=== PATIENT | female | born 1935 | race Caucasian/White ===

== ENCOUNTER → 2020-08-04 12:33 | Outpatient (BNVA) | payer MEDICARE, SELFPAY | PROVIDERS: Visit Provider Physician Assistant | DX: M17.0 Bilateral primary osteoarthritis of knee (principal) | CPT/HCPCS: 20610; 99212; J1040 ==

== ENCOUNTER 2020-09-16 14:59 | Outpatient (REF) | payer MEDICARE, SELFPAY ==
[2020-09-16 15:43] LABS: MANUAL DIFF FLAG NO
[2020-09-16 15:46] LABS: Basophils Percent Auto 0.4 % (0-2); Eosinophils Percent Auto 0.3 % (0-4); Hematocrit 37.2 % (37-47); Hemoglobin 11.8 g/dl (12.0-16.0); Imm Gran Abs Auto 0.06 X10*3/uL (0.00-0.03); Imm Gran Pct Auto 0.9 % (0.0-0.4); Lymphocytes Absolute Auto 1.5 X10*3/uL (1.2-4.9); Lymphocytes Percent Auto 21.8 % (20-40); Mean Corpuscular HGB Conc 31.7 g/dl (31.0-35.0); Mean Corpuscular Hemoglobin 30.3 pg (27.0-33.0); Mean Corpuscular Volume 95.4 fL (80-98); Mean Platelet Volume 11.5 fL (9.4-12.3); Monocytes Absolute Auto 0.4 X10*3/uL (0.1-1.2); Monocytes Percent Auto 5.8 % (2-11); Neutrophils Absolute Auto 4.9 X10*3/uL (2.0-8.3); Neutrophils Percent Auto 70.8 % (45-73); Platelet Count 187 X10*3/uL (160-400); Red Cell Distribution Width 17.7 % (11.0-16.0); White Blood Count 6.9 X10*3/uL (4.8-10.8)
[2020-09-16 16:13] LABS: Alanine Aminotransferase 8 U/L (0-31); Albumin Level 4.1 g/dL (3.5-5.0); Alkaline Phosphatase 39 U/L (39-117); Anion Gap 22 (12-20); Aspartate Amino Transferase 16 U/L (5-31); Bilirubin Total 0.5 mg/dL (0.0-1.0); Blood Urea Nitrogen 66 mg/dL (9-16); C Reactive Protein 0.64 mg/dL (< or = 0.50); Calcium 10.8 mg/dL (8.4-10.2); Carbon Dioxide 24 mmol/L (22-29); Chloride 96 mmol/L (96-108); Estimated Glomerular Filt Rate 12; Glucose Random 107 mg/dL (60-115); Iron 79 mcg/dL (30-160); Lipase 19 U/L (8-78); Percent Iron Saturation 28 % (15-50); Potassium 4.9 mmol/l (3.3-5.1); Sodium 137 mmol/L (135-145); Total Iron Binding Capacity 282 mcg/dL (228-428); Total Protein 6.6 g/dL (6.5-8.0); Unsaturated Iron Binding 203 ug/dL
[2020-09-16 16:30] LABS: Free T4 (Free Thyroxine) 1.25 ng/dL (0.71-1.85); Thyroid Stimulating Hormone 1.37 uIU/mL (0.32-4.0)
== END 2020-09-16 15:00 | disposition home or self-care (01) ==
LOC: HO.LAB 14:59
PROVIDERS: PCP Internal Medicine; Visit Provider Internal Medicine
DX: I12.9 Hypertensive chronic kidney disease with stage 1 through stage 4 chronic kidney disease, or unspecified chronic kidney disease (principal); N18.9 Chronic kidney disease, unspecified; R63.4 Abnormal weight loss; M17.0 Bilateral primary osteoarthritis of knee; D50.9 Iron deficiency anemia, unspecified
CPT/HCPCS: 36415; 80053; 83540; 83690; 84439; 84443; 85025; 86140

== ENCOUNTER 2020-09-24 09:21 | Outpatient (REF) | payer MEDICARE, SELFPAY ==
--- NOTE | 2020-09-24 09:26 | CT_ITS ---
EXAMINATION: CT CHEST, ABDOMEN AND PELVIS WITHOUT CONTRAST CLINICAL INFORMATION: Weight loss. Rule out lesion. COMPARISON: Previous chest x-ray March 2019 and previous abdominal and pelvic CT June 2013 TECHNIQUE: Axial images through the chest, abdomen and pelvis without IV or oral contrast. Sagittal and coronal reconstructions on the technologist workstation were performed. Patient dose 83+2 6 4 mg/cm. FINDINGS: Chest: There is a 2 mm left lower lobe nodule axial image 399 series 9. There is minimal linear scarring or subsegmental atelectasis in the medial left lower lobe adjacent to the spine. The visualized thyroid gland is normal. There is low-attenuation in the pretracheal region. Uncertain whether this represents a cyst, loculated fluid or low-attenuation lymph node. This measures 1.8 x 2 cm axial image 19 series 7 and Hounsfield units without contrast measure 17. No other evidence of adenopathy. There is a large esophageal hernia or intrathoracic stomach. The heart does not appear enlarged. There is moderate to severe coronary artery calcification. There is aortic valve calcification. The thoracic aorta is tortuous but normal in caliber. There is no pleural effusion or pleural thickening. No chest wall mass or enlarged axillary lymph nodes are seen. Review at bone windows demonstrates degenerative changes of the spine and scoliosis and degenerative changes at the shoulder joints. Abdomen and pelvis: There are 2 small low-attenuation lesions high in the dome of the liver and right lobe of the liver adjacent to the gallbladder that are stable and probably represent cysts. Largest measures 1 cm axial image 11 series 3. There is a small calcification seen high in the dome of the liver that is new from previous exam. The liver is otherwise unremarkable. The gallbladder is unremarkable. There is no biliary duct dilatation. The pancreas is unremarkable. The spleen is unremarkable. The adrenal glands are unremarkable. There are 2 low-attenuation right renal lesion probably representing cysts. The kidneys are otherwise unremarkable. The bladder is unremarkable. The uterus appears to have been removed. No pelvic mass is seen. There is diverticulosis of the colon. Small and large bowel is otherwise unremarkable. The appendix is not identified. There is a large esophageal hernia. The stomach is otherwise unremarkable. There is severe atherosclerotic disease. No aneurysm is seen. No ascites or adenopathy is seen. There is a right inguinal hernia containing fat. There is a small umbilical hernia containing fat. There is a severe thoracolumbar scoliosis. There are degenerative changes of the spine and hip joints. No fracture or bone lesion is seen. CT/CT abdomen pelvis wo con IMPRESSION: Chest: Small left lower lobe pulmonary nodule and left lower lobe linear scarring or subsegmental atelectasis. Coronary artery and aortic valve calcification. Large esophageal hernia or intrathoracic stomach. 1.8 x 2 cm low-attenuation lesion in the mediastinum anterior to the trachea. It is uncertain whether this could represent a cyst, loculated fluid or represents cystic degeneration or necrotic mediastinal lymph node. No other adenopathy seen. Abdomen and pelvis: Stable small low-attenuation liver lesions probably representing cysts. Diverticulosis of the colon. Atherosclerotic disease.
== END 2020-09-24 09:22 | disposition home or self-care (01) ==
LOC: HO.CT 09:21
PROVIDERS: Visit Provider Internal Medicine
DX: R63.4 Abnormal weight loss (principal)
CPT/HCPCS: 71250; 74176

== ENCOUNTER 2020-10-10 11:25 | Day surgery (SDC) | payer MEDICARE, SELFPAY ==
--- NOTE | 2020-10-08 14:59 | HO.ANESPROP2 ---
Documented by User: Anahy Lang 10/08/20 15:35 HPI - Anesthesia Eval Consult details Narrative: 85yo F for Upper Endoscopy Significant increase in creat from 04/2020 to 09/2020. T/C with Dr Moran (PCP). He is aware. OK to proceed with Endoscopy. [facility] Past Medical History Medical History GERD (gastroesophageal reflux disease) HTN (hypertension) Osteoarthritis of knees, bilateral Surgical History Surgical History S/P left knee arthroscopy Social History Social History Advance Directives: Yes Advance Directives Information Provided: Yes Advance Directives on File: No Meds Allergies Allergy/AdvReac Type Severity Reaction Status Date / Time cat dander [CAT] Allergy Unknown SNEEZE, Verified 10/10/20 12:11 EYES SWELL UP Home Medications Medication Instructions Recorded Confirmed Type furosemide 20 mg tablet 20 mg PO Q OTHER DAY 07/16/20 History furosemide 40 mg tablet 40 mg PO DAILY 07/16/20 History hydralazine 25 mg tablet 25 mg PO TID 07/16/20 History hydrochlorothiazide 25 mg tablet 25 mg PO DAILY 07/16/20 History omeprazole 20 mg capsule,delayed 20 mg PO DAILY 07/16/20 History release Exam Exam Date and Time: October 08, 2020 1459 Documented by User: Yousif Marx MD 10/10/20 12:16 [facility] Past Medical History Medical History GERD (gastroesophageal reflux disease) HTN (hypertension) Osteoarthritis of knees, bilateral Surgical History Surgical History S/P left knee arthroscopy Social History Social History Advance Directives: Yes Advance Directives Information Provided: Yes Advance Directives on File: No Meds Allergies Allergy/AdvReac Type Severity Reaction Status Date / Time cat dander [CAT] Allergy Unknown SNEEZE, Verified 10/10/20 12:11 EYES SWELL UP Home Medications Medication Instructions Recorded Confirmed Type furosemide 20 mg tablet 20 mg PO Q OTHER DAY 07/16/20 History furosemide 40 mg tablet 40 mg PO DAILY 07/16/20 History hydralazine 25 mg tablet 25 mg PO TID 07/16/20 History hydrochlorothiazide 25 mg tablet 25 mg PO DAILY 07/16/20 History omeprazole 20 mg capsule,delayed 20 mg PO DAILY 07/16/20 History release Exam Airway Mallampati Class: III TM Dist: <=3cm Neck ROM: Full Denture: Upper and Lower Heart: RRR Lungs: NL Assessment and Plan Assessment Anesthesia Assessment: Anesthesia Plan Discussed and Chart Reviewed (Last lab showed K of 4.9, rhythm unremarkable. Cleared by nephrology and PCP per patient report and preop note.) Final Anesthetic Review NPO: Yes ASA Class: III Final Preanesthetic Review: No Changes in Pt Med Stat, Meds/Allgs Chart Reviewed, Consent Obtained/Reviewed and Anes Risks/Benef Reviewed Patient Risk: High Procedure Risk: Low Anesthetic Plan Anesthetic Plan: MAC: Disposition: Standard PACU
[2020-10-10 12:12] VITALS: BP 147/83; PULSE 83; RESP 18; TEMP 37.6; O2SAT 98; BMI 22.9
[2020-10-10 12:50] VITALS: BP 120/65; PULSE 74; RESP 20; TEMP 36.3; O2SAT 100
--- NOTE | 2020-10-10 12:53 | PM.OP ---
Brief Operative Note Date of Service: 10/10/20 Pre-op diagnosis: Early satiety, Abnormal CT of stomach Post-op diagnosis: other (Esophageal stricture, Hiatal hernia) Procedure: EGD with Balloon dilation of esophageal stricture Surgeon: Nixon Thorpe Anesthesia: MAC Estimated blood loss (mL): 4.0 Pathology: none sent Condition: stable Disposition: PACU
[2020-10-10 13:05] VITALS: BP 144/73; PULSE 68; RESP 18; O2SAT 95
--- NOTE | 2020-10-10 13:09 | OP_ITS ---
SURGEON: Nixon Thorpe MD INDICATIONS: Full consent has been obtained from her for this, including risks of bleeding and perforation. PREOPERATIVE DIAGNOSIS: POSTOPERATIVE DIAGNOSIS: PROCEDURE PERFORMED: Esophagogastroduodenoscopy with balloon dilation of esophageal stricture at gastroesophageal junction. ESTIMATED BLOOD LOSS: COMPLICATIONS: ANESTHESIA: Monitored anesthesia care. ASSISTANTS: SPECIMENS: PREOPERATIVE DIAGNOSES: Dysphagia and abnormal CAT scan of stomach. POSTOPERATIVE DIAGNOSES: Dysphagia and abnormal CAT scan of stomach, hiatal hernia, esophageal stricture. DESCRIPTION OF PROCEDURE: The patient was placed in the left lateral decubitus position. The Olympus video gastroscope was passed in the posterior oropharynx and upper esophagus under direct vision. The scope was passed slowly into the distal esophagus. The distal esophagus was somewhat tortuous. The gastroesophageal junction was seen at approximately 26 cm and did appear narrowed. The scope was able to enter the stomach with some gentle pressure. There did appear to be a stricture at this level. There was no mass. There was a large hiatal hernia. The diaphragmatic indentation was seen at approximately 38 cm. The hiatal hernia mucosa appeared normal. The scope was advanced to the pylorus and duodenum cannulated to the descending portion. The duodenum including the bulb appeared normal without mass or ulceration. The scope was withdrawn back in the stomach. The gastric antrum and body appeared normal with good peristalsis. The scope was retroflexed visualizing the proximal stomach carefully, which appeared normal, without any sign of mass or ulceration. The scope was straightened out and withdrawn back into the esophagus. I did use a [employer] incremental balloon to dilate the gastroesophageal junction with a 15 mm to a 16.5 mm balloon at the recommended pressure for approximately 30 seconds. Post dilation, there was heme noted and some disruption of the stricture. It was definitely easier to pass the scope past this. The scope was withdrawn through the esophagus. The esophageal mucosa had some changes of some erythema, but no erosions or ulceration. Again, the esophagus was somewhat tortuous. The scope was withdrawn from the patient. She tolerated the procedure well and was returned to recovery area in stable condition. IMPRESSION: 1. Distal esophageal stricture, status post balloon dilation. 2. Large hiatal hernia. PLAN: The patient will continue her omeprazole, but I shall give her a new prescription to use it twice a day. The main concern would be the findings on the CAT scan with the thoracic stomach and whether or not today's procedure will help her eat better. If it does not, then I think the next step could be consideration for surgical repair of the thoracic stomach. She was advised not to use any aspirin and NSAIDs long-term. This has been discussed with her son. She will be seen in followup as well. MD CARITO Uriarte/LASHANDA / [id number] MTDD
[2020-10-10 13:17] VITALS: BP 142/80; PULSE 62; RESP 18; O2SAT 97
[2020-10-10 13:32] VITALS: TEMP 37.5
== END 2020-10-10 13:55 | disposition home or self-care (01) ==
PROVIDERS: PCP Internal Medicine; Visit Provider Internal Medicine
PROC: 0DJ08ZZ Inspection of Upper Intestinal Tract, Via Natural or Artificial Opening Endoscopic (ICD-10-PCS; CPT 43235; principal; 2020-10-10 12:30)
DX: K22.2 Esophageal obstruction (principal); K44.9 Diaphragmatic hernia without obstruction or gangrene; R63.4 Abnormal weight loss; I10 Essential (primary) hypertension; Z79.899 Other long term (current) drug therapy
CPT/HCPCS: 43249; C1726

== ENCOUNTER 2020-10-24 10:30 | Outpatient (REF) | payer MEDICARE, SELFPAY ==
--- NOTE | ~2020-10-24 | FL_ITS ---
FL BARIUM SWALLOW CLINICAL INFORMATION: Dysphasia. COMPARISON: Upper GI study 03/16/2019. TECHNIQUE: Barium swallow examination is performed using fluoroscopic evaluation in addition to multiple fluoroscopic spot views. The patient is imaged both upright and prone and using both thick and thin sulfate along with effervescent granules. Fluoroscopy time: 0.4 minutes DAP: 0.556 Gycm2 Images: 15 FINDINGS: The patient could not tolerate this exam. Presbyesophagus similar to the previous examination. Nondiagnostic assessment of esophageal contour and nondiagnostic assessment for mass lesions or ulcerations. The patient was unable to tolerate barium swallows could not stand without support. FL/FL barium swallow IMPRESSION: Nondiagnostic barium swallow. The patient could not tolerate this study.
== END 2020-10-24 10:31 | disposition home or self-care (01) ==
LOC: HO.XRAY 10:30
PROVIDERS: Visit Provider Internal Medicine
DX: R13.10 Dysphagia, unspecified (principal); K21.9 Gastro-esophageal reflux disease without esophagitis; R68.81 Early satiety; K44.9 Diaphragmatic hernia without obstruction or gangrene; R93.5 Abnormal findings on diagnostic imaging of other abdominal regions, including retroperitoneum
CPT/HCPCS: 74220

== ENCOUNTER 2020-11-09 15:20 | Inpatient (IN) | payer MEDICARE, SELFPAY ==
[2020-11-09 15:25] VITALS: BP 144/92; PULSE 88; RESP 16; TEMP 36.3; O2SAT 98; BMI 22.4
--- NOTE | 2020-11-09 17:01 | ECG_ITS ---
Test Reason : ABDOMINAL PAIN Blood Pressure : / mmHG Vent. Rate : 075 BPM Atrial Rate : 075 BPM P-R Int : 138 ms QRS Dur : 090 ms QT Int : 392 ms P-R-T Axes : -01 034 140 degrees QTc Int : 437 ms Normal sinus rhythm Nonspecific ST-T changes Abnormal ECG When compared with ECG of 07-MAR-2019 15:34, Nonspecific T wave abnormality now evident in Lateral leads Referred By: Vivek Doran Electronically Signed By:Royce Gagnon
--- NOTE | 2020-11-09 17:03 | ED.GENADULT ---
HPI - General Adult General Chief complaint: General Medical Stated complaint: abdominal pain, lethargy Time Seen by Provider: 11/09/20 16:57 Source: patient Mode of arrival: ambulatory Limitations: no limitations History of Present Illness HPI narrative: Patient with history of large paraesophageal hernia unable to eat much since 04/2020 has lost about 50 lb since then whenever she eats anything she vomits sent by patient marriage and family therapist Dr. Thorpe for possible surgery patient had CT scan as outpatient which confirms the findings patient denies any abdominal pain no fever no chills no urinary symptoms no abdominal distension Related Data Home Medications Medication Instructions Recorded Confirmed hydralazine 1 tab PO TID 11/09/20 11/09/20 lisinopril 1 tab PO BID 11/09/20 11/09/20 omeprazole 1 cap PO BID 11/09/20 11/09/20 Allergies Allergy/AdvReac Type Severity Reaction Status Date / Time cat dander [CAT] Allergy Unknown SNEEZE, Verified 10/10/20 12:11 EYES SWELL UP Review of Systems Review of Systems: Constitutional : ++ Weight loss, No Fever, No Chills ENT/Mouth : No sore throat, No Rhinorrhea Eyes: No Eye Pain, No Swelling Cardiovascular : No Chest Pain, no palpitations Respiratory : No Cough, No Sputum, no shortness of breath Gastrointestinal : ++ Nausea, ++ Vomiting, No Diarrhea, No abdominal Pain, no black stools Genitourinary : No Dysuria, No Urinary Frequency Musculoskeletal : No joint pain, No Myalgias, No Joint Swelling Skin : No Skin Lesions, No rash Neuro : No Weakness, No Numbness, No Dizziness, No Headache Psych : No Anxiety/Panic, No Depression Heme/Lymph: No Bruising, No Lymphadenopathy Endocrine : No Polyuria, No Polydipsia All other systems reviewed and are negative PMF Past Medical History Medical History GERD (gastroesophageal reflux disease) HTN (hypertension) Lower extremity edema Osteoarthritis of knees, bilateral Skin lesions Surgical History History of hysterectomy History of nasal surgery S/P left knee arthroscopy Family History Family History Father Mother Social History Social History Alcohol intake: never Smoking Status: Never smoker Use of substances other than those prescribed or required for medical reasons: No Advance Directives: No Advance Directives Information Provided: No Advance Directives Date on File: 10/10/20 Physical Exam Vital Signs: Vital Signs: Last Vital Signs Temp 96.7 F L 11/09/20 21:48 Pulse 72 11/09/20 21:48 Resp 18 11/09/20 21:48 BP 177/89 H 11/09/20 21:48 Pulse Ox 98 11/09/20 21:48 Body Mass Index 22.4 Const: General: comfortable and no acute distress Nutritional Appearance: thin Orientation/consciousness: patient oriented x3 HENMT: Head: Yes normal to inspection, Yes normocephalic and Yes atraumatic Eyes: General: appearance normal, both eyes and all related structures Conjunctivae: conjunctivae normal Sclerae: sclerae normal Neck: Neck: Yes normal visual inspection Chest: Chest palpation & inspection: normal palpation of entire chest wall Resp: Effort & Inspection: normal respiratory effort Auscultation: clear to auscultation bilaterally Cardio: Jugular venous distension: no JVD Palpation: normal PMI Rate: regular rate Rhythm: regular rhythm Heart sounds: S1 normal heart sound present and S2 normal heart sound present GI: Inspection: Yes normal to inspection Palpation (GI): Soft to palpation and nontender Auscultation: normal bowel sounds : General: Yes no CVA tenderness Back/Spine/Pelvis: Back: no CVA tenderness Thoracic/Lumbar Spine: thoracic and lumbar spine normal to inspection Skin: General skin exam: no rashes or lesions noted Neuro: General: patient oriented x3, no focal motor deficits and CN's II-XI intact bilaterally Extrem: General: Yes full ROM, Yes normal gait and No pedal edema Medical Decision Making MDM Narrative Medical decision making narrative: Patient with esophageal hernia with severe nausea and vomiting unable to hold down food and with weight loss case discussed with Dr. Thorpe who is patient's marriage and family therapist advised patient to be admitted IV hydration consult Dr. Lewis surgeon for surgery for the esophageal hernia Lab Data Lab results reviewed: Yes I reviewed the patient's lab results. Result diagrams: 11/09/20 17:09 11/09/20 17:09 Labs: Lab Results 03/03/2511/09/20 11/09/20 Range/Units 17:09 17:09 17:09 WBC 5.1 (4.8-10.8) X10*3/uL RBC 3.25 L (4.20-5.50) X10*6/uL Hgb 10.8 L (12.0-16.0) g/dl Hct 32.1 L (37-47) % MCV 98.8 H (80-98) fL MCH 33.2 H (27.0-33.0) pg MCHC 33.6 (31.0-35.0) g/dl RDW 17.6 H (11.0-16.0) % Plt Count 81 L D (160-400) X10*3/uL MPV 11.8 (9.4-12.3) fL Immature Gran % (Auto) 1.4 H (0.0-0.4) % Neut % (Auto) 71.0 (45-73) % Lymph % (Auto) 24.1 (20-40) % [place] % (Auto) 3.1 (2-11) % Eos % (Auto) 0.2 (0-4) % Baso % (Auto) 0.2 (0-2) % Lymph # (Auto) 1.2 (1.2-4.9) X10*3/uL [place] # (Auto) 0.2 (0.1-1.2) X10*3/uL Eos # (Auto) 0.0 (0.0-0.4) X10*3/uL Baso # (Auto) 0.0 (0.0-0.2) X10*3/uL Abs Immat Gran (auto) 0.07 H (0.00-0.03) X10*3/uL Absolute Neuts (auto) 3.6 (2.0-8.3) X10*3/uL Absolute Nucleated RBC 0.030 H (0.0-0.012) X10*3/uL Nucleated RBC % (auto) 0.6 H (0.0-0.2) /100WBC Smear Tech's Comments VERIFIED PT 14.2 H (10.8-13.0) SEC INR 1.2 H (0.9-1.1) Sodium 136 (135-145) mmol/L Potassium 4.7 (3.3-5.1) mmol/L Chloride 98 (96-108) mmol/L Carbon Dioxide 20 L (22-29) mmol/L Anion Gap 23 H (12-20) BUN 36 H (9-16) mg/dL Creatinine 1.75 H (0.5-1.4) mg/dL Estim Creat Clear Calc 15.3 Estimated GFR 28 Random Glucose 97 (60-115) mg/dL Calcium 10.4 H (8.4-10.2) mg/dL Magnesium 1.6 (1.6-2.6) mg/dL Total Bilirubin 0.9 (0.0-1.0) mg/dL Direct Bilirubin 0.4 (0.0-0.5) mg/dL AST 13 (5-31) U/L ALT < 6 (0-31) U/L Alkaline Phosphatase 28 L (39-117) U/L Total Protein 6.6 (6.5-8.0) g/dL Albumin 4.1 (3.5-5.0) g/dL Lipase 22 (8-78) U/L COVID-19 ([facility]) (Negative) COVID-19 Clin Com 11/09/20 11/09/20 Range/Units 17:09 17:09 WBC (4.8-10.8) X10*3/uL RBC (4.20-5.50) X10*6/uL Hgb (12.0-16.0) g/dl Hct (37-47) % MCV (80-98) fL MCH (27.0-33.0) pg MCHC (31.0-35.0) g/dl RDW (11.0-16.0) % Plt Count (160-400) X10*3/uL MPV (9.4-12.3) fL Immature Gran % (Auto) (0.0-0.4) % Neut % (Auto) (45-73) % Lymph % (Auto) (20-40) % [place] % (Auto) (2-11) % Eos % (Auto) (0-4) % Baso % (Auto) (0-2) % Lymph # (Auto) (1.2-4.9) X10*3/uL [place] # (Auto) (0.1-1.2) X10*3/uL Eos # (Auto) (0.0-0.4) X10*3/uL Baso # (Auto) (0.0-0.2) X10*3/uL Abs Immat Gran (auto) (0.00-0.03) X10*3/uL Absolute Neuts (auto) (2.0-8.3) X10*3/uL Absolute Nucleated RBC (0.0-0.012) X10*3/uL Nucleated RBC % (auto) (0.0-0.2) /100WBC Smear Tech's Comments PT (10.8-13.0) SEC INR (0.9-1.1) Sodium (135-145) mmol/L Potassium (3.3-5.1) mmol/L Chloride (96-108) mmol/L Carbon Dioxide (22-29) mmol/L Anion Gap (12-20) BUN (9-16) mg/dL Creatinine (0.5-1.4) mg/dL Estim Creat Clear Calc Estimated GFR Random Glucose (60-115) mg/dL Calcium 10.6 H (8.4-10.2) mg/dL Magnesium (1.6-2.6) mg/dL Total Bilirubin (0.0-1.0) mg/dL Direct Bilirubin (0.0-0.5) mg/dL AST (5-31) U/L ALT (0-31) U/L Alkaline Phosphatase (39-117) U/L Total Protein (6.5-8.0) g/dL Albumin (3.5-5.0) g/dL Lipase (8-78) U/L COVID-19 ([facility]ACE) Negative (Negative) COVID-19 Clin Com See Note ECG Data Attestation: I personally reviewed and interpreted this ECG as follows: Interpretation: Normal sinus rhythm heart rate 75 beats per minute normal axis lower intervals nonspecific ST T wave changes impression no acute ischemia Discharge Plan Discharge Clinical Impression: Adult failure to thrive, Esophageal hernia Patient Disposition: Admitted As Inpatient Interventions: Admission Worksheet (ED) Last Done: 11/09/20 21:41 Discharge Date/Time: 11/09/20 21:41
[2020-11-09] MEDS: 0.9 % Sodium Chloride 1,000 ML 999 ML IVCONT (17:18)
[2020-11-09] MEDS: ondansetron HCL 4 MG/2 ML VIAL IVPUSH (17:19)
[2020-11-09] MEDS: Famotidine/PF 20 MG/2 ML VIAL IVPUSH (17:19)
--- NOTE | 2020-11-09 17:22 | PC.NURSE ---
pt from home, lives alone. Son brought pt in because she has been weak, vomiting and had poor PO intake. Pt states she has lost 50 LBS since April, states she has been increasingly unable to tolerate any PO intake, food or fluid. IV established, she has been medicated for nausea and vomiting.
[2020-11-09 17:24] LABS: Basophils Percent Auto 0.2 % (0-2); Eosinophils Percent Auto 0.2 % (0-4); MANUAL DIFF FLAG SCAN; Mean Platelet Volume 11.8 fL (9.4-12.3); Monocytes Absolute Auto 0.2 X10*3/uL (0.1-1.2); PLT CLUMP 1; SCAN SMEAR FLAG 1
[2020-11-09 17:25] VITALS: BP 148/87; PULSE 70; RESP 16; O2SAT 99
[2020-11-09 17:27] LABS: Hematocrit 32.1 % (37-47); Hemoglobin 10.8 g/dl (12.0-16.0); Imm Gran Abs Auto 0.07 X10*3/uL (0.00-0.03); Imm Gran Pct Auto 1.4 % (0.0-0.4); Lymphocytes Absolute Auto 1.2 X10*3/uL (1.2-4.9); Lymphocytes Percent Auto 24.1 % (20-40); Mean Corpuscular HGB Conc 33.6 g/dl (31.0-35.0); Mean Corpuscular Hemoglobin 33.2 pg (27.0-33.0); Mean Corpuscular Volume 98.8 fL (80-98); Monocytes Percent Auto 3.1 % (2-11); NRBC Pct Auto 0.6 /100WBC (0.0-0.2); Neutrophils Absolute Auto 3.6 X10*3/uL (2.0-8.3); Red Blood Count 3.25 X10*6/uL (4.20-5.50); Red Cell Distribution Width 17.6 % (11.0-16.0); White Blood Count 5.1 X10*3/uL (4.8-10.8)
[2020-11-09 17:28] LABS: Platelet Count 81 X10*3/uL (160-400)
[2020-11-09 17:35] LABS: INTERNATIONAL NORM RATIO 1.2 (0.9-1.1); Prothrombin Time 14.2 SEC (10.8-13.0)
[2020-11-09 17:41] LABS: COVID-19 Test Negative (Negative)
[2020-11-09 17:52] LABS: Calcium 10.6 mg/dL (8.4-10.2)
[2020-11-09 18:25] LABS: SLIDE REVIEW VERIFIED
--- NOTE | 2020-11-09 18:44 | PC.NURSE ---
This RN calling the lab due to ordered bloodwork from 1700. Per lab, results in 10-15 minutes.
[2020-11-09 19:07] VITALS: BP 145/81; PULSE 65; RESP 20; O2SAT 98
[2020-11-09 19:14] LABS: Alanine Aminotransferase < 6 U/L (0-31); Albumin Level 4.1 g/dL (3.5-5.0); Alkaline Phosphatase 28 U/L (39-117); Anion Gap 23 (12-20); Aspartate Amino Transferase 13 U/L (5-31); Bilirubin Direct 0.4 mg/dL (0.0-0.5); Bilirubin Total 0.9 mg/dL (0.0-1.0); Blood Urea Nitrogen 36 mg/dL (9-16); Calcium 10.4 mg/dL (8.4-10.2); Carbon Dioxide 20 mmol/L (22-29); Chloride 98 mmol/L (96-108); Creatinine Clr Calc Pharmacy 15.3; Estimated Glomerular Filt Rate 28; Glucose Random 97 mg/dL (60-115); Lipase 22 U/L (8-78); Magnesium 1.6 mg/dL (1.6-2.6); Potassium 4.7 mmol/L (3.3-5.1); Sodium 136 mmol/L (135-145); Total Protein 6.6 g/dL (6.5-8.0)
--- NOTE | 2020-11-09 19:41 | PC.NURSE ---
This RN updating ruchi Cordoba on pt condition and plan of care. Per pt, okay to update son.
[2020-11-09 20:54] VITALS: BP 153/78; PULSE 64; RESP 15; TEMP 36.4; O2SAT 98
--- NOTE | 2020-11-09 21:18 | P.HPHOSP_ITS ---
History of Present Illness Date of Service: 11/09/20 Chief Complaint: Nausea/poor oral intake 85-year-old female with a past medical history of hypertension, GERD, osteoarthritis, MGUS presented to the hospital with a chief complaint of Will oral intake. Most of the history obtained from the patient, patient is on the not-healthcare proxy, ER physician, records. Reportedly patient has been having decreased oral intake since April of 2020. Patient lives alone and fairly independent of her activities. Patient denied any chest pain palpitations lightheadedness dizziness. Patient is on mentions that because of her decreased oral intake she has lost 50 lb of weight. Patient had an EGD as outpatient with Dr. matos with 2 week ago. Reportedly outpatient imaging showed large paraesophageal hernia; Dr. Matos asked her to come to the hospital for evaluation by General surgery for possible surgery. Denies any fever chills cough. Review of all other systems is negative except mentioned above ER course: Per ER physician patient noted to be dehydrated. Given gentle fluids. Admitted to the hospital impression of failure to thrive. [facility] Medical History GERD (gastroesophageal reflux disease) HTN (hypertension) Lower extremity edema Osteoarthritis of knees, bilateral Skin lesions Family History Father Mother Surgical History History of hysterectomy History of nasal surgery S/P left knee arthroscopy Social History Household Members: None Housing: House Do you presently have visiting nurse or other home services: No Alcohol intake: never Smoking Status: Never smoker Use of substances other than those prescribed or required for medical reasons: No Currently Displaying Signs/Symptoms of Drug Intoxication Withdrawal: No Any prior treatment program specific to substance use: No Have you been hit, kicked, punched, or otherwise hurt by someone within the past year? If so, by whom?: No Do you feel safe in your current relationship?: No Current Relationship Is there a partner from a previous relationship who is making you feel unsafe now?: No Are you made to feel afraid or neglected: No Advance Directives: No Advance Directives Information Provided: No Advance Directives Date on File: 10/10/20 Do you have thoughts of harming others: None Do you have a plan to hurt others: No Plan Recently lost weight without trying: Yes Meds Allergies Allergy/AdvReac Type Severity Reaction Status Date / Time cat dander [CAT] Allergy Unknown SNEEZE, Verified 10/10/20 12:11 EYES SWELL UP Active Medications: Current Medications Generic Name Dose Route Start Last Admin Trade Name Freq PRN Reason Stop Dose Admin Hydralazine HCl 50 mg 11/10/20 09:00 Hydralazine Hcl 50 Mg Tablet PO TID [facility] Protocol Dextrose/Sodium Chloride 1,000 mls @ 100 mls/hr 11/09/20 21:15 D51/2ns IVCONT .Q10H [facility] Lisinopril 20 mg 11/10/20 09:00 Lisinopril 20 Mg Tablet PO BID [facility] Protocol Ondansetron HCl 4 mg 11/09/20 21:09 Ondansetron Hcl 4 Mg/2 Ml Vial IVPUSH Q8H PRN Nausea and Vomiting Pantoprazole Sodium 40 mg 11/10/20 06:30 Pantoprazole Sodium 40 Mg/10 Ml Vial IVPUSH BID@0630,1630 [facility] Sodium Chloride 3 ml 11/10/20 00:00 0.9 % Sodium Chloride Flush 3 Ml Syringe IVFLUSH QSHIFT [facility] Home Medications Medication Instructions Recorded Confirmed Last Taken Type hydralazine 1 tab PO TID 11/09/20 11/09/20 Unknown History lisinopril 1 tab PO BID 11/09/20 11/09/20 Unknown History omeprazole 1 cap PO BID 11/09/20 11/09/20 Unknown History Physical Exam Vital Signs and Narrative: Vital Signs: Last Vital Signs Temp 97.5 F 11/09/20 20:54 Pulse 64 11/09/20 20:54 Resp 15 11/09/20 20:54 BP 153/78 H 11/09/20 20:54 Pulse Ox 98 11/09/20 20:54 Body Mass Index 22.4 Gen: Appears be in no acute distress HEENT: NCAT, Moist mucosa. Pulmonary: Vesicular breath sounds, fair air entry CVS: Normal S1-S2 Abdomen: BS+, Soft, Nontender Extremities: Warm well perfused Neuro: Alert and awake. Results Labs CBC and Chem 7: 11/09/20 17:09 11/09/20 17:09 Labs: Laboratory Results - last 24 hr 11/09/20 11/09/20 11/09/20 17:09 17:09 17:09 MCV 98.8 H MCH 33.2 H MCHC 33.6 RDW 17.6 H Plt Count 81 L D MPV 11.8 Immature Gran % (Auto) 1.4 H Neut % (Auto) 71.0 Lymph % (Auto) 24.1 [place] % (Auto) 3.1 Eos % (Auto) 0.2 Baso % (Auto) 0.2 Lymph # (Auto) 1.2 [place] # (Auto) 0.2 Eos # (Auto) 0.0 Baso # (Auto) 0.0 Abs Immat Gran (auto) 0.07 H Absolute Neuts (auto) 3.6 Absolute Nucleated RBC 0.030 H Nucleated RBC % (auto) 0.6 H Smear Tech's Comments VERIFIED PT 14.2 H INR 1.2 H Anion Gap 23 H Estim Creat Clear Calc 15.3 Estimated GFR 28 Random Glucose 97 Calcium 10.4 H Magnesium 1.6 Total Bilirubin 0.9 Direct Bilirubin 0.4 AST 13 ALT < 6 Alkaline Phosphatase 28 L Total Protein 6.6 Albumin 4.1 Lipase 22 COVID-19 (JACE) COVID-[employer] 11/09/20 11/09/20 17:09 17:09 MCV MCH MCHC RDW Plt Count MPV Immature Gran % (Auto) Neut % (Auto) Lymph % (Auto) [place] % (Auto) Eos % (Auto) Baso % (Auto) Lymph # (Auto) [place] # (Auto) Eos # (Auto) Baso # (Auto) Abs Immat Gran (auto) Absolute Neuts (auto) Absolute Nucleated RBC Nucleated RBC % (auto) Smear Tech's Comments PT INR Anion Gap Estim Creat Clear Calc Estimated GFR Random Glucose Calcium 10.6 H Magnesium Total Bilirubin Direct Bilirubin AST ALT Alkaline Phosphatase Total Protein Albumin Lipase COVID-19 ([facility]ACE) Negative COVID-[facility] Com See Note Assessment and Plan (1) Esophageal hernia: Status: Acute 85-year-old female with a past medical history of hypertension, osteoarthritis, GERD, MGUS presented to the hospital with a chief complaint of nausea/poor oral intake. Admitted for failure to thrive. Failure to thrive: In the setting of esophageal hernia; IV fluids. Supportive care. PT/OT in eventually. Protein calorie malnutrition: Reportedly patient was 50 lb. Weight. Per family patient reluctant to drink ensures. Will consult Nutrition. IV fluids for now. May need parenteral nutrition eventually. Paraesophageal hernia: NPO for now. IV ppi. Gastroenterology consult- recommended, general surgery consult for Dr. Lewis for possible considerations for surgery. Hypertension: Continue home medications. DVT prophylaxis: Subcu heparin Code status: Full code. Discussed with the patient's healthcare proxy-muna wilks's son Burton.
--- NOTE | 2020-11-09 21:30 | PC.NURSE ---
Report given to MS RN. Plan to hang IVF, rad technologist preparing for transport to floor.
[2020-11-09] MEDS: Dextrose 5 % and 0.45 % NaCl 1,000 ML 100 ML IVCONT (21:35)
[2020-11-09 21:48] VITALS: BP 177/89; PULSE 72; RESP 18; TEMP 35.9; O2SAT 98
[2020-11-09] MEDS: hydrALAZINE HCl 10 MG TABLET PO (22:41)
[2020-11-09 23:03] VITALS: BP 160/88; PULSE 73; RESP 16; TEMP 36.4; O2SAT 98
[2020-11-10] VITALS (8 sets, daily range): BP systolic 116–151; BP diastolic 73–87; PULSE 64–72; RESP 15–20; TEMP 36–36.6; O2SAT 94–99; BMI 22.4
[2020-11-10 00:04] LABS: Glucose Urine UA NEG (NEG); Leukocyte Esterase Urine 2+ (NEG); Nitrite Urine NEG (NEG); PH 5.5 (5.0-8.0); Specific Gravity - Urine 1.025 (1.005-1.025); UACC Culture Trigger YES; Urine Blood TRACE (NEG); Urine Ketones 15 MG/DL (NEG); Urine Protein NEG (NEG-TRACE)
[2020-11-10 00:05] LABS: Appearance Urine CLEAR; Color Urine YELLOW
[2020-11-10 00:29] LABS: Bacteria Urine 3+ /LPF; Squamous Epithelial Cell Urine TRACE /LPF; WBC Urine 30-49 /HPF (0-4)
[2020-11-10 06:07] LABS: MANUAL DIFF FLAG NO
[2020-11-10] MEDS: Pantoprazole Sodium 40 MG/10 ML VIAL IVPUSH (06:15)
[2020-11-10 06:43] LABS: Eosinophils Absolute Auto 0.1 X10*3/uL (0.0-0.4); Eosinophils Percent Auto 2.5 % (0-4); Hematocrit 24.8 % (37-47); Hemoglobin 8.3 g/dl (12.0-16.0); Imm Gran Abs Auto 0.02 X10*3/uL (0.00-0.03); Imm Gran Pct Auto 0.7 % (0.0-0.4); Lymphocytes Percent Auto 34.7 % (20-40); Mean Corpuscular HGB Conc 33.5 g/dl (31.0-35.0); Mean Corpuscular Hemoglobin 33.1 pg (27.0-33.0); Mean Corpuscular Volume 98.8 fL (80-98); Mean Platelet Volume 11.4 fL (9.4-12.3); Monocytes Absolute Auto 0.1 X10*3/uL (0.1-1.2); Monocytes Percent Auto 4.7 % (2-11); NRBC Pct Auto 0.7 /100WBC (0.0-0.2); Neutrophils Absolute Auto 1.6 X10*3/uL (2.0-8.3); Neutrophils Percent Auto 57.4 % (45-73); Red Blood Count 2.51 X10*6/uL (4.20-5.50); Red Cell Distribution Width 17.3 % (11.0-16.0); White Blood Count 2.8 X10*3/uL (4.8-10.8)
[2020-11-10 06:51] LABS: Blood Urea Nitrogen 31 mg/dL (9-16); Calcium 8.8 mg/dL (8.4-10.2); Estimated Glomerular Filt Rate 36; Glucose Random 110 mg/dL (60-115); Magnesium 1.5 mg/dL (1.6-2.6)
[2020-11-10 07:06] LABS: Anion Gap 12 (12-20); Carbon Dioxide 23 mmol/L (22-29); Chloride 104 mmol/L (96-108); Potassium 4.1 mmol/L (3.3-5.1); Sodium 135 mmol/L (135-145)
[2020-11-10 07:09] LABS: Platelet Count 48 X10*3/uL (160-400)
[2020-11-10 07:18] LABS: Folate 1.6 ng/mL (> or = 4.0); Vitamin B12 < 146 pg/mL (200-900)
[2020-11-10] MEDS: Dextrose 5 % and 0.45 % NaCl 1,000 ML 100 ML IVCONT (07:39)
[2020-11-10] MEDS: Cyanocobalamin (Vitamin B-12) 1,000 MCG/ML VIAL 1000 MCG IM (08:58)
[2020-11-10] MEDS: ondansetron HCL 4 MG/2 ML VIAL IVPUSH (09:22)
--- NOTE | 2020-11-10 09:51 | MHC.CM.PN ---
PATIENT LIVES ALONE. SHE HAS A ROLLATOR IN THE HOME. NO [facility] OR [facility] SHE WOULD LIKE TO RETURN HOME AT DISCHARGE. FAMILY LIVES NEARBY AND IS ACTIVE IN PATIENT'S LIFE. SHE DOES HAVE A HCP THAT NAMES HER OLDEST SON, SONIA, PRIMARY AGENT. COPY REQUESTED. IMM 11/10 IN CHART
--- NOTE | 2020-11-10 10:12 | P.CDIC_ITS ---
CDI Concurrent Query Service Date: 11/10/20 Documentation Clarification: Please clarify if you are treating a proba ble/suspected/likely or confirmed: Protein calorie malnutrition, mild, moderate or severe Please specify if known Provider Response: Mild Protein-Calorie Malnutrition PLEASE DO NOT DELETE/MODIFY EXISTING CONTENT Additional information is needed in order to code to the highest accuracy and appropriate Severity of Illness (SOI). Please clarify the information noted below in your progress notes and discharge summary. Risk Factors/Clinical Indicators/Treatments Assessment: protein calorie malnutrition, decreased oral intake, lost 50lbs weight, ftt in setting of esophageal hernia. bmi 22.4 CDS: Shellie Adan CCS, CDIS Contact Number: [phone] Please Review the information above and exercise your independent professional judgment in responding to the query. If you concur, pleas document in the PROGRESS NOTES and DISCHARGE SUMMARY. If you do not agree with the query, please document in the query above. THIS QUERY IS PART OF THE PERMANENT MEDICAL RECORD
--- NOTE | 2020-11-10 10:36 | PC.NURSE ---
Patient unable to swallow morning meds. Crushed pills and placed in applesauce. Patient still unable to swallow medications and began dry heaving. Dr. Mistry made aware. No new orders at this time. Patient has no further complaints at this time.
--- NOTE | 2020-11-10 12:17 | P.CDIC_ITS ---
CDI Concurrent Query Service Date: 11/10/20 Documentation Clarification: Please clarify if you are treating a proba ble/suspected/likely or confirmed: Labs: Hypomagnesemia Please specify if known Provider Response: Other Other Diagnosis: HypoMg PLEASE DO NOT DELETE/MODIFY EXISTING CONTENT Additional information is needed in order to code to the highest accuracy and appropriate Severity of Illness (SOI). Please clarify the information noted below in your progress notes and discharge summary. Risk Factors/Clinical Indicators/Treatments LABS: magnesium 1.5 L magnesium oxyide po 400mg decreased oral intake, ftt, loss of weight CDS: Shellie Adan CCS, CDIS Contact Number: [phone] Please Review the information above and exercise your independent professional judgment in responding to the query. If you concur, pleas document in the PROGRESS NOTES and DISCHARGE SUMMARY. If you do not agree with the query, please document in the query above. THIS QUERY IS PART OF THE PERMANENT MEDICAL RECORD
--- NOTE | 2020-11-10 12:45 | P.PNIM_ITS ---
Subjective Subjective Date of Service: 11/10/20 Physical Exam Vital Signs: Vital Signs: Last Vital Signs Temp 97.3 F 11/10/20 11:08 Pulse 68 11/10/20 11:08 Resp 15 11/10/20 11:08 BP 128/73 11/10/20 11:08 Pulse Ox 98 11/10/20 11:08 Body Mass Index 22.4 Objective Data Current Medications Generic Name Dose Route Start Last Admin Trade Name Freq PRN Reason Stop Dose Admin Cyanocobalamin 500 mcg 11/10/20 09:00 11/10/20 09:30 Cyanocobalamin (Vitamin B-12) 500 Mcg Tablet PO Not Given DAILY [facility] Folic Acid 1 mg 11/10/20 09:00 11/10/20 09:30 Folic Acid 1 Mg Tablet PO Not Given DAILY [facility] Hydralazine HCl 50 mg 11/10/20 09:00 11/10/20 09:31 Hydralazine Hcl 50 Mg Tablet PO Not Given TID [facility] Protocol Dextrose/Sodium Chloride 1,000 mls @ 60 mls/hr 11/09/20 21:15 11/10/20 07:39 D51/2ns IVCONT 100 mls/hr .[id number] [facility] Administration Lisinopril 20 mg 11/10/20 09:00 11/10/20 09:31 Lisinopril 20 Mg Tablet PO Not Given BID [facility] Protocol Magnesium Oxide 400 mg 11/10/20 09:00 11/10/20 09:31 Magnesium Oxide 400 Mg Tablet PO Not Given DAILY [facility] Ondansetron HCl 4 mg 11/09/20 21:09 11/10/20 09:22 Ondansetron Hcl 4 Mg/2 Ml Vial IVPUSH 4 mg Q8H PRN Administration Nausea and Vomiting Pantoprazole Sodium 40 mg 11/10/20 06:30 11/10/20 06:15 Pantoprazole Sodium 40 Mg/10 Ml Vial IVPUSH 40 mg BID@0630,1630 [facility] Administration Sodium Chloride 3 ml 11/10/20 00:00 11/10/20 07:58 0.9 % Sodium Chloride Flush 3 Ml Syringe IVFLUSH Not Given QSHIFT [facility] Labs CBC & Chem 7: 11/10/20 05:49 11/10/20 05:49 Assessment and Plan (1) Esophageal hernia: Status: Acute Assessment and Plan: 85-year-old female with a past medical history of hypertension, osteoarthritis, GERD, MGUS presented to the hospital with a chief complaint of nausea/poor oral intake. Admitted for failure to thrive. Failure to thrive In the setting of esophageal hernia Gentle IV fluids. Supportive care. PT/OT in eventually. Paraesophageal hernia IV ppi Gastroenterology consult- general surgery consult for Dr. Lewis for possible considerations for surgery Hypertension Continue home medications. Mild protein calorie malnutrition Secondary to decreased oral intake Involved kinesiologist Add Ensure Hypomagnesemia Mg of 1.5 Replacement given Acute on chronic anemia Hemoglobin dropped to 8.3 from 10.8 Negative occult blood Seems delusional Continue to monitor Thrombocytopenia Platelets dropped to 48 which seems to be related to IV fluids No bleeding To monitor DVT prophylaxis: Subcu heparin the patient's healthcare proxy-patient's son Burton.
--- NOTE | 2020-11-10 12:51 | MHC.CM.PN ---
PATIENT WITH KIDNEY INJURY. AWAITING G.I. INTERVENTION. POSSIBLE HERNIA
--- NOTE | 2020-11-10 15:26 | MHC.CLN ---
PT IS MALNOURISHED WITH MODERATELY DEPLETED SUBCUTANOUS FAT AND MUSCLE MASS AND 37% SIG WT LOSS X 6 MONTHS RECOMMEND TO LIBERALIZE DIET TO OFFER VARIETY AND INCREASE PO WILL ADD ENSURE CLEAR; PT DISLIKES ENSURE ENLIVE MONITOR PO INTAKE CLOSELY
--- NOTE | 2020-11-10 16:06 | PM.EVENT ---
Event Note Date of Service: 11/10/20 Event Note: GI Consult-Full note dictated Imp: 85 yo female with a symptomatic thoracic stomach with associated significant early satiety, weight loss, and anorexia. Her workup has included a CT scan and upper endoscopy. She was unable to complete an UGI series. She was brought to the hospital yesterday by her family due to progressive weakness and continued UGI symptoms. She denies any abdominal pain, chest pain, vomiting, nor diarrhea. Rec: Supportive care. Surgical evaluation while an inpatient to determine whether she is a candidate for repair of the thoracic stomach/hiatal hernia. She has stated that she wants to eat and feel better, and is agreeable to surgery if it is feasible. This has been discussed at length with the patient and her 2 sons. Thanks.
[2020-11-10] MEDS: Dextrose 5 % and 0.45 % NaCl 1,000 ML 60 ML IVCONT (18:26)
[2020-11-11] VITALS (8 sets, daily range): BP systolic 127–157; BP diastolic 73–88; PULSE 65–75; RESP 15–18; TEMP 36.3–36.9; O2SAT 94–99
[2020-11-11] MEDS: Pantoprazole Sodium 40 MG/10 ML VIAL IVPUSH (05:51)
[2020-11-11 06:45] LABS: Anion Gap 11 (12-20); Blood Urea Nitrogen 22 mg/dL (9-16); Calcium 8.5 mg/dL (8.4-10.2); Carbon Dioxide 20 mmol/L (22-29); Chloride 105 mmol/L (96-108); Creatinine Clr Calc Pharmacy 22.2; Estimated Glomerular Filt Rate 42; Glucose Random 109 mg/dL (60-115); Potassium 3.9 mmol/L (3.3-5.1); Sodium 132 mmol/L (135-145)
[2020-11-11 07:05] LABS: Hematocrit 25.5 % (37-47); Hemoglobin 8.5 g/dl (12.0-16.0); Mean Corpuscular HGB Conc 33.3 g/dl (31.0-35.0); Mean Corpuscular Hemoglobin 34.1 pg (27.0-33.0); Mean Corpuscular Volume 102.4 fL (80-98); Mean Platelet Volume 11.7 fL (9.4-12.3); Platelet Count 55 X10*3/uL (160-400); Red Blood Count 2.49 X10*6/uL (4.20-5.50); Red Cell Distribution Width 17.4 % (11.0-16.0); White Blood Count 2.5 X10*3/uL (4.8-10.8)
--- NOTE | 2020-11-11 09:44 | CONS_ITS ---
DATE OF SERVICE: 11/10/2020 REASON FOR CONSULTATION: Anorexia, early satiety, and large hiatal hernia with component of thoracic stomach. HISTORY OF PRESENT ILLNESS: The patient is an 85-year-old female well known to me from recent evaluations as an outpatient. In late September, she was evaluated for ongoing issues with early satiety, anorexia, and significant weight loss. She had a previous CAT scan that described a thoracic stomach. Subsequent to that, she underwent an upper endoscopy in early October with the finding of a mild distal esophageal stricture which was dilated with a large balloon, although the stricture itself was not causing any significant obstruction based on the endoscopy. She had a torturous esophagus and a large hiatal hernia. There was no evidence of any sign of ulcer disease nor neoplasm. She has been on omeprazole. Since the endoscopy 1 month ago, she has had ongoing issues with the early satiety, some nausea, regurgitation, and continued weight loss. Overall, she has lost about 50 pounds since the onset of this issue last year. Further workup was attempted with a barium swallow and upper GI series, but she could not tolerate that and therefore the procedure was not completed. Due to continued symptoms of the early satiety, poor oral intake, weight loss coupled with progressive weakness and fatigue, she was brought to the ER yesterday by her family and admitted. Today, she denies any abdominal pain. No chest pain. She has had some nausea, but no vomiting. She denies any diarrhea. There has been no evidence of any GI bleeding. MEDICATIONS: At home included hydralazine, lisinopril, and omeprazole. Her medications here include IV Pepcid, folic acid, hydralazine, lisinopril, magnesium, Zofran, IV Protonix. PAST MEDICAL HISTORY: Hypertension. Previous iron deficiency anemia in 2012, for which she underwent an upper endoscopy and colonoscopy. Colonoscopy revealed only small tubular adenomas. Upper endoscopy revealed a large hiatal hernia and minimal gastritis. She does have some renal insufficiency. Recent upper endoscopy as above with a large hiatal hernia and mild distal esophageal stricture that was dilated with a balloon. She denies history of [place], diabetes, stroke, nor lung disease. [facility] [place] followed by Dr. Mcdowell. PAST SURGICAL HISTORY: Surgeries included benign lumpectomy from the breast and complete hysterectomy. SOCIAL HISTORY: She is a and lives by herself, but has 2 sons nearby that help out a great deal. She does not smoke or use any significant amounts of alcohol. FAMILY HISTORY: Noncontributory. REVIEW OF SYSTEMS: CONSTITUTIONAL: She has been feeling weak with associated weight loss and difficulty eating. SKIN: No rash. No pruritus. CARDIAC: No chest pain. PULMONARY: No cough. No hemoptysis. GI: As above. PHYSICAL EXAMINATION: GENERAL: The patient is a pleasant, alert, elderly female, in no distress. SKIN: Warm and dry. Nonjaundiced. NECK: Supple. ABDOMEN: Soft, nondistended, nontender without mass. EXTREMITIES: Without edema. LABORATORY DATA: White blood cell count 2.8, hemoglobin 8.3, platelets 48,000. PT 14.2 with INR 1.2. Normal electrolytes. BUN 31, creatinine 1.4, magnesium 1.5. LFTs, normal. Albumin 4.1, lipase 22. Vitamin B12 low and less than 146 and low folate of 1.6. In September, she had an iron of 79, TIBC of 282, 28% iron saturation. Of note, during her workup for anemia in 2012, she did have normal duodenal biopsies without any evidence of celiac disease. CAT scan of her chest in September revealed a large esophageal hernia and component of a thoracic stomach. IMPRESSION: Given the patient's clinical history, I do feel the component of the thoracic stomach and large hiatal hernia are playing a role in her upper GI complaints of the early satiety, anorexia, nausea, and progressive weight loss. The upper endoscopy was otherwise nonrevealing. She does have her associated anemia, which appears to be multifactorial in relation to nutritional factors and a monoclonal gammopathy. At this point, I would recommend continued supportive care, repletion of her B12 and folate, and surgical evaluation in regard to the thoracic stomach and large hiatal hernia. I do feel this is symptomatic and the main issue contributing to her current problems. As such, I would recommend surgical evaluation while an inpatient and determine whether she is a candidate for any type of surgical repair. She has told me and her family that she wants to eat and feel better, and is agreeable to surgery if this is felt to be feasible. This has been discussed at length with the patient and her sons both today and on previous occasions. Thank you for this consultation. MD CARITO Uriarte/LASHANDA / [id number] MIRIAN
[2020-11-11] MEDS: ondansetron HCL 4 MG/2 ML VIAL IVPUSH ×2 (09:54→21:34)
--- NOTE | 2020-11-11 10:02 | P.PNIM_ITS ---
Subjective Subjective Date of Service: 11/11/20 Interval History: The patient was seen and evaluated this morning Laying in bed, feels comfortable Still complaining of nausea which seems to be responsive to Zofran Denies any fever, chills or shortness of breath No reported other overnight events. Systemic review: No fever, chills or weakness No chest pain, palpitation No shortness of breath or coughing No abdominal pain, reporting dry heaving and nausea No urinary symptoms No any rash or wounds Physical Exam Vital Signs: Vital Signs: Last Vital Signs Temp 98.4 F 11/11/20 08:00 Pulse 71 11/11/20 08:00 Resp 17 11/11/20 08:00 BP 145/74 H 11/11/20 08:00 Pulse Ox 98 11/11/20 08:00 Body Mass Index 22.4 Const: Other: Constitutional : Alert, oriented, not in distress Neck : Normal inspection, Supple Cardiovascular : RRR, S1 S2, no lower extremity edema Respiratory : Good bilateral air entry, no crackles, wheezes or rhonchi Gastrointestinal: soft, lax, Normal bowel sounds, Non tender Skin : Warm/Dry, No rash Neurological : Alert & oriented x3, No focal deficit Objective Data Current Medications Generic Name Dose Route Start Last Admin Trade Name Freq PRN Reason Stop Dose Admin Cyanocobalamin 500 mcg 11/10/20 09:00 11/10/20 09:30 Cyanocobalamin (Vitamin B-12) 500 Mcg Tablet PO Not Given DAILY [facility] Folic Acid 1 mg 11/10/20 09:00 11/10/20 09:30 Folic Acid 1 Mg Tablet PO Not Given DAILY [facility] Hydralazine HCl 50 mg 11/10/20 09:00 11/10/20 21:00 Hydralazine Hcl 50 Mg Tablet PO Not Given TID [facility] Protocol Lisinopril 20 mg 11/10/20 09:00 11/10/20 20:54 Lisinopril 20 Mg Tablet PO 20 mg BID STEPHON Administration Protocol Magnesium Oxide 400 mg 11/10/20 09:00 11/10/20 09:31 Magnesium Oxide 400 Mg Tablet PO Not Given DAILY [facility] Ondansetron HCl 4 mg 11/09/20 21:09 11/11/20 09:54 Ondansetron Hcl 4 Mg/2 Ml Vial IVPUSH 4 mg Q8H PRN Administration Nausea and Vomiting Pantoprazole Sodium 40 mg 11/11/20 06:30 11/11/20 05:51 Pantoprazole Sodium 40 Mg/10 Ml Vial IVPUSH 40 mg DAILY@0630 [facility] Administration Sodium Chloride 3 ml 11/10/20 00:00 11/11/20 00:09 0.9 % Sodium Chloride Flush 3 Ml Syringe IVFLUSH Not Given QSHIFT [facility] Labs CBC & Chem 7: 11/11/20 05:49 11/11/20 05:49 Microbiology Microbiology Results: Microbiology 11/10/20 00:00 Urine clean catch - Clean Catch Midstream Urine Culture - Final Assessment and Plan (1) Esophageal hernia: Status: Acute Assessment and Plan: 85-year-old female with a past medical history of hypertension, osteoarthritis, GERD, MGUS presented to the hospital with a chief complaint of nausea/poor oral intake. Admitted for failure to thrive. Preop evaluation None emergency surgery, no ACS, RCRI of 0 [id number] risk for major perioperative adverse cardiac event Can proceed to operating room with no further testing at this point Failure to thrive In the setting of esophageal hernia DC IV fluids. Supportive care. PT/OT in eventually. Paraesophageal hernia Continue IV ppi Zofran for nausea Gastroenterology input appreciated general surgery consult for Dr. 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
--- NOTE | 2020-11-11 13:33 | PM.CNGS ---
History of Present Illness Consult details Consult date: 11/11/20 Requesting physician: Nixon Thorpe Narrative: This is an 85-year-old lady who is in good health in independent in most activities of daily living who currently lives alone who reports having about a 7-8 month history of loss of appetite and difficulty eating. She reports having early satiety as well. She has lost about 50 lb since April of 2020 secondary to the symptoms. She denies any vomiting but does report having waves of nausea. She does report having some dry heaves when she does try to eat a small amount of food although it does not regurgitate. I gathered all the history from the patient in addition to her son Sidney who was on the phone during the history taking. Patient reports he only liquid that she actually likes to drink is coffee and she has no trouble tolerating coffee. She does report that she feels that food gets stuck in her chest and also her posterior oropharynx. Given the symptoms the patient underwent a endoscopy with Dr. Nixon Thorpe about 2 weeks ago and the findings were a tortuous esophagus distally, a stenosis that was balloon dilated at the GE junction, and a large paraesophageal hernia spanning at least 10 cm. Patient also had a CT scan of the chest in abdomen that showed a large paraesophageal hernia with 1/3 to half of the stomach within the chest. There was no definitive diaphragmatic defect. Patient does report having some mild shortness of breath with exertion and also reports weakness and occasional dizziness. Patient is very interested in having this hiatal hernia repaired so that she can eat food again. Patient reports really enjoying food and feels that her quality of life is very poor since she has not been able to eat in the past 7 months. She denies fever, chills, chest pain. Of note the patient was driving up until April of 2020. Review of Systems Review of Systems: Yes all other systems are reviewed and are negative Constitutional: Constitutional: Reports anorexia, Denies body ache(s), Denies chills, Denies difficulty sleeping, Denies excessive sweating, Reports fatigue, Denies fever(s), Denies headache(s), Reports lethargy, Denies night sweats, Reports poor appetite, Reports weakness and Reports weight loss Eyes: Eyes: Denies blurry vision, Denies diplopia and Denies requires corrective lenses ENT: Reports dysphagia, Reports dizziness, Denies headache(s), Denies hearing loss, Denies hoarseness and Reports other (Patient has no teeth) Cardiovascular: Cardiovascular: Denies Abdominal Distension, Denies acrocyanosis, Denies cool extremities, Denies chest pain with activity, Denies Epigastric Pain, Denies pedal edema, Denies edema, Denies leg edema and Reports dyspnea on exertion Respiratory: Respiratory: Reports dyspnea on exertion Gastrointestinal: Gastrointestinal: Denies abdominal pain, Reports belching, Denies bloating, Denies hematochezia, Denies change in bowel habits, Reports dysphagia, Denies heartburn, Denies fecal incontinence, Reports nausea and Denies vomiting Genitourinary: Genitourinary: Denies hematuria, Denies difficulty voiding, Denies urinary incontinence, Denies urinary hesitancy and Denies urinary urgency Musculoskeletal: Musculoskeletal: Reports back pain, Reports arthralgias and Denies joint swelling Integumentary/Breasts: Skin/Breast: Denies swelling, Denies breast skin changes, Denies breast pain and Denies breast mass Neurologic: Denies confusion, Reports dizziness, Denies headache(s) and Reports weakness Psychiatric: Psychiatric: Denies anxiety, Denies confusion and Denies depression Endocrine: Endocrine: Denies excessive sweating and Reports fatigue Hematologic/Lymphatic: Hematologic/Lymphatic: Denies easy bleeding and Denies easy bruising PMFSH Past Medical History Medical History (Updated 11/11/20 @ 13:43 by Sharlene Lopez MD) GERD (gastroesophageal reflux disease) HTN (hypertension) Lower extremity edema Osteoarthritis of knees, bilateral Skin lesions Family History Family History (Updated 11/11/20 @ 13:44 by Sharlene Lopez MD) Father Hemorrhagic stroke Mother Son No problems noted. Son No problems noted. Daughter No problems noted. Surgical History Surgical History (Updated 11/11/20 @ 13:43 by Sharlene Lopez MD) History of nasal surgery S/P left knee arthroscopy S/P DINORAH-O Social History Social History Household Members: None Housing: House Do you presently have visiting nurse or other home services: No Alcohol intake: never Smoking Status: Never smoker Use of substances other than those prescribed or required for medical reasons: No Currently Displaying Signs/Symptoms of Drug Intoxication Withdrawal: No Any prior treatment program specific to substance use: No Have you been hit, kicked, punched, or otherwise hurt by someone within the past year? If so, by whom?: No Do you feel safe in your current relationship?: No Current Relationship Is there a partner from a previous relationship who is making you feel unsafe now?: No Are you made to feel afraid or neglected: No Advance Directives: No Advance Directives Information Provided: No Advance Directives Date on File: 10/10/20 Do you have thoughts of harming others: None Do you have a plan to hurt others: No Plan Recently lost weight without trying: Yes service: No Current occupational status: retired Meds Allergies Allergy/AdvReac Type Severity Reaction Status Date / Time cat dander [CAT] Allergy Unknown SNEEZE, Verified 10/10/20 12:11 EYES SWELL UP Active Medications: Current Medications Generic Name Dose Route Start Last Admin Trade Name Freq PRN Reason Stop Dose Admin Cyanocobalamin 500 mcg 11/10/20 09:00 11/11/20 10:07 Cyanocobalamin (Vitamin B-12) 500 Mcg Tablet PO Not Given DAILY [facility] Folic Acid 1 mg 11/10/20 09:00 11/11/20 10:07 Folic Acid 1 Mg Tablet PO Not Given DAILY [facility] Hydralazine HCl 50 mg 11/10/20 09:00 11/11/20 10:07 Hydralazine Hcl 50 Mg Tablet PO Not Given TID [facility] Protocol Lisinopril 20 mg 11/10/20 09:00 11/11/20 10:08 Lisinopril 20 Mg Tablet PO Not Given BID [facility] Protocol Magnesium Oxide 400 mg 11/10/20 09:00 11/11/20 10:08 Magnesium Oxide 400 Mg Tablet PO Not Given DAILY [facility] Ondansetron HCl 4 mg 11/09/20 21:09 11/11/20 09:54 Ondansetron Hcl 4 Mg/2 Ml Vial IVPUSH 4 mg Q8H PRN Administration Nausea and Vomiting Pantoprazole Sodium 40 mg 11/11/20 06:30 11/11/20 05:51 Pantoprazole Sodium 40 Mg/10 Ml Vial IVPUSH 40 mg DAILY@0630 [facility] Administration Sodium Chloride 3 ml 11/10/20 00:00 11/11/20 10:06 0.9 % Sodium Chloride Flush 3 Ml Syringe IVFLUSH Not Given QSHIFT [facility] Home Medications Medication Instructions Recorded Confirmed Last Taken Type hydralazine 1 tab PO TID 11/09/20 11/09/20 Unknown History lisinopril 1 tab PO BID 11/09/20 11/09/20 Unknown History omeprazole 1 cap PO BID 11/09/20 11/09/20 Unknown History Physical Exam Vital Signs: Vital Signs: Last Vital Signs Temp 97.7 F 11/11/20 11:19 Pulse 65 11/11/20 11:19 Resp 18 11/11/20 11:19 BP 140/73 H 11/11/20 11:19 Pulse Ox 98 11/11/20 11:19 Body Mass Index 22.4 Const: General: No confusion Orientation/consciousness: No confusion HENMT: Head: Yes normocephalic and Yes atraumatic Mouth: Normal oral and palatal mucosa present Eyes: General: appearance normal, both eyes and all related structures Eyelids: Yes eyelids normal Sclerae: sclerae normal Neck: Neck: Yes full ROM and Yes no lymphadenopathy Thyroid: Thyroid normal Lymphatic: no lymphadenopathy noted Resp: Effort & Inspection: normal respiratory effort, able to speak in complete sentences, no audible wheezes, no cough, no grunting and not labored Auscultation: clear to auscultation bilaterally Cardio: Jugular venous distension: no JVD Rate: regular rate Heart sounds: S1 normal heart sound present, S2 normal heart sound present, no gallops, no murmurs and no rubs GI: Inspection: Yes normal to inspection, No Abdominal wall edema, No distended and Yes incision (Well-healed Pfannenstiel incision) Palpation (GI): Soft to palpation, nontender, no guarding, not rigid, hepatosplenomegaly present, no hernias and no masses Percussion: Yes normal to percussion Skin: Lesions: no lesions Rashes: no rashes Neuro: General: CN's II-XI intact bilaterally and No confusion Extrem: General: Yes normal to inspection, Yes full ROM and Yes no clubbing, cyanosis or edema Psych: Appearance: grossly normal Mental Status: mental status grossly normal Speech and movement: Normal speech and movement present Affect: normal affect Attitude: cooperative Thought process: Normal thought process present Thought content: Normal thought content present Insight: Good insight present (Psych) Judgement: Good judgement present (Psych) Results Labs Result diagrams: 11/11/20 05:49 11/11/20 05:49 Labs: Abnormal lab results 11/11/20 11/11/20 Range/Units 05:49 05:49 WBC 2.5 L (4.8-10.8) X10*3/uL RBC 2.49 L (4.20-5.50) X10*6/uL Hgb 8.5 L (12.0-16.0) g/dl Hct 25.5 L (37-47) % MCV 102.4 H (80-98) fL MCH 34.1 H (27.0-33.0) pg RDW 17.4 H (11.0-16.0) % Plt Count 55 L (160-400) X10*3/uL Sodium 132 L (135-145) mmol/L Carbon Dioxide 20 L (22-29) mmol/L Anion Gap 11 L (12-20) BUN 22 H (9-16) mg/dL Short CBC 11/11/20 Range/Units 05:49 WBC 2.5 L (4.8-10.8) X10*3/uL Hgb 8.5 L (12.0-16.0) g/dl Hct 25.5 L (37-47) % Plt Count 55 L (160-400) X10*3/uL BMP 11/11/20 05:49 Sodium 132 L Potassium 3.9 Chloride 105 Carbon Dioxide 20 L BUN 22 H Creatinine 1.21 Calcium 8.5 Urine 11/09/20 Range/Units 23:55 Urine Color YELLOW Urine Appearance CLEAR Urine pH 5.5 (5.0-8.0) Ur Specific [place] 1.025 (1.005-1.025) Urine Protein NEG (NEG-TRACE) MG/DL Urine Glucose (UA) NEG (NEG) MG/DL All other labs normal. Assessment and Plan (1) Adult failure to thrive: Status: Acute (2) Paraesophageal hernia: Status: Acute This is a 85-year-old lady relatively healthy for her age who has a very large paraesophageal hernia that is inhibiting her intake of food and she has had a significant weight loss who presented to the emergency department with failure to thrive. I reviewed the CT scan and endoscopy reports. I believe the patient would benefit from a laparoscopic possible open paraesophageal hernia repair with possible biologic mesh placement if needed or gastrostomy tube or tubes placement for keeping the stomach within abdomen. I have discussed risks benefits and alternatives with the patient and her son. They agree to proceed. Patient's hematocrit is 25.5 she would likely benefit from blood prior to surgery although there is no foreseeable blood loss for this planned procedure. I will keep the patient NPO after midnight and I will order coagulation studies prior to surgery. This was discussed with the hospitalist who is taking care of her as well. I spent about 90 minutes discussing the history physical examination reviewing laboratory values CT scans endoscopy reports, speaking with hospitalist and also with the field technical assistant, in addition to documenting on this patient.
[2020-11-11] MEDS: Cyanocobalamin (Vitamin B-12) 1,000 MCG/ML VIAL 1000 MCG IM (16:45)
[2020-11-11] MEDS: hydrALAZINE HCl 50 MG TABLET PO ×2 (16:46→21:48)
[2020-11-11] MEDS: 0.9 % Sodium Chloride Flush 3 ML SYRINGE IVFLUSH ×2 (16:46→23:49)
--- NOTE | 2020-11-11 22:12 | PC.NURSE ---
P-patient unable to tolerate diet,difficulty taking meds,gaging a lot I-dr. Mistry made aware,prn Zofran administered E-will monitor
[2020-11-12] VITALS (19 sets, daily range): BP systolic 115–186; BP diastolic 64–97; PULSE 67–101; RESP 16–20; TEMP 35.5–36.7; O2SAT 95–100
[2020-11-12 06:23] LABS: Hematocrit 26.7 % (37-47); Mean Corpuscular HGB Conc 33.7 g/dl (31.0-35.0); Mean Corpuscular Hemoglobin 33.3 pg (27.0-33.0); Mean Corpuscular Volume 98.9 fL (80-98); Mean Platelet Volume 11.1 fL (9.4-12.3); Red Cell Distribution Width 17.2 % (11.0-16.0)
[2020-11-12] MEDS: Pantoprazole Sodium 40 MG/10 ML VIAL IVPUSH (06:27)
[2020-11-12 06:37] LABS: Platelet Count 54 X10*3/uL (160-400); White Blood Count 2.5 X10*3/uL (4.8-10.8)
[2020-11-12 06:45] LABS: Anion Gap 12 (12-20); Blood Urea Nitrogen 19 mg/dL (9-16); Calcium 8.7 mg/dL (8.4-10.2); Carbon Dioxide 21 mmol/L (22-29); Chloride 104 mmol/L (96-108); Creatinine Clr Calc Pharmacy 22.2; Estimated Glomerular Filt Rate 42; Glucose Random 90 mg/dL (60-115); Potassium 3.8 mmol/L (3.3-5.1); Sodium 133 mmol/L (135-145)
[2020-11-12] MEDS: 0.9 % Sodium Chloride Flush 3 ML SYRINGE IVFLUSH ×2 (07:50→23:59)
--- NOTE | 2020-11-12 10:18 | HO.ANESPROP2 ---
HPI - Anesthesia Eval Consult details Narrative: 85 year old female patient here for laparoscopic repair of diaphragmatic hernia, possible biomesh, possible g-tube placement PMFSH Active Problems Active Problems: All Active Problems (Updated 11/11/20 @ 13:43 by Sharlene Lopez MD) Paraesophageal hernia (Acute) Osteoarthritis of knees, bilateral (Acute) MGUS (monoclonal gammopathy of unknown significance) (Acute) Adult failure to thrive (Acute) Esophageal hernia (Acute) Past Medical History Medical History (Updated 11/11/20 @ 13:43 by Sharlene Lopez MD) GERD (gastroesophageal reflux disease) HTN (hypertension) Lower extremity edema Osteoarthritis of knees, bilateral Skin lesions Family History Family History (Updated 11/11/20 @ 13:45 by Sharlene Lopez MD) Father Hemorrhagic stroke Mother Son No problems noted. Son No problems noted. Daughter No problems noted. Family history of problems with anesthesia: No Surgical History Surgical History (Updated 11/11/20 @ 13:43 by Sahrlene Lopez MD) History of nasal surgery S/P left knee arthroscopy S/P DINORAH-BSO History of Problems with Anesthesia: No Social History Social History Household Members: None Housing: House Do you presently have visiting nurse or other home services: No Alcohol intake: never Smoking Status: Never smoker Use of substances other than those prescribed or required for medical reasons: No Currently Displaying Signs/Symptoms of Drug Intoxication Withdrawal: No Any prior treatment program specific to substance use: No Have you been hit, kicked, punched, or otherwise hurt by someone within the past year? If so, by whom?: No Do you feel safe in your current relationship?: No Current Relationship Is there a partner from a previous relationship who is making you feel unsafe now?: No Are you made to feel afraid or neglected: No Advance Directives: No Advance Directives Information Provided: No Advance Directives Date on File: 10/10/20 Do you have thoughts of harming others: None Do you have a plan to hurt others: No Plan Recently lost weight without trying: Yes service: No Current occupational status: retired Meds Allergies Allergy/AdvReac Type Severity Reaction Status Date / Time cat dander [CAT] Allergy Unknown SNEEZE, Verified 10/10/20 12:11 EYES SWELL UP Active Medications: Current Medications Generic Name Dose Route Start Last Admin Trade Name Michaela PRN Reason Stop Dose Admin Cyanocobalamin 500 mcg 11/10/20 09:00 11/12/20 07:51 Cyanocobalamin (Vitamin B-12) 500 Mcg Tablet PO Not Given DAILY [facility] Ferrous Sulfate 324 mg 11/12/20 09:00 11/12/20 07:51 Ferrous Sulfate 324 Mg Tablet.Dr PO Not Given DAILY [facility] Folic Acid 1 mg 11/10/20 09:00 11/12/20 07:55 Folic Acid 1 Mg Tablet PO Not Given DAILY [facility] Hydralazine HCl 50 mg 11/10/20 09:00 11/12/20 07:51 Hydralazine Hcl 50 Mg Tablet PO Not Given TID [facility] Protocol Lisinopril 20 mg 11/10/20 09:00 11/12/20 07:51 Lisinopril 20 Mg Tablet PO Not Given BID [facility] Protocol Magnesium Oxide 400 mg 11/10/20 09:00 11/12/20 07:55 Magnesium Oxide 400 Mg Tablet PO Not Given DAILY [facility] Ondansetron HCl 4 mg 11/09/20 21:09 11/11/20 21:34 Ondansetron Hcl 4 Mg/2 Ml Vial IVPUSH 4 mg Q8H PRN Administration Nausea and Vomiting Pantoprazole Sodium 40 mg 11/11/20 06:30 11/12/20 06:27 Pantoprazole Sodium 40 Mg/10 Ml Vial IVPUSH 40 mg DAILY@0630 [facility] Administration Sodium Chloride 3 ml 11/10/20 00:00 11/12/20 07:50 0.9 % Sodium Chloride Flush 3 Ml Syringe IVFLUSH 3 ml QSHIFT [facility] Administration Home Medications Medication Instructions Recorded Confirmed Last Taken Type hydralazine 1 tab PO TID 11/09/20 11/09/20 Unknown History lisinopril 1 tab PO BID 11/09/20 11/09/20 Unknown History omeprazole 1 cap PO BID 11/09/20 11/09/20 Unknown History Exam Exam Date and Time: November 12, 2020 1018 Height,Weight and Vital Signs: Height 4 ft 8 in Weight 45.359 kg Last Vital Signs Temp 98.0 F 11/12/20 10:06 Pulse 71 11/12/20 10:06 Resp 16 11/12/20 10:06 BP 154/81 H 11/12/20 10:06 Pulse Ox 99 11/12/20 10:06 Pertinent Lab Results Pertinent Lab Results: Laboratory Tests 11/09/20 11/09/20 11/09/20 17:09 17:09 17:09 WBC 5.1 RBC 3.25 L Hgb 10.8 L Hct 32.1 L MCV 98.8 H MCH 33.2 H MCHC 33.6 RDW 17.6 H Plt Count 81 L D MPV 11.8 Immature Gran % (Auto) 1.4 H Neut % (Auto) 71.0 Lymph % (Auto) 24.1 [place] % (Auto) 3.1 Eos % (Auto) 0.2 Baso % (Auto) 0.2 Lymph # (Auto) 1.2 [place] # (Auto) 0.2 Eos # (Auto) 0.0 Baso # (Auto) 0.0 Abs Immat Gran (auto) 0.07 H Absolute Neuts (auto) 3.6 Absolute Nucleated RBC 0.030 H Nucleated RBC % (auto) 0.6 H Smear Tech's Comments VERIFIED PT 14.2 H INR 1.2 H Sodium 136 Potassium 4.7 Chloride 98 Carbon Dioxide 20 L Anion Gap 23 H BUN 36 H Creatinine 1.75 H Estim Creat Clear Calc 15.3 Estimated GFR 28 Random Glucose 97 Calcium 10.4 H Magnesium 1.6 Total Bilirubin 0.9 Direct Bilirubin 0.4 AST 13 ALT < 6 Alkaline Phosphatase 28 L Total Protein 6.6 Albumin 4.1 Lipase 22 Vitamin B12 Folate Urine Color Urine Appearance Urine pH Ur Specific [place] Urine Protein Urine Glucose (UA) Urine Ketones Urine Blood Urine Nitrite Ur Leukocyte Esterase Urine RBC Urine WBC Ur Squamous Epith Cells Urine Bacteria COVID-19 (JACE) COVID-19 Clin Com Blood Type Antibody Screen Crossmatch 11/09/20 11/09/20 11/09/20 17:09 17:09 17:09 WBC RBC Hgb Hct MCV MCH MCHC RDW Plt Count MPV Immature Gran % (Auto) Neut % (Auto) Lymph % (Auto) [place] % (Auto) Eos % (Auto) Baso % (Auto) Lymph # (Auto) [place] # (Auto) Eos # (Auto) Baso # (Auto) Abs Immat Gran (auto) Absolute Neuts (auto) Absolute Nucleated RBC Nucleated RBC % (auto) Smear Tech's Comments PT INR Sodium Potassium Chloride Carbon Dioxide Anion Gap BUN Creatinine Estim Creat Clear Calc Estimated GFR Random Glucose Calcium 10.6 H Magnesium Total Bilirubin Direct Bilirubin AST ALT Alkaline Phosphatase Total Protein Albumin Lipase Vitamin B12 < 146 L Folate 1.6 L Urine Color Urine Appearance Urine pH Ur Specific [place] Urine Protein Urine Glucose (UA) Urine Ketones Urine Blood Urine Nitrite Ur Leukocyte Esterase Urine RBC Urine WBC Ur Squamous Epith Cells Urine Bacteria COVID-19 (JACE) Negative COVID-19 Clin Com See Note Blood Type Antibody Screen Crossmatch 11/09/20 11/10/20 11/10/20 23:55 05:49 05:49 WBC 2.8 L RBC 2.51 L D Hgb 8.3 L D Hct 24.8 L D MCV 98.8 H MCH 33.1 H MCHC 33.5 RDW 17.3 H Plt Count 48 L D MPV 11.4 Immature Gran % (Auto) 0.7 H Neut % (Auto) 57.4 Lymph % (Auto) 34.7 [place] % (Auto) 4.7 Eos % (Auto) 2.5 Baso % (Auto) 0.0 Lymph # (Auto) 1.0 L [place] # (Auto) 0.1 Eos # (Auto) 0.1 Baso # (Auto) 0.0 Abs Immat Gran (auto) 0.02 Absolute Neuts (auto) 1.6 L Absolute Nucleated RBC 0.020 H Nucleated RBC % (auto) 0.7 H Smear Tech's Comments PT INR Sodium 135 Potassium 4.1 Chloride 104 Carbon Dioxide 23 Anion Gap 12 BUN 31 H Creatinine 1.41 H Estim Creat Clear Calc 19.0 Estimated GFR 36 Random Glucose 110 Calcium 8.8 D Magnesium 1.5 L Total Bilirubin Direct Bilirubin AST ALT Alkaline Phosphatase Total Protein Albumin Lipase Vitamin B12 Folate Urine Color YELLOW Urine Appearance CLEAR Urine pH 5.5 Ur Specific [place] 1.025 Urine Protein NEG Urine Glucose (UA) NEG Urine Ketones 15 Urine Blood TRACE Urine Nitrite NEG Ur Leukocyte Esterase 2+ H Urine RBC 1-4 Urine WBC 30-49 H Ur Squamous Epith Cells TRACE Urine Bacteria 3+ COVID-19 (JACE) COVID-19 Clin Com Blood Type Antibody Screen Crossmatch 11/11/20 11/11/20 11/11/20 05:49 05:49 14:29 WBC 2.5 L RBC 2.49 L Hgb 8.5 L Hct 25.5 L MCV 102.4 H MCH 34.1 H MCHC 33.3 RDW 17.4 H Plt Count 55 L MPV 11.7 Immature Gran % (Auto) Neut % (Auto) Lymph % (Auto) [place] % (Auto) Eos % (Auto) Baso % (Auto) Lymph # (Auto) [place] # (Auto) Eos # (Auto) Baso # (Auto) Abs Immat Gran (auto) Absolute Neuts (auto) Absolute Nucleated RBC 0.000 Nucleated RBC % (auto) 0.0 Smear Tech's Comments PT INR Sodium 132 L Potassium 3.9 Chloride 105 Carbon Dioxide 20 L Anion Gap 11 L BUN 22 H Creatinine 1.21 Estim Creat Clear Calc 22.2 Estimated GFR 42 Random Glucose 109 Calcium 8.5 Magnesium Total Bilirubin Direct Bilirubin AST ALT Alkaline Phosphatase Total Protein Albumin Lipase Vitamin B12 Folate Urine Color Urine Appearance Urine pH Ur Specific [place] Urine Protein Urine Glucose (UA) Urine Ketones Urine Blood Urine Nitrite Ur Leukocyte Esterase Urine RBC Urine WBC Ur Squamous Epith Cells Urine Bacteria COVID-19 (JACE) COVID-19 Clin Com Blood Type O Positive Antibody Screen NEGATIVE Crossmatch See Detail 11/12/20 11/12/20 05:50 05:50 WBC 2.5 L RBC 2.70 L Hgb 9.0 L Hct 26.7 L MCV 98.9 H MCH 33.3 H MCHC 33.7 RDW 17.2 H Plt Count 54 L MPV 11.1 Immature Gran % (Auto) Neut % (Auto) Lymph % (Auto) [place] % (Auto) Eos % (Auto) Baso % (Auto) Lymph # (Auto) [place] # (Auto) Eos # (Auto) Baso # (Auto) Abs Immat Gran (auto) Absolute Neuts (auto) Absolute Nucleated RBC 0.000 Nucleated RBC % (auto) 0.0 Smear Tech's Comments PT INR Sodium 133 L Potassium 3.8 Chloride 104 Carbon Dioxide 21 L Anion Gap 12 BUN 19 H Creatinine 1.21 Estim Creat Clear Calc 22.2 Estimated GFR 42 Random Glucose 90 Calcium 8.7 Magnesium Total Bilirubin Direct Bilirubin AST ALT Alkaline Phosphatase Total Protein Albumin Lipase Vitamin B12 Folate Urine Color Urine Appearance Urine pH Ur Specific [place] Urine Protein Urine Glucose (UA) Urine Ketones Urine Blood Urine Nitrite Ur Leukocyte Esterase Urine RBC Urine WBC Ur Squamous Epith Cells Urine Bacteria COVID-19 (JACE) COVID-19 Clin Com Blood Type Antibody Screen Crossmatch Narrative Narrative: Spoke with Dr Sanchez- patient stable from MGUS point. Has become more pancytopenic over last few months. Severe folate and B12 deficiency,being corrected. Low platelets discussed and possility of platelet transfusion but agreed 54 acceptable for surgery and although patient bruises easily(also thin skin), no other evidence of bleeding. H&H low and patient still slightly dehydrated. Think she will benefit from blood transfusion which should also help with bleeding. Will plan to transfuse [place]-operatively. Airway Mallampati Class: II TM Dist: >3cm Neck ROM: Full Denture: Upper and Lower Heart: RRR Lungs: CTAB Assessment and Plan Assessment Anesthesia Assessment: Anesthesia Plan Discussed and Chart Reviewed Final Anesthetic Review NPO: Yes ASA Class: III Final Preanesthetic Review: No Changes in Pt Med Stat, Meds/Allgs Chart Reviewed, Consent Obtained/Reviewed and Anes Risks/Benef Reviewed Patient Risk: Intermediate Procedure Risk: Intermediate Assessment/Block/Sedation in SS: Assess/Block/Sedation-SS Anesthetic Plan Anesthetic Plan: GA Disposition: Standard PACU
--- NOTE | 2020-11-12 11:23 | MHC.CM.PN ---
Addendum entered by Hanny Suarez RN 11/12/20 11:29: REFERAL SENT TO [facility] IN ANTICIPATION OF SERVICES NEEDED AFTER D/C. Original Note: EMR REVIEWED, WHEN CM ATTEMPTED TO MEET WITH PT SHE HAD GONE TO OR FOR HIATAL HERNIA REPAIR, NO PLAN FOR D/C TODAY. DISCHARGE PLAN HOME SELF-CARE VS HOME W/[facility], FOR TRANSPORT
[2020-11-12] MEDS: Lactated Ringers 1,000 ML 100 ML IVCONT ×2 (11:51→17:59)
--- NOTE | 2020-11-12 12:02 | P.PNIM_ITS ---
Subjective Subjective Date of Service: 11/12/20 Interval History: The patient was seen and evaluated this morning Laying in bed, feels comfortable with no reported pain or nausea Plan for surgery today Denies any fever, chills or shortness of breath No reported other overnight events. Systemic review: No fever, chills or weakness No chest pain, palpitation No shortness of breath or coughing No abdominal pain, reporting dry heaving and nausea on episodes No urinary symptoms No any rash or wounds Physical Exam Vital Signs: Vital Signs: Last Vital Signs Temp 98.0 F 11/12/20 10:06 Pulse 71 11/12/20 10:06 Resp 16 11/12/20 10:06 BP 154/81 H 11/12/20 10:06 Pulse Ox 99 11/12/20 10:06 Body Mass Index 22.4 Const: Other: Constitutional : Alert, oriented, not in distress Neck : Normal inspection, Supple Cardiovascular : RRR, S1 S2, no lower extremity edema Respiratory : Good bilateral air entry, no crackles, wheezes or rhonchi Gastrointestinal: soft, lax, Normal bowel sounds, Non tender Skin : Warm/Dry, No rash Neurological : Alert & oriented x3, No focal deficit Objective Data Current Medications Generic Name Dose Route Start Last Admin Trade Name Freq PRN Reason Stop Dose Admin Cyanocobalamin 500 mcg 11/10/20 09:00 11/12/20 07:51 Cyanocobalamin (Vitamin B-12) 500 Mcg Tablet PO Not Given DAILY [facility] Ferrous Sulfate 324 mg 11/12/20 09:00 11/12/20 07:51 Ferrous Sulfate 324 Mg Tablet. PO Not Given DAILY [facility] Folic Acid 1 mg 11/10/20 09:00 11/12/20 07:55 Folic Acid 1 Mg Tablet PO Not Given DAILY [facility] Hydralazine HCl 50 mg 11/10/20 09:00 11/12/20 07:51 Hydralazine Hcl 50 Mg Tablet PO Not Given TID [facility] Protocol Lactated Ringer's 1,000 mls @ 100 mls/hr 11/12/20 12:00 11/12/20 11:51 Lr IVCONT 100 mls/hr .Q10H [facility] Administration Lisinopril 20 mg 11/10/20 09:00 11/12/20 07:51 Lisinopril 20 Mg Tablet PO Not Given BID [facility] Protocol Magnesium Oxide 400 mg 11/10/20 09:00 11/12/20 07:55 Magnesium Oxide 400 Mg Tablet PO Not Given DAILY [facility] Ondansetron HCl 4 mg 11/09/20 21:09 11/11/20 21:34 Ondansetron Hcl 4 Mg/2 Ml Vial IVPUSH 4 mg Q8H PRN Administration Nausea and Vomiting Pantoprazole Sodium 40 mg 11/11/20 06:30 11/12/20 06:27 Pantoprazole Sodium 40 Mg/10 Ml Vial IVPUSH 40 mg DAILY@0630 [facility] Administration Sodium Chloride 3 ml 11/10/20 00:00 11/12/20 07:50 0.9 % Sodium Chloride Flush 3 Ml Syringe IVFLUSH 3 ml QSHIFT [facility] Administration Labs CBC & Chem 7: 11/12/20 05:50 11/12/20 05:50 Microbiology Microbiology Results: Microbiology 11/10/20 00:00 Urine clean catch - Clean Catch Midstream Urine Culture - Final Assessment and Plan (1) Esophageal hernia: Status: Acute Assessment and Plan: 85-year-old female with a past medical history of hypertension, osteoarthritis, GERD, MGUS presented to the hospital with a chief complaint of nausea/poor oral intake. Admitted for failure to thrive. Preop evaluation None emergency surgery, no ACS, RCRI of 0 [id number] risk for major perioperative adverse cardiac event Can proceed to operating room with no further testing at this point Failure to thrive In the setting of esophageal hernia Supportive care. Plan for surgery today PT/OT in eventually. Paraesophageal hernia Continue IV ppi Zofran for nausea Gastroenterology and surgery input appreciated plan for surgery today to correct the hernia Pancytopenia MGUS history with elevated free kappa Platelets dropped to 54, stable over the last 2 days WBCs of 2.5, stable also Could be secondary to B12 and folic acid deficiency, replacement started Hematology consult placed Hypertension Continue home medications. 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
--- NOTE | 2020-11-12 14:32 | MHC.CLN ---
F/U PT ATE 50% C/L DIET WILL RESTART ENSURE CLEAR TID TO INCREASE KCALS MONITOR PO INTAKE CLOSELY FOLLOWING
--- NOTE | 2020-11-12 14:40 | P.BOP_ITS ---
Brief Operative Note Date of Service: 11/12/20 Pre-op diagnosis: Large paraesophageal hernia with about 2/3 of the stomach within the chest, failure to thrive Post-op diagnosis: same Procedure: Laparoscopic reduction and repair of large paraesophageal hernia with resection of hernia sac. Implants: None Surgeon: Sharlene Lopez MD Anesthesia: TYLER Aviation Technician: Maru Mart Estimated blood loss (mL): 10 Pathology: other (Hernia sac) Condition: stable Disposition: PACU
--- NOTE | 2020-11-12 14:42 | W.PM.OPN ---
Operative Note Operative Note Date of Service: 11/12/20 Narrative: Patient was brought to the operating room placed on the table in supine position. General anesthesia was induced. The abdomen was prepped and draped in normal sterile fashion using ChloraPrep. Patient had artery received 2 g of IV preoperatively and normal DVT prophylaxis was instituted. A safety time-out was performed. Next a mixture of 1% lidocaine with epinephrine 0.25% Marcaine plain was used to anesthetize the planned incision site in the left upper quadrant. A 11. Scalpel used to make a 5 mm left upper quadrant subcostal surgical incision through which a Veress needle was placed intra-abdominal. Three pops were heard going to the fascia. The saline drop test was used to confirm that the Veress needle was intra-abdominal . The abdominal cavity was insufflated to 15 mm of mercury. Next the Optiview technique was used to place a 5 mm port in the patient's left upper quadrant . We then performed a capital JASPREET block on the right side of the patient's abdomen. We then placed a Belle liver tractor the subxiphoid position under direct vision and used this to hold up the left lobe of the liver to the anterior abdominal wall. We secured the liver tractor to the bed using the liver retractor ga. We then placed a 5 mm port in the patient's right upper quadrant and a 12 mm port in the epigastrium under direct vision. We then performed the same JASPREET block on the left side of the abdomen. We placed 1 additional 5 mm port in the patient's left upper quadrant just lateral to the placement of the 1st 5 mm left upper quadrant port. Next we placed the patient in reverse Trendelenburg positioning. We could visualize a very large paraesophageal hernia that was about 10 cm in length and about 5-7 cm in width with about 2/3 of the stomach residing within the chest. We took down the adhesions of the stomach to the phrenoesophageal ligament circumferentially. We completely reduced the large hernia sac and brought the esophagus into the upper abdomen. Once the hernia sac was completely dissected down the esophagus was lying without tension in the upper abdomen. We resected most of the hernia sac and passed off the field for pathology. Once the phrenoesophageal ligament was cleared circumferentially especially posteriorly we used a [place] drain around the GE junction and secured the ends to each other using a Endoknot. We used the [place] as a fulcrum to retract the GE junction in order to get the posterior and anterior hiatus closed. We closed the posterior hiatus with a total of 3 2-0 Ethibond sutures. We closed the anterior hiatus with a total of 2 2-0 Ethibond sutures. The stomach was lying in the abdomen without any tension. We then let down the Belle liver tractor removed from the abdomen. We closed the 12 mm port site with a single suture of 0 Max[place] using a laparoscopic suture passer. We removed the left upper quadrant ports under direct vision there was no bleeding noted from these port sites. We desufflated the abdomen through the last remaining port removed last ports and laparoscopic. We reapproximated all skin incisions with a 4 Monocryl subcuticular stitch. We cleaned and dried the skin incisions and applied Dermabond skin glue to all skin incisions. All counts were correct at the end the case there were no complications. The patient was awake and in stable condition prior to extubation and transfer to the recovery room.
--- NOTE | 2020-11-12 16:12 | PM.HEMONCCN ---
Subjective - Subjective Chief complaint: Weakness Patient: new to practice Consult date: 11/12/20 Primary Care Provider: Rhett Moran MD HPI - Consult Narrative Reason for consult: Pancytopenia Narrative: Teresa Staton is a 85 year old female who was admitted to [facility] on 11/09/2020 with dehydration and failure to thrive. Patient has had severely reduced oral intake since April 2020, she lost nearly 50 lb. Imaging revealed a large paraesophageal hernia. She was noted on blood work to have worsening pancytopenia. She has a history of MGUS for which she saw Dr. Mcdowell in the past. Her labs on admission revealed a hemoglobin of 10.8 gram/dL and platelets of 81 K. on 11/11/2020 her WBC was 2.5 K, hemoglobin 8.5 gram/dL and platelets of 55 K. Review of Systems - Constitutional Reports fatigue, Reports lack of energy, Reports malaise, Reports weight loss - Cardiovascular Denies chest pain - Respiratory Denies cough, Denies hemoptysis, Denies wheezing - Gastrointestinal Denies black, tarry stools, Reports constipation - Neurologic Denies confusion, Reports dizziness, Denies headache(s), Reports weakness PMFSH Medical History: Medical History (Last Reviewed 11/10/20 @ 13:28 by Jessi Tian PT) GERD (gastroesophageal reflux disease) HTN (hypertension) Lower extremity edema Osteoarthritis of knees, bilateral Skin lesions Family History: Family History (Last Updated 11/11/20 @ 13:45 by Sharlene Lopez MD) Father Hemorrhagic stroke Mother Son No problems noted. Son No problems noted. Daughter No problems noted. Surgical History: Surgical History (Last Updated 11/11/20 @ 13:43 by Sharlene Lopez MD) History of nasal surgery S/P left knee arthroscopy S/P DINORAH-BSO Social History: Social History (Last Reviewed 11/11/20 @ 13:45 by Sharlene Lopez MD) Living Situation History: Household Members: None Housing: House Do you presently have visiting nurse or other home services: No Alcohol History: Alcohol intake: never Tobacco History: Smoking Status: Never smoker Substance Use History: Use of substances other than those prescribed or required for medical reasons: No Currently Displaying Signs/Symptoms of Drug Intoxication Withdrawal: No Any prior treatment program specific to substance use: No Domestic Abuse History: Have you been hit, kicked, punched, or otherwise hurt by someone within the past year? If so, by whom?: No Do you feel safe in your current relationship?: No Current Relationship Is there a partner from a previous relationship who is making you feel unsafe now?: No Are you made to feel afraid or neglected: No Advance Directives: Are you DNR?: No Advance Directives: No Advance Directives Information Provided: No Advance Directives Date on File: 10/10/20 Homicidal Assessment: Do you have thoughts of harming others: None Do you have a plan to hurt others: No Plan Nutrition Assessment: Recently lost weight without trying: Yes How much weight loss: 34pounds or more Eating poorly because of decreased appetite: Yes Nutrition screen score: 7 Nutrition Risks: Poor intake 0-25% >4 days Patient : No : No Poor oral hygiene: No Occupation Assessmet: service: No Current occupational status: retired Smoking status: Never smoker Home Medications and Allergies Current Medications: Current Medications Generic Name Dose Route Start Last Admin Trade Name Freq PRN Reason Stop Dose Admin Acetaminophen 1,000 mg 11/12/20 14:25 Acetaminophen 1,000 Mg/100 Ml Vial IV 11/13/20 14:24 Q6H PRN Pain, Mild (Pain Scale 1-3) Cyanocobalamin 500 mcg 11/10/20 09:00 11/12/20 07:51 Cyanocobalamin (Vitamin B-12) 500 Mcg Tablet PO Not Given DAILY STEPHON Fentanyl 25 mcg 11/12/20 14:28 Fentanyl Citrate/Pf 100 Mcg/2 Ml Vial IVPUSH Q5M PRN Pain, Moderate (Pain Scale 4-6 Ferrous Sulfate 324 mg 11/12/20 09:00 11/12/20 07:51 Ferrous Sulfate 324 Mg Tablet. PO Not Given DAILY STEPHON Folic Acid 1 mg 11/10/20 09:00 11/12/20 07:55 Folic Acid 1 Mg Tablet PO Not Given DAILY STE[facility] Hydralazine HCl 50 mg 11/10/20 09:00 11/12/20 16:04 Hydralazine Hcl 50 Mg Tablet PO Not Given TID STEPH[facility] Protocol Lactated Ringer's 1,000 mls @ 100 mls/hr 11/12/20 12:00 11/12/20 11:51 Lr IVCONT 100 mls/hr .Q10H [facility] Administration Cefotetan Disodium 2 gm/ 50 mls @ 100 mls/hr 11/13/20 00:00 Sodium Chloride IV 11/13/20 00:29 POSTOP ONE Lisinopril 20 mg 11/10/20 09:00 11/12/20 07:51 Lisinopril 20 Mg Tablet PO Not Given BID [facility] Protocol Magnesium Oxide 400 mg 11/10/20 09:00 11/12/20 07:55 Magnesium Oxide 400 Mg Tablet PO Not Given DAILY [facility] Ondansetron HCl 4 mg 11/09/20 21:09 11/11/20 21:34 Ondansetron Hcl 4 Mg/2 Ml Vial IVPUSH 4 mg Q8H PRN Administration Nausea and Vomiting Ondansetron HCl 4 mg 11/12/20 14:28 Ondansetron Hcl 4 Mg/2 Ml Vial IVPUSH ONCE PRN Nausea and Vomiting Pantoprazole Sodium 40 mg 11/11/20 06:30 11/12/20 06:27 Pantoprazole Sodium 40 Mg/10 Ml Vial IVPUSH 40 mg DAILY@0630 [facility] Administration Sodium Chloride 3 ml 11/10/20 00:00 11/12/20 16:04 0.9 % Sodium Chloride Flush 3 Ml Syringe IVFLUSH Not Given QSHIFT [facility] Home Medications Medication Instructions Recorded Confirmed Type hydralazine 1 tab PO TID 11/09/20 11/09/20 History lisinopril 1 tab PO BID 11/09/20 11/09/20 History omeprazole 1 cap PO BID 11/09/20 11/09/20 History Allergies Allergy/AdvReac Type Severity Reaction Status Date / Time cat dander [CAT] Allergy Unknown SNEEZE, Verified 10/10/20 12:11 EYES SWELL UP Physical Exam Vital signs: Vital Signs Temp 96 F L 11/12/20 15:59 Pulse 70 11/12/20 15:59 Resp 18 11/12/20 15:59 BP 136/69 11/12/20 15:59 Pulse Ox 98 11/12/20 15:59 Intake & Output 11/11/20 11/12/20 11/12/20 18:59 06:59 18:59 Intake Total 1140 / 1260 120 / 1260 200 / 200 Output Total 350 / 353 Balance 1137 / 907 -230 / 907 200 / 200 Urine Output (Average ml/kg/hr) 0.00 0.64 0.64 Intake: Intake, Oral Amount 240 / 360 120 / 360 Intake, Other Amount 200 / 200 Intake, IV Amount 900 / 900 Dextrose 5 % and 0.45 % NaCl 1, 900 / 900 000 ml @ 60 mls/hr IVCONT . [id number] [facility] Rx#:[id number] Output: Output, Urine Amount 2 350 / 352 Output, Stool Amount Other: IV Intake, Intraoperative 1,200 Amount Meal Refused No NPO No Yes Breakfast % Eaten 0% Lunch % Eaten 50% Number of Unmeasured Voids 1 Urine Bathroom Bedpan Urine Color Yellow Yellow Last Bowel Movement 11/11/20 Stool Bathroom Stool Amount Moderate Stool Color Brown Stool Consistency Soft Weight 45.359 kg - Constitutional Present: no acute distress - Routine HEENT Exam Head: Present: normal inspection Eye: Present: EOMI Hem/Onc Consult Result - Labs CBC & Chem 7: 11/12/20 05:50 11/12/20 05:50 Labs: Short CBC 11/12/20 Range/Units 05:50 WBC 2.5 L (4.8-10.8) X10*3/uL Hgb 9.0 L (12.0-16.0) g/dl Hct 26.7 L (37-47) % Plt Count 54 L (160-400) X10*3/uL BMP 11/12/20 05:50 Sodium 133 L Potassium 3.8 Chloride 104 Carbon Dioxide 21 L BUN 19 H Creatinine 1.21 Calcium 8.7 Assessment and Plan (1) Pancytopenia Status: Acute 1. This is a 85-year-old woman with new onset pancytopenia which has been worsening since September 2020. This coincides with her severe weight loss, poor nutritional status and severe vitamin B12 and folic acid deficiency. She has MGUS which is not associated with significant paraprotein spike, therefore probably not the cause of her cytopenias. I recommend parenteral supplementation of vitamin B12 and folic acid during hospitalization. This can be switched to oral supplementation subsequently. Follow-up with hematology in a week after discharge. I thank you for this consultation.
--- NOTE | 2020-11-12 17:36 | PC.NURSE ---
Blood transfusion started in Pacu,paper forms were used ,RN unable to complete blood transfusion in the computer,all documentation is in the patient chart
[2020-11-12] MEDS: hydrALAZINE HCl 50 MG TABLET PO (20:24)
--- NOTE | 2020-11-12 20:26 | PC.NURSE ---
P-BP elevated 178/97 pulse 68,patient was not able to take her hydralazine earlier I-Lisinopril and Hydralazine administered e- will monitor
[2020-11-12] MEDS: cefoTEtan disodium 2 GM in 0.9 % Sodium Chloride 50 ML IV (23:59)
[2020-11-13] VITALS (9 sets, daily range): BP systolic 142–189; BP diastolic 84–99; PULSE 86–100; RESP 18–19; TEMP 36.2–36.4; O2SAT 97–98
[2020-11-13] MEDS: Lactated Ringers 1,000 ML 100 ML IVCONT ×2 (04:30→17:15)
[2020-11-13] MEDS: Pantoprazole Sodium 40 MG/10 ML VIAL IVPUSH (05:43)
[2020-11-13 06:16] LABS: MANUAL DIFF FLAG NO
[2020-11-13 06:33] LABS: Eosinophils Percent Auto 0.5 % (0-4); Hematocrit 28.3 % (37-47); Hemoglobin 9.8 g/dl (12.0-16.0); Imm Gran Abs Auto 0.02 X10*3/uL (0.00-0.03); Imm Gran Pct Auto 0.5 % (0.0-0.4); Lymphocytes Absolute Auto 0.8 X10*3/uL (1.2-4.9); Mean Corpuscular HGB Conc 34.6 g/dl (31.0-35.0); Mean Corpuscular Hemoglobin 33.1 pg (27.0-33.0); Mean Corpuscular Volume 95.6 fL (80-98); Monocytes Absolute Auto 0.2 X10*3/uL (0.1-1.2); Monocytes Percent Auto 4.3 % (2-11); Neutrophils Absolute Auto 2.9 X10*3/uL (2.0-8.3); Neutrophils Percent Auto 73.7 % (45-73); Red Blood Count 2.96 X10*6/uL (4.20-5.50); Red Cell Distribution Width 16.8 % (11.0-16.0); White Blood Count 3.9 X10*3/uL (4.8-10.8)
[2020-11-13 06:35] LABS: Platelet Count 49 X10*3/uL (160-400)
[2020-11-13] MEDS: Folic Acid 1 MG TABLET 2 MG PO (08:50)
[2020-11-13] MEDS: Ferrous Sulfate 324 MG TABLET.DR PO (08:51)
[2020-11-13] MEDS: 0.9 % Sodium Chloride Flush 3 ML SYRINGE IVFLUSH (08:51)
[2020-11-13] MEDS: Magnesium Oxide 400 MG TABLET PO (08:51)
[2020-11-13] MEDS: Cyanocobalamin (Vitamin B-12) 500 MCG TABLET PO (08:51)
[2020-11-13] MEDS: Cyanocobalamin (Vitamin B-12) 1,000 MCG/ML VIAL 1000 MCG IM (08:51)
[2020-11-13] MEDS: hydrALAZINE HCl 50 MG TABLET PO ×3 (08:52→21:09)
--- NOTE | 2020-11-13 09:20 | PM.PNGS ---
Subjective Subjective Date of Service: 11/13/20 Interval history: Patient is on postop day 1. Status post laparoscopic repair of giant paraesophageal hernia. Patient did well postoperatively. She reports mild incisional tenderness. She reports her nausea is significantly improved status post surgery. She has been able to drink clear liquids overnight which is something she has not been able to do since April of 2020. She feels much better. No significant overnight events. Vital signs are relatively normal for postop day 1. Patient received 1 unit of packed red blood cells postoperatively in the PACU with appropriate increase in her hematocrit to 25.5 up to 28.3. Physical Exam Vital Signs: Vital Signs: Last Vital Signs Temp 97.1 F 11/13/20 08:21 Pulse 86 11/13/20 08:21 Resp 18 11/13/20 08:21 BP 189/99 H 11/13/20 08:21 Pulse Ox 98 11/13/20 08:21 Body Mass Index 22.4 Const: General: cooperative, comfortable and no acute distress GI: Other: Soft nondistended mild incisional tenderness. Incisions are clean dry intact with Dermabond in place. No evidence of ecchymosis or hernia. Extrem: General: Yes normal to inspection and Yes no clubbing, cyanosis or edema Progress Note: A&P Assessment and plan (1) Status post repair of paraesophageal diaphragmatic hernia: Status: Inactive Assessment and Plan: Patient is an 85-year-old lady status post laparoscopic repair of giant paraesophageal hernia. Patient is clinically improved and is tolerating clear liquids without difficulty. Pain is well controlled with the exception of mild appropriate incisional tenderness. I will advance the patient's diet to a pureed diet. Patient may be discharged home on a pureed diet for the next 2 weeks when she is appropriate for discharge from medical standpoint. Patient should follow up with me in the office in 2 weeks time frame. My office number is [phone] to schedule the follow-up appointment. Fall Risk Details Current Medications: Current Medications Generic Name Dose Route Start Last Admin Trade Name Freq PRN Reason Stop Dose Admin Acetaminophen 1,000 mg 11/12/20 14:25 11/13/20 08:50 Acetaminophen 1,000 Mg/100 Ml Vial IV 11/13/20 14:24 1,000 mg Q6H PRN Administration Pain, Mild (Pain Scale 1-3) Cyanocobalamin 500 mcg 11/10/20 09:00 11/13/20 08:51 Cyanocobalamin (Vitamin B-12) 500 Mcg Tablet PO 500 mcg DAILY STEPH[facility] Administration Fentanyl 25 mcg 11/12/20 14:28 Fentanyl Citrate/Pf 100 Mcg/2 Ml Vial IVPUSH Q5M PRN Pain, Moderate (Pain Scale 4-6 Ferrous Sulfate 324 mg 11/12/20 09:00 11/13/20 08:51 Ferrous Sulfate 324 Mg Tablet.Dr PO 324 mg DAILY STE[facility] Administration Folic Acid 2 mg 11/13/20 09:00 11/13/20 08:50 Folic Acid 1 Mg Tablet PO 2 mg DAILY [facility] Administration Hydralazine HCl 50 mg 11/10/20 09:00 11/13/20 08:52 Hydralazine Hcl 50 Mg Tablet PO 50 mg TID [facility] Administration Protocol Lactated Ringer's 1,000 mls @ 100 mls/hr 11/12/20 12:00 11/13/20 04:30 Lr IVCONT 100 mls/hr .Q10H [facility] Administration Lisinopril 20 mg 11/10/20 09:00 11/13/20 08:52 Lisinopril 20 Mg Tablet PO 20 mg BID [facility] Administration Protocol Magnesium Oxide 400 mg 11/10/20 09:00 11/13/20 08:51 Magnesium Oxide 400 Mg Tablet PO 400 mg DAILY [facility] Administration Ondansetron HCl 4 mg 11/09/20 21:09 11/11/20 21:34 Ondansetron Hcl 4 Mg/2 Ml Vial IVPUSH 4 mg Q8H PRN Administration Nausea and Vomiting Ondansetron HCl 4 mg 11/12/20 14:28 Ondansetron Hcl 4 Mg/2 Ml Vial IVPUSH ONCE PRN Nausea and Vomiting Pantoprazole Sodium 40 mg 11/11/20 06:30 11/13/20 05:43 Pantoprazole Sodium 40 Mg/10 Ml Vial IVPUSH 40 mg DAILY@0630 [facility] Administration Sodium Chloride 3 ml 11/10/20 00:00 11/13/20 08:51 0.9 % Sodium Chloride Flush 3 Ml Syringe IVFLUSH 3 ml QSHIFT [facility] Administration Time Spent With Patient Time: Total time spent is greater than 50% in coordination of care (as documented) at patient's floor/unit and/or counseling patient: Time with patient: less than 15 minutes
--- NOTE | 2020-11-13 12:54 | HO.PM.IMPN ---
Subjective Subjective Date of Service: 11/13/20 Interval History: The patient was seen and evaluated this morning Laying in bed, feels comfortable with no reported pain or nausea as she is tolerating the diet to better today Denies any fever, chills or shortness of breath No reported other overnight events. Systemic review: No fever, chills or weakness No chest pain, palpitation No shortness of breath or coughing No abdominal pain, reporting dry heaving and nausea on episodes No urinary symptoms No any rash or wounds Physical Exam Vital Signs: Vital Signs: Last Vital Signs Temp 97.1 F 11/13/20 08:21 Pulse 100 11/13/20 12:04 Resp 18 11/13/20 08:21 BP 142/87 H 11/13/20 12:04 Pulse Ox 98 11/13/20 10:29 Body Mass Index 22.4 Const: Other: Constitutional : Alert, oriented, not in distress Neck : Normal inspection, Supple Cardiovascular : RRR, S1 S2, no lower extremity edema Respiratory : Good bilateral air entry, no crackles, wheezes or rhonchi Gastrointestinal: soft, lax, Normal bowel sounds, Non tender Skin : Warm/Dry, No rash Neurological : Alert & oriented x3, No focal deficit Objective Data Current Medications Generic Name Dose Route Start Last Admin Trade Name Freq PRN Reason Stop Dose Admin Acetaminophen 1,000 mg 11/12/20 14:25 11/13/20 08:50 Acetaminophen 1,000 Mg/100 Ml Vial IV 11/13/20 14:24 1,000 mg Q6H PRN Administration Pain, Mild (Pain Scale 1-3) Cyanocobalamin 500 mcg 11/10/20 09:00 11/13/20 08:51 Cyanocobalamin (Vitamin B-12) 500 Mcg Tablet PO 500 mcg DAILY [facility] Administration Fentanyl 25 mcg 11/12/20 14:28 Fentanyl Citrate/Pf 100 Mcg/2 Ml Vial IVPUSH Q5M PRN Pain, Moderate (Pain Scale 4-6 Ferrous Sulfate 324 mg 11/12/20 09:00 11/13/20 08:51 Ferrous Sulfate 324 Mg Tablet. PO 324 mg DAILY [facility] Administration Folic Acid 2 mg 11/13/20 09:00 11/13/20 08:50 Folic Acid 1 Mg Tablet PO 2 mg DAILY [facility] Administration Hydralazine HCl 50 mg 11/10/20 09:00 11/13/20 08:52 Hydralazine Hcl 50 Mg Tablet PO 50 mg TID [facility] Administration Protocol Lactated Ringer's 1,000 mls @ 100 mls/hr 11/12/20 12:00 11/13/20 04:30 Lr IVCONT 100 mls/hr .Q10H [facility] Administration Lisinopril 20 mg 11/10/20 09:00 11/13/20 08:52 Lisinopril 20 Mg Tablet PO 20 mg BID [facility] Administration Protocol Magnesium Oxide 400 mg 11/10/20 09:00 11/13/20 08:51 Magnesium Oxide 400 Mg Tablet PO 400 mg DAILY [facility] Administration Ondansetron HCl 4 mg 11/09/20 21:09 11/11/20 21:34 Ondansetron Hcl 4 Mg/2 Ml Vial IVPUSH 4 mg Q8H PRN Administration Nausea and Vomiting Ondansetron HCl 4 mg 11/12/20 14:28 Ondansetron Hcl 4 Mg/2 Ml Vial IVPUSH ONCE PRN Nausea and Vomiting Pantoprazole Sodium 40 mg 11/11/20 06:30 11/13/20 05:43 Pantoprazole Sodium 40 Mg/10 Ml Vial IVPUSH 40 mg DAILY@0630 [facility] Administration Sodium Chloride 3 ml 11/10/20 00:00 11/13/20 08:51 0.9 % Sodium Chloride Flush 3 Ml Syringe IVFLUSH 3 ml QSHIFT [facility] Administration Labs CBC & Chem 7: 11/13/20 05:52 11/12/20 05:50 Microbiology Microbiology Results: Microbiology 11/10/20 00:00 Urine clean catch - Clean Catch Midstream Urine Culture - Final Assessment and Plan (1) Esophageal hernia: Status: Acute Assessment and Plan: 85-year-old female with a past medical history of hypertension, osteoarthritis, GERD, MGUS presented to the hospital with a chief complaint of nausea/poor oral intake. Admitted for failure to thrive. Paraesophageal hernia Post laparoscopic repair P.o. ppi Zofran for nausea surgery input appreciate, pureed diet for 2 weeks then to follow-up with surgery in the office. Pancytopenia MGUS history with elevated free kappa Platelets stable over the last 2 days WBCs of 3.9, stable also Likely secondary to B12 and folic acid deficiency, replacement started Hematology input appreciated Failure to thrive In the setting of esophageal hernia and malnutrition Supportive care. PT/OT in eventually. Hypertension Continue home medications. 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
--- NOTE | 2020-11-13 15:39 | HO.POSTANES ---
Post Anesthesia Evaluation Post Anesthesia Evaluation Vital Signs: Vital Signs Temp Pulse Resp BP Pulse Ox 11/13/20 12:04 100 142/87 H 11/13/20 10:29 86 189/99 H 98 11/13/20 08:21 97.1 F 86 18 189/99 H 98 11/13/20 05:52 166/84 H Anesthesia: General Endotracheal-GETA Mental Status: Awake Pain Control: Satisfactory Nausea/Vomiting: None Hydration: Adequate Anesthesia-Related Issues: No Anes. Related Issues
[2020-11-13] MEDS: ondansetron HCL 4 MG/2 ML VIAL IVPUSH (17:58)
[2020-11-13] MEDS: Acetaminophen 325 MG TABLET 650 MG PO (18:45)
[2020-11-14] VITALS (11 sets, daily range): BP systolic 142–195; BP diastolic 87–111; PULSE 83–100; RESP 15–18; TEMP 36.2–36.7; O2SAT 96–99
[2020-11-14] MEDS: Lactated Ringers 1,000 ML 100 ML IVCONT (04:22)
[2020-11-14] MEDS: Omeprazole 20 MG CAPSULE.DR PO (06:07)
[2020-11-14 06:50] LABS: Hemoglobin 8.8 g/dl (12.0-16.0); PLT CLUMP 1
[2020-11-14 06:52] LABS: Hematocrit 25.2 % (37-47); Mean Corpuscular HGB Conc 34.9 g/dl (31.0-35.0); Mean Corpuscular Hemoglobin 32.2 pg (27.0-33.0); Mean Corpuscular Volume 92.3 fL (80-98); Mean Platelet Volume 11.2 fL (9.4-12.3); NRBC Pct Auto 0.6 /100WBC (0.0-0.2); Red Blood Count 2.73 X10*6/uL (4.20-5.50); Red Cell Distribution Width 16.7 % (11.0-16.0); White Blood Count 3.2 X10*3/uL (4.8-10.8)
[2020-11-14 06:56] LABS: INTERNATIONAL NORM RATIO 1.7 (0.9-1.1); Prothrombin Time 20.5 SEC (10.8-13.0)
[2020-11-14 07:04] LABS: Anion Gap 11 (12-20); Blood Urea Nitrogen 19 mg/dL (9-16); Calcium 8.3 mg/dL (8.4-10.2); Carbon Dioxide 23 mmol/L (22-29); Chloride 104 mmol/L (96-108); Creatinine Clr Calc Pharmacy 21.3; Estimated Glomerular Filt Rate 41; Glucose Random 88 mg/dL (60-115); Potassium 3.9 mmol/L (3.3-5.1); Sodium 134 mmol/L (135-145)
[2020-11-14 07:14] LABS: Platelet Count 56 X10*3/uL (160-400)
--- NOTE | 2020-11-14 08:24 | P.PNGS_ITS ---
Subjective Subjective Date of Service: 11/14/20 Interval history: Pt is POD #2 from laparoscopic giant paraesphageal hernia repair. Pt states minimal abdominal surgical pain, no nausea, emesis or difficulty swallowing. She could not tell me what she ate yesterday but stated that she did not have any trouble tolerating the (pureed) diet. She is happy to continue this diet today. + flatus. she states she is very cold today. Physical Exam Vital Signs: Vital Signs: Last Vital Signs Temp 97.1 F 11/14/20 07:38 Pulse 83 11/14/20 07:38 Resp 16 11/14/20 07:38 BP 175/87 H 11/14/20 07:38 Pulse Ox 97 11/14/20 07:38 Body Mass Index 22.4 Const: General: cooperative, healthy appearing, comfortable, no acute distress, alert and awake Orientation/consciousness: patient oriented x3 GI: Inspection: Yes abdominal wall ecchymosis (surrounding midline incision), No Abdominal wall edema, No distended and No scar (all incisions clean, dry and intact) Palpation (GI): Soft to palpation, not firm, Tenderness to palpation present (GI) (mild tenederness around midline incision), no guarding, not rigid, no hernias and no masses Neuro: General: patient oriented x3 Progress Note: A&P Assessment and plan (1) Status post repair of paraesophageal diaphragmatic hernia: Problem details: 85 yo female with failure to thrive and pancytopenia now POD # 2 from laparoscopic repair of giant paraesophageal hernia. Pt is progressing well from surgery, tolerating her pureed diet. Case discussed with Dr Lopez, attending surgeon, and plan is to advance po diet per patient preferences. There is no medical reason not to advance diet. Pt can be discharged when deemed ready by medical team, follow up with Dr Lopez per her note yesterday. Status: Acute Fall Risk Details Current Medications: Current Medications Generic Name Dose Route Start Last Admin Trade Name Freq PRN Reason Stop Dose Admin Acetaminophen 650 mg 11/13/20 17:52 11/13/20 18:45 Acetaminophen 325 Mg Tablet PO 650 mg Q6H PRN Administration PAIN Cyanocobalamin 500 mcg 11/10/20 09:00 11/13/20 08:51 Cyanocobalamin (Vitamin B-12) 500 Mcg Tablet PO 500 mcg DAILY [facility] Administration Fentanyl 25 mcg 11/12/20 14:28 Fentanyl Citrate/Pf 100 Mcg/2 Ml Vial IVPUSH Q5M PRN Pain, Moderate (Pain Scale 4-6 Ferrous Sulfate 324 mg 11/12/20 09:00 11/13/20 08:51 Ferrous Sulfate 324 Mg Tablet. PO 324 mg DAILY [facility] Administration Folic Acid 2 mg 11/13/20 09:00 11/13/20 08:50 Folic Acid 1 Mg Tablet PO 2 mg DAILY [facility] Administration Hydralazine HCl 50 mg 11/10/20 09:00 11/13/20 21:09 Hydralazine Hcl 50 Mg Tablet PO 50 mg TID [facility] Administration Protocol Lactated Ringer's 1,000 mls @ 100 mls/hr 11/12/20 12:00 11/14/20 04:22 Lr IVCONT 100 mls/hr .Q10H [facility] Administration Lisinopril 20 mg 11/10/20 09:00 11/13/20 21:08 Lisinopril 20 Mg Tablet PO 20 mg BID [facility] Administration Protocol Magnesium Oxide 400 mg 11/10/20 09:00 11/13/20 08:51 Magnesium Oxide 400 Mg Tablet PO 400 mg DAILY [facility] Administration Omeprazole 20 mg 11/14/20 06:30 11/14/20 06:07 Omeprazole 20 Mg Capsule. PO 20 mg DAILY@0630 [facility] Administration Ondansetron HCl 4 mg 11/09/20 21:09 11/13/20 17:58 Ondansetron Hcl 4 Mg/2 Ml Vial IVPUSH 4 mg Q8H PRN Administration Nausea and Vomiting Ondansetron HCl 4 mg 11/12/20 14:28 Ondansetron Hcl 4 Mg/2 Ml Vial IVPUSH ONCE PRN Nausea and Vomiting Oxycodone HCl 2.5 mg 11/13/20 17:52 Oxycodone Hcl Immed Release 5 Mg Tablet PO Q6H PRN Pain, Moderate (Pain Scale 4-6 Sodium Chloride 3 ml 11/10/20 00:00 11/13/20 23:30 0.9 % Sodium Chloride Flush 3 Ml Syringe IVFLUSH Not Given QSHIFT COUNTS INCLUDE 234 BEDS AT THE [facility] Time Spent With Patient Time: Total time spent is greater than 50% in coordination of care (as documented) at patient's floor/unit and/or counseling patient: Time with patient: 15 - 24 minutes
[2020-11-14] MEDS: hydrALAZINE HCl 50 MG TABLET PO ×3 (10:42→21:42)
--- NOTE | 2020-11-14 11:45 | HO.PM.IMPN ---
Subjective Subjective Date of Service: 11/14/20 Interval History: The patient was seen and evaluated this morning Laying in bed, feels comfortable with no reported pain or nausea as she is tolerating the diet to better today Denies any fever, chills or shortness of breath No reported other overnight events. Systemic review: No fever, chills or weakness No chest pain, palpitation No shortness of breath or coughing No abdominal pain, reporting dry heaving and nausea on episodes No urinary symptoms No any rash or wounds Physical Exam Vital Signs: Vital Signs: Last Vital Signs Temp 97.1 F 11/14/20 07:38 Pulse 83 11/14/20 10:30 Resp 16 11/14/20 07:38 BP 175/87 H 11/14/20 10:30 Pulse Ox 97 11/14/20 10:30 Body Mass Index 22.4 Const: Other: Constitutional : Alert, oriented, not in distress Neck : Normal inspection, Supple Cardiovascular : RRR, S1 S2, no lower extremity edema Respiratory : Good bilateral air entry, no crackles, wheezes or rhonchi Gastrointestinal: soft, lax, Normal bowel sounds, Non tender Skin : Warm/Dry, No rash Neurological : Alert & oriented x3, No focal deficit Objective Data Current Medications Generic Name Dose Route Start Last Admin Trade Name Freq PRN Reason Stop Dose Admin Acetaminophen 650 mg 11/13/20 17:52 11/13/20 18:45 Acetaminophen 325 Mg Tablet PO 650 mg Q6H PRN Administration PAIN Cyanocobalamin 500 mcg 11/10/20 09:00 11/14/20 10:41 Cyanocobalamin (Vitamin B-12) 500 Mcg Tablet PO Not Given DAILY [facility] Fentanyl 25 mcg 11/12/20 14:28 Fentanyl Citrate/Pf 100 Mcg/2 Ml Vial IVPUSH Q5M PRN Pain, Moderate (Pain Scale 4-6 Ferrous Sulfate 324 mg 11/12/20 09:00 11/14/20 10:41 Ferrous Sulfate 324 Mg Tablet.Dr PO Not Given DAILY [facility] Folic Acid 2 mg 11/13/20 09:00 11/14/20 10:41 Folic Acid 1 Mg Tablet PO Not Given DAILY [facility] Hydralazine HCl 50 mg 11/10/20 09:00 11/14/20 10:42 Hydralazine Hcl 50 Mg Tablet PO 50 mg TID STEPHON Administration Protocol Lisinopril 20 mg 11/10/20 09:00 11/14/20 10:42 Lisinopril 20 Mg Tablet PO 20 mg BID [facility] Administration Protocol Magnesium Oxide 400 mg 11/10/20 09:00 11/14/20 10:45 Magnesium Oxide 400 Mg Tablet PO Not Given DAILY [facility] Omeprazole 20 mg 11/14/20 06:30 11/14/20 06:07 Omeprazole 20 Mg Capsule. PO 20 mg DAILY@0630 [facility] Administration Ondansetron HCl 4 mg 11/09/20 21:09 11/13/20 17:58 Ondansetron Hcl 4 Mg/2 Ml Vial IVPUSH 4 mg Q8H PRN Administration Nausea and Vomiting Ondansetron HCl 4 mg 11/12/20 14:28 Ondansetron Hcl 4 Mg/2 Ml Vial IVPUSH ONCE PRN Nausea and Vomiting Oxycodone HCl 2.5 mg 11/13/20 17:52 Oxycodone Hcl Immed Release 5 Mg Tablet PO Q6H PRN Pain, Moderate (Pain Scale 4-6 Sodium Chloride 3 ml 11/10/20 00:00 11/14/20 10:41 0.9 % Sodium Chloride Flush 3 Ml Syringe IVFLUSH Not Given QSHIFT [facility] Labs CBC & Chem 7: 11/14/20 06:09 11/14/20 06:09 Microbiology Microbiology Results: Microbiology 11/10/20 00:00 Urine clean catch - Clean Catch Midstream Urine Culture - Final Assessment and Plan (1) Status post repair of paraesophageal diaphragmatic hernia: Status: Acute (2) Pancytopenia: Status: Acute (3) Paraesophageal hernia: Status: Acute (4) Osteoarthritis of knees, bilateral: Status: Acute (5) MGUS (monoclonal gammopathy of unknown significance): Status: Acute (6) Adult failure to thrive: Status: Acute (7) Physical deconditioning: Status: Acute Assessment and Plan: 85-year-old female with a past medical history of hypertension, osteoarthritis, GERD, MGUS presented to the hospital with a chief complaint of nausea/poor oral intake. Admitted for failure to thrive. Physical deconditioning PT done, recommending short-term rehab Pending placement by case fitter Paraesophageal hernia Post laparoscopic repair Tolerating pureed diet for P.o. ppi Zofran for nausea surgery input appreciate, pureed diet for 2 weeks then to follow-up with surgery in the office. Pancytopenia MGUS history with elevated free kappa Platelets stable over the last 2 days WBCs around 3, stable also Likely secondary to B12 and folic acid deficiency, replacement started Hematology input appreciated Failure to thrive In the setting of esophageal hernia and malnutrition Supportive care. Add Ensure Hypertension Continue home medications. 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
--- NOTE | 2020-11-14 12:40 | MHC.CM.PN ---
Addendum entered by Hanny Suarez RN 11/14/20 12:49: IMM 11/14/20 Original Note: CM MET W/PT TO DISCUSS STR, PT IS AGREEABLE AND PREFERS TO STAY CLOSE TO [facility], SON CAME IN FOR VISIT AND ALSO AGREEABLE, PT AND FAMILY ACCEPTING BED AT [facility], CM ALSO COMPLETED HCP WITH PT, PT GIVEN ORIGINAL AND 3 COPIES, COPY UPLOADED TO [employer] AND PLACED IN CHART. HCP: CATINA MONTALVO (SON) [phone] ALTERANATE: RACHID MONTALVO (SON) [phone]
--- NOTE | 2020-11-14 15:00 | MHC.CLN ---
F/U PO INTAKE 25% DIET RX: PUREED-APPROPRIATE RECOMMEND ENSURE BID TO INCREASE KCALS NOTED FRAGILE SKIN FOLLOWING
[2020-11-14] MEDS: 0.9 % Sodium Chloride Flush 3 ML SYRINGE IVFLUSH (15:49)
[2020-11-14] MEDS: amLODIPine Besylate 5 MG TABLET PO (16:52)
[2020-11-15] MEDS: 0.9 % Sodium Chloride Flush 3 ML SYRINGE IVFLUSH ×2 (00:02→09:08)
[2020-11-15] MEDS: Omeprazole 20 MG CAPSULE.DR PO (06:26)
[2020-11-15 08:00] VITALS: BP 148/91; PULSE 89; RESP 18; TEMP 36.6; O2SAT 95
[2020-11-15 08:09] LABS: Anion Gap 13 (12-20); Blood Urea Nitrogen 21 mg/dL (9-16); Calcium 8.5 mg/dL (8.4-10.2); Carbon Dioxide 22 mmol/L (22-29); Chloride 104 mmol/L (96-108); Creatinine Clr Calc Pharmacy 21.8; Estimated Glomerular Filt Rate 42; Glucose Random 97 mg/dL (60-115); Magnesium 1.3 mg/dL (1.6-2.6); Sodium 135 mmol/L (135-145)
[2020-11-15] MEDS: hydrALAZINE HCl 50 MG TABLET PO (09:07)
[2020-11-15] MEDS: Magnesium Sulfate/H2O 2 GM/50 ML PIGGYBACK IV (09:08)
[2020-11-15 09:51] LABS: COVID-19 Test Negative (Negative)
--- NOTE | 2020-11-15 10:00 | MHC.CM.PN ---
PATIENT TO TRANSPORT TO [facility] FOR 12:30 [facility]IA [facility]. RN, UNIT, AND PATIENT AWARE. CALL PLACED TO HCP, CATINA @ [phone] TO INFORM.
--- NOTE | 2020-11-15 10:01 | P.DS_ITS ---
DS: Providers Provider Date of Service: 11/15/20 Date of admission: 11/09/20 20:59 Primary care physician: Rhett Moran MD Consults: 11/09/20 21:16 Consult to Gastroenterology Routine Consulting Provider: Nixon Matos Reason for consultation: NAusea/Vomiting Consult to General Surgery Routine Consulting Provider: Sharlene Lopez Reason for consultation: Paraesophageal hernia 11/11/20 14:16 Consult to Hematology / Oncology Routine Consulting Provider: Omaira Mcdowell Reason for consultation: Worsening Pancytopenia w Hx of MGUS for your kind eval. DS: Diagnosis Discharge Diagnosis (1) Status post repair of paraesophageal diaphragmatic hernia: Status: Acute (2) Pancytopenia: Status: Acute (3) Paraesophageal hernia: Status: Acute (4) Osteoarthritis of knees, bilateral: Status: Acute (5) MGUS (monoclonal gammopathy of unknown significance): Status: Acute (6) Adult failure to thrive: Status: Acute (7) Physical deconditioning: Status: Acute DS: Medications Discharge Medications Home Medications: Home Medications Medication Instructions Recorded Confirmed hydralazine 1 tab PO TID 11/09/20 11/09/20 lisinopril 1 tab PO BID 11/09/20 11/09/20 omeprazole 1 cap PO BID 11/09/20 11/09/20 Previous Rx's Medication Instructions Recorded cyanocobalamin (vitamin B-12) 500 mcg PO DAILY #30 tab 11/15/20 ferrous sulfate 324 mg PO DAILY #30 tab 11/15/20 folic acid 1 mg PO DAILY #30 tab 11/15/20 magnesium oxide 800 mg PO DAILY #60 tab 11/15/20 DS: Summary Hospital Course Hospital Course: Admission note HPI 85-year-old female with a past medical history of hypertension, GERD, osteoarthritis, MGUS presented to the hospital with a chief complaint of Will oral intake. Most of the history obtained from the patient, patient is on the not-healthcare proxy, ER physician, records. Reportedly patient has been having decreased oral intake since April of 2020. Patient lives alone and fairly independent of her activities. Patient denied any chest pain palpitations lightheadedness dizziness. Patient is on mentions that because of her decreased oral intake she has lost 50 lb of weight. Patient had an EGD as outpatient with Dr. matos with 2 week ago. Reportedly outpatient imaging showed large paraesophageal hernia; Dr. Matos asked her to come to the hospital for evaluation by General surgery for possible surgery. Denies any fever chills cough. Review of all other systems is negative except mentioned above Hospital course Failure to thrive In the setting of esophageal hernia and malnutrition Evaluated by cattle inspector. Add Ensure Continue nutrition supplement specially after correcting the hernia. Paraesophageal hernia Post laparoscopic repair done by Dr. Lewis Tolerating pureed diet , to continue for 2 more weeks then to follow-up with surgery office before advancing diet. Omeprazole orally Zofran for nausea Pancytopenia MGUS history with elevated free kappa at baseline Stable WBCs and platelets Likely secondary to B12 and folic acid deficiency, to be discharged on replacement Hematology input appreciated, to follow-up as outpatient with Dr. Mcdowell Physical deconditioning PT done, recommending short-term rehab. Plan to discharge to rehab facility. 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 To be discharged on magnesium supplement. Time Spent with Patient Time attestation: Total time spent providing and/or coordinating discharge services: Discharge coordination time: Greater than 30 minutes Physical Exam Vital Signs: Vital Signs: Last Vital Signs Temp 97.9 F 11/15/20 08:00 Pulse 89 11/15/20 08:00 Resp 18 11/15/20 08:00 BP 148/91 H 11/15/20 08:00 Pulse Ox 95 11/15/20 08:00 Body Mass Index 22.4 Const: Other: Constitutional : Alert, oriented, not in distress Neck : Normal inspection, Supple Cardiovascular : RRR, S1 S2, no lower extremity edema Respiratory : Good bilateral air entry, no crackles, wheezes or rhonchi Gastrointestinal: soft, lax, Normal bowel sounds, Non tender Skin : Warm/Dry, No rash Neurological : Alert & oriented x3, No focal deficit DS: Data Data Completed and Pending Completed studies during hospitalization [Text1]: Pending at discharge 11/12/20 13:09 Surgical [PTH] Routine Labs on day of discharge: Laboratory Results - last 24 hr 11/15/20 11/15/20 06:48 09:25 Sodium 135 Potassium 4.0 Chloride 104 Carbon Dioxide 22 Anion Gap 13 BUN 21 H Creatinine 1.23 Estim Creat Clear Calc 21.8 Estimated GFR 42 Random Glucose 97 Calcium 8.5 Magnesium 1.3 L* COVID-19 (JACE) Negative COVID-19 Clin Com See Note Discharge Plan Discharge Patient Disposition: Xfer SNF Referrals: Saul Cooper [Outside] Rhett Moran MD [Primary Care Provider] - Discharge Medications: New magnesium oxide 400 mg (241.3 mg magnesium) Tablet 800 mg PO DAILY Qty: 60 RF: 0 cyanocobalamin (vitamin B-12) 500 mcg Tablet 500 mcg PO DAILY Qty: 30 RF: 0 folic acid 1 mg Tablet 1 mg PO DAILY Qty: 30 RF: 0 ferrous sulfate 324 mg (65 mg iron) Tablet,Delayed Release (Dr/Ec) 324 mg PO DAILY Qty: 30 RF: 0 Continued lisinopril 20 mg tablet 1 tab PO BID RF: 0 omeprazole 20 mg capsule,delayed release(DR/EC) 1 cap PO BID RF: 0 hydralazine 50 mg tablet 1 tab PO TID RF: 0 Discharge Orders: Discharge Order (Routine); Ordered 11/15/20 Ordered By: Aneesh Mistry Diet: other Activity on Discharge: As tolerated Stand Alone Forms: Patient Portal Discharge page Other Ambulatory Orders: Complete Blood Count no Diff (Routine) Timeframe: 1 Week Facility: [facility] - Location: [address]-Lab Ordered By: Aneesh Mistry Care Plan Goals: Read below Health Concerns: Read below Plan of Treatment: You were admitted to the hospital for evaluation failure to thrive as a result of having large hernia of your stomach. You were admitted to the hospital and evaluated by outsoles channel opener and surgery who did a surgical correction for the hernia with good response as you were able to tolerate diet more. Of You were evaluated by finisher merchant products for abnormally low blood counts. You were noticed to have deficiency of folic acid and vitamin B12 which is currently repleted. Continue pureed diet with Ensure 3 times daily for the next 2 weeks Continue folic acid, B12, magnesium and iron supplement To follow-up with surgery Dr. Lewis as outpatient in 2 weeks To follow-up with hematology Dr. Mcdowell as outpatient as scheduled
--- NOTE | 2020-11-15 15:07 | PC.NURSE ---
LATE ENTRY: PT A/O BUT FORGETFUL. DENIES PAIN. TOLERATED PO MEDS ONE AT A TIME WITH WATER. TOLERATED SMALL AMOUNTS PO MEALS. STATES APPETITE NOT GREAT AT THIS TIME. INC BM TODAY IN CHAIR. AMBULATED WITH WALKER TO BR WITH ASSIST TO VOID. SON AT BEDSIDE AND AWARE OF DISCHARGE PLAN TO [facility]. REPORT CALLED AND GIVEN TO [facility].
== END 2020-11-15 12:50 | disposition skilled nursing facility (03) | DRG 327 ==
LOC: HO.ED 20:02 → HO.EDOVER 21:18 → HO.S3 21:19
PROVIDERS: Physician Assistant; Surgery; Admitting Provider Hospitalist; Emergency Provider Internal Medicine; PCP Internal Medicine; Visit Provider Student in an Organized Health Care Education/Training Program
PROC: 0BQT4ZZ Repair Diaphragm, Percutaneous Endoscopic Approach (ICD-10-PCS; principal; 2020-11-12 10:50)
DX: K44.9 Diaphragmatic hernia without obstruction or gangrene (principal); E44.1 Mild protein-calorie malnutrition; D61.818 Other pancytopenia; M17.0 Bilateral primary osteoarthritis of knee; D47.2 Monoclonal gammopathy; E86.0 Dehydration; E83.42 Hypomagnesemia; I10 Essential (primary) hypertension; K21.9 Gastro-esophageal reflux disease without esophagitis; Z20.822 Contact with and (suspected) exposure to COVID-19; Z68.22 Body mass index [BMI] 22.0-22.9, adult; Z79.899 Other long term (current) drug therapy
CPT/HCPCS: 36415; 80048; 80076; 81001; 81003; 82310; 82607; 82746; 83690; 83735; 85025; 85027; 85610; 86850; 86900; 86923; 87086; 87635; 88302; 93005; 97110; 97116; 97162; 99024; 99285; J0131; J0690; J1100; J2405; J3010; J3475; P9016

== ENCOUNTER 2020-11-19 07:05 | Outpatient (REF) | payer SELFPAY ==
[2020-11-19 07:40] LABS: Hematocrit 27.3 % (37-47); Hemoglobin 9.4 g/dl (12.0-16.0); Mean Corpuscular HGB Conc 34.4 g/dl (31.0-35.0); Mean Corpuscular Hemoglobin 32.5 pg (27.0-33.0); Mean Corpuscular Volume 94.5 fL (80-98); Mean Platelet Volume 10.3 fL (9.4-12.3); Red Blood Count 2.89 X10*6/uL (4.20-5.50); Red Cell Distribution Width 17.6 % (11.0-16.0); White Blood Count 4.8 X10*3/uL (4.8-10.8)
[2020-11-19 08:00] LABS: Platelet Count 87 X10*3/uL (160-400)
[2020-11-19 08:03] LABS: Albumin Level 2.9 g/dL (3.5-5.0); Alkaline Phosphatase 26 U/L (39-117); Anion Gap 15 (12-20); Aspartate Amino Transferase 9 U/L (5-31); Bilirubin Total 0.9 mg/dL (0.0-1.0); Blood Urea Nitrogen 28 mg/dL (9-16); C Reactive Protein 13.12 mg/dL (< or = 0.50); Calcium 9.3 mg/dL (8.4-10.2); Carbon Dioxide 24 mmol/L (22-29); Chloride 107 mmol/L (96-108); Estimated Glomerular Filt Rate 52; Glucose Random 98 mg/dL (60-115); Lipase 7 U/L (8-78); Potassium 3.7 mmol/L (3.3-5.1); Sodium 142 mmol/L (135-145); Total Protein 4.7 g/dL (6.5-8.0)
[2020-11-19 08:16] LABS: Alanine Aminotransferase < 6 U/L (0-31)
[2020-11-19 08:27] LABS: Erythrocyte Sedimentation Rate 34 MM/HR (0-20)
[2020-11-19 09:16] LABS: Folate 2.7 ng/mL (> or = 4.0); Vitamin B12 > 2000 pg/mL (200-900)
== END 2020-11-19 07:06 | disposition home or self-care (01) ==
LOC: HO.MMNH2L 07:05
PROVIDERS: Visit Provider Internal Medicine
DX: E44.1 Mild protein-calorie malnutrition (principal); I10 Essential (primary) hypertension; K44.9 Diaphragmatic hernia without obstruction or gangrene
CPT/HCPCS: 36415; 80053; 82607; 82746; 83690; 85027; 85652; 86140

== ENCOUNTER 2020-11-24 00:17 | Outpatient (REF) | payer SELFPAY ==
[2020-11-24 07:22] LABS: Hematocrit 28.3 % (37-47); Hemoglobin 9.6 g/dl (12.0-16.0); Mean Corpuscular HGB Conc 33.9 g/dl (31.0-35.0); Mean Corpuscular Hemoglobin 33.3 pg (27.0-33.0); Mean Corpuscular Volume 98.3 fL (80-98); Mean Platelet Volume 12.4 fL (9.4-12.3); NRBC Pct Auto 0.7 /100WBC (0.0-0.2); Red Blood Count 2.88 X10*6/uL (4.20-5.50); Red Cell Distribution Width 18.3 % (11.0-16.0); White Blood Count 10.2 X10*3/uL (4.8-10.8)
[2020-11-24 07:33] LABS: Platelet Count 73 X10*3/uL (160-400)
[2020-11-24 07:59] LABS: Anion Gap 15 (12-20); Blood Urea Nitrogen 39 mg/dL (9-16); Calcium 9.8 mg/dL (8.4-10.2); Carbon Dioxide 25 mmol/L (22-29); Chloride 113 mmol/L (96-108); Estimated Glomerular Filt Rate 43; Glucose Random 93 mg/dL (60-115); Potassium 4.3 mmol/L (3.3-5.1); Sodium 149 mmol/L (135-145)
== END 2020-11-24 00:18 | disposition home or self-care (01) ==
LOC: HO.MMNH2L 00:17
PROVIDERS: Visit Provider Family Medicine
DX: E44.1 Mild protein-calorie malnutrition (principal); I10 Essential (primary) hypertension; R41.0 Disorientation, unspecified; R62.7 Adult failure to thrive; Z98.890 Other specified postprocedural states; Z79.899 Other long term (current) drug therapy; Z87.19 Personal history of other diseases of the digestive system
CPT/HCPCS: 36415; 80048; 85027; 99212

== ENCOUNTER 2020-11-24 10:55 | Inpatient (IN) | payer MEDICARE, SELFPAY ==
--- NOTE | ~2020-11-24 | CT_ITS ---
EXAMINATION: CT HEAD WITHOUT CONTRAST CLINICAL INFORMATION: Worsening speech. Encephalopathy. COMPARISON: 05/20/2012. TECHNIQUE: Contiguous helical images of the brain were obtained without IV contrast. Multiplanar reconstructions were performed. DLP: 593 mGy-cm. FINDINGS: There are no pathologic extra-axial fluid collections. The lateral, third, fourth ventricles are prominent, though age-appropriate and concordant with the appearance of the sulci. There is no evidence for acute intraparenchymal hemorrhage or infarct. There is neither mass nor mass effect. There is no shift of midline structures. The paranasal sinuses and mastoid air cells are clear. There are no osseous lesions. CT/CT head/brain wo con IMPRESSION: No evidence for acute intracranial injury. Automated exposure control (Care Dose) Adjustment of the mA and/or kv according to patient size (this includes techniques or standardized protocols for targeted exams where dose is matched to indication / reason for exam; i.e. extremities or head).
--- NOTE | ~2020-11-24 | XR_ITS ---
EXAMINATION: XR CHEST CLINICAL INFORMATION: Check nasogastric tube position COMPARISON: Previous chest x-ray 11/24/2020 TECHNIQUE: Frontal view of the chest was obtained. FINDINGS: The cardiac and mediastinal contours are stable. There is a nasogastric tube that projects over the stomach. The cardiac and mediastinal contours are normal. There is improving atelectasis/consolidation at the left lung base. There is subsegmental atelectasis at the right lung base. There is no pleural effusion or pneumothorax. There is a thoracolumbar scoliosis. There are degenerative changes of the spine and shoulders. XR/XR chest 1V IMPRESSION: Nasogastric tube projects over the stomach. Improved atelectasis/consolidation at the left lung base. Subsegmental atelectasis at the right lung base.
--- NOTE | ~2020-11-24 | XR_ITS ---
EXAMINATION: XR CHEST CLINICAL INFORMATION: Failure to thrive COMPARISON: Chest radiographs 03/07/2019 TECHNIQUE: Portable upright AP view of the chest was obtained. FINDINGS: Patient is rotated to the left. There is subsegmental atelectasis right base. There is subtle opacity left base and infrahilar region with probable small effusion. The remainder of the lungs are clear. The heart is upper limits of normal size. The vascularity is normal. The visualized hilar and mediastinal contours are unremarkable. There are degenerative changes thoracolumbar spine and shoulders. XR/XR chest 1V IMPRESSION: 1. Airspace opacity left base with probable small effusion. 2. Subsegmental atelectasis right base. 3. Vascularity within normal.
--- NOTE | ~2020-11-24 | US_ITS ---
EXAMINATION: US VENOUS WITH DOPPLER UPPER EXTREMITY, LEFT CLINICAL INFORMATION: Left lower extremity swelling/edema. COMPARISON: None TECHNIQUE: Ultrasound of the upper extremity is performed using compression sonography and color and pulse Doppler flow with assessment of augmentation of flow. There is also imaging and Doppler assessment of the jugular and subclavian veins. Spectral analysis with color-flow imaging is performed. Examination extremely limited secondary to difficulties with patient positioning and overlying subcutaneous edema. FINDINGS: Respiratory variation, normal compression, and augmented flow are noted throughout the upper extremity including the axillary, brachial, and basilic veins. There is normal flow in the internal jugular and subclavian veins. There is no visible deep or superficial thrombophlebitis. Left radial vein demonstrates normal compressibility and color flow consistent with patency. Neither the cephalic nor ulnar veins were clearly visualized. Extensive soft tissue swelling of the left upper extremity, particularly within the forearm. US/US venous duplex UE LT IMPRESSION: No DVT demonstrated in the left upper extremity.
--- NOTE | ~2020-11-24 | US_ITS ---
EXAMINATION: US VENOUS ULTRASOUND WITH DOPPLER LOWER EXTREMITY, BILATERAL CLINICAL INFORMATION: Increasing swelling and pain of the lower extremity COMPARISON: Bilateral lower extremity Doppler ultrasound study of 03/07/2019 TECHNIQUE: Ultrasound of the deep veins is performed from the hip to the calf with compression sonography and color and pulse Doppler assessment. Spectral analysis with color-flow imaging is performed. FINDINGS: Patient was unable to tolerate compression. There is edema in the bilateral lower extremities. RIGHT: There is normal venous compression and respiratory variation and augmented flow. The visualized common femoral vein, superficial femoral vein, profunda femoral vein, popliteal vein, and the trifurcation region shows no evidence of deep venous thrombosis. Within the calf vascular flow demonstrated in the posterior tibial vein and peroneal vein. There is a popliteal fossa cyst. This measures approximately 3.5 x 0.6 x 2 cm LEFT: There is normal venous compression and respiratory variation and augmented flow. The visualized common femoral vein, superficial femoral vein, profunda femoral vein, popliteal vein, and the trifurcation region shows no evidence of deep venous thrombosis. Within the calf there is vascular flow in the posterior tibial vein. The peroneal vein is not visualized.. There is a complex popliteal fossa cyst measuring about 3 x 1.5 cm. If the patient's symptoms persist, followup ultrasound in 5 days 7 days might be of value to exclude proximal propagation from a non-visualized calf vein. US/US venous duplex LE IMPRESSION: 1. No DVT demonstrated in the bilateral lower extremity. 2. Bilateral popliteal fossa cyst.
[2020-11-24 11:06] VITALS: BP 140/77; PULSE 83; RESP 17; TEMP 34.7; O2SAT 97; BMI 21.6
--- NOTE | 2020-11-24 11:55 | ED_ITS ---
HPI - General Adult General Chief complaint: General Medical Stated complaint: gi tube placement Time Seen by Provider: 11/24/20 11:44 Source: patient Mode of arrival: ambulatory Limitations: no limitations History of Present Illness HPI narrative: 85 years old female status post large paraesophageal hernia on 11/12/[address] Lopez, patient did okay immediately after surgery patient was at the rehab place after surgery, documented the patient is failing to thrive not tolerating any p.o. intake with significant weight loss, patient was seen by Dr. Lopez today with family and decision is to admit the patient to medical service arrange for feeding tube placement., I spoke with the patient/son at the bedside patient is significantly deteriorating significantly mentally and physically, patient declined abdominal pain. Been having bowel movement at the rehab place but not sure if she passed gas or not. Related Data Home Medications Medication Instructions Recorded Confirmed hydralazine 1 tab PO TID 11/09/20 11/24/20 lisinopril 1 tab PO BID 11/09/20 11/24/20 omeprazole 1 cap PO BID 11/09/20 11/24/20 Previous Rx's Medication Instructions Recorded cyanocobalamin (vitamin B-12) 500 mcg PO DAILY #30 tab 11/15/20 ferrous sulfate 324 mg PO DAILY #30 tab 11/15/20 folic acid 1 mg PO DAILY #30 tab 11/15/20 magnesium oxide 800 mg PO DAILY #60 tab 11/15/20 Allergies Allergy/AdvReac Type Severity Reaction Status Date / Time cat dander [CAT] Allergy Unknown SNEEZE, Verified 11/24/20 10:22 EYES SWELL UP Review of Systems Review of Systems: All other systems are reviewed and are negative Constitutional: Reports as per HPI and Reports no additional constitutional complaints Eyes: Reports as per HPI and Reports no additional eye complaints Reports system reviewed and no additional complaints, except as documented Cardiovascular: Reports as per HPI and Reports no additional cardiovascular complaints Respiratory: Reports as per HPI and Reports no additional respiratory complaints Gastrointestinal: Reports as per HPI and Reports no additional gastrointestinal complaints Genitourinary: Reports no additional female genitourinary complaints Musculoskeletal: Reports no additional musculoskeletal complaints Skin/Breast: Reports system reviewed and no additional complaints, except as docu Psychiatric: Reports no additional psychiatric complaints Endocrine: Reports no additional endocrine complaints Hematologic/Lymphatic: Reports no additional hematologic/lymphatic complaints Allergic/Immunologic: Reports no additional allergic/immunologic complaints Reports system reviewed and no additional complaints, except as documented and Reports Abnormal speech present COUNT INCLUDES THE [facility] Past Medical History Medical History Adult failure to thrive GERD (gastroesophageal reflux disease) HTN (hypertension) Lower extremity edema 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 Son No problems noted. Daughter No problems noted. Social History Social History Household Members: None Housing: House Alcohol intake: never Smoking Status: Never smoker Advance Directives: Yes Advance Directives on File: Yes Advance Directives Date on File: 10/10/20 service: No Current occupational status: retired Physical Exam Vital Signs: Vital Signs: Last Vital Signs Temp 98.7 F 11/24/20 14:49 Pulse 78 11/24/20 15:32 Resp 18 11/24/20 15:32 BP 177/87 H 11/24/20 15:32 Pulse Ox 96 11/24/20 15:32 Body Mass Index 21.6 Vital signs have been reviewed as appeared to be correct. Blood pressure normal. Heart rate normal. Respiration rate normal. Temperature normal. Oxygen saturation normal. Appearance: Alert. Oriented, cachectic. Head: Normal external exam. Normocephalic. Atraumatic. No Mak signs noted. No raccoon eyes noted Eyes: PERRLA. EOMI. Conjunctiva and sclera normal. Eyelids normal. ENT: TM's Normal. Pharynx normal. Uvula midline. Dry mucous membranes. No trismus noted. No drooling noted. No muffled voice noted. Neck: Normal inspection. Neck supple. FROM. No adenopathy. Thyroid Normal. No meningeal signs. No neck mass noted. CVS: Normal heart rate and rhythm. Heart sound normal. No murmurs noted. Pulses normal throughout. Respiratory: No respiratory distress. Painless inspiration. Breath sounds normal. No wheezes/rales/rhonchi noted. Chest nontender. No accessory muscle usage noted or decreased air movement noted. Abdomen: Soft and nontender, surgical incision appear intact with no infection. Bowel sounds normal in all 4 quadrants. No distention noted. No organomegaly noted. No visible injury noted. Back: No CVA tenderness. Full range of motion noted. Skin: Skin warm and dry. Normal skin color. Normal skin turgor. No rashes/lesions/lacerations noted. Extremities: No lower extremity edema. Extremities exhibit normal range of motion. Extremities nontender. Neuro: Oriented X 3. No motor deficit. No sensory deficit. Reflexes normal. Course Course Course Narrative: Assessment and plan. I 85-year-old female status post paraesophageal hernia repair, patient has been deteriorating after surgery with decreased p.o. intake and significant weight loss. Patient was seen by Dr. Lopez today who sent her to the emergency room for inpatient admission and arrange for feeding tube placement. Due to decreased p.o. intake and free water intake with elevation of BUN and sodium. Medical Decision Making Lab Data Lab results reviewed: Yes I reviewed the patient's lab results. Result diagrams: 11/24/20 14:44 11/24/20 14:44 Labs: Lab Results 11/24/20 11/24/20 11/24/20 Range/Units 13:49 13:50 14:44 WBC 8.8 (4.8-10.8) X10*3/uL RBC 2.86 L (4.20-5.50) X10*6/uL Hgb 9.4 L (12.0-16.0) g/dl Hct 28.9 L (37-47) % MCV 101.0 H (80-98) fL MCH 32.9 (27.0-33.0) pg MCHC 32.5 (31.0-35.0) g/dl RDW 18.8 H (11.0-16.0) % Plt Count 84 L (160-400) X10*3/uL MPV 12.4 H (9.4-12.3) fL Immature Gran % (Auto) 1.9 H (0.0-0.4) % Neut % (Auto) 80.3 H (45-73) % Lymph % (Auto) 10.3 L (20-40) % Wirt % (Auto) 6.6 (2-11) % Eos % (Auto) 0.8 (0-4) % Baso % (Auto) 0.1 (0-2) % Lymph # (Auto) 0.9 L (1.2-4.9) X10*3/uL Wirt # (Auto) 0.6 (0.1-1.2) X10*3/uL Eos # (Auto) 0.1 (0.0-0.4) X10*3/uL Baso # (Auto) 0.0 (0.0-0.2) X10*3/uL Abs Immat Gran (auto) 0.17 H (0.00-0.03) X10*3/uL Absolute Neuts (auto) 7.1 (2.0-8.3) X10*3/uL Absolute Nucleated RBC 0.040 H (0.0-0.012) X10*3/uL Nucleated RBC % (auto) 0.5 H (0.0-0.2) /100WBC Sodium (135-145) mmol/L Potassium (3.3-5.1) mmol/L Chloride (96-108) mmol/L Carbon Dioxide (22-29) mmol/L Anion Gap (12-20) BUN (9-16) mg/dL Creatinine (0.5-1.4) mg/dL Estim Creat Clear Calc Estimated GFR Random Glucose (60-115) mg/dL Calcium (8.4-10.2) mg/dL Total Bilirubin (0.0-1.0) mg/dL Direct Bilirubin (0.0-0.5) mg/dL AST (5-31) U/L ALT (0-31) U/L Alkaline Phosphatase (39-117) U/L B-Natriuretic Peptide (<100) pg/mL Total Protein (6.5-8.0) g/dL Albumin (3.5-5.0) g/dL Lipase (8-78) U/L Urine Color YELLOW Urine Appearance CLEAR Urine pH 5.5 (5.0-8.0) Ur Specific [place] 1.020 (1.005-1.025) Urine Protein NEG (NEG-TRACE) MG/DL Urine Glucose (UA) NEG (NEG) MG/DL Urine Ketones NEG (NEG) MG/DL Urine Blood NEG (NEG) Urine Nitrite NEG (NEG) Ur Leukocyte Esterase NEG (NEG) COVID-19 (JACE) Negative (Negative) COVID-19 Clin Com See Note 11/24/20 11/24/20 Range/Units 14:44 14:44 WBC (4.8-10.8) X10*3/uL RBC (4.20-5.50) X10*6/uL Hgb (12.0-16.0) g/dl Hct (37-47) % MCV (80-98) fL MCH (27.0-33.0) pg MCHC (31.0-35.0) g/dl RDW (11.0-16.0) % Plt Count (160-400) X10*3/uL MPV (9.4-12.3) fL Immature Gran % (Auto) (0.0-0.4) % Neut % (Auto) (45-73) % Lymph % (Auto) (20-40) % Wirt % (Auto) (2-11) % Eos % (Auto) (0-4) % Baso % (Auto) (0-2) % Lymph # (Auto) (1.2-4.9) X10*3/uL Wirt # (Auto) (0.1-1.2) X10*3/uL Eos # (Auto) (0.0-0.4) X10*3/uL Baso # (Auto) (0.0-0.2) X10*3/uL Abs Immat Gran (auto) (0.00-0.03) X10*3/uL Absolute Neuts (auto) (2.0-8.3) X10*3/uL Absolute Nucleated RBC (0.0-0.012) X10*3/uL Nucleated RBC % (auto) (0.0-0.2) /100WBC Sodium 150 H (135-145) mmol/L Potassium 4.1 (3.3-5.1) mmol/L Chloride 113 H (96-108) mmol/L Carbon Dioxide 28 (22-29) mmol/L Anion Gap 13 (12-20) BUN 39 H (9-16) mg/dL Creatinine 1.22 (0.5-1.4) mg/dL Estim Creat Clear Calc 21.3 Estimated GFR 42 Random Glucose 110 (60-115) mg/dL Calcium 9.9 (8.4-10.2) mg/dL Total Bilirubin 0.7 (0.0-1.0) mg/dL Direct Bilirubin 0.3 (0.0-0.5) mg/dL AST 14 D (5-31) U/L ALT < 6 (0-31) U/L Alkaline Phosphatase 36 L D (39-117) U/L B-Natriuretic Peptide 86 (<100) pg/mL Total Protein 5.3 L (6.5-8.0) g/dL Albumin 3.1 L (3.5-5.0) g/dL Lipase 33 (8-78) U/L Urine Color Urine Appearance Urine pH (5.0-8.0) Ur Specific [place] (1.005-1.025) Urine Protein (NEG-TRACE) MG/DL Urine Glucose (UA) (NEG) MG/DL Urine Ketones (NEG) MG/DL Urine Blood (NEG) Urine Nitrite (NEG) Ur Leukocyte Esterase (NEG) COVID-19 (JACE) (Negative) COVID-19 Clin Com Imaging Data Chest x-ray: Radiologist's impression: 1. Airspace opacity left base with probable small effusion. 2. Subsegmental atelectasis right base. 3. Vascularity within normal. ECG Data Interpretation: Normal sinus rhythm at 75 beats per minutes, in general within normal to diffuse T-wave inversion. Discharge Plan Discharge Clinical Impression: Adult failure to thrive, Excessive weight loss, Visit for feeding tube placement, Hypernatremia, Dehydration Patient Disposition: Admitted As Inpatient
--- NOTE | 2020-11-24 12:00 | ECG_ITS ---
Test Reason : ALTERED MENTAL Blood Pressure : / mmHG Vent. Rate : 075 BPM Atrial Rate : 075 BPM P-R Int : 134 ms QRS Dur : 084 ms QT Int : 404 ms P-R-T Axes : 022 006 179 degrees QTc Int : 451 ms Normal sinus rhythm Anterior infarct , age undetermined ST & T wave abnormality, consider inferolateral ischemia Abnormal ECG When compared with ECG of 09-NOV-2020 17:11, Anterior infarct is now Present Non-specific change in ST segment in Anterior leads Inverted T waves have replaced nonspecific T wave abnormality in Inferior leads T wave inversion more evident in Anterior leads Referred By: Raulito Clayton Electronically Signed By:GIL LYNCH
[2020-11-24] MEDS: 0.9 % Sodium Chloride 1,000 ML 999 ML IVCONT (12:20)
[2020-11-24 14:14] LABS: Glucose Urine UA NEG (NEG); Leukocyte Esterase Urine NEG (NEG); Nitrite Urine NEG (NEG); PH 5.5 (5.0-8.0); Urine Blood NEG (NEG); Urine Ketones NEG (NEG); Urine Protein NEG (NEG-TRACE)
[2020-11-24 14:22] LABS: COVID-19 Test Negative (Negative); IDNOW Serial# 9DD0AD1C
[2020-11-24 14:23] LABS: Appearance Urine CLEAR; Color Urine YELLOW
--- NOTE | 2020-11-24 14:24 | PC.NURSE ---
open area red area noted on base of spine , MD called to bedside
[2020-11-24 14:49] VITALS: BP 163/83; PULSE 72; RESP 18; TEMP 37.1; O2SAT 97
[2020-11-24 14:51] LABS: MANUAL DIFF FLAG NO
[2020-11-24 14:53] LABS: Basophils Percent Auto 0.1 % (0-2); Eosinophils Absolute Auto 0.1 X10*3/uL (0.0-0.4); Eosinophils Percent Auto 0.8 % (0-4); Hematocrit 28.9 % (37-47); Hemoglobin 9.4 g/dl (12.0-16.0); Imm Gran Abs Auto 0.17 X10*3/uL (0.00-0.03); Imm Gran Pct Auto 1.9 % (0.0-0.4); Lymphocytes Absolute Auto 0.9 X10*3/uL (1.2-4.9); Lymphocytes Percent Auto 10.3 % (20-40); Mean Corpuscular HGB Conc 32.5 g/dl (31.0-35.0); Mean Corpuscular Hemoglobin 32.9 pg (27.0-33.0); Mean Platelet Volume 12.4 fL (9.4-12.3); Monocytes Absolute Auto 0.6 X10*3/uL (0.1-1.2); Monocytes Percent Auto 6.6 % (2-11); NRBC Pct Auto 0.5 /100WBC (0.0-0.2); Neutrophils Absolute Auto 7.1 X10*3/uL (2.0-8.3); Neutrophils Percent Auto 80.3 % (45-73); Red Blood Count 2.86 X10*6/uL (4.20-5.50); Red Cell Distribution Width 18.8 % (11.0-16.0); White Blood Count 8.8 X10*3/uL (4.8-10.8)
[2020-11-24 14:54] LABS: Platelet Count 84 X10*3/uL (160-400)
[2020-11-24 15:26] LABS: B Type Natriuretic Peptide 86 pg/mL (<100)
[2020-11-24 15:30] LABS: Alanine Aminotransferase < 6 U/L (0-31); Albumin Level 3.1 g/dL (3.5-5.0); Alkaline Phosphatase 36 U/L (39-117); Anion Gap 13 (12-20); Aspartate Amino Transferase 14 U/L (5-31); Bilirubin Direct 0.3 mg/dL (0.0-0.5); Bilirubin Total 0.7 mg/dL (0.0-1.0); Blood Urea Nitrogen 39 mg/dL (9-16); Calcium 9.9 mg/dL (8.4-10.2); Carbon Dioxide 28 mmol/L (22-29); Chloride 113 mmol/L (96-108); Creatinine Clr Calc Pharmacy 21.3; Estimated Glomerular Filt Rate 42; Glucose Random 110 mg/dL (60-115); Lipase 33 U/L (8-78); Potassium 4.1 mmol/L (3.3-5.1); Sodium 150 mmol/L (135-145); Total Protein 5.3 g/dL (6.5-8.0)
[2020-11-24 15:32] VITALS: BP 177/87; PULSE 78; RESP 18; O2SAT 96
--- NOTE | 2020-11-24 16:30 | PC.NURSE ---
Pt resting comfortably with eyes closed. Responds to verbal stimulation but mostly non verbal. Son at bedside. Examined by hospitalist for admission, awaiting transfer to floor
--- NOTE | 2020-11-24 16:36 | PM.IMHP ---
History of Present Illness Date of Service: 11/24/20 Chief Complaint: Failure to thrive, altered mentation 85-year-old female with a past medical history of hypertension, GERD, osteoarthritis, MGUS presented to the hospital with a chief complaint of decrease oral intake and increase encephalopathy.Most of the history obtained from the patient son. The patient was discharged recently from the hospital on November 15 after admission for similar reason. She was referred for paraesophageal hernia which was surgically repaired with fair response as she was able to tolerate diet before being discharged from the hospital to nursing facility. Seems like at the nurses in facility she started to become more withdrawn, encephalopathic and lethargic with decreased oral intake. Her son saw her yesterday and he was concerned as she went to see her surgeon on a follow-up today who was concerned about the patient will being and failure to thrive recommending to admission to the hospital for hydration and possible PEG tube placement. Patient was found to be hypernatremic at time of presentation with associated altered mentation. Admitted for further evaluation and treatment. 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 Son No problems noted. Daughter No problems noted. Surgical History History of nasal surgery S/P left knee arthroscopy S/P DINORAH-BSO Status post repair of paraesophageal diaphragmatic hernia Social History Household Members: None Housing: House Alcohol intake: never Smoking Status: Never smoker Advance Directives: Yes Advance Directives on File: Yes Advance Directives Date on File: 10/10/20 service: No Current occupational status: retired Meds Allergies Allergy/AdvReac Type Severity Reaction Status Date / Time cat dander [CAT] Allergy Unknown SNEEZE, Verified 11/24/20 10:22 EYES SWELL UP Active Medications: Current Medications Generic Name Dose Route Start Last Admin Trade Name Freq PRN Reason Stop Dose Admin Lactated Ringer's 1,000 mls @ 999 mls/hr 11/24/20 16:45 Lr IV 11/24/20 17:45 .Q1H1M [facility] [place] Pharmacy Consult 1 each 11/24/20 16:27 Consult Rx Perform Med Rec MISCELLANE ONCE PRN Consult order Home Medications Medication Instructions Recorded Confirmed Last Taken Type hydralazine 1 tab PO TID 11/09/20 11/24/20 Unknown History lisinopril 1 tab PO BID 11/09/20 11/24/20 Unknown History omeprazole 1 cap PO BID 11/09/20 11/24/20 Unknown History Physical Exam Vital Signs and Narrative: Vital Signs: Last Vital Signs Temp 98.7 F 11/24/20 14:49 Pulse 78 11/24/20 15:32 Resp 18 11/24/20 15:32 BP 177/87 H 11/24/20 15:32 Pulse Ox 96 11/24/20 15:32 Body Mass Index 21.6 Const: Other: Constitutional : Alert with stimulation, oriented to self and son, looks lethargic but not in distress Neck : Normal inspection, Supple Cardiovascular : RRR, S1 S2, no lower extremity edema Respiratory : Fair bilateral air entry, no crackles, wheezes or rhonchi Gastrointestinal: soft, lax, Normal bowel sounds, Non tender Skin : Warm/Dry, No rash Neurological : Alert with physical stimulation & oriented to self, No focal deficit Results Labs CBC and Chem 7: 11/24/20 14:44 11/24/20 14:44 Labs: Laboratory Results - last 24 hr 11/24/20 11/24/20 11/24/20 13:49 13:50 14:44 MCV 101.0 H MCH 32.9 MCHC 32.5 RDW 18.8 H Plt Count 84 L MPV 12.4 H Immature Gran % (Auto) 1.9 H Neut % (Auto) 80.3 H Lymph % (Auto) 10.3 L [place] % (Auto) 6.6 Eos % (Auto) 0.8 Baso % (Auto) 0.1 Lymph # (Auto) 0.9 L [place] # (Auto) 0.6 Eos # (Auto) 0.1 Baso # (Auto) 0.0 Abs Immat Gran (auto) 0.17 H Absolute Neuts (auto) 7.1 Absolute Nucleated RBC 0.040 H Nucleated RBC % (auto) 0.5 H Anion Gap Estim Creat Clear Calc Estimated GFR Random Glucose Calcium Total Bilirubin Direct Bilirubin AST ALT Alkaline Phosphatase B-Natriuretic Peptide Total Protein Albumin Lipase Urine Color YELLOW Urine Appearance CLEAR Urine pH 5.5 Ur Specific [place] 1.020 Urine Protein NEG Urine Glucose (UA) NEG Urine Ketones NEG Urine Blood NEG Urine Nitrite NEG Ur Leukocyte Esterase NEG COVID-19 (JACE) Negative COVID-19 [facility] Com See Note 11/24/20 11/24/20 14:44 14:44 MCV MCH MCHC RDW Plt Count MPV Immature Gran % (Auto) Neut % (Auto) Lymph % (Auto) [place] % (Auto) Eos % (Auto) Baso % (Auto) Lymph # (Auto) [place] # (Auto) Eos # (Auto) Baso # (Auto) Abs Immat Gran (auto) Absolute Neuts (auto) Absolute Nucleated RBC Nucleated RBC % (auto) Anion Gap 13 Estim Creat Clear Calc 21.3 Estimated GFR 42 Random Glucose 110 Calcium 9.9 Total Bilirubin 0.7 Direct Bilirubin 0.3 AST 14 D ALT < 6 Alkaline Phosphatase 36 L D B-Natriuretic Peptide 86 Total Protein 5.3 L Albumin 3.1 L Lipase 33 Urine Color Urine Appearance Urine pH Ur Specific [place] Urine Protein Urine Glucose (UA) Urine Ketones Urine Blood Urine Nitrite Ur Leukocyte Esterase COVID-19 (JACE) COVID-19 Clin Com Imaging Radiologist's Impressions: Impressions Chest X-Ray 11/24/20 12:00 IMPRESSION: 1. Airspace opacity left base with probable small effusion. 2. Subsegmental atelectasis right base. 3. Vascularity within normal. Assessment and Plan (1) Adult failure to thrive: Status: Acute (2) Visit for feeding tube placement: Status: Acute (3) Hypernatremia: Status: Acute (4) Dehydration: Status: Acute (5) Metabolic encephalopathy: Status: Acute 85-year-old female with a past medical history of hypertension, GERD, osteoarthritis, MGUS presented to the hospital with a chief complaint of decrease oral intake and increase encephalopathy. Adult failure to thrive Multifactorial including esophageal problem, altered mentation, old age Start with hydration for now Encourage oral intake Consider back tube placement Surgery consult Metabolic encephalopathy Multifactorial as well including hypernatremia, dehydration, elderly, hypoactive delirium Treat underlying electrolyte imbalance and dehydration Recurrent reorientation Dehydration Hypernatremia Patient is free water deficit To give IV boluses stent to start D5W 100 cc/hour Goal to bring sodium back to normal Physical deconditioning To get PT evaluation Moderate protein calorie malnutrition Secondary to decreased oral intake Involve environmental test technician Add Ensure DVT prophylaxis Lovenox
[2020-11-24 19:07] VITALS: BP 149/83; PULSE 80; RESP 19; TEMP 36.6; O2SAT 98
--- NOTE | 2020-11-24 19:07 | PC.NURSE ---
Pt transferred to S3E at this time. Transferred via stretcher, no distress upon transfer. Nurse to nurse report given to CHRISTIANNE Bradford
[2020-11-24] MEDS: Lactated Ringers 1,000 ML 999 ML IV (20:01)
[2020-11-24 20:12] VITALS: BP 149/83; PULSE 80
[2020-11-24] MEDS: hydrALAZINE HCl 50 MG TABLET PO (20:12)
[2020-11-24] MEDS: Enoxaparin Sodium 30 MG/0.3 ML SYRINGE SUBCUT (20:12)
[2020-11-24] MEDS: Acetaminophen 325 MG TABLET 650 MG PO (20:17)
[2020-11-24] MEDS: 0.9 % Sodium Chloride Flush 3 ML SYRINGE IVFLUSH (20:27)
[2020-11-24] MEDS: Dextrose 5 % 1,000 ML 100 ML IVCONT (21:52)
[2020-11-24 23:43] VITALS: BP 157/77; PULSE 69; RESP 16; TEMP 35.9; O2SAT 97
[2020-11-25] VITALS (9 sets, daily range): BP systolic 135–164; BP diastolic 71–76; PULSE 62–72; RESP 16–18; TEMP 36.2–36.7; O2SAT 96–98; BMI 21.6
[2020-11-25] MEDS: Dextrose 5 % 1,000 ML 100 ML IVCONT ×2 (04:24→08:36)
[2020-11-25 07:28] LABS: Anion Gap 14 (12-20); Blood Urea Nitrogen 34 mg/dL (9-16); Carbon Dioxide 23 mmol/L (22-29); Chloride 111 mmol/L (96-108); Creatinine Clr Calc Pharmacy 27.3; Estimated Glomerular Filt Rate 56; Glucose Random 119 mg/dL (60-115); Potassium 4.1 mmol/L (3.3-5.1); Sodium 144 mmol/L (135-145)
[2020-11-25 07:40] LABS: Calcium 9.2 mg/dL (8.4-10.2)
[2020-11-25] MEDS: hydrALAZINE HCl 50 MG TABLET PO ×3 (08:37→20:36)
[2020-11-25] MEDS: 0.9 % Sodium Chloride Flush 3 ML SYRINGE IVFLUSH ×2 (08:38→15:36)
--- NOTE | 2020-11-25 10:20 | MHC.CM.PN ---
IMM 11/25/20, EMR REVIEWED, PT ADMITTED RETURNED SNF W/FTT AND DEHYDRATION, POSSIBLE PEG TUBE PLACEMENT SON/HCP AGREEABLE, PT OBTAINED INFO FROM SON/HCP WHO WAS IN PT'S ROOM, PT IS SOUND ASLEEP AND DID NOT STAY AWAKE WHEN WOKEN BY CM, PER PT'S SON FAMILY DOES NOT WANT PT TO RETURN TO [facility] DUE TO FAMILY NOT FEELING PT WAS BEING FED BY STAFF AND STAFF ENDED UP W/ STAGE 2 PRESSURE ULCER, PT DISCHARGED ON 11/15 TO [facility] AFTER ESOPHAGEAL HERNIA REPAIR, PER SON FAMILY WILL RESEARCH SNF'S AND WILL FOLLOW-UP W/CM. PRIOR TO HOSPITAL ADMISSION ON 11/09 PT WAS INDEPENDENT AT HOME AND USES A ROLLATER WALKER, NO HOME SERVICES OR [facility]. PER SON CATINA HE HAS HAD EXPERIENCE W/PEG TUBES AND ASSISTED HIS FATHER WITH CARE AND FEEDINGS IN THE PAST. DISCHARGE PLAN: STR W/ BLS TRANSPORT: NO [facility] HCP: CATINA MONTALVO [phone] ALTERNATE: AB MONTALVO [phone] PCP: JOHNSON CABRERA
--- NOTE | 2020-11-25 10:22 | P.CONGS_ITS ---
History of Present Illness Consult details Consult date: 11/24/20 Reason for consult: other (Failure to thrive) Requesting physician: Aneesh Mistry Narrative: This is a 85-year-old lady who underwent a laparoscopic reduction repair of a giant paraesophageal hernia with about 2/3 of the stomach within the chest. Patient had lost about 50 lb since April of 2020 and had very difficult time swallowing mostly solid food. She was also having some difficulty with liquid food. She was having some difficulty swallowing pills as well. Patient had an endoscopy with Dr. Thorpe and was found to have a very large paraesophageal hernia and also had a CT scan that documented most of the stomach within the chest. Patient did well postoperatively after the 11/12/2020 procedure. Patient was able to swallow her pills and swallow some of the pureed food but did not have an appetite for food. Patient was discharged to a [place] [facility] facility where she did not have the appetite to eat her meals. I discussed placing a G-tube at the original surgery and the patient and her sons were adamant about not having artificial feeding. Patient has had very poor nutrition since she has been discharge and her son's report that she has appeared somewhat confused. Patient was seen in the office by me on 11/24/2020 and appeared to be alert and oriented x3 and her son said that she was the most alert she had been since being discharged. They also reported that she had eaten 50% of her breakfast and 50% of her lunch the day before which was more than she had eaten since April of 2020. Patient's primary care doctor Dr. Moran recommended having a G-tube placed for nutrition as she was so malnourished. I also recommended having a G-tube placed for the patient's malnutrition in the hopes of being able to remove it when she was able to tolerate more by mouth. I discussed this with the sons who agreed and the patient was admitted to Medicine Service to have a interventional Radiology placed gastrostomy tube for feedings. Review of Systems Constitutional: Constitutional: Reports anorexia, Denies chills, Reports difficulty sleeping, Reports fatigue, Denies headache(s), Reports lethargy, Denies snoring and Reports weakness Eyes: Eyes: Denies blurry vision, Denies diplopia and Denies loss of vision ENT: Denies bleeding gums, Denies dysphagia, Reports dry mouth and Denies headache(s) Cardiovascular: Cardiovascular: Denies cool extremities, Denies Epigastric Pain, Denies rapid heart rate, Denies pedal edema, Denies edema and Denies irregular heart rhythm Respiratory: Respiratory: Denies cough, Denies hemoptysis, Denies excessive phlegm production and Denies snoring Gastrointestinal: Gastrointestinal: Denies abdominal pain, Denies melena, Denies dysphagia, Denies dyspepsia, Denies heartburn, Denies loose stools, Denies nausea and Denies vomiting Genitourinary: Genitourinary: Denies hematuria and Denies difficulty voiding Musculoskeletal: Musculoskeletal: Reports back pain and Reports arthralgias Neurologic: Reports confusion (Mild), Denies headache(s), Denies loss of vision and Reports weakness Psychiatric: Psychiatric: Denies anxiety and Reports confusion (Mild) Endocrine: Endocrine: Reports fatigue PMFSH Past Medical History Medical History Adult failure to thrive GERD (gastroesophageal reflux disease) HTN (hypertension) Lower extremity edema 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 Son No problems noted. Daughter No problems noted. Surgical History Surgical History (Updated 11/25/20 @ 10:35 by Sharlene Lopez MD) History of nasal surgery S/P left knee arthroscopy S/P DINORAH-BSO Status post repair of paraesophageal diaphragmatic hernia Social History Social History Household Members: None Housing: House Do you presently have visiting nurse or other home services: No Alcohol intake: never Smoking Status: Never smoker Use of substances other than those prescribed or required for medical reasons: No Currently Displaying Signs/Symptoms of Drug Intoxication Withdrawal: No Have you been hit, kicked, punched, or otherwise hurt by someone within the past year? If so, by whom?: No Do you feel safe in your current relationship?: No Is there a partner from a previous relationship who is making you feel unsafe now?: No Advance Directives: Yes Advance Directives on File: Yes Advance Directives Date on File: 10/10/20 Do you have thoughts of harming others: None Do you have a plan to hurt others: No Plan Recently lost weight without trying: Yes service: No Current occupational status: retired Meds Allergies Allergy/AdvReac Type Severity Reaction Status Date / Time cat dander [CAT] Allergy Unknown SNEEZE, Verified 11/24/20 10:22 EYES SWELL UP Active Medications: Current Medications Generic Name Dose Route Start Last Admin Trade Name Freq PRN Reason Stop Dose Admin Acetaminophen 650 mg 11/24/20 19:10 11/24/20 20:17 Acetaminophen 325 Mg Tablet PO 650 mg Q6H PRN Administration Pain, Mild (Pain Scale 1-3) Al Hydroxide/Mg Hydroxide 30 ml 11/24/20 19:10 Magnesium Hydrox/Alum Hydrox 30 Ml Oral.Susp PO Q4H PRN Heartburn/Nausea Enoxaparin Sodium 30 mg 11/24/20 20:00 11/24/20 20:12 Enoxaparin Sodium 30 Mg/0.3 Ml Syringe SUBCUT 30 mg Q24H STEPHON Administration Hydralazine HCl 50 mg 11/24/20 21:00 11/25/20 08:37 Hydralazine Hcl 50 Mg Tablet PO 50 mg TID STEPHON Administration Protocol Dextrose 1,000 mls @ 100 mls/hr 11/24/20 17:00 11/25/20 08:36 D5w IVCONT 100 mls/hr .Q10H STEPHON Administration Omeprazole 20 mg 11/25/20 06:30 11/25/20 06:26 Omeprazole 20 Mg Capsule. PO Not Given BID@0630,1630 STEPHON Ondansetron HCl 4 mg 11/24/20 19:10 Ondansetron Hcl 4 Mg/2 Ml Vial IVPUSH Q8H PRN Nausea and Vomiting Pharmacy Consult 1 each 11/24/20 16:27 Consult Rx Perform Med Rec MISCELLANE ONCE PRN Consult order Sodium Chloride 3 ml 11/25/20 00:00 11/25/20 08:38 0.9 % Sodium Chloride Flush 3 Ml Syringe IVFLUSH 3 ml QSHIFT STEPHON Administration Home Medications Medication Instructions Recorded Confirmed Last Taken Type hydralazine 1 tab PO TID 11/09/20 11/24/20 Unknown History lisinopril 1 tab PO BID 11/09/20 11/24/20 Unknown History omeprazole 1 cap PO BID 11/09/20 11/24/20 Unknown History Physical Exam 2 Vital Signs: Vital Signs: Last Vital Signs Temp 97.1 F 11/25/20 07:30 Pulse 62 11/25/20 10:10 Resp 16 11/25/20 07:30 BP 163/75 H 11/25/20 10:10 Pulse Ox 97 11/25/20 10:10 Body Mass Index 21.6 Const: General: confusion (Mild) Orientation/consciousness: confusion (Mild) HENMT: Head: Yes normocephalic and Yes atraumatic Mouth: abnormal oral mucosae (Dry oral mucosa) Eyes: EOM: EOMs intact bilaterally Neck: Neck: Yes full ROM and Yes no lymphadenopathy Resp: Effort & Inspection: normal respiratory effort, no audible wheezes and no cough Auscultation: clear to auscultation bilaterally Cardio: Rate: regular rate Heart sounds: S1 normal heart sound present, S2 normal heart sound present, no gallops, no murmurs and no rubs GI: Other: Resolving ecchymosis below the umbilicus Inspection: Yes normal to inspection, No Abdominal wall edema, No distended and Yes incision (Well-healed laparoscopic incisions without evidence of hernia) Palpation (GI): Soft to palpation, nontender, no guarding, not rigid, no hernias and no masses Neuro: General: confusion (Mild) Extrem: General: Yes normal to inspection and Yes no clubbing, cyanosis or edema Results Labs Result diagrams: 11/24/20 14:44 11/25/20 06:33 Labs: Abnormal lab results 11/24/20 11/24/20 11/25/20 Range/Units 14:44 14:44 06:33 RBC 2.86 L (4.20-5.50) X10*6/uL Hgb 9.4 L (12.0-16.0) g/dl Hct 28.9 L (37-47) % MCV 101.0 H (80-98) fL RDW 18.8 H (11.0-16.0) % Plt Count 84 L (160-400) X10*3/uL MPV 12.4 H (9.4-12.3) fL Immature Gran % (Auto) 1.9 H (0.0-0.4) % Neut % (Auto) 80.3 H (45-73) % Lymph % (Auto) 10.3 L (20-40) % Lymph # (Auto) 0.9 L (1.2-4.9) X10*3/uL Abs Immat Gran (auto) 0.17 H (0.00-0.03) X10*3/uL Absolute Nucleated RBC 0.040 H (0.0-0.012) X10*3/uL Nucleated RBC % (auto) 0.5 H (0.0-0.2) /100WBC Sodium 150 H (135-145) mmol/L Chloride 113 H 111 H (96-108) mmol/L BUN 39 H 34 H (9-16) mg/dL Random Glucose 119 H (60-115) mg/dL Alkaline Phosphatase 36 L D (39-117) U/L Total Protein 5.3 L (6.5-8.0) g/dL Albumin 3.1 L (3.5-5.0) g/dL Short CBC 11/24/20 Range/Units 14:44 WBC 8.8 (4.8-10.8) X10*3/uL Hgb 9.4 L (12.0-16.0) g/dl Hct 28.9 L (37-47) % Plt Count 84 L (160-400) X10*3/uL BMP 11/24/20 11/25/20 14:44 06:33 Sodium 150 H 144 Potassium 4.1 4.1 Chloride 113 H 111 H Carbon Dioxide 28 23 BUN 39 H 34 H Creatinine 1.22 0.95 Calcium 9.9 9.2 D Liver Function 11/24/20 Range/Units 14:44 Total Bilirubin 0.7 (0.0-1.0) mg/dL Direct Bilirubin 0.3 (0.0-0.5) mg/dL AST 14 D (5-31) U/L ALT < 6 (0-31) U/L Alkaline Phosphatase 36 L D (39-117) U/L Albumin 3.1 L (3.5-5.0) g/dL Urine 11/24/20 Range/Units 13:50 Urine Color YELLOW Urine Appearance CLEAR Urine pH 5.5 (5.0-8.0) Ur Specific [place] 1.020 (1.005-1.025) Urine Protein NEG (NEG-TRACE) MG/DL Urine Glucose (UA) NEG (NEG) MG/DL All other labs normal. Assessment and Plan (1) Adult failure to thrive: Status: Acute This is an 85-year-old lady who continues have failure to thrive despite having a repair of a very large paraesophageal hernia. Patient has no desire to consume food. She does need some nutrition in order to continue to heal and to continue to live. I have discussed this with the patient's sons who are in agreement with the interventional Radiology placed gastrostomy tube. They understand that we hope that this will be a temporary measure into the patient is able to tolerate and a food by mouth. The Medicine Service has scheduled the placement of the gastrostomy tube. The patient will then be started on tube feeds and be transferred back [place] to the [place] [facility] where tube feeds will be continued. (2) Status post repair of paraesophageal diaphragmatic hernia: Problem details: 11/12/2020 Status: Acute
--- NOTE | 2020-11-25 14:39 | HO.PM.IMPN ---
Subjective Subjective Date of Service: 11/25/20 Interval History: the patient was seen and evaluated this morning Laying in bed, feels mildly better today but still has no appetite and did not eat much for breakfast or lunch Denies any fever, chills or shortness of breath No reported other overnight events. Systemic review: No fever, chills but reporting generalized weakness No chest pain, palpitation No shortness of breath or coughing No abdominal pain, nausea or vomiting No urinary symptoms No any rash or wounds Physical Exam Vital Signs: Vital Signs: Last Vital Signs Temp 98.1 F 11/25/20 11:15 Pulse 66 11/25/20 11:15 Resp 17 11/25/20 11:15 BP 146/72 H 11/25/20 11:15 Pulse Ox 98 11/25/20 11:15 Body Mass Index 21.6 Const: Other: Constitutional : Alert, oriented to self, looks lethargic but not in distress Neck : Normal inspection, Supple Cardiovascular : RRR, S1 S2, no lower extremity edema Respiratory : Fair bilateral air entry, no crackles, wheezes or rhonchi Gastrointestinal: soft, lax, Normal bowel sounds, Non tender Skin : Warm/Dry, No rash Neurological : Alert & oriented to self, No focal deficit Objective Data Current Medications Generic Name Dose Route Start Last Admin Trade Name Freq PRN Reason Stop Dose Admin Acetaminophen 650 mg 11/24/20 19:10 11/24/20 20:17 Acetaminophen 325 Mg Tablet PO 650 mg Q6H PRN Administration Pain, Mild (Pain Scale 1-3) Al Hydroxide/Mg Hydroxide 30 ml 11/24/20 19:10 Magnesium Hydrox/Alum Hydrox 30 Ml Oral.Susp PO Q4H PRN Heartburn/Nausea Enoxaparin Sodium 30 mg 11/24/20 20:00 11/24/20 20:12 Enoxaparin Sodium 30 Mg/0.3 Ml Syringe SUBCUT 30 mg Q24H STEPHON Administration Hydralazine HCl 50 mg 11/24/20 21:00 11/25/20 08:37 Hydralazine Hcl 50 Mg Tablet PO 50 mg TID STEPHON Administration Protocol Dextrose 1,000 mls @ 100 mls/hr 11/24/20 17:00 11/25/20 12:34 D5w IVCONT Not Given .Q10H STEPHON Omeprazole 20 mg 11/25/20 06:30 11/25/20 06:26 Omeprazole 20 Mg Capsule. PO Not Given BID@[id number] ON LICENSE OF [facility] Ondansetron HCl 4 mg 11/24/20 19:10 Ondansetron Hcl 4 Mg/2 Ml Vial IVPUSH Q8H PRN Nausea and Vomiting Pharmacy Consult 1 each 11/24/20 16:27 Consult Rx Perform Med Rec MISCELLANE ONCE PRN Consult order Sodium Chloride 3 ml 11/25/20 00:00 11/25/20 08:38 0.9 % Sodium Chloride Flush 3 Ml Syringe IVFLUSH 3 ml QSHIFT ON LICENSE OF [facility] Administration Labs CBC & Chem 7: 11/24/20 14:44 11/25/20 06:33 Assessment and Plan (1) Adult failure to thrive: Status: Acute (2) Visit for feeding tube placement: Status: Acute (3) Hypernatremia: Status: Acute (4) Dehydration: Status: Acute (5) Metabolic encephalopathy: Status: Acute Assessment and Plan: 85-year-old female with a past medical history of hypertension, GERD, osteoarthritis, MGUS presented to the hospital with a chief complaint of decrease oral intake and increase encephalopathy. Adult failure to thrive Multifactorial including esophageal problem, altered mentation, old age Encourage oral intake Plan for PEG tube placement Hold IVF today Surgery input appreciated Metabolic encephalopathy Multifactorial as well including hypernatremia, dehydration, elderly, hypoactive delirium Treat underlying electrolyte imbalance and dehydration Recurrent reorientation Dehydration Hypernatremia Sodium improved to 144 this morning Patient is free water deficit Hold IVF Physical deconditioning PT evaluation Moderate protein calorie malnutrition Secondary to decreased oral intake Involve guidance adviser Add Ensure DVT prophylaxis Lovenox
--- NOTE | 2020-11-25 14:50 | MHC.CLN ---
PT TO RECEIVE PEG TUBE FOR NUTRITION SUPPORT RECOMMEND JEVITY 1.0 AT MAX GAOL RATE 55CC/HR WITH 120CC FREE WATER Q SHIFT TO PROVIDE 1399KCALS (31KCALS/KG), 58G PROTEIN (1.3G/KG), 1486CC TOTAL WATER FROM FORMULA AND FLUSHES (33CC/KG) MONITOR TOLERANCE, RESIDUALS AND LYTES FOR REFEEDING SEE ALSO CLINICAL NUTRITION ASSESSMENT
[2020-11-25] MEDS: Omeprazole 20 MG CAPSULE.DR PO (15:36)
[2020-11-25] MEDS: Enoxaparin Sodium 30 MG/0.3 ML SYRINGE SUBCUT (20:37)
[2020-11-26] VITALS (8 sets, daily range): BP systolic 97–145; BP diastolic 50–79; PULSE 64–80; RESP 16–18; TEMP 36–36.5; O2SAT 97–100
[2020-11-26] MEDS: 0.9 % Sodium Chloride Flush 3 ML SYRINGE IVFLUSH ×3 (00:41→15:24)
[2020-11-26 06:58] LABS: Anion Gap 14 (12-20); Blood Urea Nitrogen 28 mg/dL (9-16); Calcium 9.1 mg/dL (8.4-10.2); Carbon Dioxide 26 mmol/L (22-29); Chloride 104 mmol/L (96-108); Creatinine Clr Calc Pharmacy 30.2; Estimated Glomerular Filt Rate > 60; Glucose Random 90 mg/dL (60-115); Potassium 3.8 mmol/L (3.3-5.1); Sodium 140 mmol/L (135-145)
[2020-11-26] MEDS: hydrALAZINE HCl 50 MG TABLET PO ×2 (10:04→20:53)
--- NOTE | 2020-11-26 13:34 | HO.PM.IMPN ---
Subjective Subjective Date of Service: 11/26/20 Interval History: the patient was seen and evaluated this morning More sleepy and withdrawn today, difficult to arouse but when she wakes up she is oriented about herself and she S Not eating much Denies any fever, chills or shortness of breath No reported other overnight events. Systemic review: No fever, chills but reporting generalized weakness No chest pain, palpitation No shortness of breath or coughing No abdominal pain, nausea or vomiting Physical Exam Vital Signs: Vital Signs: Last Vital Signs Temp 97 F 11/26/20 11:50 Pulse 80 11/26/20 11:50 Resp 18 11/26/20 11:50 BP 97/50 L 11/26/20 11:50 Pulse Ox 98 11/26/20 11:50 Body Mass Index 21.6 Const: Other: Constitutional : Alert, oriented to self, looks lethargic but not in distress Neck : Normal inspection, Supple Cardiovascular : RRR, S1 S2, no lower extremity edema Respiratory : Fair bilateral air entry, no crackles, wheezes or rhonchi Gastrointestinal: soft, lax, Normal bowel sounds, Non tender Skin : Warm/Dry, No rash Neurological : Alert & oriented to self, No focal deficit Objective Data Current Medications Generic Name Dose Route Start Last Admin Trade Name Freq PRN Reason Stop Dose Admin Acetaminophen 650 mg 11/24/20 19:10 11/24/20 20:17 Acetaminophen 325 Mg Tablet PO 650 mg Q6H PRN Administration Pain, Mild (Pain Scale 1-3) Al Hydroxide/Mg Hydroxide 30 ml 11/24/20 19:10 Magnesium Hydrox/Alum Hydrox 30 Ml Oral.Susp PO Q4H PRN Heartburn/Nausea Enoxaparin Sodium 30 mg 11/24/20 20:00 11/25/20 20:37 Enoxaparin Sodium 30 Mg/0.3 Ml Syringe SUBCUT 30 mg Q24H STEPHON Administration Hydralazine HCl 50 mg 11/24/20 21:00 11/26/20 10:04 Hydralazine Hcl 50 Mg Tablet PO 50 mg TID STEPHON Administration Protocol Dextrose/Lactated Ringer's 1,000 mls @ 50 mls/hr 11/26/20 13:45 D5lr IVCONT .Q20H STEPHON Omeprazole 20 mg 11/25/20 06:30 11/26/20 06:10 Omeprazole 20 Mg Capsule.Dr PO Not Given BID@[id number],[id number] [facility] Ondansetron HCl 4 mg 11/24/20 19:10 Ondansetron Hcl 4 Mg/2 Ml Vial IVPUSH Q8H PRN Nausea and Vomiting Pharmacy Consult 1 each 11/24/20 16:27 Consult Rx Perform Med Rec MISCELLANE ONCE PRN Consult order Sodium Chloride 3 ml 11/25/20 00:00 11/26/20 10:04 0.9 % Sodium Chloride Flush 3 Ml Syringe IVFLUSH 3 ml QSHIFT [facility] Administration Labs CBC & Chem 7: 11/24/20 14:44 11/26/20 06:12 Assessment and Plan (1) Adult failure to thrive: Status: Acute (2) Visit for feeding tube placement: Status: Acute (3) Hypernatremia: Status: Acute (4) Dehydration: Status: Acute (5) Metabolic encephalopathy: Status: Acute Assessment and Plan: 85-year-old female with a past medical history of hypertension, GERD, osteoarthritis, MGUS presented to the hospital with a chief complaint of decrease oral intake and increase encephalopathy. Adult failure to thrive Multifactorial including esophageal problem, altered mentation, old age Encourage oral intake Plan for PEG tube placement tomorrow morning Start IVF today Surgery input appreciated Metabolic encephalopathy Multifactorial as well including hypernatremia, dehydration, elderly, hypoactive delirium Improved slightly Treat underlying electrolyte imbalance and dehydration Recurrent reorientation Dehydration Hypernatremia Sodium improved to 140 this morning Monitor BMP Physical deconditioning PT evaluation Moderate protein calorie malnutrition Secondary to decreased oral intake Involve joy loader Add Ensure DVT prophylaxis Lovenox
[2020-11-26] MEDS: Dextrose 5 % and Lactated Ring 1,000 ML 50 ML IVCONT (13:59)
--- NOTE | 2020-11-26 15:32 | MHC.CM.PN ---
Addendum entered by Hanny Suarez RN 11/26/20 16:25: CM ATTEMPTED TO CALL PT'S SON AGAIN AT 4:07PM ([phone]), NO ANSWER, UNABLE TO LEAVE MESSAGE DUT TO [employer]IC[employer] NOT SET UP, WILL FOLLOW-UP IN AM 11/27/20. Original Note: CM ATTEMPTED TO CALL PT'S SON/HCP [facility] AT 3:30PM ([phone]) TO DISCUSS SNF CHOICES, UNABLE TO LEAVE MESSAGE DUE TO VOIC[employer] NOT SET UP, WILL ATTEMPT AGAIN BEFORE END OF DAY.
--- NOTE | 2020-11-26 22:04 | PC.NURSE ---
P- patient incontinent of small amt of urine at 1530,has not voided since,bladder scan shows [address] Galicia notified of the above E-will place simmons in
[2020-11-27] VITALS (10 sets, daily range): BP systolic 114–145; BP diastolic 44–83; PULSE 67–82; RESP 16–19; TEMP 36–36.9; O2SAT 94–99
--- NOTE | 2020-11-27 05:25 | PC.NURSE ---
patient slept well with no s/sx resp distress, no complaints of pain, NPO maintained for planned peg tube placement. Toussaint catheter patent and draining yellow urine, vss, ivf as ordered. patient repositioned q 2 hours and prn, skin care and pillows utilized. Triad applied to coccyx area, stage 2 chronic open area, no drng, no odor, air mattress in use, positioned side to side to relieve pressure, osmar well. Will cont to monitor
[2020-11-27 07:51] LABS: Anion Gap 13 (12-20); Blood Urea Nitrogen 25 mg/dL (9-16); Calcium 8.4 mg/dL (8.4-10.2); Carbon Dioxide 23 mmol/L (22-29); Chloride 108 mmol/L (96-108); Estimated Glomerular Filt Rate > 60; Glucose Random 103 mg/dL (60-115); Potassium 4.1 mmol/L (3.3-5.1); Sodium 140 mmol/L (135-145)
[2020-11-27] MEDS: Dextrose 5 % and Lactated Ring 1,000 ML 50 ML IVCONT (08:03)
[2020-11-27 09:29] LABS: Hematocrit 29.3 % (37-47); Hemoglobin 9.6 g/dl (12.0-16.0); Mean Corpuscular HGB Conc 32.8 g/dl (31.0-35.0); Mean Corpuscular Hemoglobin 33.7 pg (27.0-33.0); Mean Corpuscular Volume 102.8 fL (80-98); Mean Platelet Volume 12.2 fL (9.4-12.3); NRBC Pct Auto 0.2 /100WBC (0.0-0.2); Platelet Count 129 X10*3/uL (160-400); Red Blood Count 2.85 X10*6/uL (4.20-5.50); Red Cell Distribution Width 19.7 % (11.0-16.0); White Blood Count 8.6 X10*3/uL (4.8-10.8)
--- NOTE | 2020-11-27 10:11 | MHC.SLORD ---
Per chart review, pt is NPO for PEG placement later today. Pt not appropriate for PO trials. NAIL MAKING MACHINE SETTER will re-attempt tomorrow. Name: Teresa Staton Date of : 1935 Age: 85 Date of Registration: 11/24/20 Speech Language Pathology Order Status:
--- NOTE | 2020-11-27 12:03 | MHC.CLN ---
RE: CONSULT POSSIBLE PPN; RECOMMEND D10 AA4.25% AT 35CC/HR TO START (DAY ONE) TO PROVIDE 428KCALS, 36G PROTEIN (.8G/KG) PT TO RECEIVE PEG TUBE FOR NUTRITION SUPPORT RECOMMEND JEVITY 1.0 AT MAX GAOL RATE 55CC/HR WITH 120CC FREE WATER Q SHIFT TO PROVIDE 1399KCALS (31KCALS/KG), 58G PROTEIN (1.3G/KG), 1486CC TOTAL WATER FROM FORMULA AND FLUSHES (33CC/KG) START FORMULA JEVITY 1.0 AT 20CC/HR AND INCREASE BY 10CC/HR Q 4 HRS UNTIL GOAL RATE IS ACHIEVED MONITOR TOLERANCE, RESIDUALS AND LYTES FOR REFEEDING
--- NOTE | 2020-11-27 12:33 | MHC.CM.PN ---
CM MET W/PT'S SON/HCP [facility] AT 12:25PM IN PT'S ROOM, PER SON THE SURGEON CAME INTO ROOM AND REPORTED THERE WAS A DELAY DUE TO SHORTAGE OF PEG TUBES AND THEY WILL NOT BE IN UNTIL 12/01/20 AND POSSIBILITY OF PT HAVING A NG TUBE PLACED UNTIL THEN, PT'S SON REQUESTING REFERRALS BE MADE TO [facility] FOR STR. TO PLACE REFERRALS.
--- NOTE | 2020-11-27 13:41 | HO.PM.IMPN ---
Subjective Subjective Date of Service: 11/27/20 Interval History: the patient was seen and evaluated this morning More alert today, interactive but looks overall very weak Not eating much Denies any fever, chills or shortness of breath No reported other overnight events. Systemic review: No fever, chills but reporting generalized weakness No chest pain, palpitation No shortness of breath or coughing No abdominal pain, nausea or vomiting Physical Exam Vital Signs: Vital Signs: Last Vital Signs Temp 97.4 F 11/27/20 11:53 Pulse 72 11/27/20 11:53 Resp 18 11/27/20 11:53 BP 145/73 H 11/27/20 11:53 Pulse Ox 97 11/27/20 11:53 Body Mass Index 21.6 Const: Other: Constitutional : Alert, oriented to self, looks lethargic but not in distress Neck : Normal inspection, Supple Cardiovascular : RRR, S1 S2, no lower extremity edema Respiratory : Fair bilateral air entry, no crackles, wheezes or rhonchi Gastrointestinal: soft, lax, Normal bowel sounds, Non tender Skin : Warm/Dry, No rash Neurological : Alert & oriented to self, No focal deficit Objective Data Current Medications Generic Name Dose Route Start Last Admin Trade Name Freq PRN Reason Stop Dose Admin Acetaminophen 650 mg 11/24/20 19:10 11/24/20 20:17 Acetaminophen 325 Mg Tablet PO 650 mg Q6H PRN Administration Pain, Mild (Pain Scale 1-3) Al Hydroxide/Mg Hydroxide 30 ml 11/24/20 19:10 Magnesium Hydrox/Alum Hydrox 30 Ml Oral.Susp PO Q4H PRN Heartburn/Nausea Enoxaparin Sodium 30 mg 11/24/20 20:00 11/25/20 20:37 Enoxaparin Sodium 30 Mg/0.3 Ml Syringe SUBCUT 30 mg Q24H STEPHON Administration Hydralazine HCl 50 mg 11/24/20 21:00 11/27/20 08:03 Hydralazine Hcl 50 Mg Tablet PO Not Given TID STEPHON Protocol Dextrose/Lactated Ringer's 1,000 mls @ 50 mls/hr 11/26/20 13:45 11/27/20 08:03 D5lr IVCONT 50 mls/hr .Q20H STEPHON Administration Omeprazole 20 mg 11/25/20 06:30 11/27/20 05:40 Omeprazole 20 Mg Capsule.Dr PO Not Given BID@[id number],[phone] [facility] Ondansetron HCl 4 mg 11/24/20 19:10 Ondansetron Hcl 4 Mg/2 Ml Vial IVPUSH Q8H PRN Nausea and Vomiting Pharmacy Consult 1 each 11/24/20 16:27 Consult Rx Perform Med Rec MISCELLANE ONCE PRN Consult order Sodium Chloride 3 ml 11/25/20 00:00 11/27/20 08:03 0.9 % Sodium Chloride Flush 3 Ml Syringe IVFLUSH Not Given QSHIFT [facility] Labs CBC & Chem 7: 11/27/20 09:17 11/27/20 06:57 Assessment and Plan (1) Adult failure to thrive: Status: Acute (2) Visit for feeding tube placement: Status: Acute (3) Hypernatremia: Status: Acute (4) Dehydration: Status: Acute (5) Metabolic encephalopathy: Status: Acute Assessment and Plan: 85-year-old female with a past medical history of hypertension, GERD, osteoarthritis, MGUS presented to the hospital with a chief complaint of decrease oral intake and increase encephalopathy. Adult failure to thrive Multifactorial including esophageal problem, altered mentation, old age Encourage oral intake Plan for PEG tube placement tomorrow morning Continue IVF today Surgery input appreciated Metabolic encephalopathy Multifactorial as well including hypernatremia, dehydration, elderly, hypoactive delirium Improved slightly Treat underlying electrolyte imbalance and dehydration Recurrent reorientation Dehydration Hypernatremia Sodium improved to 140 this morning Monitor BMP Physical deconditioning PT evaluation Moderate protein calorie malnutrition Secondary to decreased oral intake Involve computer trainer Add Ensure DVT prophylaxis Lovenox
[2020-11-27] MEDS: Omeprazole 20 MG CAPSULE.DR PO (16:24)
[2020-11-27] MEDS: 0.9 % Sodium Chloride Flush 3 ML SYRINGE IVFLUSH (16:24)
[2020-11-27] MEDS: hydrALAZINE HCl 50 MG TABLET PO ×2 (16:24→20:58)
[2020-11-27] MEDS: Enoxaparin Sodium 30 MG/0.3 ML SYRINGE SUBCUT (20:57)
[2020-11-28] MEDS: Dextrose 5 % and Lactated Ring 1,000 ML 50 ML IVCONT (02:33)
[2020-11-28 04:00] VITALS: BP 127/73; PULSE 80; RESP 18; TEMP 36.2; O2SAT 96
[2020-11-28] MEDS: Omeprazole 20 MG CAPSULE.DR PO ×2 (06:23→15:55)
[2020-11-28 07:35] VITALS: BP 122/70; PULSE 71; RESP 17; TEMP 35.9; O2SAT 97
--- NOTE | 2020-11-28 11:41 | HO.PM.IMPN ---
Subjective Subjective Date of Service: 11/28/20 Interval History: the patient was seen and evaluated this morning Looks encephalopathy, more alert but confused Not eating much approved Denies any fever, chills or shortness of breath No reported other overnight events. Systemic review: No fever, chills but reporting generalized weakness No chest pain, palpitation No shortness of breath or coughing No abdominal pain, nausea or vomiting Physical Exam Vital Signs: Vital Signs: Last Vital Signs Temp 96.6 F L 11/28/20 07:35 Pulse 71 11/28/20 07:35 Resp 17 11/28/20 07:35 BP 122/70 11/28/20 07:35 Pulse Ox 97 11/28/20 07:35 Body Mass Index 21.6 Const: Other: Constitutional : Alert, oriented to self but more improved, looks lethargic but not in distress Neck : Normal inspection, Supple Cardiovascular : RRR, S1 S2, no lower extremity edema Respiratory : Fair bilateral air entry, no crackles, wheezes or rhonchi Gastrointestinal: soft, lax, Normal bowel sounds, Non tender Skin : Warm/Dry, No rash Neurological : Alert & oriented to self, No focal deficit Objective Data Current Medications Generic Name Dose Route Start Last Admin Trade Name Freq PRN Reason Stop Dose Admin Acetaminophen 650 mg 11/24/20 19:10 11/24/20 20:17 Acetaminophen 325 Mg Tablet PO 650 mg Q6H PRN Administration Pain, Mild (Pain Scale 1-3) Al Hydroxide/Mg Hydroxide 30 ml 11/24/20 19:10 Magnesium Hydrox/Alum Hydrox 30 Ml Oral.Susp PO Q4H PRN Heartburn/Nausea Enoxaparin Sodium 30 mg 11/24/20 20:00 11/27/20 20:57 Enoxaparin Sodium 30 Mg/0.3 Ml Syringe SUBCUT 30 mg Q24H STEPHON Administration Hydralazine HCl 50 mg 11/24/20 21:00 11/28/20 08:07 Hydralazine Hcl 50 Mg Tablet PO Not Given TID STEPHON Protocol Dextrose/Lactated Ringer's 1,000 mls @ 50 mls/hr 11/26/20 13:45 11/28/20 02:33 D5lr IVCONT 50 mls/hr .Q20H STEPHON Administration Omeprazole 20 mg 11/25/20 06:30 11/28/20 06:23 Omeprazole 20 Mg Capsule. PO 20 mg BID@0626,3233 [facility] Administration Ondansetron HCl 4 mg 11/24/20 19:10 Ondansetron Hcl 4 Mg/2 Ml Vial IVPUSH Q8H PRN Nausea and Vomiting Pharmacy Consult 1 each 11/24/20 16:27 Consult Rx Perform Med Rec MISCELLANE ONCE PRN Consult order Sodium Chloride 3 ml 11/25/20 00:00 11/28/20 08:05 0.9 % Sodium Chloride Flush 3 Ml Syringe IVFLUSH Not Given QSHIFT [facility] Labs CBC & Chem 7: 11/27/20 09:17 11/27/20 06:57 Assessment and Plan (1) Adult failure to thrive: Status: Acute (2) Visit for feeding tube placement: Status: Acute (3) Hypernatremia: Status: Acute (4) Dehydration: Status: Acute (5) Metabolic encephalopathy: Status: Acute Assessment and Plan: 85-year-old female with a past medical history of hypertension, GERD, osteoarthritis, MGUS presented to the hospital with a chief complaint of decrease oral intake and increase encephalopathy. Adult failure to thrive Multifactorial including esophageal problem, altered mentation, old age Encourage oral intake Plan for PEG tube placement Tuesday morning Continue IVF today To start PPN Surgery input appreciated Metabolic encephalopathy Multifactorial as well including hypernatremia, dehydration, elderly, hypoactive delirium Keeps fluctuating Treat underlying electrolyte imbalance and dehydration Recurrent reorientation Dehydration Hypernatremia Sodium improved to 140 Monitor BMP Physical deconditioning PT evaluation Moderate protein calorie malnutrition Secondary to decreased oral intake Involve physician office assistant Add Ensure and PPN DVT prophylaxis Lovenox
[2020-11-28 12:00] VITALS: BP 126/60; PULSE 66; RESP 17; TEMP 35.9; O2SAT 98
--- NOTE | 2020-11-28 12:00 | MHC.CM.PN ---
Addendum entered by Hanny Suarez RN 11/28/20 13:13: CM MET WITH SON/ALTERNATE HCP IN PTS' ROOM AND PT'S SON REQUESTED REFERRAL ALSO BE MADE TO [facility] REFERRAL SENT VIA [employer]. Original Note: EMR REVIEWED, PT AWAITING PEG TUBE, PER HOSPITALIST AWAITING SUPPLIES AND ANTICIPATE PEG WILL BE PLACED ON Tuesday12/01/20. FAMILY AND [facility] WHO WAS ONE OF PT'S FAMILIES TOP CHOICES AND ARE FOLLOWING HAVE BEEN UPDATED. CM WILL CON'T TO MONITOR FOR D/C NEEDS. DISCHARGE PLAN: STR ([facility] FOR BLS TRANSPORT
[2020-11-28 12:21] LABS: Albumin Level 2.4 g/dL (3.5-5.0); Anion Gap 14 (12-20); Blood Urea Nitrogen 23 mg/dL (9-16); Calcium 8.7 mg/dL (8.4-10.2); Carbon Dioxide 21 mmol/L (22-29); Chloride 106 mmol/L (96-108); Creatinine Clr Calc Pharmacy 30.5; Estimated Glomerular Filt Rate > 60; Glucose Random 115 mg/dL (60-115); Magnesium 1.8 mg/dL (1.6-2.6); Phosphorus 2.7 mg/dL (2.7-4.5); Potassium 4.3 mmol/L (3.3-5.1); Sodium 137 mmol/L (135-145); Triglycerides 152 mg/dL
--- NOTE | 2020-11-28 13:55 | MHC.CLN ---
F/U PPN TO START; RECOMMEND D10 AA4.25% AT 35CC/HR TO START (DAY ONE) TO PROVIDE 428KCALS, 36G PROTEIN (.8G/KG) DISCUSSED WITH PHARMACY AND MD; REPLETE LYTES NEEDED DAY TWO 11/29 PPN INCREASE FORMULA TO 55CC/HR TO PROVIDE 673KCALS, 56G PROTEIN (1.2G/KG) PT TO RECEIVE PEG TUBE FOR NUTRITION SUPPORT POSSIBLE 12/01: RECOMMEND JEVITY 1.0 AT MAX GOAL RATE 55CC/HR WITH 120CC FREE WATER Q SHIFT TO PROVIDE 1399KCALS (31KCALS/KG), 58G PROTEIN (1.3G/KG), 1486CC TOTAL WATER FROM FORMULA AND FLUSHES (33CC/KG) START FORMULA JEVITY 1.0 AT 20CC/HR AND INCREASE BY 10CC/HR Q 4 HRS UNTIL GOAL RATE IS ACHIEVED MONITOR TOLERANCE, RESIDUALS AND LYTES FOR REFEEDING
--- NOTE | 2020-11-28 14:59 | PC.NURSE ---
Toussaint catheter removed at 1450 without issue, tubing intact, pt tolerated well.
[2020-11-28 15:44] VITALS: BP 125/71; PULSE 79; RESP 18; TEMP 36; O2SAT 97
[2020-11-28] MEDS: hydrALAZINE HCl 50 MG TABLET PO (15:55)
[2020-11-28 19:37] VITALS: BP 101/59; PULSE 84; RESP 18; TEMP 36.3; O2SAT 97
[2020-11-28] MEDS: Enoxaparin Sodium 30 MG/0.3 ML SYRINGE SUBCUT (20:28)
[2020-11-28 20:30] VITALS: BP 101/59; PULSE 84
[2020-11-29] VITALS (10 sets, daily range): BP systolic 103–154; BP diastolic 59–84; PULSE 68–86; RESP 16–18; TEMP 36.1–36.6; O2SAT 94–99
[2020-11-29] MEDS: Omeprazole 20 MG CAPSULE.DR PO ×2 (05:21→15:58)
[2020-11-29] MEDS: hydrALAZINE HCl 50 MG TABLET PO ×3 (08:51→20:50)
[2020-11-29 10:04] LABS: Anion Gap 16 (12-20); Blood Urea Nitrogen 25 mg/dL (9-16); Carbon Dioxide 22 mmol/L (22-29); Chloride 104 mmol/L (96-108); Estimated Glomerular Filt Rate > 60; Glucose Random 95 mg/dL (60-115); Phosphorus 3.4 mg/dL (2.7-4.5); Potassium 4.5 mmol/L (3.3-5.1); Sodium 137 mmol/L (135-145)
--- NOTE | 2020-11-29 11:32 | HO.PM.IMPN ---
Subjective Subjective Date of Service: 11/29/20 Interval History: the patient was seen and evaluated this morning Encephalopathy seems to be improving with improving nutrition , more alert but still mildly confused Not eating much Denies any fever, chills or shortness of breath No reported other overnight events. Systemic review: No fever, chills but reporting generalized weakness No chest pain, palpitation No shortness of breath or coughing No abdominal pain, nausea or vomiting Physical Exam Vital Signs: Vital Signs: Last Vital Signs Temp 97.0 F 11/29/20 08:00 Pulse 72 11/29/20 08:51 Resp 18 11/29/20 08:00 BP 154/84 H 11/29/20 08:51 Pulse Ox 94 11/29/20 08:00 Body Mass Index 21.6 Const: Other: Constitutional : Alert, oriented to self but more improved, looks lethargic but not in distress Neck : Normal inspection, Supple Cardiovascular : RRR, S1 S2, no lower extremity edema Respiratory : Fair bilateral air entry, no crackles, wheezes or rhonchi Gastrointestinal: soft, lax, Normal bowel sounds, Non tender Skin : Warm/Dry, No rash Neurological : Alert & oriented to self, No focal deficit Objective Data Current Medications Generic Name Dose Route Start Last Admin Trade Name Freq PRN Reason Stop Dose Admin Acetaminophen 650 mg 11/24/20 19:10 11/24/20 20:17 Acetaminophen 325 Mg Tablet PO 650 mg Q6H PRN Administration Pain, Mild (Pain Scale 1-3) Al Hydroxide/Mg Hydroxide 30 ml 11/24/20 19:10 Magnesium Hydrox/Alum Hydrox 30 Ml Oral.Susp PO Q4H PRN Heartburn/Nausea Enoxaparin Sodium 30 mg 11/24/20 20:00 11/28/20 20:28 Enoxaparin Sodium 30 Mg/0.3 Ml Syringe SUBCUT 30 mg Q24H STEPHON Administration Hydralazine HCl 50 mg 11/24/20 21:00 11/29/20 08:51 Hydralazine Hcl 50 Mg Tablet PO 50 mg TID STEPHON Administration Protocol Multivitamins 24 ml/ Trace 840 mls @ 35 mls/hr 11/28/20 18:00 11/28/20 18:14 Metals 2.4 ml/ Amino Acids/ IV 11/29/20 17:59 35 mls/hr Electrolytes/Dextrose DAILY@1800 STEPHON Administration Multivitamins 24 ml/ Trace 840 mls @ 35 mls/hr 11/29/20 18:00 Metals 2.4 ml/ Amino Acids/ IV 11/30/20 17:59 Electrolytes/Dextrose DAILY@1800 [facility] Omeprazole 20 mg 11/25/20 06:30 11/29/20 05:21 Omeprazole 20 Mg Capsule. PO 20 mg BID@0630,1630 [facility] Administration Ondansetron HCl 4 mg 11/24/20 19:10 Ondansetron Hcl 4 Mg/2 Ml Vial IVPUSH Q8H PRN Nausea and Vomiting Pharmacy Consult 1 each 11/24/20 16:27 Consult Rx Perform Med Rec MISCELLANE ONCE PRN Consult order Sodium Chloride 3 ml 11/25/20 00:00 11/29/20 08:52 0.9 % Sodium Chloride Flush 3 Ml Syringe IVFLUSH Not Given QSHIFT [facility] Labs CBC & Chem 7: 11/27/20 09:17 11/29/20 09:18 Assessment and Plan (1) Adult failure to thrive: Status: Acute (2) Visit for feeding tube placement: Status: Acute (3) Hypernatremia: Status: Acute (4) Dehydration: Status: Acute (5) Metabolic encephalopathy: Status: Acute Assessment and Plan: 85-year-old female with a past medical history of hypertension, GERD, osteoarthritis, MGUS presented to the hospital with a chief complaint of decrease oral intake and increase encephalopathy. Adult failure to thrive Multifactorial including esophageal problem, altered mentation, old age Encourage oral intake as tolerated Plan for PEG tube placement Tuesday morning Discontinue IVF today Continue PPN Metabolic encephalopathy Multifactorial as well including hypernatremia, dehydration, elderly, hypoactive delirium Keeps fluctuating, mildly improved Treat underlying electrolyte imbalance and dehydration Recurrent reorientation Dehydration Hypernatremia Resolved Monitor BMP Physical deconditioning PT evaluation Moderate protein calorie malnutrition Secondary to decreased oral intake Involve manager operating Add Ensure and PPN DVT prophylaxis Lovenox
[2020-11-29] MEDS: Enoxaparin Sodium 30 MG/0.3 ML SYRINGE SUBCUT (20:50)
[2020-11-30] VITALS (7 sets, daily range): BP systolic 98–133; BP diastolic 66–85; PULSE 79–86; RESP 12–17; TEMP 36.1–36.7; O2SAT 92–99
[2020-11-30 08:16] LABS: Anion Gap 17 (12-20); Blood Urea Nitrogen 32 mg/dL (9-16); Calcium 8.8 mg/dL (8.4-10.2); Carbon Dioxide 21 mmol/L (22-29); Chloride 102 mmol/L (96-108); Estimated Glomerular Filt Rate > 60; Glucose Random 106 mg/dL (60-115); Potassium 4.7 mmol/L (3.3-5.1); Sodium 135 mmol/L (135-145)
[2020-11-30] MEDS: hydrALAZINE HCl 50 MG TABLET PO ×2 (10:28→16:24)
[2020-11-30] MEDS: 0.9 % Sodium Chloride Flush 3 ML SYRINGE IVFLUSH (10:28)
--- NOTE | 2020-11-30 12:23 | P.PNIM_ITS ---
Subjective Subjective Date of Service: 11/30/20 Interval History: the patient was seen and evaluated this morning Encephalopathy seems to be fluctuating, more encephalopathic this morning a difficult to arouse Not eating much Denies any fever, chills or shortness of breath No reported other overnight events. Systemic review: No fever, chills but reporting generalized weakness No chest pain, palpitation No shortness of breath or coughing No abdominal pain, nausea or vomiting Physical Exam Vital Signs: Vital Signs: Last Vital Signs Temp 97.6 F 11/30/20 07:40 Pulse 86 11/30/20 07:40 Resp 17 11/30/20 07:40 BP 133/85 11/30/20 07:40 Pulse Ox 96 11/30/20 07:40 Body Mass Index 21.6 Const: Other: Constitutional : Alert with stimulation, oriented to self but more improved, looks lethargic but not in distress Neck : Normal inspection, Supple Cardiovascular : RRR, S1 S2, no lower extremity edema Respiratory : Fair bilateral air entry, no crackles, wheezes or rhonchi Gastrointestinal: soft, lax, Normal bowel sounds, Non tender Skin : Warm/Dry, No rash Muscular, left upper extremity swelling edema, no tenderness of erythema Neurological : Alert with stimulation & oriented to self, No focal deficit Objective Data Current Medications Generic Name Dose Route Start Last Admin Trade Name Galoq PRN Reason Stop Dose Admin Acetaminophen 650 mg 11/24/20 19:10 11/24/20 20:17 Acetaminophen 325 Mg Tablet PO 650 mg Q6H PRN Administration Pain, Mild (Pain Scale 1-3) Al Hydroxide/Mg Hydroxide 30 ml 11/24/20 19:10 Magnesium Hydrox/Alum Hydrox 30 Ml Oral.Susp PO Q4H PRN Heartburn/Nausea Enoxaparin Sodium 30 mg 11/24/20 20:00 11/29/20 20:50 Enoxaparin Sodium 30 Mg/0.3 Ml Syringe SUBCUT 30 mg Q24H [facility] Administration Hydralazine HCl 50 mg 11/24/20 21:00 11/30/20 10:28 Hydralazine Hcl 50 Mg Tablet PO 50 mg TID STEPHON Administration Protocol Multivitamins 24 ml/ Trace 840 mls @ 35 mls/hr 11/29/20 18:00 11/29/20 18:37 Metals 2.4 ml/ Amino Acids/ IV 11/30/20 17:59 35 mls/hr Electrolytes/Dextrose DAILY@1800 [facility] Administration Omeprazole 20 mg 11/25/20 06:30 11/30/20 06:35 Omeprazole 20 Mg Capsule. PO Not Given BID@0630,1630 [facility] Ondansetron HCl 4 mg 11/24/20 19:10 Ondansetron Hcl 4 Mg/2 Ml Vial IVPUSH Q8H PRN Nausea and Vomiting Pharmacy Consult 1 each 11/24/20 16:27 Consult Rx Perform Med Rec MISCELLANE ONCE PRN Consult order Sodium Chloride 3 ml 11/25/20 00:00 11/30/20 10:28 0.9 % Sodium Chloride Flush 3 Ml Syringe IVFLUSH 3 ml QSHIFT [facility] Administration Labs CBC & Chem 7: 11/27/20 09:17 11/30/20 07:36 Assessment and Plan (1) Adult failure to thrive: Status: Acute (2) Visit for feeding tube placement: Status: Acute (3) Hypernatremia: Status: Acute (4) Dehydration: Status: Acute (5) Metabolic encephalopathy: Status: Acute Assessment and Plan: 85-year-old female with a past medical history of hypertension, GERD, osteoarthritis, MGUS presented to the hospital with a chief complaint of decrease oral intake and increase encephalopathy. Adult failure to thrive Multifactorial including esophageal problem, altered mentation, old age Encourage oral intake as tolerated Discontinue IVF today Hold PPN today Plan for PEG tube placement Tuesday morning if supplies are available by GI or IR Left upper extremity swelling Site of peripheral IV To check ultrasound duplex Keep elevated Metabolic encephalopathy Multifactorial including general deconditioning, elderly, hypoactive delirium inpatient stay Keeps fluctuating, mildly improved Treat underlying electrolyte imbalance and dehydration Recurrent reorientation Dehydration Hypernatremia Resolved Monitor BMP Physical deconditioning PT evaluation Moderate protein calorie malnutrition Secondary to decreased oral intake Involve panama hat smearer Add Ensure and PPN DVT prophylaxis Lovenox
[2020-11-30] MEDS: Omeprazole 20 MG CAPSULE.DR PO (16:25)
[2020-11-30] MEDS: Enoxaparin Sodium 30 MG/0.3 ML SYRINGE SUBCUT (20:26)
[2020-12-01] VITALS (9 sets, daily range): BP systolic 105–170; BP diastolic 61–97; PULSE 76–93; RESP 16–19; TEMP 36.2–37.7; O2SAT 95–98
[2020-12-01] MEDS: Lactated Ringers 1,000 ML 80 ML IVCONT (00:26)
[2020-12-01 02:32] LABS: Appearance Urine TURBID; Color Urine YELLOW; Glucose Urine UA NEG (NEG); Leukocyte Esterase Urine 2+ (NEG); Nitrite Urine NEG (NEG); PH 5.5 (5.0-8.0); Specific Gravity - Urine 1.025 (1.005-1.025); Urine Blood 1+ (NEG); Urine Ketones NEG (NEG); Urine Protein 2+ MG/DL (NEG-TRACE)
[2020-12-01 02:40] LABS: Bacteria Urine 2+ /LPF; RBC Urine 0 /HPF (0); Squamous Epithelial Cell Urine 1+ /LPF; WBC Urine TNTC /HPF (0-4)
[2020-12-01 06:47] LABS: Prothrombin Time 12.3 SEC (10.8-13.0)
[2020-12-01 07:47] LABS: Hematocrit 23.4 % (37-47); Mean Corpuscular HGB Conc 31.2 g/dl (31.0-35.0); Mean Corpuscular Hemoglobin 32.4 pg (27.0-33.0); NRBC Pct Auto 0.1 /100WBC (0.0-0.2); Platelet Count 197 X10*3/uL (160-400); Red Blood Count 2.25 X10*6/uL (4.20-5.50); Red Cell Distribution Width 20.1 % (11.0-16.0); White Blood Count 13.4 X10*3/uL (4.8-10.8)
[2020-12-01 08:10] LABS: Hemoglobin 7.3 g/dl (12.0-16.0)
--- NOTE | 2020-12-01 11:28 | MHC.CM.PN ---
EMR REVIEWED, PER HOSPITALIST PEG TUBES HAVE NOT COME IN, SURGERY WILL BE SCHEDULES ONCE AVAILABLE, PER CM OPERASTIONS MANAGER WILLOW PEG TUBES WILL NOT BE IN UNTIL December, CM WILL CONTINUE TO FOLLOW FOR D/C NEEDS.
[2020-12-01] MEDS: cefTRIAXone sodium 1 GM in 0.9 % Sodium Chloride 50 ML IV (11:47)
[2020-12-01] MEDS: Dextrose 5 % and Lactated Ring 1,000 ML 50 ML IVCONT (11:47)
--- NOTE | 2020-12-01 13:01 | MHC.SLORD ---
LEAVE COORDINATOR spoke with RN this morning. Per RN, patient is NPO and may possibly have PEG tube placement today if it is available. Patient is on PPN. LEAVE COORDINATOR will continue to follow. Name: Teresa Staton Date of : 1935 Age: 85 Date of Registration: 11/24/20 Speech Language Pathology Order Status:
--- NOTE | 2020-12-01 14:04 | P.PNIM_ITS ---
Subjective Subjective Date of Service: 12/01/20 Interval History: the patient was seen and evaluated this morning Encephalopathy seems to be fluctuating, more encephalopathic this morning a difficult to arouse Not eating much Denies any fever, chills or shortness of breath No reported other overnight events. Systemic review: No fever, chills but reporting generalized weakness No chest pain, palpitation No shortness of breath or coughing No abdominal pain, nausea or vomiting Physical Exam Vital Signs: Vital Signs: Last Vital Signs Temp 98.0 F 12/01/20 12:00 Pulse 83 12/01/20 12:00 Resp 16 12/01/20 12:00 BP 170/67 H 12/01/20 12:00 Pulse Ox 97 12/01/20 12:00 Body Mass Index 21.6 Const: Other: Constitutional : Alert with stimulation, oriented to self but more improved, looks lethargic but not in distress Neck : Normal inspection, Supple Cardiovascular : RRR, S1 S2, no lower extremity edema Respiratory : Fair bilateral air entry, no crackles, wheezes or rhonchi Gastrointestinal: soft, lax, Normal bowel sounds, Non tender Skin : Warm/Dry, No rash Muscular, left upper extremity swelling edema, no tenderness of erythema Neurological : Alert with stimulation & oriented to self, No focal deficit Objective Data Current Medications Generic Name Dose Route Start Last Admin Trade Name Galoq PRN Reason Stop Dose Admin Acetaminophen 650 mg 11/24/20 19:10 11/24/20 20:17 Acetaminophen 325 Mg Tablet PO 650 mg Q6H PRN Administration Pain, Mild (Pain Scale 1-3) Al Hydroxide/Mg Hydroxide 30 ml 11/24/20 19:10 Magnesium Hydrox/Alum Hydrox 30 Ml Oral.Susp PO Q4H PRN Heartburn/Nausea Enoxaparin Sodium 30 mg 11/24/20 20:00 11/30/20 20:26 Enoxaparin Sodium 30 Mg/0.3 Ml Syringe SUBCUT 30 mg Q24H [facility] Administration Hydralazine HCl 50 mg 11/24/20 21:00 12/01/20 08:14 Hydralazine Hcl 50 Mg Tablet PO Not Given TID STEPHON Protocol Ceftriaxone Sodium 1 gm/ 50 mls @ 100 mls/hr 12/01/20 12:00 12/01/20 12:26 Sodium Chloride IV Infused Q24H [facility] Infusion Dextrose/Lactated Ringer's 1,000 mls @ 50 mls/hr 12/01/20 11:30 12/01/20 11:47 D5lr IVCONT 50 mls/hr .Q20H [facility] Administration Omeprazole 20 mg 11/25/20 06:30 12/01/20 08:14 Omeprazole 20 Mg Capsule. PO Not Given BID@0630,1630 [facility] Ondansetron HCl 4 mg 11/24/20 19:10 Ondansetron Hcl 4 Mg/2 Ml Vial IVPUSH Q8H PRN Nausea and Vomiting Pharmacy Consult 1 each 11/24/20 16:27 Consult Rx Perform Med Rec MISCELLANE ONCE PRN Consult order Sodium Chloride 3 ml 11/25/20 00:00 12/01/20 08:14 0.9 % Sodium Chloride Flush 3 Ml Syringe IVFLUSH Not Given QSHIFT [facility] Labs CBC & Chem 7: 12/01/20 06:03 11/30/20 07:36 Assessment and Plan (1) Adult failure to thrive: Status: Acute (2) Visit for feeding tube placement: Status: Acute (3) Hypernatremia: Status: Acute (4) Dehydration: Status: Acute (5) Metabolic encephalopathy: Status: Acute Assessment and Plan: 85-year-old female with a past medical history of hypertension, GERD, osteoarthritis, MGUS presented to the hospital with a chief complaint of decrease oral intake and increase encephalopathy. UTI Patient has positive urine for infection with elevated WBCs Culture sent Start IV antibiotics of ceftriaxone Acute on chronic anemia Hemoglobin drop to 7.3 from baseline of 9 No reported bleeding noticed, could be secondary to IV fluid check occult blood DC IVF Adult failure to thrive Multifactorial including esophageal problem, altered mentation, old age Encourage oral intake as tolerated Discontinue IVF today Discontinue PPN today Plan for PEG tube placement when supplies are available by GI or IR Start NG tube with tube feed Left upper extremity swelling Site of peripheral IV Ultrasound negative for DVT, keep arm elevated Metabolic encephalopathy Multifactorial including general deconditioning, elderly, hypoactive delirium inpatient stay Keeps fluctuating Treat underlying electrolyte imbalance and dehydration Recurrent reorientation Dehydration Hypernatremia Resolved Monitor BMP Physical deconditioning PT evaluation Moderate protein calorie malnutrition Secondary to decreased oral intake Involve turret punch operator Add Ensure and PPN DVT prophylaxis Lovenox
--- NOTE | 2020-12-01 14:09 | P.ACPN_ITS ---
Advanced Care Planning Note Advanced Care Planning Note Discussed with: family member(s) Time spent (in minutes): 17 Narrative: I had the chance of meeting with the patient son and HCP Burton to discuss ongoing medical problems and goals of care. The patient was admitted to the hospital twice this month for decreased oral intake and physical deconditioning. On IV fluid and evaluated by swallowing team who recommended starting pureed diet. The patient became more encephalopathic and lethargic during the hospital stay and been worked out for possible UTI and started on antibiotics. We discussed ongoing planned at the supplies for G-tube placement are not av ailable. We agreed to start NG tube feeding for the short-term and see how the patient will do. We discussed code status including CPR and intubation. He mention the patient discussed this with her PCP and signed paper saying that she wants to be resuscitated previously. I explained to him why CPR might not be the best option for his mother at this stage of her life with her ongoing medical pro blems. He took the MOLST form to discuss the options with his brother and sister before deciding on the next day. Will continue treatment for the time being with consideration of comfort measures if patient does not improve over the next few days. Problems Discussed (1) Adult failure to thrive: (2) Visit for feeding tube placement: (3) Hypernatremia: (4) Dehydration: (5) Metabolic encephalopathy:
[2020-12-01] MEDS: hydrALAZINE HCl 50 MG TABLET PO (15:06)
--- NOTE | 2020-12-01 15:19 | MHC.CLN ---
F/U PO 25% OF PUREED DIET GETTER WELDER FOLLOWING PT TO RECEIVE NG TUBE TODAY AND TF: RECOMMEND JEVITY 1.0 AT MAX GOAL RATE 55CC/HR WITH 120CC FREE WATER Q SHIFT TO PROVIDE 1399KCALS (31KCALS/KG), 58G PROTEIN (1.3G/KG) FOR WOUND, 1486CC TOTAL WATER FROM FORMULA AND FLUSHES (33CC/KG) START FORMULA JEVITY 1.0 AT 20CC/HR AND INCREASE BY 10CC/HR Q 4 HRS UNTIL GOAL RATE IS ACHIEVED MONITOR TOLERANCE, RESIDUALS AND LYTES FOR REFEEDING
--- NOTE | 2020-12-01 17:12 | MHC.SLORD ---
COLLECTION SYSTEMS WORKER spoke with RN this afternoon. Per RN, patient is placed with NG tube. Name: Teresa Staton Date of : 1935 Age: 85 Date of Registration: 11/24/20 Speech Language Pathology Order Status:
[2020-12-01 17:25] LABS: OBS Int Ctl Valid YES; OBS1 NEGATIVE (NEGATIVE)
[2020-12-01] MEDS: Enoxaparin Sodium 30 MG/0.3 ML SYRINGE SUBCUT (19:52)
[2020-12-01] MEDS: hydrALAZINE HCl 50 MG TABLET NG-TUBE (19:52)
[2020-12-02] VITALS (11 sets, daily range): BP systolic 114–141; BP diastolic 55–73; PULSE 74–93; RESP 16–24; TEMP 36.3–37.4; O2SAT 95–99
[2020-12-02 06:44] LABS: Hematocrit 22.4 % (37-47); Hemoglobin 7.1 g/dl (12.0-16.0); Mean Corpuscular HGB Conc 31.7 g/dl (31.0-35.0); Mean Corpuscular Hemoglobin 32.7 pg (27.0-33.0); Mean Corpuscular Volume 103.2 fL (80-98); Mean Platelet Volume 12.4 fL (9.4-12.3); NRBC Pct Auto 0.1 /100WBC (0.0-0.2); Platelet Count 244 X10*3/uL (160-400); Red Blood Count 2.17 X10*6/uL (4.20-5.50); Red Cell Distribution Width 19.9 % (11.0-16.0); White Blood Count 14.6 X10*3/uL (4.8-10.8)
[2020-12-02 07:02] LABS: Anion Gap 14 (12-20); Blood Urea Nitrogen 27 mg/dL (9-16); Calcium 8.7 mg/dL (8.4-10.2); Carbon Dioxide 22 mmol/L (22-29); Chloride 104 mmol/L (96-108); Creatinine Clr Calc Pharmacy 31.3; Estimated Glomerular Filt Rate > 60; Glucose Random 117 mg/dL (60-115); Potassium 4.5 mmol/L (3.3-5.1); Sodium 135 mmol/L (135-145)
[2020-12-02] MEDS: hydrALAZINE HCl 50 MG TABLET NG-TUBE ×3 (07:55→21:06)
[2020-12-02] MEDS: 0.9 % Sodium Chloride Flush 3 ML SYRINGE IVFLUSH ×3 (07:55→21:06)
[2020-12-02 08:57] LABS: Alanine Aminotransferase 10 U/L (0-31); Albumin Level 2.3 g/dL (3.5-5.0); Alkaline Phosphatase 54 U/L (39-117); Aspartate Amino Transferase 14 U/L (5-31); Bilirubin Direct 0.2 mg/dL (0.0-0.5); Bilirubin Total 0.6 mg/dL (0.0-1.0); Total Protein 4.2 g/dL (6.5-8.0)
--- NOTE | 2020-12-02 10:28 | MHC.SLORD ---
Pt has NG tube due to poor oral intake. CAN OPERATOR recommended pureed solids and thin liquids upon admission and has been monitoring during hospitalization. CAN OPERATOR attempted PO trials this morning, however pt refused. Will continue to follow. Name: Teresa Staton Date of : 1935 Age: 85 Date of Registration: 11/24/20 Speech Language Pathology Order Status:
[2020-12-02] MEDS: cefTRIAXone sodium 1 GM in 0.9 % Sodium Chloride 50 ML IV (12:41)
--- NOTE | 2020-12-02 14:01 | P.PNIM_ITS ---
Subjective Subjective Date of Service: 12/02/20 Interval History: The patient was seen and evaluated this morning Encephalopathy seems to be fluctuating, doing better during the day than night or labor conciliator. Tolerating NG tube feed Denies any fever, chills or shortness of breath No reported other overnight events. Systemic review: No fever, chills but reporting generalized weakness No chest pain, palpitation No shortness of breath or coughing No abdominal pain, nausea or vomiting Physical Exam Vital Signs: Vital Signs: Last Vital Signs Temp 98.5 F 12/02/20 12:00 Pulse 74 12/02/20 12:00 Resp 16 12/02/20 12:00 BP 114/55 L 12/02/20 12:00 Pulse Ox 95 12/02/20 12:00 Body Mass Index 21.6 Const: Other: Constitutional : Alert with stimulation, oriented to self but more improved, looks lethargic but not in distress Neck : Normal inspection, Supple Cardiovascular : RRR, S1 S2, no lower extremity edema Respiratory : Fair bilateral air entry, no crackles, wheezes or rhonchi Gastrointestinal: soft, lax, Normal bowel sounds, Non tender Skin : Warm/Dry, No rash Muscular, left upper extremity swelling edema, no tenderness of erythema Neurological : Alert with stimulation & oriented to self, No focal deficit Objective Data Current Medications Generic Name Dose Route Start Last Admin Trade Name Freq PRN Reason Stop Dose Admin Acetaminophen 650 mg 12/01/20 16:45 Acetaminophen Oral Liquid 650 Mg/20.3 Ml Solution NG-TUBE Q6H PRN Pain, Mild (Pain Scale 1-3) Al Hydroxide/Mg Hydroxide 30 ml 12/01/20 16:35 Magnesium Hydrox/Alum Hydrox 30 Ml Oral.Susp NG-TUBE Q4H PRN Heartburn/Nausea Hydralazine HCl 50 mg 12/01/20 16:34 12/02/20 07:55 Hydralazine Hcl 50 Mg Tablet NG-TUBE 50 mg TID STEPHON Administration Protocol Ceftriaxone Sodium 1 gm/ 50 mls @ 100 mls/hr 12/01/20 12:00 12/02/20 13:39 Sodium Chloride IV Infused Q24H [facility] Infusion Omeprazole 20 mg 12/02/20 06:30 12/02/20 06:07 Omeprazole 20 Mg/10 Ml Susp.Recon NG-TUBE 20 mg BID@0630,1630 [facility] Administration Ondansetron HCl 4 mg 11/24/20 19:10 Ondansetron Hcl 4 Mg/2 Ml Vial IVPUSH Q8H PRN Nausea and Vomiting Pharmacy Consult 1 each 11/24/20 16:27 Consult Rx Perform Med Rec MISCELLANE ONCE PRN Consult order Sodium Chloride 3 ml 11/25/20 00:00 12/02/20 07:55 0.9 % Sodium Chloride Flush 3 Ml Syringe IVFLUSH 3 ml QSHIFT [facility]PH[facility] Administration Labs CBC & Chem 7: 12/02/20 06:13 12/02/20 06:13 Microbiology Microbiology Results: Microbiology 12/01/20 01:44 Urine clean catch - Clean Catch Midstream Urine Culture - Final Assessment and Plan (1) Adult failure to thrive: Status: Acute (2) Visit for feeding tube placement: Status: Acute (3) Hypernatremia: Status: Acute (4) Dehydration: Status: Acute (5) Metabolic encephalopathy: Status: Acute Assessment and Plan: 85-year-old female with a past medical history of hypertension, GERD, osteoarthritis, MGUS presented to the hospital with a chief complaint of decrease oral intake and increase encephalopathy. UTI Patient has positive urine for infection with elevated WBCs Culture growing mixed bacteria Continue IV antibiotics of ceftriaxone Acute on chronic anemia Hemoglobin drop to 7.1 from baseline of 9 No reported bleeding noticed, could be secondary to IV fluid Negative occult blood To transfuse a unit of blood today DC IVF Adult failure to thrive Multifactorial including esophageal problem, altered mentation, old age Encourage oral intake as tolerated Discontinue IVF Discontinue PPN Plan for PEG tube placement when supplies are available by GI or IR Continue NG tube with tube feed Left upper extremity swelling Site of peripheral IV Ultrasound negative for DVT, keep arm elevated Metabolic encephalopathy Multifactorial including general deconditioning, elderly, hypoactive delirium inpatient stay Keeps fluctuating Treat underlying electrolyte imbalance and dehydration Recurrent reorientation Dehydration Hypernatremia Resolved Monitor BMP Physical deconditioning PT evaluation Moderate protein calorie malnutrition Secondary to decreased oral intake Involve shift production associate Add Ensure and PPN DVT prophylaxis Lovenox
[2020-12-03] VITALS (8 sets, daily range): BP systolic 116–148; BP diastolic 60–76; PULSE 86–96; RESP 15–18; TEMP 36.1–37.2; O2SAT 94–99
[2020-12-03 06:45] LABS: Hematocrit 25.7 % (37-47); Hemoglobin 8.8 g/dl (12.0-16.0); Mean Corpuscular HGB Conc 34.2 g/dl (31.0-35.0); Mean Corpuscular Hemoglobin 33.5 pg (27.0-33.0); Mean Corpuscular Volume 97.7 fL (80-98); Mean Platelet Volume 12.2 fL (9.4-12.3); Platelet Count 238 X10*3/uL (160-400); Red Blood Count 2.63 X10*6/uL (4.20-5.50); Red Cell Distribution Width 18.3 % (11.0-16.0); White Blood Count 12.3 X10*3/uL (4.8-10.8)
[2020-12-03] MEDS: hydrALAZINE HCl 50 MG TABLET NG-TUBE ×3 (08:52→20:30)
[2020-12-03] MEDS: 0.9 % Sodium Chloride Flush 3 ML SYRINGE IVFLUSH ×3 (08:52→20:30)
--- NOTE | 2020-12-03 10:22 | MHC.SLORD ---
FORM SETTER [employer] FORMS attempted to see pt this morning for PO trials. Per RN, pt tolerating NG tube feedings and is awaiting PEG placement. Pt refused PO trials this morning. Name: Teresa Staton Date of : 1935 Age: 85 Date of Registration: 11/24/20 Speech Language Pathology Order Status:
[2020-12-03] MEDS: cefTRIAXone sodium 1 GM in 0.9 % Sodium Chloride 50 ML IV (13:18)
--- NOTE | 2020-12-03 13:18 | HO.PM.IMPN ---
Subjective Subjective Date of Service: 12/03/20 Interval History: The patient was seen and evaluated this morning Encephalopathy seems to be improving, doing better during the day than night or early childhood teacher assistant. Tolerating NG tube feed Denies any fever, chills or shortness of breath No reported other overnight events. Systemic review: No fever, chills but reporting generalized weakness No chest pain, palpitation No shortness of breath or coughing No abdominal pain, nausea or vomiting Physical Exam Vital Signs: Vital Signs: Last Vital Signs Temp 98.9 F 12/03/20 12:00 Pulse 94 12/03/20 12:00 Resp 15 12/03/20 12:00 BP 148/70 H 12/03/20 12:00 Pulse Ox 96 12/03/20 12:00 Body Mass Index 21.6 Const: Other: Constitutional : Alert, oriented to self but more improved, looks lethargic but not in distress Neck : Normal inspection, Supple Cardiovascular : RRR, S1 S2, bilateral +1 lower extremity edema with pain with palpation, no erythema or warmth. Respiratory : Fair bilateral air entry, no crackles, wheezes or rhonchi Gastrointestinal: soft, lax, Normal bowel sounds, Non tender Skin : Warm/Dry, No rash Muscular, left upper extremity swelling edema improving, no tenderness of erythema Neurological : Alert & oriented to self, No focal deficit Objective Data Current Medications Generic Name Dose Route Start Last Admin Trade Name Freq PRN Reason Stop Dose Admin Acetaminophen 650 mg 12/01/20 16:45 Acetaminophen Oral Liquid 650 Mg/20.3 Ml Solution NG-TUBE Q6H PRN Pain, Mild (Pain Scale 1-3) Al Hydroxide/Mg Hydroxide 30 ml 12/01/20 16:35 Magnesium Hydrox/Alum Hydrox 30 Ml Oral.Susp NG-TUBE Q4H PRN Heartburn/Nausea Hydralazine HCl 50 mg 12/01/20 16:34 12/03/20 08:52 Hydralazine Hcl 50 Mg Tablet NG-TUBE 50 mg TID STEPHON Administration Protocol Ceftriaxone Sodium 1 gm/ 50 mls @ 100 mls/hr 12/01/20 12:00 12/02/20 13:39 Sodium Chloride IV Infused Q24H [facility] Infusion Omeprazole 20 mg 12/02/20 06:30 12/03/20 06:24 Omeprazole 20 Mg/10 Ml Susp.Recon NG-TUBE 20 mg BID@0630,1630 [facility] Administration Ondansetron HCl 4 mg 11/24/20 19:10 Ondansetron Hcl 4 Mg/2 Ml Vial IVPUSH Q8H PRN Nausea and Vomiting Pharmacy Consult 1 each 11/24/20 16:27 Consult Rx Perform Med Rec MISCELLANE ONCE PRN Consult order Sodium Chloride 3 ml 11/25/20 00:00 12/03/20 08:52 0.9 % Sodium Chloride Flush 3 Ml Syringe IVFLUSH 3 ml QSHIFT [facility] Administration Labs CBC & Chem 7: 12/03/20 05:58 12/02/20 06:13 Microbiology Microbiology Results: Microbiology 12/01/20 01:44 Urine clean catch - Clean Catch Midstream Urine Culture - Final Assessment and Plan (1) Adult failure to thrive: Status: Acute (2) Visit for feeding tube placement: Status: Acute (3) Hypernatremia: Status: Acute (4) Dehydration: Status: Acute (5) Metabolic encephalopathy: Status: Acute Assessment and Plan: 85-year-old female with a past medical history of hypertension, GERD, osteoarthritis, MGUS presented to the hospital with a chief complaint of decrease oral intake and increase encephalopathy. UTI Patient has positive urine for infection with elevated WBCs Culture growing mixed bacteria Continue IV antibiotics of ceftriaxone Bilateral lower extremity swelling Tenderness on palpation with no erythema or warmth to check ultrasound Acute on chronic anemia Hemoglobin improved to 8.8 after 1 unit transfusion No reported bleeding noticed, could be secondary to IV fluid Negative occult blood Monitor H&H Adult failure to thrive Multifactorial including esophageal problem, altered mentation, old age Encourage oral intake as tolerated Discontinue IVF Discontinue PPN Plan for PEG tube placement tomorrow morning by Dr. Cadet Continue NG tube with tube feed reported dated hold Left upper extremity swelling Site of peripheral IV Ultrasound negative for DVT, keep arm elevated Metabolic encephalopathy Multifactorial including general deconditioning, elderly, hypoactive delirium inpatient stay Keeps fluctuating Treat underlying electrolyte imbalance and dehydration Recurrent reorientation Dehydration Hypernatremia Resolved Monitor BMP Physical deconditioning PT evaluation Moderate protein calorie malnutrition Secondary to decreased oral intake Involve unified communications engineer Add Ensure and PPN DVT prophylaxis SCDs
--- NOTE | 2020-12-03 13:59 | MHC.CLN ---
F/U PT RECEIVING TF: JEVITY 1.0 AT MAX GOAL RATE 55CC/HR WITH 120CC FREE WATER Q SHIFT TO PROVIDE 1399KCALS (31KCALS/KG), 58G PROTEIN (1.3G/KG) FOR WOUND, 1486CC TOTAL WATER FROM FORMULA AND FLUSHES (33CC/KG) PT IS TOLERATING AT MAX GOAL PER NSG MONITOR TOLERANCE, RESIDUALS AND LYTES FOR REFEEDING PEG PLACEMENT SCHEDULED FOR 12/04 FOLLOWING
--- NOTE | 2020-12-03 14:27 | PM.GICN ---
History of Present Illness Data of Consult Service Date: 12/03/20 Requesting physician: Aneesh Mistry Primary Care Provider: Rhett Moran MD [facility] Reason for consult: G tube placement 85 yr old f who I am asked to see for assessment for G tube placement She was admitted 2 weeks ago with failure to thrive, prior to this she had a laparoscopic reduction repair of large para esophageal hernia on background of dysphagia and 50 lb weight loss since 04/2020. From surgical standpoint pt did well post op 11/12/2020 and was able to swallow pills and pureed food even though her appetite was reduced. Inspite of this repair she has poor PO intake unless consistently prompted. Concern for malnutrition by primary team and the surgical team as well as by orion Cordoba and Doroteo. PAtient has been receiving NGT feeds and tolerating well Patient herself has no major complaints, mentation is variable, sometimes confused No fever, chills but reporting generalized weakness No chest pain, palpitation No shortness of breath or coughing No abdominal pain, nausea or vomiting Review of Systems Review of Systems: Lethargic, encephalopathic, tired Denies fever, chills No reported chest pain or shortness of breath No abdominal pain, nausea or vomiting Decreased oral intake, increased feeling of tiredness No lower extremity swelling or rash Constitutional: Constitutional: Reports anorexia, Denies chills, Reports difficulty sleeping, Reports fatigue, Denies headache(s), Reports lethargy, Denies snoring and Reports weakness Eyes: Eyes: Denies blurry vision, Denies diplopia and Denies loss of vision ENT: Denies bleeding gums, Denies dysphagia, Reports dry mouth and Denies headache(s) Cardiovascular: Cardiovascular: Denies cool extremities, Denies Epigastric Pain, Denies rapid heart rate, Denies pedal edema, Denies edema and Denies irregular heart rhythm Respiratory: Respiratory: Denies cough, Denies hemoptysis, Denies excessive phlegm production and Denies snoring Gastrointestinal: Gastrointestinal: Denies abdominal pain, Denies melena, Denies dysphagia, Denies dyspepsia, Denies heartburn, Denies loose stools, Denies nausea and Denies vomiting Musculoskeletal: Musculoskeletal: Reports back pain and Reports arthralgias Neurologic: Reports confusion (Mild), Denies headache(s), Denies loss of vision and Reports weakness Psychiatric: Psychiatric: Denies anxiety and Reports confusion (Mild) Endocrine: Endocrine: Reports fatigue PMFSH Past Medical History Medical History Adult failure to thrive GERD (gastroesophageal reflux disease) HTN (hypertension) Lower extremity edema 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 Son No problems noted. Daughter No problems noted. Surgical History Surgical History (Updated 11/25/20 @ 10:35 by Sharlene Lopez MD) History of nasal surgery S/P left knee arthroscopy S/P DINORAH-BSO Status post repair of paraesophageal diaphragmatic hernia Social History Social History Household Members: None Housing: House Do you presently have visiting nurse or other home services: No Alcohol intake: never Smoking Status: Never smoker Use of substances other than those prescribed or required for medical reasons: No Currently Displaying Signs/Symptoms of Drug Intoxication Withdrawal: No Have you been hit, kicked, punched, or otherwise hurt by someone within the past year? If so, by whom?: No Do you feel safe in your current relationship?: No Is there a partner from a previous relationship who is making you feel unsafe now?: No Advance Directives: Yes Advance Directives on File: Yes Advance Directives Date on File: 10/10/20 Do you have thoughts of harming others: None Do you have a plan to hurt others: No Plan Recently lost weight without trying: Yes service: No Current occupational status: retired Meds Allergies Allergy/AdvReac Type Severity Reaction Status Date / Time cat dander [CAT] Allergy Unknown SNEEZE, Verified 11/24/20 10:22 EYES SWELL UP Active Medications: Current Medications Generic Name Dose Route Start Last Admin Trade Name Freq PRN Reason Stop Dose Admin Acetaminophen 650 mg 12/01/20 16:45 Acetaminophen Oral Liquid 650 Mg/20.3 Ml Solution NG-TUBE Q6H PRN Pain, Mild (Pain Scale 1-3) Al Hydroxide/Mg Hydroxide 30 ml 12/01/20 16:35 Magnesium Hydrox/Alum Hydrox 30 Ml Oral.Susp NG-TUBE Q4H PRN Heartburn/Nausea Hydralazine HCl 50 mg 12/01/20 16:34 12/03/20 08:52 Hydralazine Hcl 50 Mg Tablet NG-TUBE 50 mg TID [facility] Administration Protocol Ceftriaxone Sodium 1 gm/ 50 mls @ 100 mls/hr 12/01/20 12:00 12/03/20 14:03 Sodium Chloride IV Infused Q24H [facility] Infusion Omeprazole 20 mg 12/02/20 06:30 12/03/20 06:24 Omeprazole 20 Mg/10 Ml Susp.Recon NG-TUBE 20 mg BID@0630,1630 [facility] Administration Ondansetron HCl 4 mg 11/24/20 19:10 Ondansetron Hcl 4 Mg/2 Ml Vial IVPUSH Q8H PRN Nausea and Vomiting Pharmacy Consult 1 each 11/24/20 16:27 Consult Rx Perform Med Rec MISCELLANE ONCE PRN Consult order Sodium Chloride 3 ml 11/25/20 00:00 12/03/20 08:52 0.9 % Sodium Chloride Flush 3 Ml Syringe IVFLUSH 3 ml QSHIFT [facility] Administration Home Medications Medication Instructions Recorded Confirmed Last Taken Type hydralazine 1 tab PO TID 11/09/20 11/24/20 Unknown History lisinopril 1 tab PO BID 11/09/20 11/24/20 Unknown History omeprazole 1 cap PO BID 11/09/20 11/24/20 Unknown History Physical Exam Vital Signs: Vital Signs: Last Vital Signs Temp 98.9 F 12/03/20 12:00 Pulse 94 12/03/20 12:00 Resp 15 12/03/20 12:00 BP 148/70 H 12/03/20 12:00 Pulse Ox 96 12/03/20 12:00 Body Mass Index 21.6 Const: Other: Constitutional : Alert, oriented to self but more improved, looks lethargic but not in distress Neck : Normal inspection, Supple Cardiovascular : RRR, S1 S2, bilateral +1 lower extremity edema with pain with palpation, no erythema or warmth. Respiratory : Fair bilateral air entry, no crackles, wheezes or rhonchi Gastrointestinal: soft, lax, Normal bowel sounds, Non tender Skin : Warm/Dry, No rash Muscular, left upper extremity swelling , no tenderness of erythema Neurological : Alert & oriented to self, No focal deficit General: confusion (Mild) Orientation/consciousness: confusion (Mild) HENMT: Head: Yes normocephalic and Yes atraumatic Mouth: abnormal oral mucosae (Dry oral mucosa) Eyes: EOM: EOMs intact bilaterally Neck: Neck: Yes full ROM and Yes no lymphadenopathy Resp: Effort & Inspection: normal respiratory effort, no audible wheezes and no cough Auscultation: clear to auscultation bilaterally Cardio: Rate: regular rate Heart sounds: S1 normal heart sound present, S2 normal heart sound present, no gallops, no murmurs and no rubs GI: Other: Resolving ecchymosis below the umbilicus Inspection: Yes normal to inspection, No Abdominal wall edema, No distended and Yes incision (Well-healed laparoscopic incisions without evidence of hernia) Palpation (GI): Soft to palpation, nontender, no guarding, not rigid, no hernias and no masses Neuro: General: confusion (Mild) Extrem: General: Yes normal to inspection and Yes no clubbing, cyanosis or edema Results Labs CBC & Chem 7: 12/03/20 05:58 12/02/20 06:13 Labs: Short CBC 12/03/20 Range/Units 05:58 WBC 12.3 H (4.8-10.8) X10*3/uL Hgb 8.8 L D (12.0-16.0) g/dl Hct 25.7 L (37-47) % Plt Count 238 (160-400) X10*3/uL Microbiology Microbiology Results: Microbiology 12/01/20 01:44 Urine clean catch - Clean Catch Midstream Urine Culture - Final Assessment and Plan (1) Adult failure to thrive: Status: Acute (2) Excessive weight loss: Status: Acute 1/ Malnutrition with failure to thrive, maybe due to delirium, general debility, albumin 2.3 indicating severe protein calorie deficit 2/ anemia, prob related to 1/ above PLAN: 1/ Discussed with patients orion Sadler last week and Silverio today on the phone, and reviewed indications, as well as risks and benefits of G tube placement. Agreement on proceeding with t to see if can help regain her nutrition and hopefully she can return close to her baseline function--will plan for tomorrow in the OR with ancef 1 g carolina operatively
--- NOTE | 2020-12-03 16:24 | MHC.CM.PN ---
EMR REVIEWED, PER HOSPITALIST PEG TUBES ARE IN AND PT IS SCHEDULED FOR GTUBE PLACEMENT TOMORROW 12/03 W/DR. KUHN.
[2020-12-04 03:25] VITALS: BP 144/74; PULSE 96; RESP 18; TEMP 37.3; O2SAT 97
[2020-12-04 06:31] LABS: INTERNATIONAL NORM RATIO 1.1 (0.9-1.1); Prothrombin Time 13.4 SEC (10.8-13.0)
[2020-12-04 07:04] LABS: Anion Gap 12 (12-20); Blood Urea Nitrogen 29 mg/dL (9-16); Calcium 8.3 mg/dL (8.4-10.2); Carbon Dioxide 26 mmol/L (22-29); Chloride 105 mmol/L (96-108); Creatinine Clr Calc Pharmacy 33.7; Estimated Glomerular Filt Rate > 60; Glucose Random 131 mg/dL (60-115); Potassium 4.5 mmol/L (3.3-5.1); Sodium 138 mmol/L (135-145)
[2020-12-04 07:53] VITALS: BP 176/90; PULSE 91; RESP 18; TEMP 36.3; O2SAT 96
--- NOTE | 2020-12-04 09:15 | MHC.CM.PN ---
PER NURSING FEEDING WAS NOT STOPPED LAST NIGHT AND PEG TUBE PLACEMENT IS NOW SCHEDULED FOR TOMORROW 12/05 AT 4:30PM. CM WILL CONT TO FOLLOW FOR D/C NEEDS.
[2020-12-04] MEDS: hydrALAZINE HCl 50 MG TABLET NG-TUBE ×3 (09:50→19:37)
[2020-12-04] MEDS: 0.9 % Sodium Chloride Flush 3 ML SYRINGE IVFLUSH ×3 (09:51→23:32)
[2020-12-04 11:29] VITALS: BP 148/71; PULSE 98; RESP 17; TEMP 36.8; O2SAT 96
--- NOTE | 2020-12-04 11:29 | MHC.CLN ---
RE: CONSULT PT IS CURRENTLY NPO PENDING G TUBE PLACEMENT PT WITH NEW IMPAIRED PRESSURE INJURIES WHEN TF TO RESUME RECOMMEND JEVITY 1.0 AT MAX GOAL RATE 55CC/HR WITH 120CC FREE WATER Q SHIFT AND 1 PKT PROSOURCE Q DAY VIA GTUBE TO PROVIDE 1459KCALS (32KCALS/KG), 73G PROTEIN (1.6G/KG) FOR WOUND, 1486CC TOTAL WATER FROM FORMULA AND FLUSHES (33CC/KG) START TF AT 20CC/HR AND INCREASE BY 10CC Q 4 HRS UNTIL MAX GOAL RATE IS REACHED MONITOR TOLERANCE, RESIDUALS AND LYTES FOLLOWING
[2020-12-04] MEDS: cefTRIAXone sodium 1 GM in 0.9 % Sodium Chloride 50 ML IV (12:00)
--- NOTE | 2020-12-04 12:03 | MHC.CM.PN ---
CM MET W/ PT'S SON/HCP AB IN ROOM W/PT TO DISCUSS SNF'S, PT'S SON IS WOULD LIKE TO GO WITH [facility] AND THEY ARE CURRENTLY FOLLOWING PT, SON AWARE PEG PLACEMENT IS PLANNED FOR 12/05 4:30PM. CM DISCUSSED PLAN TO TRANSITION TO LTC AND SON REPORTED FAMILY HAD MET W/WELDER ASSISTANT 5 YRS AGO AND THEY HAVE EVERYTHING IN PLACE AND HAVE NO FINANCIAL CONCERNS OR NEED FOR ASSISTANCE W/LTC PAYOR. DISCHARGE PLAN: STR/LTC AT [facility], BLJimy FOR TRANSPORT, ANTIC D/C FRANCISCO JAVIER/
--- NOTE | 2020-12-04 12:54 | MHC.SLORD ---
Speech Language Pathology Order Status: Patient was recommended PUREED (NDD1) solids and THIN liquids previously. Patient was NPO for PEG tube placement. However, procedure was canceled today as patient had received NGT feeding. Per MD, PEG is scheduled for tomorrow.
--- NOTE | 2020-12-04 13:34 | P.PNIM_ITS ---
Subjective Subjective Date of Service: 12/04/20 Interval History: no complaints Cardiovascular Cardiovascular: Reports no additional cardiovascular complaints Gastrointestinal Gastrointestinal: Reports no additional gastrointestinal complaints Physical Exam Vital Signs: Vital Signs: Last Vital Signs Temp 98.2 F 12/04/20 11:29 Pulse 98 12/04/20 11:29 Resp 17 12/04/20 11:29 BP 148/71 H 12/04/20 11:29 Pulse Ox 96 12/04/20 11:29 Body Mass Index 21.6 General: no acute distress Resp: CTA bilateral CVS: S1,S2,RRR GI: soft, non tender, non distended Neuro: motor grossly intact Psych: appropriate affect Objective Data Current Medications Generic Name Dose Route Start Last Admin Trade Name Freq PRN Reason Stop Dose Admin Acetaminophen 650 mg 12/01/20 16:45 Acetaminophen Oral Liquid 650 Mg/20.3 Ml Solution NG-TUBE Q6H PRN Pain, Mild (Pain Scale 1-3) Al Hydroxide/Mg Hydroxide 30 ml 12/01/20 16:35 Magnesium Hydrox/Alum Hydrox 30 Ml Oral.Susp NG-TUBE Q4H PRN Heartburn/Nausea Hydralazine HCl 50 mg 12/01/20 16:34 12/04/20 09:50 Hydralazine Hcl 50 Mg Tablet NG-TUBE 50 mg TID [facility] Administration Protocol Ceftriaxone Sodium 1 gm/ 50 mls @ 100 mls/hr 12/01/20 12:00 12/04/20 12:47 Sodium Chloride IV Infused Q24H [facility] Infusion Omeprazole 20 mg 12/02/20 06:30 12/04/20 05:35 Omeprazole 20 Mg/10 Ml Susp.Recon NG-TUBE 20 mg BID@0630,1630 [facility] Administration Ondansetron HCl 4 mg 11/24/20 19:10 Ondansetron Hcl 4 Mg/2 Ml Vial IVPUSH Q8H PRN Nausea and Vomiting Pharmacy Consult 1 each 11/24/20 16:27 Consult Rx Perform Med Rec MISCELLANE ONCE PRN Consult order Sodium Chloride 3 ml 11/25/20 00:00 12/04/20 09:51 0.9 % Sodium Chloride Flush 3 Ml Syringe IVFLUSH 3 ml QSHIFT [facility] Administration Labs CBC & Chem 7: 12/03/20 05:58 12/04/20 05:51 Microbiology Microbiology Results: Microbiology 12/01/20 01:44 Urine clean catch - Clean Catch Midstream Urine Culture - Final Assessment and Plan (1) Adult failure to thrive: Status: Acute (2) Visit for feeding tube placement: Status: Acute (3) Hypernatremia: Status: Acute (4) Dehydration: Status: Acute (5) Metabolic encephalopathy: Status: Acute Assessment and Plan: 85-year-old female with a past medical history of hypertension, GERD, osteoarthritis, MGUS presented to the hospital with a chief complaint of decrease oral intake and increase encephalopathy. UTI Patient has positive urine for infection with elevated WBCs Culture growing mixed bacteria Continue IV antibiotics of ceftriaxone Bilateral lower extremity swelling Tenderness on palpation with no erythema or warmth negative ultrasound Acute on chronic anemia Hemoglobin improved to 8.8 after 1 unit transfusion No reported bleeding noticed Negative occult blood Monitor H&H Adult failure to thrive Multifactorial including esophageal problem, altered mentation, old age Encourage oral intake as tolerated Plan for PEG tube placement tomorrow morning by Dr. Cadet Continue NG tube with tube feed reported dated hold Left upper extremity swelling Site of peripheral IV Ultrasound negative for DVT, keep arm elevated Metabolic encephalopathy Multifactorial including general deconditioning, elderly, hypoactive delirium inpatient stay Keeps fluctuating Treat underlying electrolyte imbalance and dehydration Recurrent reorientation Dehydration Hypernatremia Resolved Monitor BMP Physical deconditioning PT evaluation Moderate protein calorie malnutrition tube feeds Stage II pressure ulcer Continue local measures wound care team evaluation DVT prophylaxis SCDs
[2020-12-04 15:25] VITALS: BP 148/81; PULSE 91; RESP 16; TEMP 36.6; O2SAT 97
--- NOTE | 2020-12-04 16:42 | HO.WOUNDCONS ---
History of Present Illness Data of Consult Service Date: 12/04/20 Primary Care Provider: Rhett Moran MD Review of Systems Constitutional: Constitutional: Reports anorexia, Denies chills, Reports difficulty sleeping, Reports fatigue, Denies headache(s), Reports lethargy, Denies snoring and Reports weakness Eyes: Eyes: Denies blurry vision, Denies diplopia and Denies loss of vision ENT: Denies bleeding gums, Denies dysphagia, Reports dry mouth and Denies headache(s) Cardiovascular: Cardiovascular: Reports no additional cardiovascular complaints, Denies cool extremities, Denies Epigastric Pain, Denies rapid heart rate, Denies pedal edema, Denies edema and Denies irregular heart rhythm Respiratory: Respiratory: Denies cough, Denies hemoptysis, Denies excessive phlegm production and Denies snoring Gastrointestinal: Gastrointestinal: Reports no additional gastrointestinal complaints, Denies abdominal pain, Denies melena, Denies dysphagia, Denies dyspepsia, Denies heartburn, Denies loose stools, Denies nausea and Denies vomiting Musculoskeletal: Musculoskeletal: Reports back pain and Reports arthralgias Neurologic: Denies headache(s), Denies loss of vision and Reports weakness Psychiatric: Psychiatric: Denies anxiety Endocrine: Endocrine: Reports fatigue PMFSH Medical History Adult failure to thrive GERD (gastroesophageal reflux disease) HTN (hypertension) Lower extremity edema MGUS (monoclonal gammopathy of unknown significance) Osteoarthritis of knees, bilateral Osteoarthritis of knees, bilateral Pancytopenia Physical deconditioning Skin lesions Family History Father Hemorrhagic stroke Mother Son No problems noted. Son No problems noted. Daughter No problems noted. Surgical History (Updated 11/25/20 @ 10:35 by Sharlene Lopez MD) History of nasal surgery S/P left knee arthroscopy S/P DINORAH-BSO Status post repair of paraesophageal diaphragmatic hernia Social History Household Members: None Housing: House Do you presently have visiting nurse or other home services: No Alcohol intake: never Smoking Status: Never smoker Use of substances other than those prescribed or required for medical reasons: No Currently Displaying Signs/Symptoms of Drug Intoxication Withdrawal: No Have you been hit, kicked, punched, or otherwise hurt by someone within the past year? If so, by whom?: No Do you feel safe in your current relationship?: No Is there a partner from a previous relationship who is making you feel unsafe now?: No Advance Directives: Yes Advance Directives on File: Yes Advance Directives Date on File: 10/10/20 Do you have thoughts of harming others: None Do you have a plan to hurt others: No Plan Recently lost weight without trying: Yes service: No Current occupational status: retired Meds Allergies Allergy/AdvReac Type Severity Reaction Status Date / Time cat dander [CAT] Allergy Unknown SNEEZE, Verified 11/24/20 10:22 EYES SWELL UP Active Medications: Current Medications Generic Name Dose Route Start Last Admin Trade Name Freq PRN Reason Stop Dose Admin Acetaminophen 650 mg 12/01/20 16:45 Acetaminophen Oral Liquid 650 Mg/20.3 Ml Solution NG-TUBE Q6H PRN Pain, Mild (Pain Scale 1-3) Al Hydroxide/Mg Hydroxide 30 ml 12/01/20 16:35 Magnesium Hydrox/Alum Hydrox 30 Ml Oral.Susp NG-TUBE Q4H PRN Heartburn/Nausea Hydralazine HCl 50 mg 12/01/20 16:34 12/04/20 15:47 Hydralazine Hcl 50 Mg Tablet NG-TUBE 50 mg TID [facility] Administration Protocol Ceftriaxone Sodium 1 gm/ 50 mls @ 100 mls/hr 12/01/20 12:00 12/04/20 12:47 Sodium Chloride IV Infused Q24H [facility] Infusion Omeprazole 20 mg 12/02/20 06:30 12/04/20 15:47 Omeprazole 20 Mg/10 Ml Susp.Recon NG-TUBE 20 mg BID@0630,1630 [facility] Administration Ondansetron HCl 4 mg 11/24/20 19:10 Ondansetron Hcl 4 Mg/2 Ml Vial IVPUSH Q8H PRN Nausea and Vomiting Pharmacy Consult 1 each 11/24/20 16:27 Consult Rx Perform Med Rec MISCELLANE ONCE PRN Consult order Sodium Chloride 3 ml 11/25/20 00:00 12/04/20 15:28 0.9 % Sodium Chloride Flush 3 Ml Syringe IVFLUSH 3 ml QSHIFT [facility] Administration Home Medications Medication Instructions Recorded Confirmed Last Taken Type hydralazine 1 tab PO TID 11/09/20 11/24/20 Unknown History lisinopril 1 tab PO BID 11/09/20 11/24/20 Unknown History omeprazole 1 cap PO BID 11/09/20 11/24/20 Unknown History Physical Exam Vital Signs and Narrative: Vital Signs: Last Vital Signs Temp 98 F 12/04/20 15:25 Pulse 91 12/04/20 15:25 Resp 16 12/04/20 15:25 BP 148/81 H 12/04/20 15:25 Pulse Ox 97 12/04/20 15:25 Body Mass Index 21.6 Skin: Other: pt with a large area of deep tissue injury around sacral area both left and right sides and midline . midline area with actual skin breakdown into stage II at risk of progressing to stage III no evidence of infection skin is very think and friable and pt has very bony anatomy here Results Labs CBC and Chem 7: 12/03/20 05:58 12/04/20 05:51 Labs: Laboratory Results - last 24 hr 12/04/20 12/04/20 05:51 05:51 PT 13.4 H INR 1.1 Anion Gap 12 Estim Creat Clear Calc 33.7 Estimated GFR > 60 Random Glucose 131 H Calcium 8.3 L Imaging Radiologist's Impressions: Impressions Venous Duplex 12/03/20 17:17 IMPRESSION: 1. No DVT demonstrated in the bilateral lower extremity. 2. Bilateral popliteal fossa cyst. Assessment and Plan (1) Adult failure to thrive: Status: Acute (2) Visit for feeding tube placement: Status: Acute (3) Hypernatremia: Status: Acute (4) Dehydration: Status: Acute (5) Metabolic encephalopathy: Status: Acute 85-year-old female with a past medical history of hypertension, GERD, osteoarthritis, MGUS presented to the hospital with a chief complaint of decrease oral intake and increase encephalopathy. Multifactorial including general deconditioning, elderly, hypoactive delirium inpatient stay ube feeds Stage II pressure ulcer Continue local measures -- barrier cream and offloading for buttock area and foam protection also nutrition - pt to be peg tube placement so ensure good protein intake, multivitamins
[2020-12-04 19:42] VITALS: BP 152/83; PULSE 96; RESP 16; TEMP 36.6; O2SAT 96
[2020-12-04 23:33] VITALS: BP 148/83; PULSE 88; RESP 16; TEMP 36.5; O2SAT 96
[2020-12-05] VITALS (14 sets, daily range): BP systolic 93–160; BP diastolic 47–81; PULSE 69–99; RESP 15–21; TEMP 36.2–37.1; O2SAT 94–100; BMI 21.6
[2020-12-05] MEDS: 0.9 % Sodium Chloride Flush 3 ML SYRINGE IVFLUSH (06:16)
[2020-12-05 06:46] LABS: MANUAL DIFF FLAG NO
[2020-12-05 06:48] LABS: Basophils Percent Auto 0.1 % (0-2); Eosinophils Percent Auto 0.3 % (0-4); Hematocrit 26.9 % (37-47); Hemoglobin 8.9 g/dl (12.0-16.0); Imm Gran Abs Auto 0.33 X10*3/uL (0.00-0.03); Imm Gran Pct Auto 2.5 % (0.0-0.4); Lymphocytes Absolute Auto 1.1 X10*3/uL (1.2-4.9); Mean Corpuscular HGB Conc 33.1 g/dl (31.0-35.0); Mean Corpuscular Hemoglobin 32.8 pg (27.0-33.0); Mean Corpuscular Volume 99.3 fL (80-98); Mean Platelet Volume 11.7 fL (9.4-12.3); Monocytes Absolute Auto 1.2 X10*3/uL (0.1-1.2); Monocytes Percent Auto 8.7 % (2-11); Neutrophils Absolute Auto 10.7 X10*3/uL (2.0-8.3); Neutrophils Percent Auto 80.4 % (45-73); Platelet Count 231 X10*3/uL (160-400); Red Blood Count 2.71 X10*6/uL (4.20-5.50); Red Cell Distribution Width 18.4 % (11.0-16.0); White Blood Count 13.4 X10*3/uL (4.8-10.8)
[2020-12-05 07:25] LABS: Anion Gap 11 (12-20); Blood Urea Nitrogen 28 mg/dL (9-16); Calcium 8.2 mg/dL (8.4-10.2); Carbon Dioxide 24 mmol/L (22-29); Chloride 105 mmol/L (96-108); Creatinine Clr Calc Pharmacy 35.5; Estimated Glomerular Filt Rate > 60; Glucose Fasting 99 mg/dL (60-99); Potassium 4.7 mmol/L (3.3-5.1); Sodium 135 mmol/L (135-145)
[2020-12-05] MEDS: hydrALAZINE HCl 50 MG TABLET NG-TUBE (09:39)
--- NOTE | 2020-12-05 11:00 | HO.PM.IMPN ---
Subjective Subjective Date of Service: 12/05/20 Interval History: no complaints Cardiovascular Cardiovascular: Reports no additional cardiovascular complaints Respiratory Respiratory: Reports no additional respiratory complaints Physical Exam Vital Signs: Vital Signs: Last Vital Signs Temp 98.2 F 12/05/20 07:25 Pulse 99 12/05/20 07:25 Resp 17 12/05/20 07:25 BP 160/81 H 12/05/20 07:25 Pulse Ox 94 12/05/20 07:25 Body Mass Index 21.6 General: no acute distress, ngt in place Resp: CTA bilateral CVS: S1,S2,RRR GI: soft, non tender, non distended Neuro: motor grossly intact Psych: appropriate affect Objective Data Current Medications Generic Name Dose Route Start Last Admin Trade Name Freq PRN Reason Stop Dose Admin Acetaminophen 650 mg 12/01/20 16:45 Acetaminophen Oral Liquid 650 Mg/20.3 Ml Solution NG-TUBE Q6H PRN Pain, Mild (Pain Scale 1-3) Al Hydroxide/Mg Hydroxide 30 ml 12/01/20 16:35 Magnesium Hydrox/Alum Hydrox 30 Ml Oral.Susp NG-TUBE Q4H PRN Heartburn/Nausea Hydralazine HCl 50 mg 12/01/20 16:34 12/05/20 09:39 Hydralazine Hcl 50 Mg Tablet NG-TUBE 50 mg TID [facility] Administration Protocol Ceftriaxone Sodium 1 gm/ 50 mls @ 100 mls/hr 12/01/20 12:00 12/04/20 12:47 Sodium Chloride IV Infused Q24H [facility] Infusion Omeprazole 20 mg 12/02/20 06:30 12/05/20 06:16 Omeprazole 20 Mg/10 Ml Susp.Recon NG-TUBE 20 mg BID@0630,1630 [facility] Administration Ondansetron HCl 4 mg 11/24/20 19:10 Ondansetron Hcl 4 Mg/2 Ml Vial IVPUSH Q8H PRN Nausea and Vomiting Pharmacy Consult 1 each 11/24/20 16:27 Consult Rx Perform Med Rec MISCELLANE ONCE PRN Consult order Sodium Chloride 3 ml 11/25/20 00:00 12/05/20 06:16 0.9 % Sodium Chloride Flush 3 Ml Syringe IVFLUSH 3 ml QSHIFT [facility] Administration Zinc Oxide 1 appl 12/04/20 16:56 Zinc Oxide 20% Ointment 28.35 Gm Tube TOPICAL DAILY PRN Rash Protocol Labs CBC & Chem 7: 04/02/21 06:18 12/05/20 06:18 Microbiology Microbiology Results: Microbiology 12/01/20 01:44 Urine clean catch - Clean Catch Midstream Urine Culture - Final Assessment and Plan (1) Adult failure to thrive: Status: Acute (2) Visit for feeding tube placement: Status: Acute (3) Hypernatremia: Status: Acute (4) Dehydration: Status: Acute (5) Metabolic encephalopathy: Status: Acute Assessment and Plan: 85-year-old female with a past medical history of hypertension, GERD, osteoarthritis, MGUS presented to the hospital with a chief complaint of decrease oral intake and increase encephalopathy. UTI Patient has positive urine for infection with elevated WBCs Culture growing mixed bacteria Continue IV antibiotics of ceftriaxone Bilateral lower extremity swelling Tenderness on palpation with no erythema or warmth negative ultrasound Acute on chronic anemia Hemoglobin improved after 1 unit transfusion No reported bleeding noticed Negative occult blood Monitor H&H Adult failure to thrive Multifactorial including esophageal problem, altered mentation, old age Encourage oral intake as tolerated Plan for PEG tube placement today morning by Dr. Cadet Left upper extremity swelling Site of peripheral IV Ultrasound negative for DVT, keep arm elevated Metabolic encephalopathy Multifactorial including general deconditioning, elderly, hypoactive delirium inpatient stay Keeps fluctuating Treat underlying electrolyte imbalance and dehydration Recurrent reorientation Dehydration Hypernatremia Resolved Monitor BMP Physical deconditioning PT evaluation Moderate protein calorie malnutrition tube feeds Stage II pressure ulcer Continue local measures wound care team evaluation DVT prophylaxis SCDs
--- NOTE | 2020-12-05 12:14 | MHC.SHP ---
Pre-Procedural Eval Section A The patient is an INPATIENT: Yes The History & Physical has been completed within 30 days and I have reviewed it.: Yes Section B Chief Complaint: FTT, Dehydration Allergies: Allergies Allergy/AdvReac Type Severity Reaction Status Date / Time cat dander [CAT] Allergy Unknown SNEEZE, Verified 11/24/20 10:22 EYES SWELL UP Plan Diagnosis/Plan: Unchanged I have reviewed the history and physical and performed a pertinent physical examination on my patient. No changes have occurred unless specified. G tube placement
--- NOTE | 2020-12-05 12:15 | P.OP_ITS ---
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 Instrument: Olympus GIF H 190 J mid size upper endoscope Monitoring: Vital signs and clinical assessment, continuous EKG monitoring, Pulse oximetry, Carbon Dioxide monitoring and blood pressure monitoring were done throughout the procedure. Procedure: The patient was placed in the left lateral decubitis position and pre-procedure medications were administered and a bite block was placed. The endoscope was inserted into the mouth and advanced under direct vision to the third part of duodenum. A careful inspection was made as the upper endoscope was withdrawn including a retroflexed examination of the proximal stomach; Findings and interventions are described below. Findings: Larynx:normal Esophagus: GE junction at 38 cm, diaphragm hiatus at 38 cm, no varices or esophagitis. Stomach: Patchy gastric erythema. Grade 2 flap valve on retroflexed examination of the cardia. Duodenum: Normal bulb and descending duodenum, An appropriate point was located for incision confirming with trans-illumination and one to one motion when pressing on the abdomen as well as needle aspiration of air on puncture. The wire was passed and drawn out through the mouth with 20 Fr PEG tube then attached. This was pulled thru using Ponsky placement method. Outer tube was at 3 cm from the internal bolster. Intervention: G tube placement Impression/Findings: gastritis G tube placement PLAN: Can use G tube immediately for feeds and flushing or medication as needed rotate external bumper once every 24 hrs to prevent buried bumper syndrome. keep skin around site clean, wash with water as needed, keep dry thereafter.
--- NOTE | 2020-12-05 12:15 | PM.OP ---
Brief Operative Note Date of Service: 12/05/20 Pre-op diagnosis: failure to thrive, severe protein calorie malnutrition Post-op diagnosis: same Procedure: see op note Surgeon: Danita Cadet MD Anesthesia: MAC Estimated blood loss (mL): 0 Condition: stable Disposition: PACU
--- NOTE | 2020-12-05 12:24 | P.CONAN_ITS ---
[facility] Active Problems Active Problems: All Active Problems (Updated 11/24/20 @ 16:42 by Aneesh Oswald MD sayda) Status post repair of paraesophageal diaphragmatic hernia (Acute) Metabolic encephalopathy (Acute) Adult failure to thrive (Acute) Excessive weight loss (Acute) Visit for feeding tube placement (Acute) Hypernatremia (Acute) Dehydration (Acute) Past Medical History Medical History Adult failure to thrive GERD (gastroesophageal reflux disease) HTN (hypertension) Lower extremity edema 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 Son No problems noted. Daughter No problems noted. Surgical History Surgical History History of nasal surgery S/P left knee arthroscopy S/P DINORAH-BSO Status post repair of paraesophageal diaphragmatic hernia Social History Social History Household Members: None Housing: House Are you a primary memory care director to a significant other at home: No Do you presently have visiting nurse or other home services: No Alcohol intake: never Smoking Status: Never smoker Use of substances other than those prescribed or required for medical reasons: No Currently Displaying Signs/Symptoms of Drug Intoxication Withdrawal: No Have you been hit, kicked, punched, or otherwise hurt by someone within the past year? If so, by whom?: No Do you feel safe in your current relationship?: No Is there a partner from a previous relationship who is making you feel unsafe now?: No Advance Directives: Yes Advance Directives on File: Yes Advance Directives Date on File: 10/10/20 Do you have thoughts of harming others: None Do you have a plan to hurt others: No Plan Recently lost weight without trying: Yes service: No Current occupational status: retired Meds Allergies Allergy/AdvReac Type Severity Reaction Status Date / Time cat dander [CAT] Allergy Unknown SNEEZE, Verified 11/24/20 10:22 EYES SWELL UP Active Medications: Current Medications Generic Name Dose Route Start Last Admin Trade Name Michaela PRN Reason Stop Dose Admin Acetaminophen 650 mg 12/01/20 16:45 Acetaminophen Oral Liquid 650 Mg/20.3 Ml Solution NG-TUBE Q6H PRN Pain, Mild (Pain Scale 1-3) Al Hydroxide/Mg Hydroxide 30 ml 12/01/20 16:35 Magnesium Hydrox/Alum Hydrox 30 Ml Oral.Susp NG-TUBE Q4H PRN Heartburn/Nausea Hydralazine HCl 50 mg 12/01/20 16:34 12/05/20 09:39 Hydralazine Hcl 50 Mg Tablet NG-TUBE 50 mg TID STEPHON Administration Protocol Ceftriaxone Sodium 1 gm/ 50 mls @ 100 mls/hr 12/01/20 12:00 12/04/20 12:47 Sodium Chloride IV Infused Q24H STEPHON Infusion Cefazolin Sodium 1 gm/ Sodium 50 mls @ 100 mls/hr 12/05/20 12:13 Chloride IV 12/05/20 12:42 ONCE ONE Omeprazole 20 mg 12/02/20 06:30 12/05/20 06:16 Omeprazole 20 Mg/10 Ml Susp.Recon NG-TUBE 20 mg BID@0630,1630 STEPHON Administration Ondansetron HCl 4 mg 11/24/20 19:10 Ondansetron Hcl 4 Mg/2 Ml Vial IVPUSH Q8H PRN Nausea and Vomiting Pharmacy Consult 1 each 11/24/20 16:27 Consult Rx Perform Med Rec MISCELLANE ONCE PRN Consult order Sodium Chloride 3 ml 11/25/20 00:00 12/05/20 06:16 0.9 % Sodium Chloride Flush 3 Ml Syringe IVFLUSH 3 ml QSHIFT STEPHON Administration Zinc Oxide 1 appl 12/04/20 16:56 Zinc Oxide 20% Ointment 28.35 Gm Tube TOPICAL DAILY PRN Rash Protocol Home Medications Medication Instructions Recorded Confirmed Last Taken Type hydralazine 1 tab PO TID 11/09/20 11/24/20 Unknown History lisinopril 1 tab PO BID 11/09/20 11/24/20 Unknown History omeprazole 1 cap PO BID 11/09/20 11/24/20 Unknown History Exam Exam Date and Time: December 05, 2020 1224 Height,Weight and Vital Signs: Height 4 ft 9 in Weight 45.39 kg Last Vital Signs Temp 98.8 F 12/05/20 11:46 Pulse 97 12/05/20 11:46 Resp 16 12/05/20 11:46 BP 132/67 12/05/20 11:46 Pulse Ox 96 12/05/20 11:46 Pertinent Lab Results Pertinent Lab Results: Laboratory Tests 11/24/20 11/24/20 11/24/20 13:49 13:50 14:44 WBC 8.8 RBC 2.86 L Hgb 9.4 L Hct 28.9 L MCV 101.0 H MCH 32.9 MCHC 32.5 RDW 18.8 H Plt Count 84 L MPV 12.4 H Immature Gran % (Auto) 1.9 H Neut % (Auto) 80.3 H Lymph % (Auto) 10.3 L [place] % (Auto) 6.6 Eos % (Auto) 0.8 Baso % (Auto) 0.1 Lymph # (Auto) 0.9 L [place] # (Auto) 0.6 Eos # (Auto) 0.1 Baso # (Auto) 0.0 Abs Immat Gran (auto) 0.17 H Absolute Neuts (auto) 7.1 Absolute Nucleated RBC 0.040 H Nucleated RBC % (auto) 0.5 H PT INR Sodium Potassium Chloride Carbon Dioxide Anion Gap BUN Creatinine Estim Creat Clear Calc Estimated GFR Random Glucose Fasting Glucose Calcium Phosphorus Magnesium Total Bilirubin Direct Bilirubin AST ALT Alkaline Phosphatase B-Natriuretic Peptide Total Protein Albumin Triglycerides Lipase Urine Color YELLOW Urine Appearance CLEAR Urine pH 5.5 Ur Specific [place] 1.020 Urine Protein NEG Urine Glucose (UA) NEG Urine Ketones NEG Urine Blood NEG Urine Nitrite NEG Ur Leukocyte Esterase NEG Urine RBC Urine WBC Ur Squamous Epith Cells Urine Bacteria Stool Occult Blood COVID-19 (JACE) Negative COVID-19 Clin Com See Note Blood Type Antibody Screen Crossmatch 11/24/20 11/24/20 11/25/20 14:44 14:44 06:33 WBC RBC Hgb Hct MCV MCH MCHC RDW Plt Count MPV Immature Gran % (Auto) Neut % (Auto) Lymph % (Auto) [place] % (Auto) Eos % (Auto) Baso % (Auto) Lymph # (Auto) [place] # (Auto) Eos # (Auto) Baso # (Auto) Abs Immat Gran (auto) Absolute Neuts (auto) Absolute Nucleated RBC Nucleated RBC % (auto) PT 12.0 D INR 1.0 Sodium 150 H Potassium 4.1 Chloride 113 H Carbon Dioxide 28 Anion Gap 13 BUN 39 H Creatinine 1.22 Estim Creat Clear Calc 21.3 Estimated GFR 42 Random Glucose 110 Fasting Glucose Calcium 9.9 Phosphorus Magnesium Total Bilirubin 0.7 Direct Bilirubin 0.3 AST 14 D ALT < 6 Alkaline Phosphatase 36 L D B-Natriuretic Peptide 86 Total Protein 5.3 L Albumin 3.1 L Triglycerides Lipase 33 Urine Color Urine Appearance Urine pH Ur Specific [place] Urine Protein Urine Glucose (UA) Urine Ketones Urine Blood Urine Nitrite Ur Leukocyte Esterase Urine RBC Urine WBC Ur Squamous Epith Cells Urine Bacteria Stool Occult Blood COVID-19 (JACE) COVID-19 [employer] Com Blood Type Antibody Screen Crossmatch 11/25/20 11/26/20 11/27/20 06:33 06:12 06:57 WBC RBC Hgb Hct MCV MCH MCHC RDW Plt Count MPV Immature Gran % (Auto) Neut % (Auto) Lymph % (Auto) [place] % (Auto) Eos % (Auto) Baso % (Auto) Lymph # (Auto) [place] # (Auto) Eos # (Auto) Baso # (Auto) Abs Immat Gran (auto) Absolute Neuts (auto) Absolute Nucleated RBC Nucleated RBC % (auto) PT INR Sodium 144 140 140 Potassium 4.1 3.8 4.1 Chloride 111 H 104 108 Carbon Dioxide 23 26 23 Anion Gap 14 14 13 BUN 34 H 28 H 25 H Creatinine 0.95 0.86 0.81 Estim Creat Clear Calc 27.3 30.2 32.0 Estimated GFR 56 > 60 > 60 Random Glucose 119 H 90 103 Fasting Glucose Calcium 9.2 D 9.1 8.4 D Phosphorus Magnesium Total Bilirubin Direct Bilirubin AST ALT Alkaline Phosphatase B-Natriuretic Peptide Total Protein Albumin Triglycerides Lipase Urine Color Urine Appearance Urine pH Ur Specific [place] Urine Protein Urine Glucose (UA) Urine Ketones Urine Blood Urine Nitrite Ur Leukocyte Esterase Urine RBC Urine WBC Ur Squamous Epith Cells Urine Bacteria Stool Occult Blood COVID-19 (JACE) COVID-19 [employer] Com Blood Type Antibody Screen Crossmatch 11/27/20 11/28/20 11/29/20 09:17 11:36 09:18 WBC 8.6 RBC 2.85 L Hgb 9.6 L Hct 29.3 L MCV 102.8 H MCH 33.7 H MCHC 32.8 RDW 19.7 H Plt Count 129 L D MPV 12.2 Immature Gran % (Auto) Neut % (Auto) Lymph % (Auto) [place] % (Auto) Eos % (Auto) Baso % (Auto) Lymph # (Auto) [place] # (Auto) Eos # (Auto) Baso # (Auto) Abs Immat Gran (auto) Absolute Neuts (auto) Absolute Nucleated RBC 0.020 H Nucleated RBC % (auto) 0.2 PT INR Sodium 137 137 Potassium 4.3 4.5 Chloride 106 104 Carbon Dioxide 21 L 22 Anion Gap 14 16 BUN 23 H 25 H Creatinine 0.85 0.81 Estim Creat Clear Calc 30.5 32.0 Estimated GFR > 60 > 60 Random Glucose 115 95 Fasting Glucose Calcium 8.7 9.0 Phosphorus 2.7 3.4 Magnesium 1.8 2.0 Total Bilirubin Direct Bilirubin AST ALT Alkaline Phosphatase B-Natriuretic Peptide Total Protein Albumin 2.4 L D Triglycerides 152 Lipase Urine Color Urine Appearance Urine pH Ur Specific [place] Urine Protein Urine Glucose (UA) Urine Ketones Urine Blood Urine Nitrite Ur Leukocyte Esterase Urine RBC Urine WBC Ur Squamous Epith Cells Urine Bacteria Stool Occult Blood COVID-19 (JACE) COVID-19 Clin Com Blood Type Antibody Screen Crossmatch 11/29/20 11/30/20 12/01/20 09:18 07:36 02:25 WBC RBC Hgb Hct MCV MCH MCHC RDW Plt Count MPV Immature Gran % (Auto) Neut % (Auto) Lymph % (Auto) [place] % (Auto) Eos % (Auto) Baso % (Auto) Lymph # (Auto) [place] # (Auto) Eos # (Auto) Baso # (Auto) Abs Immat Gran (auto) Absolute Neuts (auto) Absolute Nucleated RBC Nucleated RBC % (auto) PT INR Sodium 135 Potassium 4.7 Chloride 102 Carbon Dioxide 21 L Anion Gap 17 BUN 32 H Creatinine 0.81 Estim Creat Clear Calc 32.0 Estimated GFR > 60 Random Glucose 106 Fasting Glucose Calcium Cancelled 8.8 Phosphorus 4.0 Magnesium 2.0 Total Bilirubin Direct Bilirubin AST ALT Alkaline Phosphatase B-Natriuretic Peptide Total Protein Albumin Triglycerides Lipase Urine Color YELLOW Urine Appearance TURBID Urine pH 5.5 Ur Specific [place] 1.025 Urine Protein 2+ H Urine Glucose (UA) NEG Urine Ketones NEG Urine Blood 1+ H Urine Nitrite NEG Ur Leukocyte Esterase 2+ H Urine RBC 0 Urine WBC TNTC H Ur Squamous Epith Cells 1+ Urine Bacteria 2+ Stool Occult Blood COVID-19 (JACE) COVID-19 [employer] Com Blood Type Antibody Screen Crossmatch 12/01/20 12/01/20 12/01/20 06:03 06:03 16:58 WBC 13.4 H RBC 2.25 L D Hgb 7.3 L D Hct 23.4 L D MCV 104.0 H MCH 32.4 MCHC 31.2 RDW 20.1 H Plt Count 197 D MPV 13.0 H Immature Gran % (Auto) Neut % (Auto) Lymph % (Auto) [place] % (Auto) Eos % (Auto) Baso % (Auto) Lymph # (Auto) [place] # (Auto) Eos # (Auto) Baso # (Auto) Abs Immat Gran (auto) Absolute Neuts (auto) Absolute Nucleated RBC 0.020 H Nucleated RBC % (auto) 0.1 PT 12.3 INR 1.0 Sodium Potassium Chloride Carbon Dioxide Anion Gap BUN Creatinine Estim Creat Clear Calc Estimated GFR Random Glucose Fasting Glucose Calcium Phosphorus Magnesium Total Bilirubin Direct Bilirubin AST ALT Alkaline Phosphatase B-Natriuretic Peptide Total Protein Albumin Triglycerides Lipase Urine Color Urine Appearance Urine pH Ur Specific [place] Urine Protein Urine Glucose (UA) Urine Ketones Urine Blood Urine Nitrite Ur Leukocyte Esterase Urine RBC Urine WBC Ur Squamous Epith Cells Urine Bacteria Stool Occult Blood NEGATIVE COVID-19 (JACE) COVID-19 [employer] Com Blood Type Antibody Screen Crossmatch 12/02/20 12/02/20 12/02/20 06:13 06:13 12:40 WBC 14.6 H RBC 2.17 L Hgb 7.1 L Hct 22.4 L MCV 103.2 H MCH 32.7 MCHC 31.7 RDW 19.9 H Plt Count 244 MPV 12.4 H Immature Gran % (Auto) Neut % (Auto) Lymph % (Auto) [place] % (Auto) Eos % (Auto) Baso % (Auto) Lymph # (Auto) [place] # (Auto) Eos # (Auto) Baso # (Auto) Abs Immat Gran (auto) Absolute Neuts (auto) Absolute Nucleated RBC 0.020 H Nucleated RBC % (auto) 0.1 PT INR Sodium 135 Potassium 4.5 Chloride 104 Carbon Dioxide 22 Anion Gap 14 BUN 27 H Creatinine 0.83 Estim Creat Clear Calc 31.3 Estimated GFR > 60 Random Glucose 117 H Fasting Glucose Calcium 8.7 Phosphorus Magnesium Total Bilirubin 0.6 Direct Bilirubin 0.2 AST 14 ALT 10 Alkaline Phosphatase 54 D B-Natriuretic Peptide Total Protein 4.2 L D Albumin 2.3 L Triglycerides Lipase Urine Color Urine Appearance Urine pH Ur Specific [place] Urine Protein Urine Glucose (UA) Urine Ketones Urine Blood Urine Nitrite Ur Leukocyte Esterase Urine RBC Urine WBC Ur Squamous Epith Cells Urine Bacteria Stool Occult Blood COVID-19 (JACE) COVID-19 [facility] Blood Type O Positive Antibody Screen NEGATIVE Crossmatch See Detail 12/03/20 12/04/20 12/04/20 05:58 05:51 05:51 WBC 12.3 H RBC 2.63 L D Hgb 8.8 L D Hct 25.7 L MCV 97.7 D MCH 33.5 H MCHC 34.2 RDW 18.3 H Plt Count 238 MPV 12.2 Immature Gran % (Auto) Neut % (Auto) Lymph % (Auto) [place] % (Auto) Eos % (Auto) Baso % (Auto) Lymph # (Auto) [place] # (Auto) Eos # (Auto) Baso # (Auto) Abs Immat Gran (auto) Absolute Neuts (auto) Absolute Nucleated RBC 0.000 Nucleated RBC % (auto) 0.0 PT 13.4 H INR 1.1 Sodium 138 Potassium 4.5 Chloride 105 Carbon Dioxide 26 Anion Gap 12 BUN 29 H Creatinine 0.77 Estim Creat Clear Calc 33.7 Estimated GFR > 60 Random Glucose 131 H Fasting Glucose Calcium 8.3 L Phosphorus Magnesium Total Bilirubin Direct Bilirubin AST ALT Alkaline Phosphatase B-Natriuretic Peptide Total Protein Albumin Triglycerides Lipase Urine Color Urine Appearance Urine pH Ur Specific [place] Urine Protein Urine Glucose (UA) Urine Ketones Urine Blood Urine Nitrite Ur Leukocyte Esterase Urine RBC Urine WBC Ur Squamous Epith Cells Urine Bacteria Stool Occult Blood COVID-19 (JACE) COVID-19 [facility] Blood Type Antibody Screen Crossmatch 12/05/20 12/05/20 06:18 06:18 WBC 13.4 H RBC 2.71 L Hgb 8.9 L Hct 26.9 L MCV 99.3 H MCH 32.8 MCHC 33.1 RDW 18.4 H Plt Count 231 MPV 11.7 Immature Gran % (Auto) 2.5 H Neut % (Auto) 80.4 H Lymph % (Auto) 8.0 L [place] % (Auto) 8.7 Eos % (Auto) 0.3 Baso % (Auto) 0.1 Lymph # (Auto) 1.1 L [place] # (Auto) 1.2 Eos # (Auto) 0.0 Baso # (Auto) 0.0 Abs Immat Gran (auto) 0.33 H Absolute Neuts (auto) 10.7 H Absolute Nucleated RBC 0.000 Nucleated RBC % (auto) 0.0 PT INR Sodium 135 Potassium 4.7 Chloride 105 Carbon Dioxide 24 Anion Gap 11 L BUN 28 H Creatinine 0.73 Estim Creat Clear Calc 35.5 Estimated GFR > 60 Random Glucose Fasting Glucose 99 Calcium 8.2 L Phosphorus Magnesium Total Bilirubin Direct Bilirubin AST ALT Alkaline Phosphatase B-Natriuretic Peptide Total Protein Albumin Triglycerides Lipase Urine Color Urine Appearance Urine pH Ur Specific [place] Urine Protein Urine Glucose (UA) Urine Ketones Urine Blood Urine Nitrite Ur Leukocyte Esterase Urine RBC Urine WBC Ur Squamous Epith Cells Urine Bacteria Stool Occult Blood COVID-19 (JACE) COVID-19 Clin Com Blood Type Antibody Screen Crossmatch Assessment and Plan Assessment Anesthesia Assessment: Anesthesia Plan Discussed and Chart Reviewed Final Anesthetic Review NPO: Yes ASA Class: III Final Preanesthetic Review: No Changes in Pt Med Stat, Meds/Allgs Chart Reviewed, Consent Obtained/Reviewed, Anes Risks/Benef Reviewed and DNR Form (If Appl.) Patient Risk: High Procedure Risk: Low Anesthetic Plan Anesthetic Plan: MAC: Disposition: Standard PACU
--- NOTE | 2020-12-05 14:22 | MHC.CLN ---
F/U WHEN TF TO RESUME; RECOMMEND JEVITY 1.0 AT MAX GOAL RATE 55CC/HR WITH 120CC FREE WATER Q SHIFT AND 1 PKT PROSOURCE Q DAY VIA GTUBE TO PROVIDE 1459KCALS (32KCALS/KG), 73G PROTEIN (1.6G/KG) FOR WOUND, 1486CC TOTAL WATER FROM FORMULA AND FLUSHES (33CC/KG) START TF AT 20CC/HR AND INCREASE BY 10CC Q 4 HRS UNTIL MAX GOAL RATE IS REACHED MONITOR TOLERANCE, RESIDUALS AND LYTES FOLLOWING
[2020-12-06] VITALS (7 sets, daily range): BP systolic 133–166; BP diastolic 71–91; PULSE 88–102; RESP 16–18; TEMP 36.2–37.2; O2SAT 95–96
[2020-12-06] MEDS: 0.9 % Sodium Chloride Flush 3 ML SYRINGE IVFLUSH ×4 (01:14→21:26)
[2020-12-06] MEDS: hydrALAZINE HCl 50 MG TABLET NG-TUBE ×3 (07:57→21:25)
--- NOTE | 2020-12-06 10:31 | HO.POSTANES ---
Post Anesthesia Evaluation Post Anesthesia Evaluation Vital Signs: Vital Signs Temp Pulse Resp BP Pulse Ox 12/06/20 07:32 98.5 F 90 18 166/91 H 96 12/06/20 04:00 99.0 F 88 18 133/90 H 95 12/05/20 23:39 97.9 F 83 16 142/76 H 97 Anesthesia: Monitored Mental Status: Awake Pain Control: Satisfactory Nausea/Vomiting: None Hydration: Adequate Anesthesia-Related Issues: No Anes. Related Issues
--- NOTE | 2020-12-06 11:30 | HO.PM.IMPN ---
Subjective Subjective Date of Service: 12/06/20 Interval History: feels fine Cardiovascular Cardiovascular: Reports no additional cardiovascular complaints Respiratory Respiratory: Reports no additional respiratory complaints Physical Exam Vital Signs: Vital Signs: Last Vital Signs Temp 98.5 F 12/06/20 07:32 Pulse 90 12/06/20 07:32 Resp 18 12/06/20 07:32 BP 166/91 H 12/06/20 07:32 Pulse Ox 96 12/06/20 07:32 Body Mass Index 21.6 General: no acute distress, ngt in place Resp: CTA bilateral CVS: S1,S2,RRR GI: soft, non tender, non distended Neuro: motor grossly intact Psych: appropriate affect Objective Data Current Medications Generic Name Dose Route Start Last Admin Trade Name Freq PRN Reason Stop Dose Admin Acetaminophen 650 mg 12/01/20 16:45 Acetaminophen Oral Liquid 650 Mg/20.3 Ml Solution NG-TUBE Q6H PRN Pain, Mild (Pain Scale 1-3) Al Hydroxide/Mg Hydroxide 30 ml 12/01/20 16:35 Magnesium Hydrox/Alum Hydrox 30 Ml Oral.Susp NG-TUBE Q4H PRN Heartburn/Nausea Hydralazine HCl 50 mg 12/01/20 16:34 12/06/20 07:57 Hydralazine Hcl 50 Mg Tablet NG-TUBE 50 mg TID STEPHON Administration Protocol Ceftriaxone Sodium 1 gm/ 50 mls @ 100 mls/hr 12/01/20 12:00 12/05/20 15:34 Sodium Chloride IV Not Given Q24H STEPHON Omeprazole 20 mg 12/02/20 06:30 12/06/20 08:00 Omeprazole 20 Mg/10 Ml Susp.Recon NG-TUBE 20 mg BID@0630,1630 STEPHON Administration Ondansetron HCl 4 mg 11/24/20 19:10 Ondansetron Hcl 4 Mg/2 Ml Vial IVPUSH Q8H PRN Nausea and Vomiting Pharmacy Consult 1 each 11/24/20 16:27 Consult Rx Perform Med Rec MISCELLANE ONCE PRN Consult order Sodium Chloride 3 ml 11/25/20 00:00 12/06/20 07:57 0.9 % Sodium Chloride Flush 3 Ml Syringe IVFLUSH 3 ml QSHIFT STEPHON Administration Zinc Oxide 1 appl 12/04/20 16:56 Zinc Oxide 20% Ointment 28.35 Gm Tube TOPICAL DAILY PRN Rash Protocol Labs CBC & Chem 7: 12/05/20 06:18 12/05/20 06:18 Microbiology Microbiology Results: Microbiology 12/01/20 01:44 Urine clean catch - Clean Catch Midstream Urine Culture - Final Assessment and Plan (1) Adult failure to thrive: Status: Acute (2) Visit for feeding tube placement: Status: Acute (3) Hypernatremia: Status: Acute (4) Dehydration: Status: Acute (5) Metabolic encephalopathy: Status: Acute Assessment and Plan: 85-year-old female with a past medical history of hypertension, GERD, osteoarthritis, MGUS presented to the hospital with a chief complaint of decrease oral intake and increase encephalopathy. UTI Patient has positive urine for infection with elevated WBCs Culture growing mixed bacteria Continue IV antibiotics of ceftriaxone Bilateral lower extremity swelling Tenderness on palpation with no erythema or warmth negative ultrasound Acute on chronic anemia Hemoglobin improved after 1 unit transfusion No reported bleeding noticed Negative occult blood Monitor H&H Adult failure to thrive Multifactorial including esophageal problem, altered mentation, old age Encourage oral intake as tolerated s/p PEG tube placement 12/05/2020 starting feeds, monitor for toleration Left upper extremity swelling Site of peripheral IV Ultrasound negative for DVT, keep arm elevated Metabolic encephalopathy Multifactorial including general deconditioning, elderly, hypoactive delirium inpatient stay Keeps fluctuating Treat underlying electrolyte imbalance and dehydration Recurrent reorientation Dehydration Hypernatremia Resolved Monitor BMP Physical deconditioning PT evaluation Moderate protein calorie malnutrition tube feeds Stage II pressure ulcer Continue local measures wound care team evaluation DVT prophylaxis SCDs
[2020-12-06] MEDS: cefTRIAXone sodium 1 GM in 0.9 % Sodium Chloride 50 ML IV (11:46)
[2020-12-07 03:39] VITALS: BP 141/75; PULSE 107; RESP 18; TEMP 36.8; O2SAT 95
[2020-12-07 06:24] LABS: MANUAL DIFF FLAG NO
[2020-12-07 06:46] LABS: Basophils Percent Auto 0.1 % (0-2); Eosinophils Percent Auto 0.1 % (0-4); Hematocrit 25.9 % (37-47); Hemoglobin 8.5 g/dl (12.0-16.0); Imm Gran Abs Auto 0.28 X10*3/uL (0.00-0.03); Imm Gran Pct Auto 1.8 % (0.0-0.4); Lymphocytes Absolute Auto 0.9 X10*3/uL (1.2-4.9); Lymphocytes Percent Auto 5.8 % (20-40); Mean Corpuscular HGB Conc 32.8 g/dl (31.0-35.0); Mean Corpuscular Hemoglobin 32.6 pg (27.0-33.0); Mean Corpuscular Volume 99.2 fL (80-98); Mean Platelet Volume 11.3 fL (9.4-12.3); Monocytes Absolute Auto 0.8 X10*3/uL (0.1-1.2); Monocytes Percent Auto 5.1 % (2-11); Neutrophils Absolute Auto 13.6 X10*3/uL (2.0-8.3); Neutrophils Percent Auto 87.1 % (45-73); Platelet Count 278 X10*3/uL (160-400); Red Blood Count 2.61 X10*6/uL (4.20-5.50); Red Cell Distribution Width 18.3 % (11.0-16.0); White Blood Count 15.6 X10*3/uL (4.8-10.8)
[2020-12-07 07:00] LABS: Anion Gap 11 (12-20); Blood Urea Nitrogen 29 mg/dL (9-16); Calcium 8.7 mg/dL (8.4-10.2); Carbon Dioxide 29 mmol/L (22-29); Chloride 104 mmol/L (96-108); Creatinine Clr Calc Pharmacy 33.7; Estimated Glomerular Filt Rate > 60; Glucose Fasting 175 mg/dL (60-99); Magnesium 1.9 mg/dL (1.6-2.6); Potassium 4.3 mmol/L (3.3-5.1); Sodium 140 mmol/L (135-145)
[2020-12-07 07:51] VITALS: BP 140/73; PULSE 109; RESP 18; TEMP 37.1; O2SAT 96
[2020-12-07] MEDS: hydrALAZINE HCl 50 MG TABLET NG-TUBE ×3 (09:35→19:41)
[2020-12-07] MEDS: 0.9 % Sodium Chloride Flush 3 ML SYRINGE IVFLUSH ×3 (09:35→23:01)
[2020-12-07 11:41] VITALS: BP 153/78; PULSE 103; RESP 16; TEMP 36.2; O2SAT 95
--- NOTE | 2020-12-07 11:53 | MHC.CM.PN ---
NO PLAN FOR DISCHARGE TODAY. [facility] UPDATED. CASE MANAGEMENT CONTINUING TO FOLLOW.
[2020-12-07] MEDS: cefTRIAXone sodium 1 GM in 0.9 % Sodium Chloride 50 ML IV (12:24)
--- NOTE | 2020-12-07 13:04 | P.CONGS_ITS ---
History of Present Illness Consult details Consult date: 12/07/20 Narrative: This is an 85-year-old female with a recent history of repair of a paraesophageal hernia who was admitted for treatment of adult failure to thrive. She is significantly malnourished. She was receiving NG tube feedings and a gastrostomy tube was inserted for continued tube feeding a couple of days ago. She was noted on admission to have a stage II pressure injury to the coccyx area. She has been evaluated by Dr. Clark from [facility] and has been treated with Alevyn foam dressings and pressure relief. Evaluation regarding need for debridement was requested today by Dr. Carr. Today, the patient offers no complaint regarding pain in the sacrococcygeal area. History of dementia is noted. Review of Systems Review of Systems: Yes Unobtainable due to mental condition PMFSH Past Medical History Medical History Adult failure to thrive GERD (gastroesophageal reflux disease) HTN (hypertension) Lower extremity edema 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 Son No problems noted. Daughter No problems noted. Surgical History Surgical History History of nasal surgery S/P left knee arthroscopy S/P DINORAH-BSO Status post repair of paraesophageal diaphragmatic hernia Social History Social History Household Members: None Housing: House Are you a primary career services director to a significant other at home: No Do you presently have visiting nurse or other home services: No Alcohol intake: never Smoking Status: Never smoker Use of substances other than those prescribed or required for medical reasons: No Currently Displaying Signs/Symptoms of Drug Intoxication Withdrawal: No Have you been hit, kicked, punched, or otherwise hurt by someone within the past year? If so, by whom?: No Do you feel safe in your current relationship?: No Is there a partner from a previous relationship who is making you feel unsafe now?: No Advance Directives: Yes Advance Directives on File: Yes Advance Directives Date on File: 10/10/20 Do you have thoughts of harming others: None Do you have a plan to hurt others: No Plan Recently lost weight without trying: Yes service: No Current occupational status: retired Meds Allergies Allergy/AdvReac Type Severity Reaction Status Date / Time cat dander [CAT] Allergy Unknown SNEEZE, Verified 11/24/20 10:22 EYES SWELL UP Active Medications: Current Medications Generic Name Dose Route Start Last Admin Trade Name Freq PRN Reason Stop Dose Admin Acetaminophen 650 mg 12/01/20 16:45 Acetaminophen Oral Liquid 650 Mg/20.3 Ml Solution NG-TUBE Q6H PRN Pain, Mild (Pain Scale 1-3) Al Hydroxide/Mg Hydroxide 30 ml 12/01/20 16:35 Magnesium Hydrox/Alum Hydrox 30 Ml Oral.Susp NG-TUBE Q4H PRN Heartburn/Nausea Hydralazine HCl 50 mg 12/01/20 16:34 12/07/20 09:35 Hydralazine Hcl 50 Mg Tablet NG-TUBE 50 mg TID STEPHON Administration Protocol Ceftriaxone Sodium 1 gm/ 50 mls @ 100 mls/hr 12/01/20 12:00 12/07/20 12:24 Sodium Chloride IV 100 mls/hr Q24H STEPHON Administration Omeprazole 20 mg 12/02/20 06:30 12/07/20 06:13 Omeprazole 20 Mg/10 Ml Susp.Recon NG-TUBE 20 mg BID@0630,1630 STEPHON Administration Ondansetron HCl 4 mg 11/24/20 19:10 Ondansetron Hcl 4 Mg/2 Ml Vial IVPUSH Q8H PRN Nausea and Vomiting Pharmacy Consult 1 each 11/24/20 16:27 Consult Rx Perform Med Rec MISCELLANE ONCE PRN Consult order Sodium Chloride 3 ml 11/25/20 00:00 12/07/20 09:35 0.9 % Sodium Chloride Flush 3 Ml Syringe IVFLUSH 3 ml QSHIFT STEPHON Administration Zinc Oxide 1 appl 12/04/20 16:56 Zinc Oxide 20% Ointment 28.35 Gm Tube TOPICAL DAILY PRN Rash Protocol Home Medications Medication Instructions Recorded Confirmed Last Taken Type hydralazine 1 tab PO TID 11/09/20 11/24/20 Unknown History lisinopril 1 tab PO BID 11/09/20 11/24/20 Unknown History omeprazole 1 cap PO BID 11/09/20 11/24/20 Unknown History Physical Exam Vital Signs: Vital Signs: Last Vital Signs Temp 97.2 F 12/07/20 11:41 Pulse 103 H 12/07/20 11:41 Resp 16 12/07/20 11:41 BP 153/78 H 12/07/20 11:41 Pulse Ox 95 12/07/20 11:41 Body Mass Index 21.6 Const: General: no acute distress and alert GI: Other: Soft, nondistended Skin: Other: Stage II pressure injury is present over sacrococcygeal area with small patchy areas of involvement over the coccyx and right sacral area and more significant involvement over the left sacral area where there is a 4.2 x 6.2 cm area of moist necrotic tissue present consistent with deeper stage II injury Results Labs Result diagrams: 12/07/20 06:13 12/07/20 06:13 Labs: Abnormal lab results 12/07/20 12/07/20 Range/Units 06:13 06:13 WBC 15.6 H (4.8-10.8) X10*3/uL RBC 2.61 L (4.20-5.50) X10*6/uL Hgb 8.5 L (12.0-16.0) g/dl Hct 25.9 L (37-47) % MCV 99.2 H (80-98) fL RDW 18.3 H (11.0-16.0) % Immature Gran % (Auto) 1.8 H (0.0-0.4) % Neut % (Auto) 87.1 H (45-73) % Lymph % (Auto) 5.8 L (20-40) % Lymph # (Auto) 0.9 L (1.2-4.9) X10*3/uL Abs Immat Gran (auto) 0.28 H (0.00-0.03) X10*3/uL Absolute Neuts (auto) 13.6 H (2.0-8.3) X10*3/uL Anion Gap 11 L (12-20) BUN 29 H (9-16) mg/dL Fasting Glucose 175 H D (60-99) mg/dL Short CBC 12/07/20 Range/Units 06:13 WBC 15.6 H (4.8-10.8) X10*3/uL Hgb 8.5 L (12.0-16.0) g/dl Hct 25.9 L (37-47) % Plt Count 278 (160-400) X10*3/uL BMP 12/07/20 06:13 Sodium 140 Potassium 4.3 Chloride 104 Carbon Dioxide 29 BUN 29 H Creatinine 0.77 Calcium 8.7 D Urine 11/24/20 12/01/20 Range/Units 13:50 02:25 Urine Color YELLOW YELLOW Urine Appearance CLEAR TURBID Urine pH 5.5 5.5 (5.0-8.0) Ur Specific [place] 1.020 1.025 (1.005-1.025) Urine Protein NEG 2+ H (NEG-TRACE) MG/DL Urine Glucose (UA) NEG NEG (NEG) MG/DL All other labs normal. Assessment and Plan (1) Pressure injury, stage 2: Status: Acute 85-year-old female with significant malnutrition, now under treatment with tube feedings, stage II pressure injury was present on admission. Moist necrotic area is present over the left sacrum. I discussed management options with the patient and her son including continued local treatment and sharp debridement. We reviewed risks of infection and bleeding. After discussion, they elected to proceed with debridement. This was done at the bedside using Betadine prep and a dermal curette. The necrotic tissue did not appear to extend below the deep dermis. Will continue care with frequent repositioning and Alevyn foam dressings. Procedures Procedure Note Procedure Note: Informed consent was obtained. The area for debridement on the left side of the sacrum was prepped with Betadine solution. The superficially necrotic tissue was debrided using a 5 mm dermal curette. Minimal bleeding was encountered and was controlled using pressure. The area debrided measured 4.2 x 6.2 cm. Debridement was carried into the deep dermal tissues. She tolerated the procedure well. New Alevyn foam dressing was applied.
--- NOTE | 2020-12-07 13:57 | P.PNIM_ITS ---
Subjective Subjective Date of Service: 12/10/20 Interval History: Could not able to answer many questions , able to speak age initially as per family this speech was worsening for 3 days today with thought that the speech is improving Also family says that from few days patient is not answering many questions, baseline from couple of months ago this at the patient could able to answer most of the questions. She had progressively declined over the past year due to her poor appetite and function gonzalez-afterwards she had surgery earlier this year and then she went to rehab and subsequently seems to be declining further. Review of Systems as above, otherwise moving both hands and also wiggle toes. Does not answer many question otherwise seems awake and pleasant. Does not offer any discomfort when press that the belly. G-tube area seems clear, no erythema follow some direction did not sleep last night , follow simple cammands Physical Exam Vital Signs: Vital Signs: Last Vital Signs Temp 97.2 F 12/07/20 11:41 Pulse 103 H 12/07/20 11:41 Resp 16 12/07/20 11:41 BP 153/78 H 12/07/20 11:41 Pulse Ox 95 12/07/20 11:41 Body Mass Index 21.6 Physical exam: Constitutional: Seems awake, family at bedside follows simple commands. Cvs: rrr, [id number] , no murmur res: clear to auscultation ,no rhonchii or wheezing abd: no rebound or guarding , bs, present, does not seems to be discomfortable with abd palpation, PEG tube area-clean, no discharge ext pulses present , no cyanosis neuro: seems awake , as per family her speech seems better later in the morning ,moves hands and wiggle toes with command. skin:large area of deep tissue injury around sacral area both left and right sides and midline . midline area with actual skin breakdown into stage II and left small blackish area left scarum in addition noted during morning exam with staff. Objective Data Current Medications Generic Name Dose Route Start Last Admin Trade Name Freq PRN Reason Stop Dose Admin Acetaminophen 650 mg 12/01/20 16:45 Acetaminophen Oral Liquid 650 Mg/20.3 Ml Solution NG-TUBE Q6H PRN Pain, Mild (Pain Scale 1-3) Al Hydroxide/Mg Hydroxide 30 ml 12/01/20 16:35 Magnesium Hydrox/Alum Hydrox 30 Ml Oral.Susp NG-TUBE Q4H PRN Heartburn/Nausea Hydralazine HCl 50 mg 12/01/20 16:34 12/07/20 09:35 Hydralazine Hcl 50 Mg Tablet NG-TUBE 50 mg TID STEPHON Administration Protocol Ceftriaxone Sodium 1 gm/ 50 mls @ 100 mls/hr 12/01/20 12:00 12/07/20 13:07 Sodium Chloride IV Infused Q24H STEPHON Infusion Omeprazole 20 mg 12/02/20 06:30 12/07/20 06:13 Omeprazole 20 Mg/10 Ml Susp.Recon NG-TUBE 20 mg BID@0630,1630 STEPHON Administration Ondansetron HCl 4 mg 11/24/20 19:10 Ondansetron Hcl 4 Mg/2 Ml Vial IVPUSH Q8H PRN Nausea and Vomiting Pharmacy Consult 1 each 11/24/20 16:27 Consult Rx Perform Med Rec MISCELLANE ONCE PRN Consult order Sodium Chloride 3 ml 11/25/20 00:00 12/07/20 09:35 0.9 % Sodium Chloride Flush 3 Ml Syringe IVFLUSH 3 ml QSHIFT STEPHON Administration Zinc Oxide 1 appl 12/04/20 16:56 Zinc Oxide 20% Ointment 28.35 Gm Tube TOPICAL DAILY PRN Rash Protocol Labs CBC & Chem 7: 12/08/20 06:15 12/08/20 06:16 Microbiology Microbiology Results: Microbiology 12/01/20 01:44 Urine clean catch - Clean Catch Midstream Urine Culture - Final Assessment and Plan (1) Metabolic encephalopathy: Problem details: 85 years old woman 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 Her examination at this time revealed mild aphasia that might be part of dementia but also right arm weakness and possible left hemianopsia. Noncontrast head CT did not reveal any obvious explanation. If possible, I would recommend an MRI of brain without contrast to see if any explanation is found. Status: Acute Assessment and Plan: 85-year-old female with a past medical history of hypertension, GERD, osteoarthritis, MGUS presented to the hospital with a chief complaint of de crease oral intake and increase encephalopathy. 1.UTI Patient has positive urine for infection with elevated WBCs Culture growing mixed bacteria Continue IV antibiotics of ceftriaxone 2.Bilateral lower extremity swelling Tenderness on palpation with no erythema or warmth negative ultrasound Left upper extremity swelling Site of peripheral IV Ultrasound negative for DVT, keep arm elevated. 3. Acute on chronic anemia Hemoglobin improved after 1 unit transfusion No reported bleeding noticed Negative occult blood Monitor H&H 4.Adult failure to thrive Multifactorial including esophageal problem, altered mentation, old age Encourage oral intake as tolerated s/p PEG tube placement 12/05/2020 starting feeds, monitor for toleration 5.Metabolic encephalopathy Multifactorial including general deconditioning, elderly, hypoactive delirium inpatient stay Keeps fluctuating Treat underlying electrolyte imbalance and dehydration Recurrent reorientation family is concerning about enecephalopathy , ? speech issues for few days ( which seems too be improving over the afternoon this morning) Explained to the family in detail about above- they do not want CT head , neuro evaluation added. 6.Dehydration Hypernatremia Resolved Monitor BMP 7.Physical deconditioning PT evaluation 8.Moderate protein calorie malnutrition tube feeds 9.Stage II pressure ulcer:Continue local measures, frequent turing , multivitamin seen wound care team on 12/04 : stage 2 ulcer , has left upper sacrum blackish a efra which was debrided by surgery today. DVT prophylaxis SCDs
[2020-12-07 15:27] VITALS: BP 156/76; PULSE 92; RESP 18; TEMP 36.7; O2SAT 96
[2020-12-07] MEDS: Aspirin 81 MG TAB.CHEW G-TUBE (15:27)
[2020-12-07 19:30] VITALS: BP 164/73; PULSE 90; RESP 18; TEMP 37.1; O2SAT 97
[2020-12-07 23:25] VITALS: BP 149/79; PULSE 94; RESP 18; TEMP 36.2; O2SAT 97
[2020-12-08] VITALS (7 sets, daily range): BP systolic 132–148; BP diastolic 65–77; PULSE 88–101; RESP 16–18; TEMP 36.2–37; O2SAT 94–97
[2020-12-08 06:52] LABS: Hematocrit 26.6 % (37-47); Hemoglobin 8.7 g/dl (12.0-16.0); Mean Corpuscular HGB Conc 32.7 g/dl (31.0-35.0); Mean Corpuscular Hemoglobin 33.2 pg (27.0-33.0); Mean Corpuscular Volume 101.5 fL (80-98); Mean Platelet Volume 11.4 fL (9.4-12.3); Platelet Count 240 X10*3/uL (160-400); Red Blood Count 2.62 X10*6/uL (4.20-5.50); Red Cell Distribution Width 18.4 % (11.0-16.0)
[2020-12-08 07:12] LABS: Anion Gap 13 (12-20); Blood Urea Nitrogen 30 mg/dL (9-16); Calcium 8.4 mg/dL (8.4-10.2); Carbon Dioxide 28 mmol/L (22-29); Chloride 103 mmol/L (96-108); Creatinine Clr Calc Pharmacy 34.6; Estimated Glomerular Filt Rate > 60; Glucose Random 128 mg/dL (60-115); Potassium 4.7 mmol/L (3.3-5.1); Sodium 139 mmol/L (135-145)
[2020-12-08] MEDS: 0.9 % Sodium Chloride Flush 3 ML SYRINGE IVFLUSH ×3 (10:04→23:56)
[2020-12-08] MEDS: hydrALAZINE HCl 50 MG TABLET NG-TUBE ×3 (10:04→20:56)
--- NOTE | 2020-12-08 11:31 | MHC.CM.PN ---
PT'S SON/HCP SONIA IN ROOM W/PT AND REQUESTING FORM TO APPEAL PT'S DISCHARGE, IMM COMPLETEDW/SON AT 11:10AM, HOSPITALIST AWARE.
--- NOTE | 2020-12-08 12:06 | HO.PM.IMPN ---
Subjective Subjective Date of Service: 12/08/20 Interval History: no complaints Cardiovascular Cardiovascular: Reports no additional cardiovascular complaints Respiratory Respiratory: Reports no additional respiratory complaints Physical Exam Vital Signs: Vital Signs: Last Vital Signs Temp 97.2 F 12/08/20 11:26 Pulse 97 12/08/20 11:26 Resp 16 12/08/20 11:26 BP 142/77 H 12/08/20 11:26 Pulse Ox 95 12/08/20 11:26 Body Mass Index 21.6 Constitutional: Seems awake, family at bedside follows simple commands. Cvs: rrr, [id number] , no murmur res: clear to auscultation ,no rhonchii or wheezing abd: no rebound or guarding , bs, present, does not seems to be discomfortable with abd palpation, PEG tube area-clean, no discharge ext pulses present , no cyanosis neuro: seems awake , as per family her speech seems better later in the morning ,moves hands and wiggle toes with command. skin:large area of deep tissue injury around sacral area both left and right sides and midline . midline area with actual skin breakdown into stage II and left small blackish area left scarum in addition noted during morning exam with staff. Objective Data Current Medications Generic Name Dose Route Start Last Admin Trade Name Freq PRN Reason Stop Dose Admin Acetaminophen 650 mg 12/01/20 16:45 Acetaminophen Oral Liquid 650 Mg/20.3 Ml Solution NG-TUBE Q6H PRN Pain, Mild (Pain Scale 1-3) Al Hydroxide/Mg Hydroxide 30 ml 12/01/20 16:35 Magnesium Hydrox/Alum Hydrox 30 Ml Oral.Susp NG-TUBE Q4H PRN Heartburn/Nausea Hydralazine HCl 50 mg 12/01/20 16:34 12/08/20 10:04 Hydralazine Hcl 50 Mg Tablet NG-TUBE 50 mg TID STEPHON Administration Protocol Multivitamins/Minerals 15 ml 12/07/20 14:38 12/08/20 10:04 Multivit-Minerals/Ferrous Gluc 15 Ml Liquid G-TUBE 15 ml DAILY STEPHON Administration Omeprazole 20 mg 12/02/20 06:30 12/08/20 05:51 Omeprazole 20 Mg/10 Ml Susp.Recon NG-TUBE 20 mg BID@0630,1630 STEPHON Administration Ondansetron HCl 4 mg 11/24/20 19:10 Ondansetron Hcl 4 Mg/2 Ml Vial IVPUSH Q8H PRN Nausea and Vomiting Pharmacy Consult 1 each 11/24/20 16:27 Consult Rx Perform Med Rec MISCELLANE ONCE PRN Consult order Sodium Chloride 3 ml 11/25/20 00:00 12/08/20 10:04 0.9 % Sodium Chloride Flush 3 Ml Syringe IVFLUSH 3 ml QSHIFT STEPHON Administration Zinc Oxide 1 appl 12/04/20 16:56 Zinc Oxide 20% Ointment 28.35 Gm Tube TOPICAL DAILY PRN Rash Protocol Labs CBC & Chem 7: 12/08/20 06:15 12/08/20 06:16 Microbiology Microbiology Results: Microbiology 12/01/20 01:44 Urine clean catch - Clean Catch Midstream Urine Culture - Final Assessment and Plan (1) Metabolic encephalopathy: Status: Acute Assessment and Plan: 85-year-old female with a past medical history of hypertension, GERD, osteoarthritis, MGUS presented to the hospital with a chief complaint of decrease oral intake and increase encephalopathy. UTI Patient has positive urine for infection with elevated WBCs Culture growing mixed bacteria completed ceftriaxone Bilateral lower extremity swelling Tenderness on palpation with no erythema or warmth negative ultrasound Left upper extremity swelling Site of peripheral IV Ultrasound negative for DVT, keep arm elevated. Acute on chronic anemia Hemoglobin improved after 1 unit transfusion No reported bleeding noticed Negative occult blood Monitor H&H .Adult failure to thrive Multifactorial including esophageal problem, altered mentation, old age Encourage oral intake as tolerated s/p PEG tube placement 12/05/2020 started feeds, tolerating well Metabolic encephalopathy Multifactorial including general deconditioning, elderly, hypoactive delirium inpatient stay Keeps fluctuating Recurrent reorientation CTH negative for acute pathology Dehydration Hypernatremia Resolved MGUS outpatinet follow up Moderate protein calorie malnutrition tube feeds Stage II pressure ulcer: s/p debridement 12/07/20 Continue local measures, frequent turning , multivitamin dispo: plan for discharge to SNF, family considering appealing discharge DVT prophylaxis SCDs
--- NOTE | 2020-12-08 13:30 | P.CNNE_ITS ---
History of Present Illness Data of Consult Service Date: 12/08/20 Primary Care Provider: Rhett Moran MD 85 years old woman with recent parous aphasia large any a repair and related difficulty with eating and nutrition came to hospital with lethargy and change in mental status. When I saw her her son was sitting beside her and she seemed comfortable with no sign of distress. Review of Systems Review of Systems: Recent difficulty swallowing and speaking. [facility] Past Medical History Medical History Adult failure to thrive GERD (gastroesophageal reflux disease) HTN (hypertension) Lower extremity edema 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 Son No problems noted. Daughter No problems noted. Surgical History Surgical History History of nasal surgery S/P left knee arthroscopy S/P DINORAH-BSO Status post repair of paraesophageal diaphragmatic hernia Social History Social History Household Members: None Housing: House Are you a primary post acute care nurse practitioner to a significant other at home: No Do you presently have visiting nurse or other home services: No Alcohol intake: never Smoking Status: Never smoker Use of substances other than those prescribed or required for medical reasons: No Currently Displaying Signs/Symptoms of Drug Intoxication Withdrawal: No Have you been hit, kicked, punched, or otherwise hurt by someone within the past year? If so, by whom?: No Do you feel safe in your current relationship?: No Is there a partner from a previous relationship who is making you feel unsafe now?: No Advance Directives: Yes Advance Directives on File: Yes Advance Directives Date on File: 10/10/20 Do you have thoughts of harming others: None Do you have a plan to hurt others: No Plan Recently lost weight without trying: Yes service: No Current occupational status: retired Meds Allergies Allergy/AdvReac Type Severity Reaction Status Date / Time cat dander [CAT] Allergy Unknown SNEEZE, Verified 11/24/20 10:22 EYES SWELL UP Active Medications: Current Medications Generic Name Dose Route Start Last Admin Trade Name Freq PRN Reason Stop Dose Admin Acetaminophen 650 mg 12/01/20 16:45 Acetaminophen Oral Liquid 650 Mg/20.3 Ml Solution NG-TUBE Q6H PRN Pain, Mild (Pain Scale 1-3) Al Hydroxide/Mg Hydroxide 30 ml 12/01/20 16:35 Magnesium Hydrox/Alum Hydrox 30 Ml Oral.Susp NG-TUBE Q4H PRN Heartburn/Nausea Hydralazine HCl 50 mg 12/01/20 16:34 12/08/20 10:04 Hydralazine Hcl 50 Mg Tablet NG-TUBE 50 mg TID STEPHON Administration Protocol Multivitamins/Minerals 15 ml 12/07/20 14:38 12/08/20 10:04 Multivit-Minerals/Ferrous Gluc 15 Ml Liquid G-TUBE 15 ml DAILY STEPHON Administration Omeprazole 20 mg 12/02/20 06:30 12/08/20 05:51 Omeprazole 20 Mg/10 Ml Susp.Recon NG-TUBE 20 mg BID@0630,1630 STEPHON Administration Ondansetron HCl 4 mg 11/24/20 19:10 Ondansetron Hcl 4 Mg/2 Ml Vial IVPUSH Q8H PRN Nausea and Vomiting Pharmacy Consult 1 each 11/24/20 16:27 Consult Rx Perform Med Rec MISCELLANE ONCE PRN Consult order Sodium Chloride 3 ml 11/25/20 00:00 12/08/20 10:04 0.9 % Sodium Chloride Flush 3 Ml Syringe IVFLUSH 3 ml QSHIFT STEPHON Administration Zinc Oxide 1 appl 12/04/20 16:56 Zinc Oxide 20% Ointment 28.35 Gm Tube TOPICAL DAILY PRN Rash Protocol Home Medications Medication Instructions Recorded Confirmed Last Taken Type hydralazine 1 tab PO TID 11/09/20 11/24/20 Unknown History omeprazole 1 cap PO BID 11/09/20 11/24/20 Unknown History Physical Exam Vital Signs: Vital Signs: Last Vital Signs Temp 97.2 F 12/08/20 11:26 Pulse 97 12/08/20 11:26 Resp 16 12/08/20 11:26 BP 142/77 H 12/08/20 11:26 Pulse Ox 95 12/08/20 11:26 Body Mass Index 21.6 She was alert and awake be somewhat decreased spontaneity and fluency of speech but she was able to follow commands and comprehend. Pupils were equal reactive to light and extraocular muscles were intact. This seems to be left visual field defect. She had difficulty raising her right arm against gravity. Right arm was also somewhat swollen. She was able to wiggle her toes. Deep tendon reflexes were trace to absent with flexor plantars. Exam was limited. Results Labs CBC & Chem 7: 12/08/20 06:15 12/08/20 06:16 Labs: Short CBC 12/08/20 Range/Units 06:15 WBC 15.0 H (4.8-10.8) X10*3/uL Hgb 8.7 L (12.0-16.0) g/dl Hct 26.6 L (37-47) % Plt Count 240 (160-400) X10*3/uL BMP 12/08/20 06:16 Sodium 139 Potassium 4.7 Chloride 103 Carbon Dioxide 28 BUN 30 H Creatinine 0.75 Calcium 8.[address] revealed moderately severe diffuse cerebral atrophy and moderately severe chronic microvascular ischemic changes but no obvious acute lesion. Microbiology Microbiology Results: Microbiology 12/01/20 01:44 Urine clean catch - Clean Catch Midstream Urine Culture - Final Assessment and Plan (1) Metabolic encephalopathy: Problem details: 85 years old woman 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 Her examination at this time revealed mild aphasia that might be part of dementia but also right arm weakness and possible left hemianopsia. Noncontrast head CT did not reveal any obvious explanation. If possible, I would recommend an MRI of brain without contrast to see if any explanation is found. Status: Acute
--- NOTE | 2020-12-08 14:18 | MHC.CM.PN ---
CM RECEIVED CALL FROM PT'S SON/HCPSONIA AT 1:51PM THAT HE DID CALL AND COMPLETED APPEAL WITH [facility], CM COMPLETED DETAILED NOTICE OF DISCHARGE IT HAS BEEN REVIEWED AND GIVEN TO ALTERNATE HCP/SON AB, IMM COMPLETED W/PT AND SON AT 11:10AM, COPIES OF BOTH IMM/DETAILED NOTICE OF DISCHARGE GIVEN TO CM ANALYSIS SPECIALIST. HOSPITALIST AWARE.
[2020-12-09] VITALS (9 sets, daily range): BP systolic 123–157; BP diastolic 63–77; PULSE 82–99; RESP 17–19; TEMP 36.1–38.1; O2SAT 95–98
[2020-12-09] MEDS: 0.9 % Sodium Chloride Flush 3 ML SYRINGE IVFLUSH ×2 (07:53→15:43)
[2020-12-09] MEDS: hydrALAZINE HCl 50 MG TABLET NG-TUBE ×3 (09:33→20:55)
--- NOTE | 2020-12-09 09:49 | P.DS_ITS ---
DS: Providers Provider Date of Service: 12/09/20 Date of admission: 11/24/20 16:34 Primary care physician: Rhett Moran MD Consults: 11/24/20 19:10 Consult to General Surgery Routine Consulting Provider: Sharlene Lopez Reason for consultation: Need of PEG tube 12/03/20 17:22 Consult to Wound Care Routine Consulting Provider: Kate Coughlin Reason for consultation: Evaluation stage II pressure ulcer 12/07/20 11:21 Consult to Neurology Routine Consulting Provider: [facility] Reason for consultation: Worsening speech and encephalopathy for few days Has provider been notified: No DS: Diagnosis Discharge Diagnosis (1) Metabolic encephalopathy: Status: Acute Problem details: 85 years old woman 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 Her examination at this time revealed mild aphasia that might be part of dementia but also right arm weakness and possible left hemianopsia. Noncontrast head CT did not reveal any obvious explanation. If possible, I would recommend an MRI of brain without contrast to see if any explanation is found. (2) Pressure injury, stage 2: Status: Acute (3) Status post repair of paraesophageal diaphragmatic hernia: Status: Acute Problem details: 11/12/2020 (4) Adult failure to thrive: Status: Acute (5) Hypernatremia: Status: Acute (6) Excessive weight loss: Status: Acute (7) Dehydration: Status: Acute (8) Visit for feeding tube placement: Status: Acute DS: Medications Discharge Medications Home Medications: Home Medications Medication Instructions Recorded Confirmed hydralazine 1 tab PO TID 11/09/20 11/24/20 omeprazole 1 cap PO BID 11/09/20 11/24/20 Previous Rx's Medication Instructions Recorded Omeprazole Oral Susp [PriLOSEC 20 mg NG-TUBE BID@0630,1630 #0 12/08/20 Oral Susp] acetaminophen 650 mg NG-TUBE Q6H PRN #0 ml 12/08/20 wfhqhpcd-khv-uukrzxh gluconate 15 ml G-TUBE DAILY #0 ml 12/08/20 [Centrum] zinc oxide 1 appl TOPICAL DAILY PRN #0 g 12/08/20 DS: Summary Hospital Course Hospital Course: Patient was admitted for metabolic encephalopathy this was likely due to progression of her dementia and hypernatremia due to failure to thrive and poor p.o. intake. She was given hypotonic fluids and her sodium returned to normal. Her mental status did have some improvement and she returned to her new baseline. Decision was made to have patient set up with G-tube for nutrition. She was initially started on NG tube feeds. She eventually had G-tube insertion which was uneventful. Patient tolerated her G-tube feeds well. Patient was noted to have a stage II pressure injury in the coccyx area on admission. During hospitalization she underwent bedside debridement with surgery. She was also seen by wound care who recommended foam dressings and pressure relief. pateint was also treated for possible UTI with course of ceftriaxone, urine culture showed mixed rupali. Patient was also seen by Neurology for her altered mental status. MRI was recommended, but family was uninterested in pursuing further imaging. patient will be transfered to SNF. Time Spent with Patient Time attestation: Total time spent providing and/or coordinating discharge services: Discharge coordination time: Greater than 30 minutes Physical Exam Vital Signs: Vital Signs: Last Vital Signs Temp 98.1 F 12/09/20 07:36 Pulse 88 12/09/20 07:36 Resp 18 12/09/20 07:36 BP 157/77 H 12/09/20 07:36 Pulse Ox 95 12/09/20 07:36 Body Mass Index 21.6 Constitutional: awake follows simple commands. Cvs: rrr, [id number] , no murmur res: clear to auscultation ,no rhonchii or wheezing abd: no rebound or guarding , bs, present, does not seems to be discomfortable with abd palpation, PEG tube area-clean, no discharge ext pulses present , no cyanosis skin:large area of deep tissue injury around sacral area both left and right sides and midline . midline area with actual skin breakdown into stage II and left small blackish area left scarum in addition noted during morning exam with staff. DS: Data Data Completed and Pending Completed studies during hospitalization [Text1]: Procedures Repair Diaphragm, Percutaneous Endoscopic Approach (11/09/20) Transfusion of Nonautologous Red Blood Cells into Peripheral Vein, Percutaneous Approach (11/09/20) Discharge Plan Discharge Patient Disposition: Xfer [facility] Referrals: Rhett Moran MD [Primary Care Provider] - ([facility]) Discharge Medications: New zinc oxide 20 % Ointment 1 appl topical DAILY PRN (Reason: Rash) Qty: 0 RF: 0 acetaminophen 650 mg/20.3 mL Solution 650 mg NG-TUBE Q6H PRN (Reason: Pain, Mild (Pain Scale 1-3)) Qty: 0 RF: 0 amhpnocf-kgq-jpndzac gluconate [Centrum] 9 mg iron/15 mL Liquid 15 ml G-tube DAILY Qty: 0 RF: 0 Omeprazole Oral Susp [Prilosec Oral Susp] 20 mg NG-TUBE BID@0630,1630 Qty: 0 RF: 0 Continued omeprazole 20 mg capsule,delayed release(DR/EC) 1 cap PO BID RF: 0 hydralazine 50 mg tablet 1 tab PO TID RF: 0 Discontinued lisinopril 20 mg tablet 1 tab PO BID RF: 0 Discharge Orders: Discharge Order (Routine); Ordered 12/08/20 Ordered By: Nirmal Jay Activity on Discharge: As tolerated Stand Alone Forms: Patient Portal Discharge page Care Plan Goals: avoid hospital Health Concerns: FTT Plan of Treatment: continue feeds, local care for stage II ulcer: Continue local measures -- barrier cream and offloading for buttock area and foam protection, rehab
[2020-12-09 10:26] LABS: COVID-19 Test Negative (Negative)
--- NOTE | 2020-12-09 11:11 | MHC.CM.PN ---
CM CONTACTED PT'S SON/HCP SONIA Sams AT 9:28AM ([phone]) TO DISCUSS APPEAL W/KE[facility], PT'S SON DOES NOT WANT TO RESCIND APPEAL OR GIVE PERMISSION TO TRANSFER PT TO [facility] PRIOR TO RESULTS, CM SOCIAL WORKER PALLIATIVE CARE AWARE AND CM HAS REQUESTED TO RESCHEDULE 2PM D/C TO LATER THIS AFTERNOON AT 5:30PM. DISCHARGE PLAN: [facility] FOR STR, [facility] FOR BLS TRANSPORT
--- NOTE | 2020-12-09 15:21 | MHC.CLN ---
F/U PT RECEIVING JEVITY 1.0 AT MAX GOAL RATE 55CC/HR WITH 120CC FREE WATER Q SHIFT AND 1 PKT PROSOURCE Q DAY VIA GTUBE TO PROVIDE 1459KCALS (32KCALS/KG), 73G PROTEIN (1.6G/KG) FOR WOUND, 1486CC TOTAL WATER FROM FORMULA AND FLUSHES (33CC/KG) MONITOR TOLERANCE, RESIDUALS AND LYTES FOLLOWING
--- NOTE | 2020-12-09 15:55 | MHC.CM.PN ---
CM RECEIVED CALL FROM CM MRI TECHNOLOGIST AT APPROX. 3:47PM THAT PT'S FAMILY WON KE[facility] APPEAL AND PT WILL NOT BE DISCHARGING TODAY, SNF & TRANSPORTATION REFERRALS UPDATED VIA [employer], UNIT & NSG AWARE OF PT'S DISPO.
--- NOTE | 2020-12-09 16:10 | HO.PM.IMPN ---
Subjective Subjective Date of Service: 12/09/20 Interval History: no complaints Cardiovascular Cardiovascular: Reports no additional cardiovascular complaints Respiratory Respiratory: Reports no additional respiratory complaints Physical Exam Vital Signs: Vital Signs: Last Vital Signs Temp 99 F 12/09/20 15:28 Pulse 92 12/09/20 15:44 Resp 17 12/09/20 15:28 BP 123/70 12/09/20 15:44 Pulse Ox 97 12/09/20 15:28 Body Mass Index 21.6 Constitutional: awake follows simple commands. Cvs: rrr, [id number] , no murmur res: clear to auscultation ,no rhonchii or wheezing abd: no rebound or guarding , bs, present, does not seems to be discomfortable with abd palpation, PEG tube area-clean, no discharge ext pulses present , no cyanosis skin:large area of deep tissue injury around sacral area both left and right sides and midline . midline area with actual skin breakdown into stage II and left small blackish area left scarum in addition Objective Data Current Medications Generic Name Dose Route Start Last Admin Trade Name Freq PRN Reason Stop Dose Admin Acetaminophen 650 mg 12/01/20 16:45 Acetaminophen Oral Liquid 650 Mg/20.3 Ml Solution NG-TUBE Q6H PRN Pain, Mild (Pain Scale 1-3) Al Hydroxide/Mg Hydroxide 30 ml 12/01/20 16:35 Magnesium Hydrox/Alum Hydrox 30 Ml Oral.Susp NG-TUBE Q4H PRN Heartburn/Nausea Hydralazine HCl 50 mg 12/01/20 16:34 12/09/20 15:44 Hydralazine Hcl 50 Mg Tablet NG-TUBE 50 mg TID STEPHON Administration Protocol Multivitamins/Minerals 15 ml 12/07/20 14:38 12/09/20 09:34 Multivit-Minerals/Ferrous Gluc 15 Ml Liquid G-TUBE 15 ml DAILY STEPHON Administration Omeprazole 20 mg 12/02/20 06:30 12/09/20 15:42 Omeprazole 20 Mg/10 Ml Susp.Recon NG-TUBE 20 mg BID@0630,1630 STEPHON Administration Ondansetron HCl 4 mg 11/24/20 19:10 Ondansetron Hcl 4 Mg/2 Ml Vial IVPUSH Q8H PRN Nausea and Vomiting Pharmacy Consult 1 each 11/24/20 16:27 Consult Rx Perform Med Rec MISCELLANE ONCE PRN Consult order Sodium Chloride 3 ml 11/25/20 00:00 12/09/20 15:43 0.9 % Sodium Chloride Flush 3 Ml Syringe IVFLUSH 3 ml QSHIFT STEPHON Administration Zinc Oxide 1 appl 12/04/20 16:56 Zinc Oxide 20% Ointment 28.35 Gm Tube TOPICAL DAILY PRN Rash Protocol Labs CBC & Chem 7: 12/08/20 06:15 12/08/20 06:16 Microbiology Microbiology Results: Microbiology 12/01/20 01:44 Urine clean catch - Clean Catch Midstream Urine Culture - Final Assessment and Plan (1) Metabolic encephalopathy: Problem details: 85 years old woman 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 Her examination at this time revealed mild aphasia that might be part of dementia but also right arm weakness and possible left hemianopsia. Noncontrast head CT did not reveal any obvious explanation. If possible, I would recommend an MRI of brain without contrast to see if any explanation is found. Status: Acute Assessment and Plan: 85-year-old female with a past medical history of hypertension, GERD, osteoarthritis, MGUS presented to the hospital with a chief complaint of decrease oral intake and increase encephalopathy. UTI Patient has positive urine for infection with elevated WBCs Culture growing mixed bacteria completed ceftriaxone Bilateral lower extremity swelling Tenderness on palpation with no erythema or warmth negative ultrasound Left upper extremity swelling Site of peripheral IV Ultrasound negative for DVT, keep arm elevated. Acute on chronic anemia Hemoglobin improved after 1 unit transfusion No reported bleeding noticed Negative occult blood .Adult failure to thrive Multifactorial including esophageal problem, altered mentation, old age Encourage oral intake as tolerated s/p PEG tube placement 12/05/2020 started feeds, tolerating well Metabolic encephalopathy Multifactorial including general deconditioning, elderly, hypoactive delirium inpatient stay Keeps fluctuating Recurrent reorientation CTH negative for acute pathology Dehydration Hypernatremia Resolved MGUS outpatinet follow up Moderate protein calorie malnutrition tube feeds Stage II pressure ulcer: s/p debridement 12/07/20 Continue local measures, frequent turning , multivitamin dispo: plan for discharge to SNF, family appealed discharge and appeal confirmed, patient remains medically stable DVT prophylaxis SCDs
[2020-12-10] MEDS: 0.9 % Sodium Chloride Flush 3 ML SYRINGE IVFLUSH ×2 (00:23→08:20)
[2020-12-10 04:00] VITALS: BP 144/73; PULSE 87; RESP 18; TEMP 36.1; O2SAT 97
[2020-12-10 07:42] VITALS: BP 146/64; PULSE 86; RESP 17; TEMP 37.2; O2SAT 95
[2020-12-10] MEDS: hydrALAZINE HCl 50 MG TABLET NG-TUBE (08:20)
--- NOTE | 2020-12-10 11:16 | MHC.CM.PN ---
CM RECEIVED PHONE CALL AT 11:06AM FROM PT'S SON/HCP SONIA, PER SON HE WOULD LIKE PT DISCHARGED TO SNF TODAY AND REPORTED PT WAS MORE ALERT YESTERDAY AFTERNOON WHEN HE VISITED, NEW IMM REVIEWED W/SON AT 11:11AM AND PER SON HE WILL NOT APPEAL AGAIN, PT'S SON DID REQUEST TO SPEAK W/PT'S HOSPITALIST, HOSPITALIST NOTIFIED VIA TIGER AND REACH OUT TO PT'S SON SONIA. CM TO CONTACT SNF TO ARRANGE DISCHARGE TIME AND ARRANGE FOR TRANSPORTATION. DISCHARGE PLAN: [facility] FOR STR W/POSSIBLE TRANSITION TO [facility], [facility] FOR BLS TRANSPORT
[2020-12-10 12:00] VITALS: BP 133/70; PULSE 90; RESP 16; TEMP 36.3; O2SAT 96
--- NOTE | 2020-12-10 12:50 | MHC.CM.PN ---
PT DISCHARGING TO [facility] AT 2PM W/[facility] FOR BLS TRANSPORT. PT'S SON/HCP SONIA NOTIFIED AT 12:48PM ([phone]), HOSPITALIST, UNIT AND NSG AWARE3 OF PT'S DISPO.
--- NOTE | 2020-12-10 14:14 | MHC.CM.PN ---
PT'S SON/HCP SONIA ON UNIT AT TIME OF PT TRANSFER, PT'S SON THANKED CM AND WANTED TO THANK EVERYONE FOR TAKING SUCH GOOD CARE OF PT WHILE SHE WAS HERE, PT'S SON CONFIRMS THAT HE IS READY FOR AND COMFORTABLE WITH PT'S TRANSFER TO [facility] TODAY.
--- NOTE | 2020-12-10 15:13 | PC.NURSE ---
call to [facility] spoke to nurse for nurse to nurse
== END 2020-12-10 14:45 | disposition skilled nursing facility (03) | DRG 689 ==
LOC: HO.ED 12:38 → HO.EDOVER 17:39 → HO.S3 17:40
PROVIDERS: Internal Medicine; Internal Medicine Gastroenterology; Admitting Provider Student in an Organized Health Care Education/Training Program; Emergency Provider Emergency Medicine; PCP Internal Medicine; Visit Provider Student in an Organized Health Care Education/Training Program
PROC: 0DH63UZ Insertion of Feeding Device into Stomach, Percutaneous Approach (ICD-10-PCS; CPT 43246; principal; 2020-12-05 12:00)
DX: N39.0 Urinary tract infection, site not specified (principal); G93.41 Metabolic encephalopathy; E43 Unspecified severe protein-calorie malnutrition; E87.0 Hyperosmolality and hypernatremia; T82.7XXA Infection and inflammatory reaction due to other cardiac and vascular devices, implants and grafts, initial encounter; L89.152 Pressure ulcer of sacral region, stage 2; F03.90 Unspecified dementia, unspecified severity, without behavioral disturbance, psychotic disturbance, mood disturbance, and anxiety; Z68.21 Body mass index [BMI] 21.0-21.9, adult; K21.9 Gastro-esophageal reflux disease without esophagitis; Z20.822 Contact with and (suspected) exposure to COVID-19; E86.0 Dehydration; Z79.899 Other long term (current) drug therapy
CPT/HCPCS: 36415; 49440; 70450; 71045; 80048; 80076; 81001; 81003; 82040; 82272; 83690; 83735; 83880; 84100; 84478; 85025; 85027; 85610; 86850; 86900; 86923; 87086; 87635; 92610; 93005; 93970; 93971; 97110; 97162; 97530; 99283; C1729; C1758; J0690; J0696; J1650; J2370; P9016

== ENCOUNTER 2022-02-23 10:30 | Observation (INO) | payer MEDICARE, SELFPAY ==
[2022-02-23] VITALS (8 sets, daily range): BP systolic 146–207; BP diastolic 76–100; PULSE 67–711; RESP 16–18; TEMP 36.3–36.8; O2SAT 95–100; BMI 23.0; BMI 22.6
--- NOTE | ~2022-02-23 | XR_ITS ---
EXAMINATION: XR ABDOMEN KUB CLINICAL INDICATION: G-tube placement COMPARISON: Chest radiograph 12/02/2019 TECHNIQUE: AP view of the abdomen. FINDINGS: The bowel gas pattern is unremarkable with no evidence of ileus or obstruction. Degenerative changes present in the spine with marked biconvex thoracolumbar scoliosis. The G-tube retention balloon overlies the stomach, position. The previously present NG tube has been removed. XR/XR abdomen 1V IMPRESSION: G-tube appears to be in good position within the stomach.
--- NOTE | 2022-02-23 10:48 | ED.GENADULT ---
HPI - General Adult General Chief complaint: General Medical Stated complaint: G-TUBE PROBLEMS Time Seen by Provider: 02/23/22 10:32 Source: patient and other (nurse at nursing facility) Mode of arrival: EMS Limitations: other (history dementia) History of Present Illness HPI narrative: 86-year-old female who lives at a [facility], with a past medical history of GERD, mild dementia, hypertension, pancytopenia, deconditioning, and adult failure to thrive presents for a leaking G-tube that staff at her nursing facility cannot flush. Her her doctor at the [facility] Dr Moran sent her here for G-tube removal patient has been feeling well otherwise, no fevers, no vomiting or diarrhea. Patient had a G-tube placed status post a large paraesophageal hernia repair. Patient had pain and had a hard time tolerating p.o., so G-tube was placed in December of 2020. Patient has not seen GI since then. I called [facility] where patient lives, and spoke with Nursing there. Nursing states that for the last 2 months patient has been eating and drinking fine, is gaining weight. Nursing states that for the last 2 weeks the G-tube has been leaking, and for the last week they have been unable to flush it. Patient has not used Gtube for 2 months Related Data Home Medications Medication Instructions Recorded Confirmed hydralazine 50 mg tablet 1 tab PO TID 11/09/20 11/24/20 famotidine 20 mg tablet 20 mg PO BID 02/23/22 02/23/22 melatonin 5 mg tablet 5 mg PO BEDTIME PRN Sleep 02/23/22 02/23/22 multivitamin with minerals 1 tab PO DAILY 02/23/22 02/23/22 mupirocin 2 % topical ointment 1 appl topical BID 02/23/22 02/23/22 nystatin 100,000 unit/gram topical 1 appl topical TID PRN Rash 02/23/22 02/23/22 powder Allergies Allergy/AdvReac Type Severity Reaction Status Date / Time cat dander [CAT] Allergy Unknown SNEEZE, Verified 11/24/20 10:22 EYES SWELL UP Review of Systems Constitutional: Constitutional: Denies body ache(s), Denies chills, Denies fatigue, Denies fever(s), Denies headache(s), Denies malaise and Denies weakness Eyes: Eyes: Denies diplopia ENT: Denies vertigo, Denies dizziness, Denies otalgia, Denies headache(s), Denies mouth pain, Denies post nasal drip, Denies sinus pain, Denies sinus pressure, Denies sore throat and Denies throat swelling Cardiovascular: Cardiovascular: Denies chest pain, Denies syncope, Denies leg edema, Denies lightheadedness, Denies Loss of Consciousness, Denies palpitations and Denies dyspnea Respiratory: Respiratory: Denies chest congestion, Denies cough and Denies dyspnea Gastrointestinal: Gastrointestinal: Denies abdominal pain, Denies hematochezia, Denies constipation, Denies diarrhea and Denies vomiting Comments: G-tube not flushing Genitourinary: Genitourinary: Reports no additional female genitourinary complaints Musculoskeletal: Musculoskeletal: Reports no additional musculoskeletal complaints Neurologic: Denies confusion, Denies vertigo, Denies dizziness, Denies syncope, Denies headache(s) and Denies weakness Psychiatric: Psychiatric: Denies anxiety, Denies confusion and Denies depression Endocrine: Endocrine: Denies fatigue and Denies palpitations Allergic/Immunologic: Allergic/Immunologic: Denies throat swelling PMFSH Past Medical History Medical History Adult failure to thrive GERD (gastroesophageal reflux disease) HTN (hypertension) Lower extremity edema 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 Son No problems noted. Daughter No problems noted. Social History Social History Household Members: None Housing: House Are you a primary menagerie caretaker to a significant other at home: No Do you presently have visiting nurse or other home services: No Alcohol intake: never Advance Directives: Yes Advance Directives on File: Yes Advance Directives Date on File: 10/10/20 service: No Current occupational status: retired Physical Exam ED Vital Signs: Vital Signs - 24 hr 02/23/22 10:37 02/23/22 11:35 02/23/22 14:27 Temperature 98.0 F Pulse Rate 78 77 67 Respiratory Rate 18 16 16 Blood Pressure 207/88 H 154/78 H 146/76 H Pulse Oximetry 100 96 95 Oxygen Delivery Method Room Air Room Air Room Air 02/23/22 16:33 Temperature 98.2 F Pulse Rate 711 H Respiratory Rate 16 Blood Pressure 171/84 H Pulse Oximetry 96 Oxygen Delivery Method Room Air BMI result Body Mass Index 23.0 Const General: No confusion Nutritional Appearance: well nourished Orientation/consciousness: No confusion Limitations: no limitations Eyes Conjunctivae: conjunctivae normal Pupils: Equal, round and reactive pupils present EOM: EOMs intact bilaterally Neck Neck: Yes full ROM, Yes no lymphadenopathy and Yes supple Resp Effort & Inspection: normal respiratory effort and able to speak in complete sentences Auscultation: clear to auscultation bilaterally, no crackles, no rales, no rhonchi and no wheezes Cardio Rate: regular rate Rhythm: regular rhythm Heart sounds: S1 normal heart sound present and S2 normal heart sound present GI Inspection: Yes G-tube present Palpation (GI): Soft to palpation, nontender, no guarding and not rigid Percussion: Yes normal to percussion Auscultation: normal bowel sounds Abdomen image: 1. G tube Skin Other: no redness, swelling, warmth surrounding G2 on abdomen, granulation tissue. G-tube is loose, no bleeding Neuro General: No confusion Cranial nerves: Yes Equal, round and reactive pupils present Extrem General: Yes normal to inspection and Yes full ROM Psych Appearance: grossly normal Affect: normal affect Attitude: cooperative Thought process: Normal thought process present Course Course Course Narrative: 86-year-old female here from a nursing facility for a tube removal. The Gtube it has been leaking, and nursing staff at her [facility] has been in able to flush the G-tube for the last week. Her doctor at the [facility] sent her here for G-tube removal on exam, patient is well-appearing, stable vitals, she is anxious about getting her G-tube removed. Mildly demented but able to answer questions appropriately. No cellulitis surrounding G-tube, G-tube is filled with brown material. We got x-ray, I tried to flush with gastrografin but was unsuccessful Dr Marcano came to evaluate patient, and tried to pull out the G-tube. She was unable to do so. She would like the patient admitted as she thinks there needs to be an EGD done so G-tube can be cut from the inside. She is concerned that this G-tube may be imbedded, possibly in patient's pylorus admitted patient to hospitalist service Medical Decision Making Lab Data Result diagrams: 02/23/22 16:53 02/23/22 16:53 Labs: Lab Results 02/23/22 Range/Units 16:26 COVID-19 (JACE) Negative (Negative) COVID-19 Clin Com See Note Discharge Plan Discharge Clinical Impression: Gastrostomy tube dysfunction Patient Disposition: Admitted As Inpatient
[2022-02-23] MEDS: Diatrizoate Meglumine, Sodium 30 ML SOLUTION PO (12:24)
--- NOTE | 2022-02-23 16:44 | PM.GICN ---
History of Present Illness Data of Consult Service Date: 02/23/22 Requesting physician: Hanna Galicia Primary Care Provider: Rhett Moran MD HPI Reason for consult: PEG tube malfunction 86 YF with hypertension, GERD, osteoarthritis, MGUS came [place] [facility] [place] due to malfunctioning PEG tube. Hx obtained from the pt and her son who reported that patient tube has been clogged and staff at the [facility] have been unable to flush it for the past 10 days. Pt had an EGD with PEG tube placement on 12/05/21 for failure to thrive after she had repair of a large para-esophageal hernia. Since the past two months, pt has been eating without difficulty and has been maintaining her weight. The PEG tube has not been used for the past 2 months and pt and her son are requesting to have the PEG tube removed. Patient denies symptoms of heartburn since repair of paraesophageal hernia. She notes intermittent dysphagia to large pills and usually take her pills in a crushed form. Pt denies recent change in bowel habits, constipation, diarrhea, black stools or rectal bleeding. Patient denies major cardiac or pulmonary problems, loud snoring or sleep apnea Pt notes pt had a prolonged recovery from anesthesia (? took 3 weeks to recover) after hernia surgery 2 yrs ago. Denies being on chronic anticoagulation. Patient denies known family history of colon polyps, colon cancer or other GI malignancies. IMAGING STUDIES: 02/23/22 KUB SHOWED: The bowel gas pattern is unremarkable with no evidence of ileus or obstruction. Degenerative changes present in the spine with marked biconvex thoracolumbar scoliosis. The G-tube retention balloon overlies the stomach, position. The previously present NG tube has been removed. PAST GI HISTORY BY REVIEW OF MEDICAL RECORDS: Pt was seen by Dr Lewis on 11/23/20 for FU after hernia surgery: This is a 85 yo lady who presents for follow up s/p repair of large paraesophageal hernia on 11/12/2020. ? about 2/3 of the stomach was found within the chest and the patient had a history of? 50 lb weight loss over the prior? 8 months.? Patient's symptoms were improved in terms of being able to tolerate her pills and liquids.? She did not have any desire to eat however.? She has been at a shelter for the past little over a week and has had very poor intake of food by mouth.? The patient is very malnourished and I have recommended placement of a interventional Radiology placed gastrostomy tube for the administration of nutrition through tube feeds. At the nursing facility, pt started to become more withdrawn, encephalopathic and lethargic with decreased oral intake. 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 Son No problems noted. Daughter No problems noted. Surgical History Surgical History History of nasal surgery S/P left knee arthroscopy S/P DINORAH-BSO Social History Social History Household Members: None Housing: [facility] Housing Other:: [facility] Are you a primary child care teacher to a significant other at home: No Do you presently have visiting nurse or other home services: No Alcohol intake: never Patient Tobacco Use Status: Never used Tobacco Advance Directives Date on File: 10/10/20 service: No Current occupational status: retired [employer] Allergies Allergy/AdvReac Type Severity Reaction Status Date / Time cat dander [CAT] Allergy Unknown SNEEZE, Verified 11/24/20 10:22 EYES SWELL UP Active Medications: Current Medications Pharmacy Consult (Consult Rx Perform Med Rec) 1 each MISCELLANE ONCE PRN PRN Reason: Consult order Home Medications Medication Instructions Recorded Confirmed Last Taken Type hydralazine 50 mg tablet 1 tab PO TID 11/09/20 02/23/22 02/23/22 History famotidine 20 mg tablet 20 mg PO BID 02/23/22 02/23/22 02/23/22 History melatonin 5 mg tablet 5 mg PO BEDTIME PRN Sleep 02/23/22 02/23/22 Unknown History multivitamin with minerals 1 tab PO DAILY 02/23/22 02/23/22 02/23/22 History mupirocin 2 % topical ointment 1 appl topical BID 02/23/22 02/23/22 02/23/22 History nystatin 100,000 unit/gram topical 1 appl topical TID PRN Rash 02/23/22 02/23/22 12/09/21 History powder Physical Exam Vital Signs: Vital Signs: Last Vital Signs Temp 98.2 F 02/23/22 16:33 Pulse 711 H 02/23/22 16:33 Resp 16 02/23/22 16:33 BP 171/84 H 02/23/22 16:33 Pulse Ox 96 02/23/22 16:33 O2 Del Method 02/23/22 16:33 BMI result Body Mass Index 23.0 Const: General: no acute distress and anxious Nutritional Appearance: average body habitus Orientation/consciousness: patient oriented x3 Limitations: no limitations HEENT: Head: Yes normal to inspection Ears: hearing grossly normal bilaterally Mouth: Normal oral and palatal mucosa present Eyes: Sclerae: sclerae normal Pupils: Equal, round and reactive pupils present Neck: Neck: Yes normal visual inspection Chest: Chest palpation & inspection: normal inspection of the chest Resp: Effort & Inspection: normal respiratory effort Auscultation: clear to auscultation bilaterally Cardio: Palpation: normal PMI Rate: regular rate Rhythm: regular rhythm Heart sounds: S1 normal heart sound present, S2 normal heart sound present and no murmurs GI: Inspection: Yes G-tube present Palpation (GI): Soft to palpation, nontender and No hepatosplenomegaly present Auscultation: normal bowel sounds Rectal Exam - Female: deferred Skin: General skin exam: no rashes or lesions noted Neuro: General: patient oriented x3, gait normal and moves all extremities Cranial nerves: Yes Equal, round and reactive pupils present Psych: Appearance: grossly normal Mental Status: mental status grossly normal Results Labs CBC & Chem 7: 02/23/22 16:53 02/24/22 08:59 Assessment and Plan (1) Gastrostomy tube dysfunction: Status: Acute (2) Status post repair of paraesophageal diaphragmatic hernia: Status: Acute Plan 86 YF with hypertension, GERD, osteoarthritis, MGUS came [place] [facility] [place] [facility] due to malfunctioning PEG tube. Hx obtained from the pt and her son who reported that patient tube has been clogged and staff at the [facility] have been unable to flush it for the past 10 days. Pt had an EGD with PEG tube placement on 12/05/[address] Cadet for failure to thrive after she had repair of a large para-esophageal hernia. Since the past two months, pt has been eating without difficulty and has been maintaining her weight. The PEG tube has not been used for the past 2 months and pt and her son are requesting to have the PEG tube removed. Bedside PEG tube removal was attempted and PEG tube could not be removed despite multiple attempts and considerable pain and discomfort to the patient. RECOMMENDATIONS: 1. Pt will be admitted to [facility]. She is scheduled for an EGD with PEG tube removal on 02/24/22 at 7:30 am. 3. Pt can have a full liquid diet tonight and NPO after midnight for EGD tomorrow morning. Pt refused to have the PEG tube replaced during the procedure since she has been eating and drinking without difficulty for the past 2 months. Procedures Date of Service Date of Service: 02/23/22
[2022-02-23 16:47] LABS: COVID-19 Test Negative (Negative)
[2022-02-23 16:59] LABS: MANUAL DIFF FLAG NO
--- NOTE | 2022-02-23 17:04 | PHA.MEDREC ---
Addendum entered by Karsten Reyna [facility] 02/23/22 17:07: Called [facility] [phone] 3rd floor, pt no longer on omeprazole, changed to pepcid Original Note: Pharmacy Consult ? Medication Reconciliation Pharmacy has completed the medication reconciliation.
[2022-02-23 17:05] LABS: Basophils Percent Auto 0.3 % (0-2); Eosinophils Absolute Auto 0.1 X10*3/uL (0.0-0.4); Eosinophils Percent Auto 1.6 % (0-4); Hematocrit 35.1 % (37.0-47.0); Hemoglobin 11.1 g/dl (12.0-16.0); Imm Gran Abs Auto 0.02 X10*3/uL (0.00-0.03); Imm Gran Pct Auto 0.3 % (0.0-0.4); Lymphocytes Absolute Auto 1.9 X10*3/uL (1.2-4.9); Lymphocytes Percent Auto 30.7 % (20-40); Mean Corpuscular HGB Conc 31.6 g/dl (31.0-35.0); Mean Corpuscular Hemoglobin 30.1 pg (27.0-33.0); Mean Corpuscular Volume 95.1 fL (80.0-98.0); Mean Platelet Volume 10.1 fL (9.4-12.3); Monocytes Absolute Auto 0.4 X10*3/uL (0.1-1.2); Monocytes Percent Auto 6.7 % (2-11); Neutrophils Absolute Auto 3.7 x10*3/uL (2.0-8.3); Neutrophils Percent Auto 60.4 % (45-73); Platelet Count 210 X10*3/uL (160-400); Red Blood Count 3.69 X10*6/uL (4.20-5.50); White Blood Count 6.1 X10*3/uL (4.8-10.8)
[2022-02-23 17:17] LABS: Alanine Aminotransferase 10 U/L (0-31); Albumin Level 3.7 g/dL (3.5-5.0); Alkaline Phosphatase 41 U/L (39-117); Anion Gap 10 (12-20); Aspartate Amino Transferase 16 U/L (5-31); Bilirubin Total 0.3 mg/dL (0.0-1.0); Blood Urea Nitrogen 23 mg/dL (9-16); Carbon Dioxide 27 mmol/L (22-29); Chloride 111 mmol/L (96-108); Creatinine Clr Calc Pharmacy 33.9; Estimated Glomerular Filt Rate 52; Glucose Random 94 mg/dL (60-115); Potassium 4.2 mmol/L (3.3-5.1); Sodium 144 mmol/L (135-145); Total Protein 6.3 g/dL (6.5-8.0)
--- NOTE | 2022-02-23 17:23 | P.HPHOSP_ITS ---
History of Present Illness Date of Service: 02/23/22 Chief Complaint: G-tube problem An 86 years old lady with PMH of MGUS, HTN, GERD among others who presents to the hospital from SNF due to malfunctioning PEG tube. The staff at the [facility] were unable to flush the tube for the last 10 days or so. The patient has been tolerating oral regimen and did not need to use the PEG tube for almost 2 months now which she had earlier this year on December 05 after repair of large paraesophageal hernia. The patient denies any fever, chills, abdominal pain, nausea, vomiting, change in bowel habit or urinary symptoms. She was evaluated by railroad auditor in the emergency who tried to remove the tube but felt it was tethered in needs to be done through endoscopy. Hospitalist team asked to evaluate the patient admitted for further evaluation and treatment. 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 Son No problems noted. Daughter No problems noted. Surgical History History of nasal surgery S/P left knee arthroscopy S/P DINORAH-BSO Social History Household Members: None Housing: House Are you a primary child care education coordinator to a significant other at home: No Do you presently have visiting nurse or other home services: No Alcohol intake: never Advance Directives: Yes Advance Directives on File: Yes Advance Directives Date on File: 10/10/20 service: No Current occupational status: retired Meds Allergies Allergy/AdvReac Type Severity Reaction Status Date / Time cat dander [CAT] Allergy Unknown SNEEZE, Verified 11/24/20 10:22 EYES SWELL UP Active Medications: Current Medications Pharmacy Consult (Consult Rx Perform Med Rec) 1 each MISCELLANE ONCE PRN PRN Reason: Consult order Home Medications Medication Instructions Recorded Confirmed Last Taken Type hydralazine 50 mg tablet 1 tab PO TID 11/09/20 02/23/22 02/23/22 History famotidine 20 mg tablet 20 mg PO BID 02/23/22 02/23/22 02/23/22 History melatonin 5 mg tablet 5 mg PO BEDTIME PRN Sleep 02/23/22 02/23/22 Unknown History multivitamin with minerals 1 tab PO DAILY 02/23/22 02/23/22 02/23/22 History mupirocin 2 % topical ointment 1 appl topical BID 02/23/22 02/23/22 02/23/22 History nystatin 100,000 unit/gram topical 1 appl topical TID PRN Rash 02/23/22 02/23/22 12/09/21 History powder Physical Exam Vital Signs and Narrative: Vital Signs: Last Vital Signs Temp 98.2 F 02/23/22 16:33 Pulse 711 H 02/23/22 16:33 Resp 16 02/23/22 16:33 BP 171/84 H 02/23/22 16:33 Pulse Ox 96 02/23/22 16:33 O2 Del Method 02/23/22 16:33 BMI result Body Mass Index 23.0 Const: Other: Constitutional : Alert, oriented, not in distress Neck : Normal inspection, Supple Cardiovascular : RRR, no JVP, no lower extremity edema Respiratory : fair bilateral air entry, no crackles, wheezes or rhonchi Gastrointestinal: soft, lax, Normal bowel sounds, Non tender, PEG tube in place with no surrounding erythema or drainage Skin : Warm, Dry, stage II pressure ulcer Neurological : Alert & oriented x3, No focal deficit , CN 2-12 within normal Results Labs CBC and Chem 7: 02/23/22 16:53 02/23/22 16:53 Labs: Laboratory Results - last 24 hr 02/23/22 02/23/22 02/23/22 16:26 16:53 16:53 MCV 95.1 MCH 30.1 MCHC 31.6 RDW 13.0 Plt Count 210 MPV 10.1 Immature Gran % (Auto) 0.3 Neut % (Auto) 60.4 Lymph % (Auto) 30.7 Jay % (Auto) 6.7 Eos % (Auto) 1.6 Baso % (Auto) 0.3 Lymph # (Auto) 1.9 Jay # (Auto) 0.4 Eos # (Auto) 0.1 Baso # (Auto) 0.0 Abs Immat Gran (auto) 0.02 Absolute Neuts (auto) 3.7 Absolute Nucleated RBC 0.000 Nucleated RBC % (auto) 0.0 Anion Gap 10 L Estim Creat Clear Calc 33.9 Estimated GFR 52 Random Glucose 94 Calcium 10.0 D Total Bilirubin 0.3 AST 16 ALT 10 Alkaline Phosphatase 41 D Total Protein 6.3 L D Albumin 3.7 D COVID-19 (JACE) Negative COVID-19 Clin Com See Note Imaging Radiologist's Impressions: Impressions Abdomen X-Ray 02/23/22 12:25 IMPRESSION: G-tube appears to be in good position within the stomach. Assessment and Plan (1) Gastrostomy tube dysfunction: Status: Acute (2) Pressure injury, stage 2: Status: Acute Plan An 86 years old lady with PMH of MGUS, HTN, GERD among others who presents to the hospital from SNF due to malfunctioning PEG tube. Malfunctioning PEG tube GI to do endoscopy for removal tomorrow morning Keep NPO over midnight Full liquids for the time being Hypertension Restart her hydralazine GERD continue famotidine DVT PPX SCDs Quality Stroke Does the patient have a stroke diagnosis?: No VTE Prior VTE?: No VTE Risk Level:: Medical - moderate - high VTE Device Contraindication: N/A - Device Ordered VTE Drug Contraindication: Treatment Not Indicated
[2022-02-23] MEDS: hydrALAZINE HCl 50 MG TABLET PO ×2 (18:07→20:23)
[2022-02-23] MEDS: Mupirocin 2 % Oint 22 GM TUBE 1 APPL TOPICAL (20:24)
[2022-02-23] MEDS: Famotidine 20 MG TABLET PO (20:25)
[2022-02-23] MEDS: 0.9 % Sodium Chloride Flush 3 ML SYRINGE IVFLUSH (20:26)
[2022-02-24] VITALS (9 sets, daily range): BP systolic 170–206; BP diastolic 80–106; PULSE 62–113; RESP 16–20; TEMP 35–37.1; O2SAT 95–100
--- NOTE | 2022-02-24 07:08 | PC.NURSE ---
Patient alert, oriented to self, place, situation- able to get month as February, when asked year pt states we are in the 2020s, I dont know which exactly I cant keep track but does state Fide as president.
--- NOTE | 2022-02-24 07:14 | P.CONAN_ITS ---
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 Son No problems noted. Daughter No problems noted. Family history of problems with anesthesia: No Surgical History Surgical History History of nasal surgery S/P left knee arthroscopy S/P DINORAH-BSO History of Problems with Anesthesia: No Social History Social History Household Members: None Housing: [facility] Housing Other:: [facility] Are you a primary lawn care professional to a significant other at home: No Do you presently have visiting nurse or other home services: No Alcohol intake: never Patient Tobacco Use Status: Never used Tobacco Advance Directives Date on File: 10/10/20 service: No Current occupational status: retired [employer] Allergies Allergy/AdvReac Type Severity Reaction Status Date / Time cat dander [CAT] Allergy Unknown SNEEZE, Verified 11/24/20 10:22 EYES SWELL UP Active Medications: Current Medications Acetaminophen (Acetaminophen 325 Mg Tablet) 650 mg PO Q6H PRN PRN Reason: Pain, Mild (Pain Scale 1-3) Famotidine (Famotidine 20 Mg Tablet) 20 mg PO BID STEPHON Last Admin: 02/23/22 20:25 Dose: 20 mg Hydralazine HCl (Hydralazine Hcl 50 Mg Tablet) 50 mg PO TID STEPHON; Protocol Last Admin: 02/23/22 20:23 Dose: 50 mg Melatonin (Melatonin 3 Mg Tablet) 6 mg PO BEDTIME STEPHON Last Admin: 02/23/22 20:26 Dose: Not Given Multivitamins/Vitamin C (Multivitamin Tablet) 1 tab PO DAILY STEPHON Mupirocin (Mupirocin 2 % Oint 22 Gm Tube) 1 appl TOPICAL BID STEPHON; Protocol Last Admin: 02/23/22 20:24 Dose: 1 appl Ondansetron HCl (Ondansetron Hcl 4 Mg/2 Ml Vial) 4 mg IVPUSH Q8H PRN PRN Reason: Nausea and Vomiting Pharmacy Consult (Consult Rx Perform Med Rec) 1 each MISCELLANE ONCE PRN PRN Reason: Consult order Sodium Chloride (0.9 % Sodium Chloride Flush 3 Ml Syringe) 3 ml IVFLUSH QSHIFT COUNTS INCLUDE 234 BEDS AT THE [facility] Last Admin: 02/23/22 20:26 Dose: 3 ml Home Medications Medication Instructions Recorded Confirmed Last Taken Type hydralazine 50 mg tablet 1 tab PO TID 11/09/20 02/23/22 02/23/22 History famotidine 20 mg tablet 20 mg PO BID 02/23/22 02/23/22 02/23/22 History melatonin 5 mg tablet 5 mg PO BEDTIME PRN Sleep 02/23/22 02/23/22 Unknown History multivitamin with minerals 1 tab PO DAILY 02/23/22 02/23/22 02/23/22 History mupirocin 2 % topical ointment 1 appl topical BID 02/23/22 02/23/22 02/23/22 History nystatin 100,000 unit/gram topical 1 appl topical TID PRN Rash 02/23/22 02/23/22 12/09/21 History powder Exam Exam Date and Time: February 24, 2022 0714 Height,Weight and Vital Signs: Height 5 ft 3 in Weight 58 kg Last Vital Signs Temp 97.1 F 02/24/22 07:04 Pulse 67 02/24/22 07:04 Resp 20 02/24/22 07:04 BP 183/91 H 02/24/22 07:04 Pulse Ox 97 02/24/22 07:04 O2 Del Method 02/24/22 07:04 Pertinent Lab Results Pertinent Lab Results: Laboratory Tests 02/23/22 02/23/22 02/23/22 16:26 16:53 16:53 WBC 6.1 RBC 3.69 L Hgb 11.1 L Hct 35.1 L MCV 95.1 MCH 30.1 MCHC 31.6 RDW 13.0 Plt Count 210 MPV 10.1 Immature Gran % (Auto) 0.3 Neut % (Auto) 60.4 Lymph % (Auto) 30.7 [place] % (Auto) 6.7 Eos % (Auto) 1.6 Baso % (Auto) 0.3 Lymph # (Auto) 1.9 [place] # (Auto) 0.4 Eos # (Auto) 0.1 Baso # (Auto) 0.0 Abs Immat Gran (auto) 0.02 Absolute Neuts (auto) 3.7 Absolute Nucleated RBC 0.000 Nucleated RBC % (auto) 0.0 Sodium 144 Potassium 4.2 Chloride 111 H Carbon Dioxide 27 Anion Gap 10 L BUN 23 H Creatinine 1.02 Estim Creat Clear Calc 33.9 Estimated GFR 52 Random Glucose 94 Calcium 10.0 D Total Bilirubin 0.3 AST 16 ALT 10 Alkaline Phosphatase 41 D Total Protein 6.3 L D Albumin 3.7 D COVID-19 (JACE) Negative COVID-19 Clin Com See Note Airway Mallampati Class: III TM Dist: >3cm Neck ROM: Full Denture: Upper and Lower Heart: rrr Lungs: clear Assessment and Plan Final Anesthetic Review Family History of Problems with Anesthesia: No History of Problems with Anesthesia: No NPO: Yes ASA Class: II Final Preanesthetic Review: No Changes in Pt Med Stat, Meds/Allgs Chart Reviewed, Consent Obtained/Reviewed and Anes Risks/Benef Reviewed Patient Risk: Intermediate Procedure Risk: Low Anesthetic Plan Anesthetic Plan: MAC: Disposition: Standard PACU
--- NOTE | 2022-02-24 07:50 | P.BOP_ITS ---
Brief Operative Note Date of Service: 02/24/22 Pre-op diagnosis: malfunctioning PEG tube Post-op diagnosis: same Procedure: FLEXIBLE TRANSORAL UPPER GASTROINTESTINAL ENDOSCOPY WITH PEG TUBE REMOVAL Consent: Indications for the procedure and potential complications of bleeding, perforation, reaction to medications and missed diagnosis were discussed with the patient and informed consent was obtained. Instrument: Olympus GIF H 190 mid size upper endoscope Monitoring: Vital signs and clinical assessment, continuous EKG monitoring, Pulse oximetry, Carbon Dioxide monitoring and blood pressure monitoring were done throughout the procedure. Procedure: The patient was placed in the left lateral decubitis position and pre-procedure medications were administered and a bite block was placed. The endoscope was inserted into the mouth and advanced under direct vision to the third part of duodenum. A careful inspection was made as the upper endoscope was withdrawn including a retroflexed examination of the proximal stomach; Findings and interventions are described below. Findings: Larynx: Normal Esophagus: Tortuous esophagus with increased tertiary contractions without stricture or ring. GE junction at 35 cms, small hiatal hernia 35 to 27 cms. Stomach: Normal gastric mucosa. Internal bolster of PEG tube noted in the ga stric body along the lesser curve. The PEG tube was grabbed with a snare just proximal to the bolster and removed with the snare (after cutting the tube externally with a scissors) Grade 2 flap valve on retroflexed examination of the cardia. Duodenum: Normal bulb and descending duodenum Intervention: PEG tube removal as noted above Impression and Post Procedure Diagnosis: Endoscopy Findings: ESOPHAGUS: Tortuous esophagus with increased tertiary contractions without stricture or ring. Intermittent dysphagia likely due to esophageal motility disorder. STOMACH: Normal gastric mucosa. Internal bolster of PEG tube noted in the gastric body along the lesser curve. The PEG tube was grabbed with a snare just proximal to the bolster and removed with the snare (after cutting the tube externally with a scissors) Plan: Fu prn with GI. Above findings were reviewed with the patient. Surgeon: Rajni Marcano MD Anesthesia: MAC (Dr Etienne) Was an Clinical Appeals Specialist used for this Procedure?: Yes Clinical Appeals Specialist: Kellie Ca Estimated blood loss (mL): 0 Pathology: none sent Condition: stable Disposition: PACU
--- NOTE | 2022-02-24 07:57 | W.PM.OPN ---
Operative Note Operative Note Date of Service: 02/24/22 Narrative: Pre-op diagnosis: malfunctioning PEG tube Post-op diagnosis:?same Procedure: FLEXIBLE TRANSORAL UPPER GASTROINTESTINAL ENDOSCOPY WITH PEG TUBE REMOVAL Consent:?Indications for the procedure and potential complications of bleeding, perforation, reaction to medications and missed diagnosis were discussed with the patient and informed consent was obtained. Instrument:?Olympus GIF H 190 mid size upper endoscope Monitoring: Vital signs and clinical assessment, continuous EKG monitoring, Pulse oximetry, Carbon Dioxide monitoring and blood pressure monitoring were done throughout the procedure. Procedure:?The patient was placed in the left lateral decubitis position and pre-procedure medications were administered and a bite block was placed. The endoscope was inserted into the mouth and advanced under direct vision to the third part of duodenum. A careful inspection was made as the upper endoscope was withdrawn including a retroflexed examination of the proximal stomach; Findings and interventions are described below. Findings: Larynx:? Normal Esophagus: Tortuous esophagus with increased tertiary contractions without stricture or ring. GE junction at 35 cms, small hiatal hernia 35 to 27 cms. Stomach: Normal gastric mucosa.? Internal bolster of PEG tube noted in the gastric body along the lesser curve. The PEG tube was grabbed with a snare just proximal to the bolster and removed with the snare (after cutting the tube? externally with a scissors) Grade 2 flap valve on retroflexed examination of the cardia. Duodenum: Normal bulb and descending duodenum Intervention: PEG tube removal as noted above Impression and Post Procedure Diagnosis: Endoscopy Findings: ESOPHAGUS: Tortuous esophagus with increased tertiary contractions without stricture or ring. Intermittent dysphagia likely due to esophageal motility disorder. STOMACH:? Normal gastric mucosa.? Internal bolster of PEG tube noted in the gastric body along the lesser curve. The PEG tube was grabbed with a snare just proximal to the bolster and removed with the snare (after cutting the tube? externally with a scissors) Plan: Fu prn with GI. Above findings were reviewed with the patient. Surgeon: Rajni Marcano MD Anesthesia:?MAC (Dr Etienne) Was an Human Factors Engineer used for this Procedure?:?Yes Human Factors Engineer:?Kellie Ca Estimated blood loss (mL):?0 Pathology:?none sent Condition:?stable Disposition:?PACU
[2022-02-24] MEDS: hydrALAZINE HCl 50 MG TABLET PO ×2 (08:27→15:18)
[2022-02-24] MEDS: 0.9 % Sodium Chloride Flush 3 ML SYRINGE IVFLUSH ×2 (09:20→15:21)
[2022-02-24] MEDS: Multivitamin TABLET 1 TAB PO (09:20)
[2022-02-24] MEDS: Famotidine 20 MG TABLET PO (09:20)
[2022-02-24 09:31] LABS: Anion Gap 13 (12-20); Blood Urea Nitrogen 23 mg/dL (9-16); Calcium 10.1 mg/dL (8.4-10.2); Carbon Dioxide 24 mmol/L (22-29); Chloride 110 mmol/L (96-108); Creatinine Clr Calc Pharmacy 35.3; Estimated Glomerular Filt Rate 54; Glucose Random 95 mg/dL (60-115); Potassium 4.3 mmol/L (3.3-5.1); Sodium 143 mmol/L (135-145)
[2022-02-24] MEDS: Losartan Potassium 50 MG TABLET PO (12:11)
[2022-02-24] MEDS: NIFEdipine ER 30 MG TAB.ER.24 PO (12:11)
[2022-02-24] MEDS: Mupirocin 2 % Oint 22 GM TUBE 1 APPL TOPICAL (12:11)
--- NOTE | 2022-02-24 12:24 | MHC.CM.PN ---
PT REPORTS: SHE IS AT [facility] AND UPON DISCHARGE WILL RETURN THERE WITH AMBULANCE TRANSPORTATION. PER PT SHE DOES NOT USE ANY DME AND RECEIVES ASSISTANCE FROM SNF. SHE IS COVID VACCINATED X3 PCP ON FILE: JOHNSON CABRERA HCP ON FILE AND VERIFIED FORDE IN CHART DISCHARGE PLAN: PT TO DISCHARGE BACK TO SNF ([facility]) VIA AMBULANCE PENDING HTN CHECK.
--- NOTE | 2022-02-24 14:18 | P.DS_ITS ---
DS: Providers Provider Date of Service: 02/24/22 Date of admission: 02/23/22 17:20 Primary care physician: Rhett Moran MD Consults: 02/23/22 17:23 Consult to Gastroenterology Routine Consulting Provider: Rajni Marcano Reason for consultation: G-tube problem DS: Diagnosis Discharge Diagnosis (1) Gastrostomy tube dysfunction: Status: Acute (2) Pressure injury, stage 2: Status: Acute DS: Summary Hospital Course Hospital Course: From initial HPI: Chief Complaint: G-tube problem An 86 years old lady with PMH of MGUS, HTN, GERD among others who presents to the hospital from SNF due to malfunctioning PEG tube. The staff at the son of were unable to flush the tube for the last 10 days or so.? The patient has been tolerating oral regimen and did not need to use the PEG tube for almost 2 months now which she had earlier this year on December 05 after repair of large paraesophageal hernia.? The patient denies any fever, chills, abdominal pain, nausea, vomiting, change in bowel habit or urinary symptoms. She was evaluated by band saw operator cake cutting in the emergency who tried to remove the tube but felt it was tethered in needs to be done through endoscopy. Hospitalist team asked to evaluate the patient admitted for further evaluation and treatment. Hospital course: Patient was admitted for malfunctioning PEG tube. She underwent EGD and removal of PEG tube. Procedure was tolerated well. Patient also noted to have hypertension that was uncontrolled, systolic blood pressure was the 190s. Patient was asymptomatic and reports adequate control at the custodial on hydralazine 50 mg t.i.d.. Nifedipine 30 mg daily was added with some improvement - sbp 180, out of concern for overtreatment given decent control prior to hospitalization will hold off on further medications for now. She will continue nifedipine at [place] and blood pressure should be checked daily for now. For GERD she will continue on famotidine. Time Spent with Patient Time attestation: Total time spent providing and/or coordinating discharge services: Discharge coordination time: Greater than 30 minutes Quality: Safe Use of Opioids Does Pt have an Active Cancer Diagnosis on the Problem List?: No Quality: Stroke Does the patient have a stroke diagnosis?: No Physical Exam Vital Signs: Vital Signs: Last Vital Signs Temp 95 F L 02/24/22 13:34 Pulse 97 02/24/22 13:34 Resp 16 02/24/22 11:48 BP 181/92 H 02/24/22 13:34 Pulse Ox 95 02/24/22 11:48 O2 Del Method 02/24/22 13:34 BMI result Body Mass Index 22.6 General: AO X 3, no acute distress Resp: CTA bilateral, no accessory muscles used CVS: S1,S2,RRR GI: soft, non tender, non distended Neuro: motor grossly intact, alert Psych: appropriate affect, appropriate insight DS: Data Data Completed and Pending Completed studies during hospitalization [Text1]: Procedures Excision of Back Skin, External Approach (11/24/20) Insertion of Feeding Device into Stomach, Percutaneous Approach (11/24/20) Repair Diaphragm, Percutaneous Endoscopic Approach (11/09/20) Transfusion of Nonautologous Red Blood Cells into Peripheral Vein, Percutaneous Approach (11/24/20) Labs on day of discharge: Laboratory Results - last 24 hr 02/23/22 02/23/22 02/23/22 16:26 16:53 16:53 WBC 6.1 RBC 3.69 L Hgb 11.1 L Hct 35.1 L MCV 95.1 MCH 30.1 MCHC 31.6 RDW 13.0 Plt Count 210 MPV 10.1 Immature Gran % (Auto) 0.3 Neut % (Auto) 60.4 Lymph % (Auto) 30.7 [place] % (Auto) 6.7 Eos % (Auto) 1.6 Baso % (Auto) 0.3 Lymph # (Auto) 1.9 [place] # (Auto) 0.4 Eos # (Auto) 0.1 Baso # (Auto) 0.0 Abs Immat Gran (auto) 0.02 Absolute Neuts (auto) 3.7 Absolute Nucleated RBC 0.000 Nucleated RBC % (auto) 0.0 Sodium 144 Potassium 4.2 Chloride 111 H Carbon Dioxide 27 Anion Gap 10 L BUN 23 H Creatinine 1.02 Estim Creat Clear Calc 33.9 Estimated GFR 52 Random Glucose 94 Calcium 10.0 D Total Bilirubin 0.3 AST 16 ALT 10 Alkaline Phosphatase 41 D Total Protein 6.3 L D Albumin 3.7 D COVID-19 (JACE) Negative COVID-19 Clin Com See Note 02/24/22 08:59 WBC RBC Hgb Hct MCV MCH MCHC RDW Plt Count MPV Immature Gran % (Auto) Neut % (Auto) Lymph % (Auto) [place] % (Auto) Eos % (Auto) Baso % (Auto) Lymph # (Auto) [place] # (Auto) Eos # (Auto) Baso # (Auto) Abs Immat Gran (auto) Absolute Neuts (auto) Absolute Nucleated RBC Nucleated RBC % (auto) Sodium 143 Potassium 4.3 Chloride 110 H Carbon Dioxide 24 Anion Gap 13 BUN 23 H Creatinine 0.98 Estim Creat Clear Calc 35.3 Estimated GFR 54 Random Glucose 95 Calcium 10.1 Total Bilirubin AST ALT Alkaline Phosphatase Total Protein Albumin COVID-19 (JACE) COVID-19 Clin Com Discharge Plan Discharge Patient Disposition: Xfer SNF Discharge Diagnosis: gtube malfunction, hypertension Referrals: Rhett Moran MD [Primary Care Provider] - 1 Week Discharge Medications: New nifedipine 30 mg Tablet Extended Release 24 Hr 30 mg PO DAILY Qty: 0 0RF Protocol: Hold for SBP< HOLD for SBP < : 90 Continued hydralazine 50 mg tablet 1 tab PO TID famotidine 20 mg Tablet 20 mg PO BID mupirocin 2 % Ointment 1 appl TOPICAL BID Rx Instructions: apply to g-tube site nystatin 100,000 unit/gram Powder 1 appl TOPICAL TID PRN (Reason: Rash) multivitamin with minerals Tablet 1 tab PO DAILY melatonin 5 mg Tablet 5 mg PO BEDTIME PRN (Reason: Sleep) Discharge Orders: Discharge Order (Routine); Ordered 02/24/22 Ordered By: Nirmal Jay Diet: advance to usual diet Activity on Discharge: As tolerated Stand Alone Forms: Patient Portal Discharge page Care Plan Goals: recovery Health Concerns: hypertension Plan of Treatment: add nifedipine, daily blood pressure checks for now Assessment: see above
== END 2022-02-24 20:02 | disposition skilled nursing facility (03) ==
LOC: HO.ED 16:22 → HO.EDOVER 17:28 → HO.S3 17:59
PROVIDERS: Internal Medicine Gastroenterology; Physician Assistant; Admitting Provider Student in an Organized Health Care Education/Training Program; Emergency Provider Emergency Medicine; PCP Internal Medicine; Visit Provider Internal Medicine
PROC: 0DJ08ZZ Inspection of Upper Intestinal Tract, Via Natural or Artificial Opening Endoscopic (ICD-10-PCS; CPT 43235; principal; 2022-02-24 07:30)
DX: K94.23 Gastrostomy malfunction (principal); L89.92 Pressure ulcer of unspecified site, stage 2; R62.7 Adult failure to thrive; E87.0 Hyperosmolality and hypernatremia; E86.0 Dehydration; G93.41 Metabolic encephalopathy; K21.9 Gastro-esophageal reflux disease without esophagitis; I10 Essential (primary) hypertension; D47.2 Monoclonal gammopathy; F03.90 Unspecified dementia, unspecified severity, without behavioral disturbance, psychotic disturbance, mood disturbance, and anxiety; M17.0 Bilateral primary osteoarthritis of knee; J30.81 Allergic rhinitis due to animal (cat) (dog) hair and dander; Z20.822 Contact with and (suspected) exposure to COVID-19; Z68.23 Body mass index [BMI] 23.0-23.9, adult; Z48.815 Encounter for surgical aftercare following surgery on the digestive system; Z79.899 Other long term (current) drug therapy
CPT/HCPCS: 43247; 43246; 36415; 74018; 80048; 80053; 85025; 87635; 96374; 96376; 99285

== ENCOUNTER → 2024-05-02 14:49 | Outpatient (RCR) | payer MEDICARE, SELFPAY ==
[2020-10-21 14:24] LABS: MANUAL DIFF FLAG NO
[2020-10-21 14:31] VITALS: BP 111/63; PULSE 95; RESP 18; TEMP 36.6; O2SAT 98; BMI 21.4
[2020-10-21 14:52] LABS: Basophils Percent Auto 0.2 % (0-2); Hematocrit 32.1 % (37-47); Hemoglobin 10.5 g/dl (12.0-16.0); Imm Gran Abs Auto 0.01 X10*3/uL (0.00-0.03); Imm Gran Pct Auto 0.2 % (0.0-0.4); Lymphocytes Absolute Auto 1.1 X10*3/uL (1.2-4.9); Lymphocytes Percent Auto 24.9 % (20-40); Mean Corpuscular HGB Conc 32.7 g/dl (31.0-35.0); Mean Corpuscular Hemoglobin 32.5 pg (27.0-33.0); Mean Corpuscular Volume 99.4 fL (80-98); Monocytes Absolute Auto 0.2 X10*3/uL (0.1-1.2); Monocytes Percent Auto 4.8 % (2-11); Neutrophils Absolute Auto 3.1 X10*3/uL (2.0-8.3); Neutrophils Percent Auto 69.9 % (45-73); Platelet Count 115 X10*3/uL (160-400); Red Blood Count 3.23 X10*6/uL (4.20-5.50); Red Cell Distribution Width 18.1 % (11.0-16.0); White Blood Count 4.4 X10*3/uL (4.8-10.8)
--- NOTE | 2020-10-21 14:54 | PM.HEMONCPN ---
Medical Summary - Medical Summary Date of Service: 10/21/20 Date of Service: 10/21/20 Chief complaint: Follow-up for: IgG kappa my MGUS. Medical Summary: DIAGNOSIS: IGG KAPPA MONOCLONAL PROTEIN. Interval History Interval history: This is a pleasant 85 year-old lady, here for a follow-up visit. She tells me she is, hanging in there. She had a cortisone shot in her left shoulder. It is still rather painful. She has not been eating too well, over the past 6 months, or so. Initially, she had a sore throat. It was painful, she could not swallow. The sore throat improved however, she has still not able to eat. She is currently undergoing a work up by Dr. Thorpe. She had a cat scan, of the abdomen on , it revealed: She has a large hiatus hernia/thoracic stomach. She had an EGD which revealed: She had balloon dilatation done. Her Omepazole dose was doubled. If that doesn't work, she will need surgical corection. She is scheduled for a Barium Swallow and UGI series, on October 24. Previous History: It has been rough, since her last June. She has been home mostly however she leaves to go out, grabs a bite to eat, she goes to [facility] in [place], and has a picnic there. Her energy level is okay. She is not trying to push herself. She wakes up early 6-7 a.m. She takes a hot bath for about an hour. Sometimes she goes to [employer]. She goes through the drive through. Then she and her friend sit in this separate cars across from each other and chat, sometimes for 3 hours! She has good energy level. No chest pain or trouble breathing. She denies abdominal pain nausea vomiting heartburn indigestion. She is doing well her now however few weeks ago she noted that she had a hard time swallowing. She had actually stopped taking her omeprazole. She has started back on it and the symptoms have subsided. Bowels are working without any gross blood in it. Appetite is okay. She has lost weight. She denies any mental confusion headache no dizziness. She had a CT scan of the chest abdomen pelvis on 09/24 which revealed: Chest: Small left lower lobe pulmonary nodule and left lower lobe linear scarring or subsegmental atelectasis. Coronary artery and aortic valve calcification. Large esophageal hernia or intrathoracic stomach. 1.8 x 2 cm low-attenuation lesion in the mediastinum anterior to the trachea. It is uncertain whether this could represent a cyst, loculated fluid or represents cystic degeneration or necrotic mediastinal lymph node. No other adenopathy seen. Abdomen and pelvis: Stable small low-attenuation liver lesions probably representing cysts. Diverticulosis of the colon. Atherosclerotic disease. She had an upper endoscopy on 10/[address] Thorpe which revealed: IMPRESSION: 1. Distal esophageal stricture, status post balloon dilation. 2. Large hiatal hernia. PLAN: The patient will continue her omeprazole, but I shall give her a new prescription to use it twice a day. The main concern would be the findings on the CAT scan with the thoracic stomach and whether or not today's procedure will help her eat better. If it does not, then I think the next step could be consideration for surgical repair of the thoracic stomach. She was advised not to use any aspirin and NSAIDs long-term. This has been discussed with her son. She will be seen in followup as well. She is in good spirits. Rest of the review of systems is unremarkable. Review of Systems - Constitutional Reports system reviewed and no additional complaints, except as documented, Reports anorexia, Reports lack of energy, Reports malaise, Reports weight loss - Eyes Reports system reviewed and no additional complaints, except as documented - ENT Reports system reviewed and no additional complaints, except as documented - Cardiovascular Reports system reviewed and no additional complaints, except as documented, Denies chest pain at rest - Respiratory Reports no additional respiratory complaints - Gastrointestinal Reports system reviewed and no additional complaints, except as documented, Reports constipation, Reports feeling full early, Reports dyspepsia, Reports heartburn - Genitourinary Reports no additional female genitourinary complaints, Reports abnormal vaginal bleeding - Musculoskeletal Reports system reviewed and no additional complaints, except as documented, Reports back pain - Integumentary/Breasts Skin/Breast: Reports no additional skin complaints - Neurologic Reports system reviewed and no additional complaints, except as documented - Psychiatric Reports system reviewed and no additional complaints, except as documented, Reports anxiety - Endocrine Reports no additional endocrine complaints - Hematologic/Lymphatic Reports system reviewed and no additional complaints, except as documented - Allergic/Immunologic Reports system reviewed and no additional complaints, except as documented [facility] Medical History: Medical History (Last Updated 10/21/20 @ 13:21 by Karina Coughlin RN) GERD (gastroesophageal reflux disease) HTN (hypertension) Lower extremity edema Osteoarthritis of knees, bilateral Skin lesions Functional capacity: wheelchair bound Patient : No Family History: Family History (Last Updated 10/21/20 @ 13:27 by Karina Coughlin RN) Father Mother Surgical History: Surgical History (Last Updated 10/21/20 @ 13:21 by Karina Coughlin RN) History of hysterectomy History of nasal surgery S/P left knee arthroscopy Social History: Social History (Last Reviewed 08/04/20 @ 12:44 by Heike Tompkins PA-C) Advance Directives: Advance Directives Date on File: 10/10/20 Home Medications and Allergies Home Medications Medication Instructions Recorded Confirmed Type hydralazine 25 mg tablet 25 mg PO TID 07/16/20 10/21/20 History omeprazole 20 mg capsule,delayed 20 mg PO BID 07/16/20 10/21/20 History release lisinopril 20 mg PO BID 10/21/20 10/21/20 History Allergies Allergy/AdvReac Type Severity Reaction Status Date / Time cat dander [CAT] Allergy Unknown SNEEZE, Verified 10/10/20 12:11 EYES SWELL UP Exam Vital signs: Vital Signs Temp 97.8 F 10/21/20 14:31 Pulse 95 10/21/20 14:31 Resp 18 10/21/20 14:31 BP 111/63 10/21/20 14:31 Pulse Ox 98 10/21/20 14:31 Intake & Output 10/20/20 10/21/20 10/21/20 18:59 06:59 18:59 Other: Weight 48.1 kg Weight in Grams 11102 Weight 48.1 kg Body Mass Index 21.4 - Constitutional Present: no acute distress - Routine HEENT Exam Head: Present: normal inspection Eye: Present: normal appearance ENT: Present: mucous membranes moist - Routine Neck Exam Present: full ROM - Routine Respiratory Exam Present: CTAB - Routine Cardiovascular Exam Cardiovascular: Present: RRR, S1, S2 - Routine Abdominal Exam Present: soft, nontender - Routine Rectal Exam Patient deferred: digital exam - Routine Extremities Exam Present: nontender - Routine Back/Spine/Pelvis Exam Back/Spine: Present: full ROM - Routine Skin Exam Present: intact - Routine Neurological Exam Present: alert, oriented X3 - Routine Psychiatric Exam Present: normal affect Data - Labs CBC & Chem 7: 10/21/20 14:24 10/21/20 14:24 Progress Note: A/P (1) MGUS (monoclonal gammopathy of unknown significance) Status: Acute Assessment and plan: This is a pleasant 84-year-old lady, with history of hypertension, and DJD. She had been noted to be Anemic. Had an elevated creatinine. She was hypercalcemic ( calcium of 10.5). An SIEP was done back in August. This revealed an IgG kappa monoclonal protein. She most likely has, MGUS. DIFFERENTIAL DIAGNOSIS: 2. MULTIPLE MYELOMA. 3. A LYMPHOMA. 4. AMYLOIDOSIS: Although usually associated with lambda light chains. I reassured her that most likely she has MGUS. Most people who have it remain healthy and stable. Only about 10-12 percent go on to develop a plasma cell dyscrasia. Even if they have myeloma, everyone does not need treatment. l proceeded with further evaluation. Repeat SIEP: IgG 990 IgA 115 IgM 58 IMFIXS INTERP IgG kappa monoclonal band present I proceeded with serum free light chain ratio. FREE KAPPA, SER 78.3 FREE LAMBDA SER 21.3 FREE K/L RATIO 3.68 LDH: 185. l checked beta 2 microglobulin, for prognosis. (4.35.) Her skeletal survey: No lytic process seen on whole body survey. There is no fracture involving the spine or the extremities. There are severe degenerative arthritic changes medial and lateral compartments of both knees, worse in the left knee with valgus deformity noted on the left. In addition, there is a sclerotic density along the distal lateral femoral condyle and proximal tibia of unknown etiology. This could be secondary to old stress fractures or intervention. [id number], she has not been well. Not eating, losing weight. She is currently undergoing an evaluation. SIEP, from today: IgG 743, IgA 104, IgM 52. Faint IgG kappa pattern. PLAN: I will follow up on her GI evaluation. For the MGUS, the plan is to continue to monitor her along. She will return in 6 months for a follow-up visit. She knows to call me in case of any B symptoms or other changes. If her IgG level, continues to go up, will proceed with a bone marrow exam for further evaluation. All her questions were answered to her satisfaction. Thank you, CC: Dr. Dre Moran. Dr. Lechuga. Dr. Thorpe. Code Status FULL CODE - Time Spent With Patient Total time spent is greater than 50% in coordination of care (as documented) at patient's floor/unit and/or counseling patient: 25 - 35 minutes
[2020-10-21 15:14] LABS: Alanine Aminotransferase < 6 U/L (0-31); Albumin Level 3.8 g/dL (3.5-5.0); Alkaline Phosphatase 28 U/L (39-117); Anion Gap 19 (12-20); Aspartate Amino Transferase 14 U/L (5-31); Bilirubin Total 0.7 mg/dL (0.0-1.0); Blood Urea Nitrogen 31 mg/dL (9-16); Calcium 10.3 mg/dL (8.4-10.2); Carbon Dioxide 20 mmol/L (22-29); Chloride 100 mmol/L (96-108); Creatinine Clr Calc Pharmacy 14.1; Estimated Glomerular Filt Rate 23; Glucose Random 89 mg/dL (60-115); Potassium 4.5 mmol/L (3.3-5.1); Sodium 134 mmol/L (135-145); Total Protein 6.1 g/dL (6.5-8.0)
--- NOTE | 2020-10-21 15:46 | MHC.HEMONC ---
Pt here for Hem follow with Dr Mcdowell. Las drawn. Clinical summary updated by nurse. Lab results reviewed by Dr Mcdowell. Provider into see pt. Follow up appointment made.
[2020-10-22 14:46] LABS: IgA 104 mg/dL (70-320); IgG 743 mg/dL (600-1540); IgM 52 mg/dL (50-300)
== END | disposition home or self-care (01) ==
LOC: HO.ONC 10-21 14:05
PROVIDERS: PCP Internal Medicine; Visit Provider Internal Medicine Medical Oncology
DX: D47.2 Monoclonal gammopathy (principal); D64.9 Anemia, unspecified; E83.52 Hypercalcemia
CPT/HCPCS: 36415; 80053; 82784; 85025; 86334; 99214